=== PATIENT | female | born 1945 ===

== ENCOUNTER 2016-12-21 16:12 | Inpatient (IN) | payer MEDICARE, MEDICAID ==
--- NOTE | 2016-12-21 16:38 | ED PDOC ---
HPI: Abdomen Time Seen by Provider: 12/21/16 16:27 Chief Complaint (Nursing): Abdominal Pain Chief Complaint (Provider): Abdominal pain, no bowel movements for 2 days History Per: Patient History/Exam Limitations: no limitations Onset/Duration Of Symptoms: Days (2) Outside of [place] travel?: No Current Symptoms Are (Timing): Still Present Severity: Moderate Location Of Pain/Discomfort: Diffuse Associated Symptoms: Urinary Symptoms. denies: Nausea, Vomiting, Chest Pain Additional History Per: Patient Additional Complaint(s): The pt is a 71yo female with PMHx of Asthma, DMII, dementia, HTN, COPD, is brought to the ED by EMS for evaluation of abdominal pain due to lack of bowel movements for the past two days. Pt reports she visited her doctor and was advised to drink water to help with her urinary symptoms but pt reports no relief. She denies nausea, vomiting, headache and chest pain. Additionally, pt reports pain in her left hip - states she fell but is unsure if pain is caused by the fall. No urination for 2 days. Of note, pt was recently admitted to [facility] for PNA, UTI, dysuria hesitancy and her urine culture indicated the presence of Klebsiella penumoniae. Pt was discharged with Rx Cippro. Of note, pt is currently on a fentanyl patch. Abnormal Vaginal Bleeding: No Past Medical History Vital Signs: Last Vital Signs Temp 98.4 F 12/21/16 16:20 Pulse 82 12/21/16 16:20 Resp 20 12/21/16 16:20 BP 121/50 L 12/21/16 16:20 Pulse Ox 100 12/21/16 17:23 - Medical History PMH: Anxiety, Arthritis, Asthma, Back Problems, Bronchitis, COPD, Dementia ( Self reports forgetfulness), Depression, Diabetes, Emphysema, HTN, Hypercholesterolemia Denies: Alzheimer's Disease, Atrial Fibrillation, Bipolar Disorder, Cardia Arrhythmia, CHF, Crohn's Disease, HIV, Hyperthyroidism, Hypothyroidism, Migraine , Mitral Valve Prolapse, Multiple Sclerosis, Parkinson's Disease, Peripheral Edema, Pneumonia, Pulmonary Embolism, Chronic Kidney Disease, Seizures, Sleep Apnea, TIA - Surgical History Surgical History: Appendectomy, Cholecystectomy Denies: Pacemaker - Family History Family History: States: Unknown Family Hx - Immunization History Hx Tetanus Toxoid Vaccination: No Hx Influenza Vaccination: Yes Hx Pneumococcal Vaccination: No - Home Medications Home Medications: Ambulatory Orders Medication Instructions Recorded Furosemide 40 mg PO DAILY 02/03/14 Ipratropium/Albuterol Sulfate 3 ml IH Q4 02/03/14 [Duoneb 0.5 mg-3 mg/3 ml Soln] Simvastatin 20 mg PO HS 02/03/14 Xanax 0.5 mg PO TID 02/21/14 Plavix 75 mg PO DAILY 06/05/14 oxyCODONE 30 mg PO Q6H PRN 06/05/14 Theophylline 200 mg PO BID 07/24/15 Insulin Detemir [Levemir] 35 unit SC HS #0 unit 07/30/15 Montelukast [Singulair] 10 mg PO HS #0 tab 07/30/15 fentaNYL 50 mcg/hr [Duragesic 1 patch TD Q72H #0 patch 12/27/15 Patch 50 mcg/hr] Budesonide/Formoterol Fumarate 1 aer IH BID 12/11/16 [Symbicort] Famotidine [Pepcid] 20 mg PO BID 12/11/16 Gabapentin 300 mg PO TID 12/11/16 Insulin Aspart, Recombinant 14 unit SC AC 12/11/16 [Novolog] Linagliptin [Tradjenta] 5 mg PO DAILY 12/11/16 PARoxetine [Paxil CR] 12.5 mg PO DAILY 12/11/16 Tiotropium [place] [Spiriva] 18 mcg IH DAILY 12/11/16 Valsartan/Hydrochlorothiazide 1 tab PO DAILY 12/11/16 [Valsartan and Hydrochlorothiazide 12.5 mg-80 ] - Allergies Allergies/Adverse Reactions: Allergies Allergy/AdvReac Type Severity Reaction Status Date / Time FISH Allergy ITCHING Verified 12/21/16 17:32 iodine Allergy ITCHING Verified 12/21/16 17:32 Review of Systems ROS Statement: Except As Marked, All Systems Reviewed And Found Negative Constitutional: Negative for: Fever Cardiovascular: Negative for: Chest Pain Gastrointestinal: Positive for: Abdominal Pain, Other (no bowel movement for 2 days). Negative for: Nausea, Vomiting Neurological: Negative for: Headache Physical Exam - Reviewed Nursing Documentation Reviewed: Yes Vital Signs Reviewed: Yes - Physical Exam Appears: Positive for: Well, Non-toxic, Uncomfortable Head Exam: Positive for: ATRAUMATIC Skin: Positive for: Normal Color Eye Exam: Positive for: Normal appearance ENT: Positive for: Normal ENT Inspection Neck: Positive for: Normal, Supple Cardiovascular/Chest: Positive for: Regular Rate, Rhythm Respiratory: Positive for: Normal Breath Sounds. Negative for: Respiratory Distress Gastrointestinal/Abdominal: Positive for: Soft, Tenderness (diffuse abdominal tenderness, left hip tenderness), Distended (mild) Back: Positive for: Normal Inspection. Negative for: L CVA Tenderness, R CVA Tenderness Extremity: Positive for: Tenderness (L hip), Other (3/5 motor strength to b/l lower extremities). Negative for: Pedal Edema, Deformity, Swelling Neurologic/Psych: Positive for: Alert, rater associate II-XII (intact). Negative for: Motor /Sensory Deficits - Laboratory Results Result Diagrams: 12/21/16 17:10 12/21/16 17:10 - ECG O2 Sat by Pulse Oximetry: 100 Pulse Ox Interpretation: Normal - Progress ED Course And Treament: 1905: Labs significantly abnormal and could be poor sample as pt. is a hard stick. Will repeat. Dr. Beck to fu on labs, imaging. Medical Decision Making Medical Decision Making: Time: 1635 Impression: 71yo female with urinary and fecal retention for 2 days Plan: -- CMP -- Lipase -- CT AP -- OIV FLuids -- XR Left Hip -- XR Left Femur -- Urinalysis -- Blood culture -- Urine culture --Reassess Scribe Attestation: Documented by Suzette Mills acting as a scribe for Brendon Sepulveda MD Provider Scribe Attestation: All medical record entries made by the Scribe were at my direction and personally dictated by me. I have reviewed the chart and agree that the record accurately reflects my personal performance of the history, physical exam, medical decision making, and the department course for this patient. I have also personally directed, reviewed, and agree with the discharge instructions and disposition. Disposition - Clinical Impression Clinical Impression: Abdominal pain - Patient ED Disposition Is Patient to be Admitted: Transfer of Care - Disposition Disposition: Transfer of Care Disposition Time: 19:08 Condition: STABLE Patient Signed Over To: Kaleb Beck
[2016-12-21] MEDS ORDERED: Sodium Chloride 0.9% 500 ML IV STA (16:39)
[2016-12-21] MEDS ORDERED: Iohexol 240 (50 ml) PO ONE (16:42)
[2016-12-21 17:24] LABS: BASO % 0.3 % (0.0-2.0); EOS # 0.3 K/uL (0.0-0.7); EOS % 1.8 % (0.0-4.0); HEMATOCRIT 38.9 % (34.0-47.0); LYMPH # 2.4 K/uL (1.0-4.3); LYMPH % 14.2 % (20.0-40.0); MEAN CELL VOLUME 92.7 fl (81.0-99.0); MEAN CORPUSCULAR HEMOGLOBIN 29.1 pg (27.0-31.0); MEAN CORPUSCULAR HGB CONC 31.4 g/dL (33.0-37.0); MONO % 11.9 % (0.0-10.0); NEUT # 12.1 K/uL (1.8-7.0); NEUT % 71.8 % (50.0-75.0); NRBC % 0.1 % (0.0-0.0); RED CELL DISTRIBUTION WIDTH 12.8 % (11.5-14.5); WHITE BLOOD COUNT 16.9 K/uL (4.8-10.8)
[2016-12-21 17:30] LABS: ALB/GLOB RATIO 1.1 (1.0-2.1); BILIRUBIN,TOTAL 1.1 mg/dl (0.2-1.3); CALCIUM 8.6 mg/dL (8.4-10.2); POTASSIUM 5.8 MMOL/L (3.6-5.0); TOTAL PROTEIN 7.3 G/DL (6.3-8.2)
[2016-12-21 17:40] LABS: RBC URINE 2 /hpf (0-3); URINE BACTERIA RARE (<OCC); URINE BILIRUBIN NEGATIVE (NEGATIVE); URINE BLOOD NEGATIVE (NEGATIVE); URINE COLOR AMBER (YELLOW); URINE GLUCOSE (UA) NEG (Normal); URINE KETONE NEGATIVE (NEGATIVE); URINE LEUKOCYTE ESTERASE NEG Leu/uL (Negative); URINE PROTEIN 30 mg/dL (NEGATIVE); URINE UROBILINOGEN 0.2-1.0 mg/dL (0.2-1.0); WBC URINE 5 /hpf (0-5)
--- NOTE | 2016-12-21 19:15 | ED PDOC ---
- Laboratory Results Result Diagrams: 12/22/16 05:00 12/22/16 04:20 - ECG O2 Sat by Pulse Oximetry: 100 - Critical Care Total Time (In Min): 30 Medical Decision Making Medical Decision Making: Receiving Sign Out: Pt signed over to my by Dr. Sepulveda pending repeat labs, imaging and admission. 2230: CT A/P impression: 1. Diverticulosis without CT evidence of diverticulitis. 2. Mild gastric wall thickening vs underdistention. Clinical correlation is needed. 3. Apparent prominence of common bile duct. Suggest ultrasound. 4. Incidental/non-acute findings are described above. 2314: Informed patient and family and reviewed previous charts. Patient has hx of COPD, HTN, diabetes, obesity and here with abdominal pain noted to be in acute renal failure. BUN and creatinine 102/8.7 compared to on 12/16/2016 it was 22/0.5 and this is acute change. Armas in place and needs renal workup. Neymar Khan requests Dr. Moss be aware. Dr. Jones is covering for Dr. Moss and will see patient in AM (spoke to her) No further recommendations at this time. Patient admitted to the ICU under Neymar Khan. vRad readings: 2325: XR left hip impression: 1. No fracture. 2. If hip pain persists, consider MRI to exclude occult fracture/internal derangement. 3. Incidental/non-acute findings are described above. XR left femur impression: 1. No fracture. 2. Incidental/non-acute findings are described above. CXR impression: 1. Mild cardiomegaly. 2. Questionable pulmonary nodule. Suggest CT followup. 3. Incidental/non-acute findings are described above. DX acute renal failure Scribe Attestation: Documented by Suzette Mills acting as a scribe for Kaleb Beck MD. Provider Attestation: All medical record entries made by the Scribe were at my direction and personally dictated by me. I have reviewed the chart and agree that the record accurately reflects my personal performance of the history, physical exam, medical decision making, and the department course for this patient. I have also personally directed, reviewed, and agree with the discharge instructions and disposition. Disposition - Clinical Impression Clinical Impression: Acute renal failure - POA Present On Arrival: None - Disposition Disposition: Admitted as In-Patient Disposition Time: :00 Condition: STABLE Progress Note - Review of Symptoms Events since last encounter: 2229 CT AP IMPRESSION: 1. Diverticulosis without CT evidence of diverticulitis. 2. Mild gastric wall thickening vs underdistention. Clinical correlation is needed. 3. Apparent prominence of common bile duct. Suggest ultrasound. 4. Incidental/non-acute findings are described above.
[2016-12-21 19:20] LABS: BASO # 0.1 K/uL (0.0-0.2); BASO % 0.6 % (0.0-2.0); EOS # 0.3 K/uL (0.0-0.7); EOS % 1.6 % (0.0-4.0); HEMATOCRIT 35.9 % (34.0-47.0); LYMPH # 2.1 K/uL (1.0-4.3); LYMPH % 12.5 % (20.0-40.0); MEAN CELL VOLUME 91.9 fl (81.0-99.0); MEAN CORPUSCULAR HEMOGLOBIN 29.4 pg (27.0-31.0); MEAN PLATELET VOLUME 8.1 fl (7.2-11.7); MONO # 1.9 K/uL (0.0-0.8); MONO % 11.2 % (0.0-10.0); NEUT # 12.5 K/uL (1.8-7.0); NEUT % 74.1 % (50.0-75.0); RED CELL DISTRIBUTION WIDTH 12.7 % (11.5-14.5); WHITE BLOOD COUNT 16.9 K/uL (4.8-10.8)
[2016-12-21] MEDS ORDERED: Iohexol 240 (50 ml) ONE (19:20)
[2016-12-21 19:31] LABS: ALB/GLOB RATIO 1.1 (1.0-2.1); BILIRUBIN,TOTAL 0.9 mg/dl (0.2-1.3); CALCIUM 8.5 mg/dL (8.4-10.2); POTASSIUM 5.1 MMOL/L (3.6-5.0); TOTAL PROTEIN 6.7 G/DL (6.3-8.2)
[2016-12-21 19:57] LABS: PARTIAL THROMBOPLASTIN TIME 28.8 SECONDS (23.3-32.5)
--- NOTE | 2016-12-21 22:30 | CT ---
EXAM: CT Abdomen and Pelvis With Intravenous Contrast CLINICAL HISTORY: 71 years old, female; Pain; Abdominal pain; Generalized TECHNIQUE: Axial computed tomography images of the abdomen and pelvis with intravenous contrast. This CT exam was performed using one or more of the following dose reduction techniques: automated exposure control, adjustment of the mA and/or kV according to patient size, and/or use of iterative reconstruction technique. Coronal and sagittal reformatted images were created and reviewed. CONTRAST: 0 mL of ORAL OMNI administered intravenously. COMPARISON: No relevant prior studies available. FINDINGS: Limitations: Lack of intravenous contrast. Lower thorax: Mild peripheral atelectasis/scarring. RIGHT lower lobe calcified granuloma. ABDOMEN: Liver: Fatty infiltration. Small hepatic calcification. Gallbladder and bile ducts: Gallbladder not visualized. Apparent prominence of common bile duct. Pancreas: No ductal dilation. No mass. Spleen: No splenomegaly. Adrenals: No mass. Kidneys and ureters: Mild stranding about kidneys, nonspecific. No renal calculi. Small RIGHT renal angiomyolipoma. No hydronephrosis. Stomach and bowel: Scattered diverticula within colon. No associated inflammatory stranding. Mild mural thickening versus underdistention of gastric antrum. No obstruction. Appendix: No findings to suggest acute appendicitis. PELVIS: Bladder: Collapsed bladder with Armas catheter. Reproductive: Hysterectomy. ABDOMEN and PELVIS: Intraperitoneal space: No significant fluid collection. No free air. Bones/joints: Postsurgical changes of lumbar spine. No acute fracture. Soft tissues: Unremarkable. Vasculature: Mild atherosclerotic disease. No abdominal aortic aneurysm. Lymph nodes: No pathologically enlarged lymph nodes. IMPRESSION: 1. Diverticulosis without CT evidence of diverticulitis. 2. Mild gastric wall thickening vs underdistention. Clinical correlation is needed. 3. Apparent prominence of common bile duct. Suggest ultrasound. 4. Incidental/non-acute findings are described above.
--- NOTE | 2016-12-21 23:26 | RAD ---
EXAM: XR Left Femur, 2 Views CLINICAL HISTORY: 71 years old, female; Pain; Thigh; Left TECHNIQUE: Frontal and lateral views of the left femur. COMPARISON: No relevant prior studies available. FINDINGS: Bones/joints: No acute fracture. Degenerative changes of knee joint. No dislocation. Soft tissues: Unremarkable. IMPRESSION: 1. No fracture. 2. Incidental/non-acute findings are described above.
--- NOTE | 2016-12-21 23:26 | RAD ---
EXAM: XR Left Hip With Pelvis When Performed, 2 or 3 Views CLINICAL HISTORY: 71 years old, female; Pain; Hip pain; Left hip TECHNIQUE: Two or three views of the left hip, with pelvis when performed. COMPARISON: No relevant prior studies available. FINDINGS: Limitations: Suboptimal evaluation of femoral neck due to external rotation of hip. Bones/joints: No acute fracture. No dislocation. Postsurgical changes of lumbar spine. Soft tissues: Unremarkable. IMPRESSION: 1. No fracture. 2. If hip pain persists, consider MRI to exclude occult fracture/internal derangement. 3. Incidental/non-acute findings are described above.
--- NOTE | 2016-12-21 23:30 | RAD ---
EXAM: XR Chest, 1 View CLINICAL HISTORY: 71 years old, female; Pain; Other: Abd pain; Additional info: Eval abd pain TECHNIQUE: Frontal view of the chest. COMPARISON: CR - ABDOMEN SERIES WITH PA CHEST 04/12/2008 5:26:39 PM FINDINGS: Limitations: Radiographic technique - mild. Lungs: Mild underinflation. No consolidation. Possible LEFT basilar calcified granuloma. Questionable subcentimeter peripheral LEFT upper lobe nodule versus confluence. Pleural space: No definite pleural effusion. No pneumothorax. Heart: Apparent mild cardiomegaly. Mediastinum: Unremarkable. Bones/joints: Postsurgical changes of cervical spine. No acute fracture. Tubes, lines and devices: Central venous catheter with tip projected over SVC. IMPRESSION: 1. Mild cardiomegaly. 2. Questionable pulmonary nodule. Suggest CT followup. 3. Incidental/non-acute findings are described above.
[2016-12-21] MEDS ORDERED: Sodium Chloride 0.9% 1,000 ML IV STA (23:37)
--- NOTE | 2016-12-21 23:53 | CP.PCM.CON ---
History of Present Illness - History of Present Illness History of Present Illness: Attending: Luca Hurst MD Reason for Consult: Critical care management Chief Complaint: Back pain/ Abdominal pain/ No urination HPI: The hx is obtained from the patient and the Medical records. She is a 71 years old female with hx of Asthma, COPD with Emphysema, DM II, Chronic back pain and CYNDI who was admitted at the [facility] on 12/11/16 diagnosis of klebsiella pneumoniae UTI and discharged on the 12/16/16 with Ciprofloxacin. She now comes with 2 days of Abdominal and back pain of poor description associated with Constipation, no urination. Of note she suffers with urinary incontinence. No fever, dysuria, nausea ,vomits, Chest pain. She does refer pain at the left hip after fall. PMH: Anxiety, Depression; Arthritis; Asthma, COPD with Emphysema; Chronic Back Pain; Dementia (Self reports forgetfulness), DM II; HTN; HLD; CYNDI; TIA; GERD; incontinence using diapers PSH: appendectomy; Cholecystectomy; Back surgery; Surgery to both eyes SH: Former smoker 2PPD x30 years Quit 5 years ago; No ETOH: No illegal drug use ; Live with daughter; walks with walker FH: Mother, father and brother cancers Allergies: Iodine, Fish Review of Systems - Review of Systems Systems not reviewed;Unavailable: Dementia Review of Systems: Review of systems is limited because of her dementia. - Constitutional Constitutional: absent: Headache - EENT Eyes: Requires Corrective Lenses Ears: absent: Ear Discharge, Ear Pain Nose/Mouth/Throat: absent: Epistaxis, Nasal Congestion, Nasal Discharge - Cardiovascular Cardiovascular: absent: Chest Pain, Edema - Respiratory Respiratory: absent: Cough, Wheezing, Stridor - Gastrointestinal Gastrointestinal: Abdominal Pain. absent: Diarrhea, Nausea, Vomiting - Genitourinary Genitourinary: Urinary Incontinence, Freq UTI Additional comments: Urinary retention - Musculoskeletal Musculoskeletal: Back Pain - Integumentary Integumentary: absent: Pruritus, Rash, Skin Ulcer, Sores - Neurological Neurological: absent: Confusion, Focal Weakness, Headaches - Psychiatric Psychiatric: Anxiety, Depression - Endocrine Endocrine: absent: Palpitations - Hematologic/Lymphatic Hematologic: absent: Easy Bleeding Past Patient History - Infectious Disease Hx of Infectious Diseases: None - Tetanus Immunizations Tetanus Immunization: Unknown - Past Medical History & Family History Past Medical History?: Yes - Past Social History Smoking Status: Former Smoker Chewing Tobacco Use: No Cigar Use: No Alcohol: None Drugs: Denies Home Situation {Lives}: With Family - CARDIAC Hx Atrial Fibrillation: No Hx Cardia Arrhythmia: No Hx Congestive Heart Failure: No Hx Hypercholesterolemia: Yes Hx Hypertension: Yes Hx Mitral Valve Prolapse: No Hx Pacemaker: No Hx Peripheral Edema: No - PULMONARY Hx Asthma: Yes Hx Bronchitis: Yes Hx Chronic Obstructive Pulmonary Disease (COPD): Yes Hx Emphysema: Yes Hx Pneumonia: No Hx Pulmonary Embolism: No Hx Sleep Apnea: No - NEUROLOGICAL Hx Alzheimer's Disease: No Hx Dementia: Yes (Self reports forgetfulness) Hx Migraine: No Hx Multiple Sclerosis: No Hx Parkinson's Disease: No Hx Seizures: No Hx Transient Ischemic Attacks (TIA): No - HEENT Hx HEENT Problems: No Hx Blind: No Hx Cataracts: Yes (Had surgery both eyes) Hx Deafness: No Hx Glaucoma: No Hx Macular Degeneration: No - RENAL Hx Chronic Kidney Disease: No - ENDOCRINE/METABOLIC Hx Hyperthyroidism: No Hx Hypothyroidism: No - HEMATOLOGICAL/ONCOLOGICAL Hx Blood Disorders: No Hx Human Immunodeficiency Virus (HIV): No - INTEGUMENTARY Hx Dermatological Problems: No - MUSCULOSKELETAL/RHEUMATOLOGICAL Hx Arthritis: Yes - GASTROINTESTINAL Hx Crohn's Disease: No - GENITOURINARY/GYNECOLOGICAL Hx Genitourinary Disorders: No Hx Bladder Cancer: No Hx Bladder Stone: No Hx Cervical Cancer: No Hx Incontinence: Yes (uses diapers at home for incontinence at times) Hx Ovarian Cancer: No Hx Uterine Cancer: No - PSYCHIATRIC Hx Anxiety: Yes Hx Bipolar Disorder: No Hx Depression: Yes - SURGICAL HISTORY Hx Appendectomy: Yes Hx Cholecystectomy: Yes Other/Comment: Back surgery - ANESTHESIA Hx Anesthesia: Yes Hx Anesthesia Reactions: No Hx Malignant Hyperthermia: No Meds Allergies/Adverse Reactions: Allergies Allergy/AdvReac Type Severity Reaction Status Date / Time FISH Allergy ITCHING Verified 12/21/16 17:32 iodine Allergy ITCHING Verified 12/21/16 17:32 - Medications Medications: Current Medications Albuterol/Ipratropium (Duoneb 3 Mg/0.5 Mg (3 Ml) Ud) 3 ml IH Q4 [facility] Famotidine (Pepcid) 20 mg PO BID [facility] Fentanyl (Duragesic) 1 patch TD Q72H [facility] PRN Reason: Protocol Gabapentin (Neurontin) 300 mg PO TID [facility] Home Med (Budesonide/Formoterol Fumarate [Symbicort 160-4.5 Mcg Inhaler]) 1 aer IH BID [facility] (Insulin Aspart, Recombinant [Novolog]) 14 unit SC AC [facility] (Insulin Detemir [Levemir]) 35 unit SC HS [facility] (Linagliptin [Tradjenta]) 5 mg PO DAILY [facility] (Paroxetine [Paxil Cr]) 12.5 mg PO DAILY [facility] (Plavix) 75 mg PO DAILY [facility] (Simvastatin [Simvastatin]) 20 mg PO HS [facility] (Theophylline) 200 mg PO BID [facility] (Tiotropium [place] [Spiriva]) 18 mcg IH DAILY [facility] (Xanax) 0.5 mg PO TID [facility] Sodium Chloride (Sodium Chloride 0.9%) 1,000 mls @ 150 mls/hr IV .Q6H40M STA Stop: 12/22/16 06:16 Montelukast Sodium (Singulair) 10 mg PO HS [facility] Physical Exam - Constitutional Appears: No Acute Distress - Head Exam Head Exam: ATRAUMATIC, NORMAL INSPECTION, NORMOCEPHALIC - Eye Exam Eye Exam: EOMI, Normal appearance Pupil Exam: NORMAL ACCOMODATION, PERRL - ENT Exam ENT Exam: Mucous Membranes Dry, Normal External Ear Exam, Normal Oropharynx - Neck Exam Neck exam: Positive for: Full Rom, Normal Inspection. Negative for: Lymphadenopathy, Tenderness - Respiratory Exam Respiratory Exam: Clear to Auscultation Bilateral. absent: Rales, Rhonchi, Wheezes Additional comments: Right upper chest wall Portacath in place, accessed in ED. - Cardiovascular Exam Cardiovascular Exam: REGULAR RHYTHM, RRR, +S1, +S2. absent: Gallop - GI/Abdominal Exam GI & Abdominal Exam: absent: Mass, Organomegaly Additional comments: Obese, Soft, nontender, +ve bowel sounds. - Rectal Exam Rectal Exam: Deferred - Extremities Exam Extremities exam: Positive for: full ROM, normal inspection - Back Exam Back exam: NORMAL INSPECTION. absent: CVA tenderness (L), CVA tenderness (R) - Neurological Exam Neurological exam: Alert, CN II-XII Intact, Oriented x3, Reflexes Normal - Psychiatric Exam Psychiatric exam: Normal Affect, Normal Mood - Skin Skin Exam: Dry, Intact, Normal Color, Warm Results - Vital Signs Recent Vital Signs: Last Vital Signs Temp 98.2 F 12/21/16 23:20 Pulse 113 H 12/21/16 23:25 Resp 16 12/21/16 23:25 BP 108/49 L 12/21/16 23:25 Pulse Ox 100 12/21/16 23:41 - Labs Result Diagrams: 12/21/16 19:10 12/21/16 19:10 Labs: Laboratory Results - last 24 hr 12/21/16 12/21/16 12/21/16 17:10 17:30 19:10 WBC 16.9 H 16.9 H RBC 4.20 3.91 Hgb 12.2 11.5 L Hct 38.9 35.9 MCV 92.7 91.9 MCH 29.1 29.4 MCHC 31.4 L 32.0 L RDW 12.8 12.7 Plt Count 290 303 MPV 8.0 8.1 Neut % (Auto) 71.8 74.1 Lymph % (Auto) 14.2 L 12.5 L [place] % (Auto) 11.9 H 11.2 H Eos % (Auto) 1.8 1.6 Baso % (Auto) 0.3 0.6 Neut # 12.1 H 12.5 H Lymph # 2.4 2.1 [place] # 2.0 H 1.9 H Eos # 0.3 0.3 Baso # 0.0 0.1 PT 10.5 INR 1.01 APTT 28.8 Sodium 127 L 125 L Potassium 5.8 H 5.1 H Chloride 78 L 79 L Carbon Dioxide 27 28 Anion Gap 28 H 23 H BUN 106 H* 102 H* Creatinine 8.4 H* 8.7 H* Est GFR ( Amer) 6 5 Est GFR (Non-Af Amer) 5 4 Random Glucose 80 99 Calcium 8.6 8.5 Total Bilirubin 1.1 0.9 AST 31 33 ALT 36 37 Alkaline Phosphatase 103 103 Total Protein 7.3 6.7 Albumin 3.7 3.4 L Globulin 3.6 3.2 Albumin/Globulin Ratio 1.1 1.1 Lipase 63 Urine Color [place] Urine Clarity Cloudy Urine pH 5.0 Ur Specific [place] 1.013 Urine Protein 30 Urine Glucose (UA) Neg Urine Ketones Negative Urine Blood Negative Urine Nitrate Negative Urine Bilirubin Negative Urine Urobilinogen 0.2-1.0 Ur Leukocyte Esterase Neg Urine RBC (Auto) 2 Urine Microscopic WBC 5 Ur Squamous Epith Cells 1 Urine Bacteria Rare Hyaline Casts 6-10 H - EKG Data EKG comments: NSR at 76/min - Imaging and Cardiology CT scan - abdomen Status: Report reviewed by me Additional comment: CT A/P impression: 1. Diverticulosis without CT evidence of diverticulitis. 2. Mild gastric wall thickening vs underdistention. Clinical correlation is needed. 3. Apparent prominence of common bile duct. Suggest ultrasound. Chest x-ray Status: Report reviewed by me Additional comment: Mild Cardiomegaly Questionable pulmonary Nodule. Left Hip& Pelvis X Ray Status: Report reviewed by me Additional comment: No Fracture Left Femur Status: Report reviewed by me Additional comment: No fracture Assessment & Plan - Assessment and Plan (Free Text) Assessment: #. Acute Renal failure #. Acute urinary Retention #. Chronic Back pain #. Hyponatremia #. Leukocytosis #. Hyperkalemia #. DM II #. COPD with Emphysema #. CYNDI #. Depression and Anxiety disorder # Dementia Plan: 71 years old female with hx of Asthma, COPD with Emphysema, DM II, Chronic back pain and CYNDI who was admitted at the [facility] on 12/11/16 diagnosis of klebsiella pneumoniae UTI and discharged on the 12/16/16 with Ciprofloxacin. Comes with 2 days of Abdominal and back pain of poor description associated with Constipation, anuria. She does refer pain at the left hip after fall. #. Acute Renal failure Probably renal and Pre renal secondary to Cipro and poor fluid intake, And patient on Lasix. There was no use of X Ray dyes at the most recent admission - Admit to ICU - Consult Dr Moss Nephrology -beck catheter inserted in ED - I&O continuously - 500mls NS given at ED followed by 150mls/hr - Blood pressure fell to SBP 60mmHG. 2L of NS ordered and with Patient in [place] SBP increased to 88mmhg. The Levophed ordered was placed on hold #. Chronic Back pain - Continue Fentanyl patch #. Traumatic left hip pain - Pain management - and when appropriate Physical Therapy #. Hyponatremia Probably from drinking of hypotonic fluids - continue Normal Saline - Follow electrolytes #. Leukocytosis reactive - follow Blood and urine culture - follow WBC #. Hyperkalemia caused by the renal failure - Follow Renal labs #. DM II - HbA1c 7.6 on 12/11/16 - Diabetic diet - Accucheck with regular insulin sciding scale - Januvia/Levemir #. Asthma/COPD with Emphysema - Singulair/Advair/ Theophyllin/ Duoneb/ #. CYNDI - Will need CPAP for Sleep #. Depression and Anxiety disorder - Paroxetine #. DVT Prophylaxis with Heparin /SCD #.Code Status : Full - Date & Time Date: 12/21/16 Time: 23:53
[2016-12-22 01:58] VITALS: BMI 49.4
[2016-12-22] MEDS ORDERED: Sodium Chloride 0.9% 1,000 ML IV SCH ×2 (02:00→03:00)
[2016-12-22 05:55] LABS: BASO # 0.1 K/uL (0.0-0.2); BASO % 0.6 % (0.0-2.0); EOS # 0.3 K/uL (0.0-0.7); EOS % 2.2 % (0.0-4.0); HEMATOCRIT 31.5 % (34.0-47.0); LYMPH # 1.8 K/uL (1.0-4.3); MEAN CELL VOLUME 92.5 fl (81.0-99.0); MEAN CORPUSCULAR HEMOGLOBIN 28.9 pg (27.0-31.0); MEAN CORPUSCULAR HGB CONC 31.2 g/dL (33.0-37.0); MEAN PLATELET VOLUME 8.1 fl (7.2-11.7); MONO # 1.6 K/uL (0.0-0.8); MONO % 12.6 % (0.0-10.0); NEUT # 8.6 K/uL (1.8-7.0); NEUT % 69.6 % (50.0-75.0); RED CELL DISTRIBUTION WIDTH 12.3 % (11.5-14.5); WHITE BLOOD COUNT 12.3 K/uL (4.8-10.8)
[2016-12-22 06:09] LABS: BILIRUBIN,TOTAL 1.1 mg/dl (0.2-1.3); CALCIUM 6.8 mg/dL (8.4-10.2); TOTAL PROTEIN 5.4 G/DL (6.3-8.2)
[2016-12-22] MEDS: Insulin Lispro (humaLOG) 100 Units/ml Inj SC SCH ×3 (06:32→18:18)
--- NOTE | 2016-12-22 07:19 | CP.PCM.HP ---
History of Present Illness - History of Present Illness History of Present Illness: pt admitted for icu for arf and copd exacerbation. pt was placed on levophed overnight for hypotension at present is w/o distress. c/o chronic back pain. pt has been using ibuprofen tid for pain. pt is curtis cruz. seen at bedside w icu attending. last bw from 11/18/16 bun-8 cr 0.5 pt has extensive med hx. no pain/distress except chronic pain at this time. no f/c, nv//d.mild cough. imaing reviewed. Present on Admission - Present on Admission Any Indicators Present on Admission: Yes History of Uncontrolled Diabetes: Yes Review of Systems - Respiratory Respiratory: As Per HPI, Cough, Chest Congestion Past Patient History - Infectious Disease Hx of Infectious Diseases: None - Tetanus Immunizations Tetanus Immunization: Unknown - Past Medical History & Family History Past Medical History?: Yes - Past Social History Smoking Status: Former Smoker Chewing Tobacco Use: No Cigar Use: No Alcohol: None Drugs: Denies Home Situation {Lives}: With Family - CARDIAC Hx Atrial Fibrillation: No Hx Cardia Arrhythmia: No Hx Congestive Heart Failure: No Hx Hypercholesterolemia: Yes Hx Hypertension: Yes Hx Mitral Valve Prolapse: No Hx Pacemaker: No Hx Peripheral Edema: No - PULMONARY Hx Asthma: Yes Hx Bronchitis: Yes Hx Chronic Obstructive Pulmonary Disease (COPD): Yes Hx Emphysema: Yes Hx Pneumonia: No Hx Pulmonary Embolism: No Hx Sleep Apnea: No - NEUROLOGICAL Hx Alzheimer's Disease: No Hx Dementia: Yes (Self reports forgetfulness) Hx Migraine: No Hx Multiple Sclerosis: No Hx Parkinson's Disease: No Hx Seizures: No Hx Transient Ischemic Attacks (TIA): No - HEENT Hx HEENT Problems: No Hx Blind: No Hx Cataracts: Yes (Had surgery both eyes) Hx Deafness: No Hx Glaucoma: No Hx Macular Degeneration: No - RENAL Hx Chronic Kidney Disease: No - ENDOCRINE/METABOLIC Hx Hyperthyroidism: No Hx Hypothyroidism: No - HEMATOLOGICAL/ONCOLOGICAL Hx Blood Disorders: No Hx Human Immunodeficiency Virus (HIV): No - INTEGUMENTARY Hx Dermatological Problems: No - MUSCULOSKELETAL/RHEUMATOLOGICAL Hx Arthritis: Yes - GASTROINTESTINAL Hx Crohn's Disease: No - GENITOURINARY/GYNECOLOGICAL Hx Genitourinary Disorders: No Hx Bladder Cancer: No Hx Bladder Stone: No Hx Cervical Cancer: No Hx Incontinence: Yes (uses diapers at home for incontinence at times) Hx Ovarian Cancer: No Hx Uterine Cancer: No - PSYCHIATRIC Hx Anxiety: Yes Hx Bipolar Disorder: No Hx Depression: Yes - SURGICAL HISTORY Hx Appendectomy: Yes Hx Cholecystectomy: Yes Other/Comment: Back surgery - ANESTHESIA Hx Anesthesia: Yes Hx Anesthesia Reactions: No Hx Malignant Hyperthermia: No Meds Allergies/Adverse Reactions: Allergies Allergy/AdvReac Type Severity Reaction Status Date / Time FISH Allergy ITCHING Verified 12/21/16 17:32 iodine Allergy ITCHING Verified 12/21/16 17:32 Physical Exam - Constitutional Appears: Well, Non-toxic, No Acute Distress - Head Exam Head Exam: ATRAUMATIC, NORMAL INSPECTION, NORMOCEPHALIC - Eye Exam Eye Exam: EOMI, Normal appearance, PERRL Pupil Exam: NORMAL ACCOMODATION, PERRL - ENT Exam ENT Exam: Mucous Membranes Moist, Normal Exam - Neck Exam Neck exam: Positive for: Normal Inspection - Respiratory Exam Respiratory Exam: Wheezes, NORMAL BREATHING PATTERN - Cardiovascular Exam Cardiovascular Exam: REGULAR RHYTHM, RRR, +S1, +S2 - GI/Abdominal Exam GI & Abdominal Exam: Normal Bowel Sounds, Soft. absent: Tenderness - Extremities Exam Extremities exam: Positive for: full ROM, normal capillary refill, normal inspection, pedal pulses present - Back Exam Back exam: NORMAL INSPECTION - Neurological Exam Neurological exam: Alert, CN II-XII Intact, Normal Gait, Oriented x3, Reflexes Normal - Psychiatric Exam Psychiatric exam: Normal Affect, Normal Mood - Skin Skin Exam: Dry, Intact, Normal Color, Warm Results - Vital Signs Recent Vital Signs: Last Vital Signs Temp 98 F 12/22/16 00:55 Pulse 80 12/22/16 06:00 Resp 18 12/22/16 06:00 BP 88/40 L 12/22/16 06:00 Pulse Ox 100 12/22/16 06:21 - Labs Result Diagrams: 12/22/16 05:00 12/22/16 04:20 Labs: Laboratory Results - last 24 hr 12/22/16 12/22/16 12/22/16 04:20 05:00 06:28 WBC 12.3 H RBC 3.41 L Hgb 9.8 L Hct 31.5 L MCV 92.5 MCH 28.9 MCHC 31.2 L RDW 12.3 Plt Count 261 MPV 8.1 Neut % (Auto) 69.6 Lymph % (Auto) 15.0 L [place] % (Auto) 12.6 H Eos % (Auto) 2.2 Baso % (Auto) 0.6 Neut # 8.6 H Lymph # 1.8 [place] # 1.6 H Eos # 0.3 Baso # 0.1 Sodium 127 L Potassium 5.0 Chloride 85 L Carbon Dioxide 25 Anion Gap 22 H BUN 98 H Creatinine 8.0 H* Est GFR ( Amer) 6 Est GFR (Non-Af Amer) 5 POC Glucose (mg/dL) 120 H Random Glucose 106 H Calcium 6.8 L Total Bilirubin 1.1 AST 100 H D ALT 70 H D Alkaline Phosphatase 243 H D Total Protein 5.4 L Albumin 2.6 L D Globulin 2.7 Albumin/Globulin Ratio 1.0 Assessment & Plan (1) Acute renal failure Assessment and Plan: icu care, neprho ivf ?? need for emergent dialysis unkn etiology Status: Acute (2) CHF (congestive heart failure) Assessment and Plan: cont meds, cardio Status: Acute (3) COPD (chronic obstructive pulmonary disease) Assessment and Plan: duonebs o2 prn Status: Acute (4) Chronic back pain Assessment and Plan: fetanyl Status: Acute (5) Diabetes 1.5, managed as type 1 Assessment and Plan: riss, home meds icu care Status: Chronic (6) DVT prophylaxis Assessment and Plan: scd and ae hose lovenox Status: Acute Decision To Admit - Pt Status Changed To: Hospital Disposition Of: Inpatient - Admit Certification Admit to Inpatient:: After my assessment, the patient will require hospitalization for at least two midnights. This is because of the severity of symptoms shown, intensity of services needed, and/or the medical risk in this patient being treated as an outpatient. - . Bed Request Type: Intensive Care Admitting Physician: Luca Hurst
[2016-12-22] MEDS ORDERED: INSULIN ASPART SC SCH (07:30)
[2016-12-22] MEDS ORDERED: [UNRECOGNIZED DRUG - OTHER] SC SCH (07:30)
[2016-12-22] MEDS: Albuterol-Ipratrop 3 mg / 0.5 (3 ml) UD IH SCH ×4 (07:36→20:54)
--- NOTE | 2016-12-22 07:37 | CARD ---
APPROVED REPORT EKG Measurement Heart [id number] <Conclusion> Normal sinus rhythm Normal ECG
[2016-12-22 08:05] LABS: ABG ALLEN TEST YES; ARTERIAL BLOOD GAS HCO3 22.2 mmol/L (21-28); ARTERIAL BLOOD GAS PH 7.29 (7.35-7.45); ARTERIAL BLOOD GAS PO2 74 mm/Hg (80-100)
[2016-12-22] MEDS ORDERED: Theophylline 200mg ER 24 hrs Cap PO SCH (09:00)
[2016-12-22] MEDS ORDERED: PLAVIX 75 MG PO SCH (09:00)
[2016-12-22] MEDS ORDERED: THEOPHYLLINE 200 MG PO SCH (09:00)
[2016-12-22] MEDS ORDERED: Patient's Own Med (Budesonide/Formoterol Fumarate [Symbicort 160-4.5 Mcg Inhaler] 1 AER) IH SCH (09:00)
[2016-12-22] MEDS ORDERED: Patient's Own Med (Linagliptin [Tradjenta] 5 MG) PO SCH (09:00)
[2016-12-22] MEDS ORDERED: TIOTROPIUM BROMIDE 18 MCG IH SCH (09:00)
[2016-12-22] MEDS ORDERED: XANAX 0.5 MG PO SCH (09:00)
[2016-12-22] MEDS ORDERED: PAROXETINE 12.5 MG PO SCH (09:00)
[2016-12-22] MEDS: Fluticasone-Salmeterol 250-50mcg Diskus IH SCH ×2 (09:11→20:21)
[2016-12-22] MEDS ORDERED: Lidocaine 1% Inj (20ml) ONE (09:38)
--- NOTE | 2016-12-22 10:02 | CP.PCM.CON ---
History of Present Illness - History of Present Illness History of Present Illness: This patient who is 71 years old I was called to see her for abnormal kidney function was rising BUN/creatinine. Serum creatinine about 8.0 and BU and above 100. This patient who was in [facility] about few days ago she was treated for what appeared to be urine infection and perhaps pyelonephritis and serum creatinine at that time was 0.5 Patient was treated with appeared to be with Cipro antibiotics and that what she was stake in since she left the hospital as well as patient has been taken what appeared to be a lot of Motrin. And the record indicated that the patient blood pressure always in the low normal in the range of systolic 100 of less most of the time. Patient complaining of nausea and not feeling good with no good appetite but no significant vomiting. PMH: hyperlipidemia, asthma, obstructive sleep apnea, bronchitis, COPD, falls, DMII, chronic back pain, depression and dementia PSH: Back surgery Family Hx: denies MIs in family, CA in mother, father and brother Social Hx: 2ppd x 30 years - quit 5 years ago. denies EtOH use. denies drug use. Review of Systems - Constitutional Constitutional: As Per HPI, Malaise, Sleep Apnea, Weight Gain, Weakness - EENT Eyes: As Per HPI Nose/Mouth/Throat: As Per HPI - Cardiovascular Cardiovascular: Dyspnea on Exertion, Leg Edema. absent: Chest Pain - Respiratory Respiratory: Dyspnea - Gastrointestinal Gastrointestinal: Abdominal Pain, Belching, Nausea. absent: Melena, Vomiting - Genitourinary Genitourinary: As Per HPI, Nocturia - Musculoskeletal Musculoskeletal: Muscle Weakness - Neurological Neurological: As Per HPI - Psychiatric Psychiatric: As Per HPI Past Patient History - Infectious Disease Hx of Infectious Diseases: None - Tetanus Immunizations Tetanus Immunization: Unknown - Past Medical History & Family History Past Medical History?: Yes - Past Social History Smoking Status: Former Smoker Chewing Tobacco Use: No Cigar Use: No Alcohol: None Drugs: Denies Home Situation {Lives}: With Family - CARDIAC Hx Atrial Fibrillation: No Hx Cardia Arrhythmia: No Hx Congestive Heart Failure: No Hx Hypercholesterolemia: Yes Hx Hypertension: Yes Hx Mitral Valve Prolapse: No Hx Pacemaker: No Hx Peripheral Edema: No - PULMONARY Hx Asthma: Yes Hx Bronchitis: Yes Hx Chronic Obstructive Pulmonary Disease (COPD): Yes Hx Emphysema: Yes Hx Pneumonia: No Hx Pulmonary Embolism: No Hx Sleep Apnea: No - NEUROLOGICAL Hx Alzheimer's Disease: No Hx Dementia: Yes (Self reports forgetfulness) Hx Migraine: No Hx Multiple Sclerosis: No Hx Parkinson's Disease: No Hx Seizures: No Hx Transient Ischemic Attacks (TIA): No - HEENT Hx HEENT Problems: No Hx Blind: No Hx Cataracts: Yes (Had surgery both eyes) Hx Deafness: No Hx Glaucoma: No Hx Macular Degeneration: No - RENAL Hx Chronic Kidney Disease: No - ENDOCRINE/METABOLIC Hx Hyperthyroidism: No Hx Hypothyroidism: No - HEMATOLOGICAL/ONCOLOGICAL Hx Blood Disorders: No Hx Human Immunodeficiency Virus (HIV): No - INTEGUMENTARY Hx Dermatological Problems: No - MUSCULOSKELETAL/RHEUMATOLOGICAL Hx Arthritis: Yes - GASTROINTESTINAL Hx Crohn's Disease: No - GENITOURINARY/GYNECOLOGICAL Hx Genitourinary Disorders: No Hx Bladder Cancer: No Hx Bladder Stone: No Hx Cervical Cancer: No Hx Incontinence: Yes (uses diapers at home for incontinence at times) Hx Ovarian Cancer: No Hx Uterine Cancer: No - PSYCHIATRIC Hx Anxiety: Yes Hx Bipolar Disorder: No Hx Depression: Yes - SURGICAL HISTORY Hx Appendectomy: Yes Hx Cholecystectomy: Yes Other/Comment: Back surgery - ANESTHESIA Hx Anesthesia: Yes Hx Anesthesia Reactions: No Hx Malignant Hyperthermia: No Meds Allergies/Adverse Reactions: Allergies Allergy/AdvReac Type Severity Reaction Status Date / Time FISH Allergy ITCHING Verified 12/21/16 17:32 iodine Allergy ITCHING Verified 12/21/16 17:32 - Medications Medications: Current Medications Albuterol/Ipratropium (Duoneb 3 Mg/0.5 Mg (3 Ml) Ud) 3 ml IH Q4 [facility] Last Admin: 12/22/16 07:36 Dose: 3 ml Alprazolam (Xanax) 0.5 mg PO TID PRN PRN Reason: Anxiety Atorvastatin Calcium (Lipitor) 10 mg PO HS [facility] Clopidogrel Bisulfate (Plavix) 75 mg PO DAILY [facility] Last Admin: 12/22/16 09:13 Dose: 75 mg Famotidine (Pepcid) 20 mg PO BID [facility] Last Admin: 12/22/16 09:13 Dose: 20 mg Fentanyl (Duragesic) 1 patch TD Q72H [facility] PRN Reason: Protocol Last Admin: 12/22/16 02:58 Dose: 1 patch Gabapentin (Neurontin) 300 mg PO TID [facility] Heparin Sodium (Porcine) (Heparin) 5,000 units SC Q8 [facility] PRN Reason: Protocol Last Admin: 12/22/16 09:12 Dose: Not Given Home Med (Paroxetine [Paxil Cr]) 12.5 mg PO DAILY [facility] Sodium Chloride (Sodium Chloride 0.9%) 1,000 mls @ 1,000 mls/hr IV .Q1H [facility] Stop: 12/23/16 02:01 Last Admin: 12/22/16 01:54 Dose: 1,000 mls/hr Norepinephrine Bitartrate 4 mg (/ Dextrose) 254 mls @ 38.1 mls/hr IV .Q6H40M [facility]; 10 MCG/MIN PRN Reason: Protocol Last Admin: 12/22/16 06:13 Dose: 38.1 mls/hr Sodium Chloride (Sodium Chloride 0.9%) 1,000 mls @ 1,000 mls/hr IV .Q1H [facility] Stop: 12/23/16 03:01 Last Admin: 12/22/16 02:56 Dose: 1,000 mls/hr Insulin Detemir (Levemir) 35 units SC HS [facility] Insulin Human Lispro (Humalog) 14 units SC AC [facility] Last Admin: 12/22/16 06:32 Dose: Not Given Montelukast Sodium (Singulair) 10 mg PO HS [facility] Fluticasone/Salmeterol (Advair Diskus 250/50) 1 puff IH Q12 [facility] Last Admin: 12/22/16 09:11 Dose: 1 puff Sitagliptin Phosphate (Januvia) 25 mg PO DAILY [facility] Last Admin: 12/22/16 09:12 Dose: 25 mg Theophylline (Stephen-24) 200 mg PO BID [facility] Tiotropium [place] (Spiriva) 18 mcg INH DAILY [facility] Physical Exam - Constitutional Appears: No Acute Distress - ENT Exam ENT Exam: Mucous Membranes Moist - Respiratory Exam Respiratory Exam: Rhonchi. absent: Chest Wall Tenderness - Cardiovascular Exam Cardiovascular Exam: REGULAR RHYTHM. absent: Rubs - GI/Abdominal Exam GI & Abdominal Exam: Firm, Normal Bowel Sounds, Soft Additional comments: Extremely OBese - Extremities Exam Extremities exam: Negative for: calf tenderness - Back Exam Back exam: absent: CVA tenderness (L), CVA tenderness (R) - Neurological Exam Neurological exam: Abnormal Gait Results - Vital Signs Recent Vital Signs: Last Vital Signs Temp 99.2 F 12/22/16 07:59 Pulse 79 12/22/16 07:59 Resp 17 12/22/16 07:59 BP 109/57 L 12/22/16 07:59 Pulse Ox 90 L 12/22/16 07:59 - Labs Result Diagrams: 12/22/16 05:00 12/22/16 04:20 Labs: Laboratory Results - last 24 hr 12/22/16 12/22/16 12/22/16 04:20 05:00 06:28 WBC 12.3 H RBC 3.41 L Hgb 9.8 L Hct 31.5 L MCV 92.5 MCH 28.9 MCHC 31.2 L RDW 12.3 Plt Count 261 MPV 8.1 Neut % (Auto) 69.6 Lymph % (Auto) 15.0 L [place] % (Auto) 12.6 H Eos % (Auto) 2.2 Baso % (Auto) 0.6 Neut # 8.6 H Lymph # 1.8 [place] # 1.6 H Eos # 0.3 Baso # 0.1 pCO2 pO2 HCO3 ABG pH ABG Total CO2 ABG O2 Saturation ABG Base Excess Lester Test ABG Potassium A-a O2 Difference Glucose Lactate FiO2 Sodium 127 L Potassium 5.0 Chloride 85 L Carbon Dioxide 25 Anion Gap 22 H BUN 98 H Creatinine 8.0 H* Est GFR ( Amer) 6 Est GFR (Non-Af Amer) 5 POC Glucose (mg/dL) 120 H Random Glucose 106 H Calcium 6.8 L Total Bilirubin 1.1 AST 100 H D ALT 70 H D Alkaline Phosphatase 243 H D Total Protein 5.4 L Albumin 2.6 L D Globulin 2.7 Albumin/Globulin Ratio 1.0 Arterial Blood Potassium 12/22/16 08:02 WBC RBC Hgb Hct MCV MCH MCHC RDW Plt Count MPV Neut % (Auto) Lymph % (Auto) [place] % (Auto) Eos % (Auto) Baso % (Auto) Neut # Lymph # [place] # Eos # Baso # pCO2 49 H pO2 74 L HCO3 22.2 ABG pH 7.29 L ABG Total CO2 25.1 ABG O2 Saturation 96.3 ABG Base Excess -3.4 L Lester Test Yes ABG Potassium 4.3 A-a O2 Difference 64.0 Glucose 116 H Lactate 0.5 L FiO2 28.0 Sodium 127.0 L Potassium Chloride 92.0 L Carbon Dioxide Anion Gap BUN Creatinine Est GFR ( Amer) Est GFR (Non-Af Amer) POC Glucose (mg/dL) Random Glucose Calcium Total Bilirubin AST ALT Alkaline Phosphatase Total Protein Albumin Globulin Albumin/Globulin Ratio Arterial Blood Potassium 4.3 Assessment & Plan - Assessment and Plan (Free Text) Assessment: Patient appears to have acute renal failure I cannot rule out acute interstitial nephritis patient has been taken antibiotics also she has been taking ibuprofen. Serum creatinine was 0.5 a few days ago when she was in [facility]. Patient also uremic nauseous and patient need hemodialysis as soon as possible. Discussed with the mortgage advisor and the dialysis catheter to be inserted arrangement has been done and to give acute dialysis perhaps today and tomorrow and to give albumin on dialysis. Urine for eosinophils order stat
--- NOTE | 2016-12-22 12:26 | CP.CCUPN ---
CCU Subjective - Physician Review Events Since Last Encounter (Free Text): 12/22/16 12:14 patient feels ok except for chronic back pain, which is currently mild. CCU Objective - Vital Signs / Intake & Output Vital Signs (Last 4 hours): Vital Signs Pulse Resp BP Pulse Ox 12/22/16 10:00 85 15 103/83 91 L Intake and Output (Last 8hrs): Intake & Output 12/21/16 12/22/16 12/22/16 22:59 06:59 14:59 Intake Total 2450 Output Total 575 325 Balance 1875 -325 Weight 263 lb Intake: IV 2450 Output: Urine 575 325 Urethral (Beck) 575 325 - Physical Exam Back: Positive for: Other (back pain) - Medications Active Medications: Active Medications Generic Name Dose Route Start Last Admin Trade Name Freq PRN Reason Stop Dose Admin Albuterol/Ipratropium 3 ml 12/22/16 01:00 12/22/16 07:36 Duoneb 3 Mg/0.5 Mg (3 Ml) Ud IH 3 ml Q4 TAYLOR Administration Alprazolam 0.5 mg 12/22/16 00:00 Xanax PO TID PRN Anxiety Atorvastatin Calcium 10 mg 12/22/16 22:00 Lipitor PO HS TAYLOR Clopidogrel Bisulfate 75 mg 12/22/16 09:00 12/22/16 09:13 Plavix PO 75 mg DAILY T[facility]OR Administration Famotidine 20 mg 12/22/16 09:00 12/22/16 09:13 Pepcid PO 20 mg BID TAYLOR Administration Fentanyl 1 patch 12/22/16 01:30 12/22/16 02:58 Duragesic TD 1 patch Q72H [facility]OR Administration Protocol Gabapentin 300 mg 12/22/16 09:00 Neurontin PO TID TAYLOR Heparin Sodium (Porcine) 5,000 units 12/22/16 01:00 12/22/16 09:12 Heparin SC Not Given Q8 T[facility]OR Protocol Home Med 12.5 mg 12/22/16 09:00 Paroxetine [Paxil Cr] PO DAILY TAYLOR Sodium Chloride 1,000 mls @ 1,000 mls/hr 12/22/16 02:00 12/22/16 01:54 Sodium Chloride 0.9% IV 12/23/16 02:01 1,000 mls/hr .Q1H TAYLOR Administration Norepinephrine Bitartrate 4 mg 254 mls @ 38.1 mls/hr 12/22/16 02:45 12/22/16 06 :13 / Dextrose IV 38.1 mls/hr .Q6H40M TAYLOR Administration Protocol 10 MCG/MIN Sodium Chloride 1,000 mls @ 1,000 mls/hr 12/22/16 03:00 12/22/16 02:56 Sodium Chloride 0.9% IV 12/23/16 03:01 1,000 mls/hr .Q1H T[facility]OR Administration Insulin Detemir 35 units 12/22/16 22:00 Levemir SC HS TAYLOR Insulin Human Lispro 14 units 12/22/16 07:30 12/22/16 06:32 Humalog SC Not Given AC TAYLOR Montelukast Sodium 10 mg 12/22/16 22:00 Singulair PO HS TAYLOR Fluticasone/Salmeterol 1 puff 12/22/16 09:00 12/22/16 09:11 Advair Diskus 250/50 IH 1 puff Q12 [facility]OR Administration Sitagliptin Phosphate 25 mg 12/22/16 09:00 12/22/16 09:12 Januvia PO 25 mg DAILY T[facility]OR Administration Theophylline 200 mg 12/22/16 09:00 Stephen-24 PO BID TAYLOR Tiotropium [place] 18 mcg 12/22/16 09:00 Spiriva INH DAILY TAYLOR - Patient Studies Lab Studies: Lab Studies 12/22/16 12/22/16 12/22/16 Range/Units 11:38 09:55 08:02 WBC (4.8-10.8) K/uL RBC (3.80-5.20) Mil/uL Hgb (12.0-16.0) g/dL Hct (34.0-47.0) % MCV (81.0-99.0) fl MCH (27.0-31.0) pg MCHC (33.0-37.0) g/dL RDW (11.5-14.5) % Plt Count (130-400) K/uL MPV (7.2-11.7) fl Neut % (Auto) (50.0-75.0) % Lymph % (Auto) (20.0-40.0) % [place] % (Auto) (0.0-10.0) % Eos % (Auto) (0.0-4.0) % Baso % (Auto) (0.0-2.0) % Neut # (1.8-7.0) K/uL Lymph # (1.0-4.3) K/uL [place] # (0.0-0.8) K/uL Eos # (0.0-0.7) K/uL Baso # (0.0-0.2) K/uL pCO2 49 H (35-45) mm/Hg pO2 74 L (80-100) mm/Hg HCO3 22.2 (21-28) mmol/L ABG pH 7.29 L (7.35-7.45) ABG Total CO2 25.1 (22-28) mmol/L ABG O2 Saturation 96.3 (95-98) % ABG Base Excess -3.4 L (-2.0-3.0) mmol/L Lester Test Yes ABG Potassium 4.3 (3.6-5.2) mmol/L A-a O2 Difference 64.0 mm/Hg Sodium 127.0 L (132-148) mmol/L Chloride 92.0 L (98-107) mmol/L Glucose 116 H (65-105) mg/dL Lactate 0.5 L (0.7-2.1) mmol/L FiO2 28.0 % Potassium (3.6-5.0) MMOL/L Carbon Dioxide (22-30) mmol/L Anion Gap (10-20) BUN (7-17) mg/dl Creatinine (0.7-1.2) mg/dL Est GFR ( Amer) Est GFR (Non-Af Amer) POC Glucose (mg/dL) 162 H (65-110) mg/dL Random Glucose (65-105) mg/dL Calcium (8.4-10.2) mg/dL Phosphorus 9.2 H (2.5-4.5) mg/dl Total Bilirubin (0.2-1.3) mg/dl AST (14-36) U/L ALT (9-52) U/L Alkaline Phosphatase (38-126) U/L Total Protein (6.3-8.2) G/DL Albumin (3.5-5.0) g/dL Globulin (2.2-3.9) gm/dL Albumin/Globulin Ratio (1.0-2.1) Arterial Blood Potassium 4.3 (3.6-5.2) mmol/L 12/22/16 12/22/16 12/22/16 Range/Units 06:28 05:00 04:20 WBC 12.3 H (4.8-10.8) K/uL RBC 3.41 L (3.80-5.20) Mil/uL Hgb 9.8 L (12.0-16.0) g/dL Hct 31.5 L (34.0-47.0) % MCV 92.5 (81.0-99.0) fl MCH 28.9 (27.0-31.0) pg MCHC 31.2 L (33.0-37.0) g/dL RDW 12.3 (11.5-14.5) % Plt Count 261 (130-400) K/uL MPV 8.1 (7.2-11.7) fl Neut % (Auto) 69.6 (50.0-75.0) % Lymph % (Auto) 15.0 L (20.0-40.0) % [place] % (Auto) 12.6 H (0.0-10.0) % Eos % (Auto) 2.2 (0.0-4.0) % Baso % (Auto) 0.6 (0.0-2.0) % Neut # 8.6 H (1.8-7.0) K/uL Lymph # 1.8 (1.0-4.3) K/uL [place] # 1.6 H (0.0-0.8) K/uL Eos # 0.3 (0.0-0.7) K/uL Baso # 0.1 (0.0-0.2) K/uL pCO2 (35-45) mm/Hg pO2 (80-100) mm/Hg HCO3 (21-28) mmol/L ABG pH (7.35-7.45) ABG Total CO2 (22-28) mmol/L ABG O2 Saturation (95-98) % ABG Base Excess (-2.0-3.0) mmol/L Lester Test ABG Potassium (3.6-5.2) mmol/L A-a O2 Difference mm/Hg Sodium 127 L (132-148) mmol/L Chloride 85 L (98-107) mmol/L Glucose (65-105) mg/dL Lactate (0.7-2.1) mmol/L FiO2 % Potassium 5.0 (3.6-5.0) MMOL/L Carbon Dioxide 25 (22-30) mmol/L Anion Gap 22 H (10-20) BUN 98 H (7-17) mg/dl Creatinine 8.0 H* (0.7-1.2) mg/dL Est GFR ( Amer) 6 Est GFR (Non-Af Amer) 5 POC Glucose (mg/dL) 120 H (65-110) mg/dL Random Glucose 106 H (65-105) mg/dL Calcium 6.8 L (8.4-10.2) mg/dL Phosphorus (2.5-4.5) mg/dl Total Bilirubin 1.1 (0.2-1.3) mg/dl AST 100 H D (14-36) U/L ALT 70 H D (9-52) U/L Alkaline Phosphatase 243 H D (38-126) U/L Total Protein 5.4 L (6.3-8.2) G/DL Albumin 2.6 L D (3.5-5.0) g/dL Globulin 2.7 (2.2-3.9) gm/dL Albumin/Globulin Ratio 1.0 (1.0-2.1) Arterial Blood Potassium (3.6-5.2) mmol/L Laboratory Results - last 24 hr 12/22/16 12/22/16 12/22/16 04:20 05:00 06:28 WBC 12.3 H RBC 3.41 L Hgb 9.8 L Hct 31.5 L MCV 92.5 MCH 28.9 MCHC 31.2 L RDW 12.3 Plt Count 261 MPV 8.1 Neut % (Auto) 69.6 Lymph % (Auto) 15.0 L [place] % (Auto) 12.6 H Eos % (Auto) 2.2 Baso % (Auto) 0.6 Neut # 8.6 H Lymph # 1.8 [place] # 1.6 H Eos # 0.3 Baso # 0.1 pCO2 pO2 HCO3 ABG pH ABG Total CO2 ABG O2 Saturation ABG Base Excess Lester Test ABG Potassium A-a O2 Difference Glucose Lactate FiO2 Sodium 127 L Potassium 5.0 Chloride 85 L Carbon Dioxide 25 Anion Gap 22 H BUN 98 H Creatinine 8.0 H* Est GFR ( Amer) 6 Est GFR (Non-Af Amer) 5 POC Glucose (mg/dL) 120 H Random Glucose 106 H Calcium 6.8 L Phosphorus Total Bilirubin 1.1 AST 100 H D ALT 70 H D Alkaline Phosphatase 243 H D Total Protein 5.4 L Albumin 2.6 L D Globulin 2.7 Albumin/Globulin Ratio 1.0 Arterial Blood Potassium 12/22/16 12/22/16 12/22/16 08:02 09:55 11:38 WBC RBC Hgb Hct MCV MCH MCHC RDW Plt Count MPV Neut % (Auto) Lymph % (Auto) [place] % (Auto) Eos % (Auto) Baso % (Auto) Neut # Lymph # [place] # Eos # Baso # pCO2 49 H pO2 74 L HCO3 22.2 ABG pH 7.29 L ABG Total CO2 25.1 ABG O2 Saturation 96.3 ABG Base Excess -3.4 L Lester Test Yes ABG Potassium 4.3 A-a O2 Difference 64.0 Glucose 116 H Lactate 0.5 L FiO2 28.0 Sodium 127.0 L Potassium Chloride 92.0 L Carbon Dioxide Anion Gap BUN Creatinine Est GFR ( Amer) Est GFR (Non-Af Amer) POC Glucose (mg/dL) 162 H Random Glucose Calcium Phosphorus 9.2 H Total Bilirubin AST ALT Alkaline Phosphatase Total Protein Albumin Globulin Albumin/Globulin Ratio Arterial Blood Potassium 4.3 Fingerstick Blood Sugar Results: 162 Review of Systems - Review of Systems All systems: reviewed and no additional remarkable complaints except - Musculoskeletal Musculoskeletal: Back Pain Critical Care Progress Note - Nutrition Nutrition: Nutrition Category Date Time Status Heart Healthy Diet [DIET] Diets 12/22/16 Breakfast Active Assessment/Plan (1) Acute renal failure Assessment and plan: 71-year-old female with history of asthma, COPD on home oxygen, diabetes mellitus type 2, chronic back pain, obstructive sleep apnea, anxiety, depression , appendectomy, cholecystectomy, TIA, dyslipidemia, hypertension. Patient has been taking ibuprofen 3 times a day for unknown amount of time, presents with acute renal failure. Neuro: Alert and oriented to person and place. Pulm: breathing spontaneously on 2L NC. CV: hypotensive on Levophed. Uncertain as to whether this is septic shock or cardiogenic shock or shock from another etiology. Obtaining transthoracic echo. Hem: Anemia of critical illness, will monitor. If any further drop we'll consider the patient is bleeding internally. Renal: Acute renal failure, with hyperuricemia and highly elevated creatinine. Discussed with nephrology, will initiate dialysis. Endo: DM type II, short acting insulin sliding scale for coverage GI: Nothing by mouth ID: Leukocytosis on admission already down trended without administration of antibiotics. No elevation in lactate, no fever, clean urine analysis, clear chest x-ray, no current source of suspected infection. DVT proph - heparin subcutaneous GI proph - not currently indicated beck for strict I/O's during acute illness Code status - full code Right IJ double-lumen Heydi (12/22/2016) Crtical Care Time spent 60 minutes Multi-disciplinary rounds were performed with house staff, nursing, speech therapy, respiratory therapy, pharmacy and nutrition with integrated input from the primary team/attending and other consulting services. The documented time is cumulative and includes review of patient data/exams/labs/chart review and examination of the patient on rounds and throughout the day; time is exclusive of any procedures or teaching time. Current Visit: Yes Status: Acute
--- NOTE | 2016-12-22 12:28 | RAD ---
HISTORY: dialysis catheter placement COMPARISON: Chest x-ray performed 12/21/16, lung bases CT abdomen and pelvis performed 12/21/16 TECHNIQUE: Chest, one view. FINDINGS: Left-sided central venous extends expected location of the SVC. Right-sided central venous catheter extending towards the axilla, likely residing within the right axillary vein. The should be withdrawn and repositioned. LUNGS: Mild bibasilar atelectasis. Please note that chest x-ray has limited sensitivity for the detection of pulmonary masses. PLEURA: No significant pleural effusion identified. No definite pneumothorax . CARDIOVASCULAR: Cardiomegaly. Atherosclerotic calcifications of the aorta. OSSEOUS STRUCTURES: Partially imaged cervical fusion hardware. Degenerative changes of the spine and shoulders. VISUALIZED UPPER ABDOMEN: Unremarkable. OTHER FINDINGS: None. IMPRESSION: Mild bibasilar atelectasis. Cardiomegaly. Left-sided central venous catheter extends expected location of the SVC. Right-sided central venous catheter extending towards the axilla, likely residing within the right axillary vein. The should be withdrawn and repositioned. Findings discussed with the patient's RN Aleksandra on 12/22/16 at 12:24 p.m..
--- NOTE | 2016-12-22 13:21 | PCM.PROC ---
Procedures Attestation:: I certify that I have explained the specified Operation(s) or Procedure(s), risks, benefits and reasonable alternatives to the Patient and/or other person responsible. The opportunity was given to ask questions and all questions answered - Central Line Placement Right Internal Jugular Hemodialysis Access Aseptic technique was employed throughout the procedure: Hand Hygiene done prior to procedure, Full sterile barriers (mask, hair cover, sterile gown, sterile gloves), Full body sterile drape, Chloraprep Antiseptic: 30 second prep for IJ or SC sites CVP Time Out Performed: Yes Pt. Placed on Pulse Ox Monitor: Yes Central Line Prep: Chlorhexidine-Alcohol Combination Local Anesthesia Used: Lidocaine 1% Amount of Anesthesia Used (mls): 10 Ultrasound Used for Placement: Yes Central Line Lumen Inserted: double Central Line Length: 20 cm Post Procedure: Sutured in Place, Good Blood Return, All Ports Aspirated, Flushed, Capped, Sterile Dressing Applied Secured by: Suture Post procedure dressing: Clear vapor permeable, Chlorhexidine disc (Biopatch) Post Procedure X-Ray: Yes Patient Tolerated Procedure: Well Immediate Complications: Catheter Malposition Additional Comments: If dialysis is not performable through catheter, will have to adjust. Patient is an extremely difficult stick, with limited access points secondary to morbid obesity preventing femoral insertion and permacath placement from the left side.
[2016-12-22 17:56] LABS: BASO % 0.3 % (0.0-2.0); EOS # 0.1 K/uL (0.0-0.7); EOS % 0.6 % (0.0-4.0); HEMATOCRIT 34.9 % (34.0-47.0); LYMPH # 0.9 K/uL (1.0-4.3); LYMPH % 7.1 % (20.0-40.0); MEAN CORPUSCULAR HEMOGLOBIN 29.5 pg (27.0-31.0); MEAN CORPUSCULAR HGB CONC 32.5 g/dL (33.0-37.0); MEAN PLATELET VOLUME 7.8 fl (7.2-11.7); MONO # 1.7 K/uL (0.0-0.8); MONO % 13.5 % (0.0-10.0); NEUT # 9.7 K/uL (1.8-7.0); NEUT % 78.5 % (50.0-75.0); NRBC % 0.1 % (0.0-0.0); PLATELET COUNT 331 K/uL (130-400); RED CELL DISTRIBUTION WIDTH 12.5 % (11.5-14.5); WHITE BLOOD COUNT 12.4 K/uL (4.8-10.8)
[2016-12-22 18:10] LABS: BILIRUBIN,TOTAL 1.2 mg/dl (0.2-1.3); MAGNESIUM 2.1 MG/DL (1.6-2.3); PHOSPHOROUS 8.1 mg/dl (2.5-4.5); POTASSIUM 5.9 MMOL/L (3.6-5.0); TOTAL PROTEIN 6.4 G/DL (6.3-8.2)
[2016-12-22] MEDS: Theophylline 200mg ER 24 hrs Cap PO SCH (18:22)
[2016-12-22] MEDS: Tiotropium 18 mcg Cap For Inhalation INH SCH (18:22)
[2016-12-22] MEDS ORDERED: Calcium Chloride 1000 mg/10 ml Syringe IV ONE (18:39)
[2016-12-22] MEDS ORDERED: Dextrose 50% SYRINGE Inj (50 ml) IVP ONE (18:42)
[2016-12-22] MEDS ORDERED: Calcium Gluconate 4.6 MEQ in Sodium Chloride 0.9% 100 ML IV ONE (19:00)
[2016-12-22] MEDS: Sod Polystyrene Sulf 15 gm/60 ml Oral Susp PO SCH ×2 (20:11→22:11)
[2016-12-22 21:18] LABS: NEUTROPHIL 81 % (42-75); TOTAL CELLS COUNTED 100
[2016-12-22] MEDS ORDERED: Patient's Own Med (Simvastatin [Simvastatin] 20 MG) PO SCH (22:00)
[2016-12-22] MEDS ORDERED: INSULIN DETEMIR 35 UNIT SC SCH (22:00)
[2016-12-22] MEDS: Insulin Detemir 100 Units/ml Inj SC SCH (22:12)
[2016-12-23] MEDS: Albuterol-Ipratrop 3 mg / 0.5 (3 ml) UD IH SCH ×7 (00:05→21:00)
[2016-12-23 00:37] LABS: CALCIUM 7.3 mg/dL (8.4-10.2); POTASSIUM 4.6 MMOL/L (3.6-5.0)
[2016-12-23] MEDS: Sod Polystyrene Sulf 15 gm/60 ml Oral Susp PO SCH (03:11)
--- NOTE | 2016-12-23 07:39 | CP.PCM.PN ---
Subjective - Date & Time of Evaluation Date of Evaluation: 12/23/16 Time of Evaluation: 07:38 - Subjective Subjective: pt in bed w/o complaints. bp maintained on levophed, pt started on zosyn yesterday. unable to obtain dialysis access. no f/c, n/v/d. bw noted. bun/cr trending down. lft trending up. pt is a/o x4. no distress family at bedside. up dated on all. Objective - Vital Signs/Intake and Output Vital Signs (last 24 hours): Temp Pulse Resp BP Pulse Ox 99.5 F 77 22 114/53 L 96 12/23/16 00:00 12/23/16 03:00 12/23/16 03:00 12/23/16 03:00 12/23/16 03:00 Intake and Output: 12/23/16 12/23/16 06:59 18:59 Intake Total 2150 Output Total 3550 Balance -1400 - Medications Medications: Current Medications Albuterol/Ipratropium (Duoneb 3 Mg/0.5 Mg (3 Ml) Ud) 3 ml IH Q4 [facility] Last Admin: 12/23/16 07:36 Dose: 3 ml Alprazolam (Xanax) 0.5 mg PO TID PRN PRN Reason: Anxiety Atorvastatin Calcium (Lipitor) 10 mg PO HS [facility] Last Admin: 12/22/16 22:14 Dose: 10 mg Clopidogrel Bisulfate (Plavix) 75 mg PO DAILY [facility] Last Admin: 12/22/16 09:13 Dose: 75 mg Famotidine (Pepcid) 20 mg PO BID [facility] Last Admin: 12/22/16 18:20 Dose: 20 mg Fentanyl (Duragesic) 1 patch TD Q72H [facility] PRN Reason: Protocol Last Admin: 12/22/16 02:58 Dose: 1 patch Gabapentin (Neurontin) 300 mg PO TID [facility] Heparin Sodium (Porcine) (Heparin) 5,000 units SC Q8 [facility] PRN Reason: Protocol Last Admin: 12/23/16 00:22 Dose: 5,000 units Home Med (Paroxetine [Paxil Cr]) 12.5 mg PO DAILY [facility] Piperacillin Sod/Tazobactam (Sod 2.25 gm/ Sodium Chloride) 100 mls @ 100 mls/ hr IVPB Q8 [facility] Last Admin: 12/23/16 00:16 Dose: 100 mls/hr Insulin Detemir (Levemir) 35 units SC HS [facility] Last Admin: 12/22/16 22:12 Dose: 35 unit Insulin Human Lispro (Humalog) 14 units SC AC [facility] Last Admin: 12/22/16 18:18 Dose: 14 units Insulin Human Regular (Humulin R) 10 units IV ONCE ONE Stop: 12/23/16 18:41 Montelukast Sodium (Singulair) 10 mg PO HS [facility] Last Admin: 12/22/16 22:14 Dose: 10 mg Fluticasone/Salmeterol (Advair Diskus 250/50) 1 puff IH Q12 [facility] Last Admin: 12/22/16 20:21 Dose: 1 puff Sitagliptin Phosphate (Januvia) 25 mg PO DAILY [facility] Last Admin: 12/22/16 09:12 Dose: 25 mg Theophylline (Stephen-24) 200 mg PO DAILY [facility] Last Admin: 12/22/16 18:22 Dose: 200 mg Tiotropium [place] (Spiriva) 18 mcg INH DAILY [facility] Last Admin: 12/22/16 18:22 Dose: 18 mcg - Labs Labs: 12/22/16 17:45 12/22/16 17:45 PT 10.5 SECONDS (9.6-11.2) 12/21/16 19:10 INR 1.01 (0.92-1.08) 12/21/16 19:10 APTT 28.8 SECONDS (23.3-32.5) 12/21/16 19:10 - Constitutional Appears: Well, Non-toxic, No Acute Distress - Head Exam Head Exam: ATRAUMATIC, NORMAL INSPECTION, NORMOCEPHALIC - Eye Exam Eye Exam: EOMI, Normal appearance, PERRL Pupil Exam: NORMAL ACCOMODATION, PERRL - ENT Exam ENT Exam: Mucous Membranes Moist, Normal Exam - Neck Exam Neck Exam: Full ROM, Normal Inspection. absent: Lymphadenopathy - Respiratory Exam Respiratory Exam: Clear to Ausculation Bilateral, NORMAL BREATHING PATTERN - Cardiovascular Exam Cardiovascular Exam: REGULAR RHYTHM, RRR, +S1, +S2. absent: Murmur - GI/Abdominal Exam GI & Abdominal Exam: Soft, Normal Bowel Sounds. absent: Tenderness - Exam Exam: NORMAL INSPECTION - Extremities Exam Extremities Exam: Full ROM, Normal Capillary Refill, Normal Inspection. absent : Joint Swelling, Pedal Edema - Back Exam Back Exam: NORMAL INSPECTION - Neurological Exam Neurological Exam: Alert, Awake, CN II-XII Intact, Normal Gait, Oriented x3 - Psychiatric Exam Psychiatric exam: Normal Affect, Normal Mood - Skin Skin Exam: Dry, Intact, Normal Color, Warm Assessment and Plan (1) CHF (congestive heart failure) Status: Acute (2) Chronic back pain Status: Acute (3) COPD (chronic obstructive pulmonary disease) Status: Acute (4) Diabetes 1.5, managed as type 1 Status: Chronic (5) Acute renal failure Status: Acute (6) DVT prophylaxis Status: Acute - Assessment and Plan (Free Text) Assessment: (1) Acute renal failure Assessment and Plan: icu care, neprho ivf unable to obtain access yesterrday bun/cr trending down, diuresed yesterday unkn etiology Status: Acute (2) CHF (congestive heart failure) Assessment and Plan: cont meds, cardio echo Status: Acute (3) COPD (chronic obstructive pulmonary disease) Assessment and Plan: duonebs o2 prn Status: Acute (4) Chronic back pain Assessment and Plan: fetanyl Status: Acute (5) Diabetes 1.5, managed as type 1 Assessment and Plan: riss, home meds icu care Status: Chronic (6) DVT prophylaxis Assessment and Plan: scd and ae [facility] for procedures Status: Acute
--- NOTE | 2016-12-23 08:01 | RAD ---
HISTORY: dialysis catheter insertion COMPARISON: Comparison is made to 12/22/2016. FINDINGS: LUNGS: No significant interval change in the lungs since the previous exam. PLEURA: No significant pleural effusion identified, no pneumothorax apparent. CARDIOVASCULAR: Normal. OSSEOUS STRUCTURES: No significant abnormalities. VISUALIZED UPPER ABDOMEN: Normal. OTHER FINDINGS: Left-sided Port-A-Cath is seen in place. Right-sided central line with the catheter seen extending and overlying the right axilla. Correlate clinically for malposition of the right central line. IMPRESSION: No significant interval change since the previous exam. Support devices as described above. Correlate clinically for possible malposition of the right central line.
--- NOTE | 2016-12-23 08:16 | CARD ---
APPROVED REPORT EXAM: Two-dimensional and M-mode echocardiogram with Doppler and color Doppler. Other Information Quality : GoodRhythm : NSR Technically limited study due to body habitus. INDICATION Congestive Heart Failure 2D DIMENSIONS IVSd1.18 (0.7-1.1cm)LVDd4.86 (3.9-5.9cm) LVOT Diameter2.14 (1.8-2.4cm)PWd1.10 (0.7-1.1cm) IVSs1.49 (0.8-1.2cm)LVDs3.07 (2.5-4.0cm) FS (%) 36.8 %PWs1.23 (0.8-1.2cm) M-Mode DIMENSIONS Left Atrium (MM)4.38 (2.5-4.0cm)IVSd1.19 (0.7-1.1cm) Aortic Root3.44 (2.2-3.7cm)LVDd5.81 (4.0-5.6cm) Aortic Cusp Exc.2.09 (1.5-2.0cm)PWd1.22 (0.7-1.1cm) IVSs1.94 cmFS (%) 59 % LVDs2.41 (2.0-3.8cm)PWs1.78 cm Mitral Valve MV E Venvbqdz21.4cm/sMV DECEL [id number] A Qfcqloyx69.2cm/s MV OLF55ubP/A ratio1.0MVA (PHT)2.95cm2 TDI E/Lateral E'0.0E/Medial E'0.0 Pulmonary Valve PV Peak Pbfafswm945.6cm/s Tricuspid Valve TR Peak Lamuyphw762gq/sRAP [id number] Peak Gr.37mmHg [id number] LEFT VENTRICLE The left ventricle is normal size. There is borderline concentric left ventricular hypertrophy. Left ventricle systolic function is normal. The Ejection Fraction is >70%. There is normal LV segmental wall motion. Transmitral Doppler flow pattern is Grade I-abnormal relaxation pattern. RIGHT VENTRICLE The right ventricle is normal size. There is normal right ventricular wall thickness. The right ventricular systolic function is normal. ATRIA The left atrium is mildly dilated. The right atrium size is normal. AORTIC VALVE The aortic valve is normal in structure and function. No aortic regurgitation is present. There is no aortic valvular stenosis. MITRAL VALVE The mitral valve is normal in structure and function. There is no evidence of mitral valve prolapse. There is no mitral valve stenosis. There is no mitral valve regurgitation noted. TRICUSPID VALVE The tricuspid valve is normal in structure. There is mild tricuspid regurgitation. Right ventricular systolic pressure is estimated at 46 mmHg. There is moderate pulmonary hypertension. PULMONIC VALVE The pulmonic valve is not well visualized. There is no pulmonic valvular regurgitation. GREAT VESSELS The aortic root is normal in size. Due to poor image quality, the IVC could not be assessed. PERICARDIAL EFFUSION The pericardium appears normal. <Conclusion> Very poor imges and limited study due to COPD and body habitus. The left ventricle is normal size. There is borderline concentric left ventricular hypertrophy. There is normal LV segmental wall motion. Left ventricle systolic function is normal. The Ejection Fraction is >70%. Transmitral Doppler flow pattern is Grade I-abnormal relaxation pattern. There is mild tricuspid regurgitation. There is moderate pulmonary hypertension.
--- NOTE | 2016-12-23 08:17 | CP.PCM.CON ---
History of Present Illness - History of Present Illness History of Present Illness: I was asked to see patient by Dr Hurst and Neymar Khan APN. Pateint has a history of HTN previous UTI presents with dyspnea and volume overload. She was found to be in acute renal failure. She had dyspnea at home , and is now admitted to ICU. Review of Systems - Constitutional Constitutional: absent: As Per HPI, Anorexia, Chills, Daytime Sleepiness, Excessive Sweating, Fatigue, Fever, Frequent Falls, Headache, Increased Appetite , Lethargy, Malaise, Night Sweats, Snoring, Sleep Apnea, Weight Gain, Weight Loss, Weakness, Other - EENT Eyes: absent: As Per HPI, Blind Spots, Blurred Vision, Change in Vision, Decreased Night Vision, Diplopia, Discharge, Dry Eye, Exophthalmos, Floaters, Irritation, Itchy Eyes, Loss of Peripheral Vision, Pain, Photophobia, Requires Corrective Lenses, Sees Flashes, Spots in Vision, Tunnel Vision, Other Visual Disturbances, Loss of Vision, Other Ears: absent: As Per HPI, Decreased Hearing, Ear Discharge, Ear Pain, Tinnitus, Abnormal Hearing, Disequilibrium, Dizziness, Other Nose/Mouth/Throat: absent: As Per HPI, Epistaxis, Nasal Congestion, Nasal Discharge, Nasal Obstruction, Nasal Trauma, Nose Pain, Post Nasal Drip, Sinus Pain, Sinus Pressure, Bleeding Gums, Change in Voice, Dental Pain, Dry Mouth, Dysphagia, Halitosis, Hoarsness, Lip Swelling, Mouth Lesions, Mouth Pain, Odynophagia, Sore Throat, Throat Swelling, Tongue Swelling, Facial Pain, Neck Pain, Neck Mass, Other - Breasts Breasts: absent: As Per HPI, Change in Shape, Mass, Pain, Nipple Discharge, Nipple Inversion, Skin Changes, Swelling, Other - Cardiovascular Cardiovascular: Dyspnea - Respiratory Respiratory: absent: As Per HPI, Cough, Dyspnea, Hemoptysis, Dyspnea on Exertion , Wheezing, Snoring, Stridor, Pain on Inspiration, Chest Congestion, Excessive Mucous Production, Change in Mucous Color, Pain with Coughing, Other - Gastrointestinal Gastrointestinal: absent: As Per HPI, Abdominal Pain, Belching, Bloating, Change in Bowel Habits, Change in Stool Character, Coffee Ground Emesis, Constipation, Cramping, Diarrhea, Dyspepsia, Dysphagia, Early Satiety, Excessive Flatus, Fecal Incontinence, Heartburn, Hematemesis, Hematochezia, Loose Stools, Melena, Nausea, Odynophagia, Temesmus, Vomiting, Other - Musculoskeletal Musculoskeletal: absent: As Per HPI, Abnormal Gait, Arthralgias, Atrophy, Back Pain, Deformity, Joint Swelling, Limited Range of Motion, Loss of Height, Muscle Cramps, Muscle Weakness, Myalgias, Neck Pain, Numbness, Radiating Pain into Limb, Stiffness, Tingling, Other - Integumentary Integumentary: absent: As Per HPI, Acne, Alopecia, Bleeding Lesions, Change in Hair, Change in Nails, Change in Pigmentation, Changing Lesions, Dry Skin, Erythema, Furuncle, Hirsutism, Lesions, New Lesions, Non-Healing Lesions, Photosensitivity, Pruritus, Rash, Skin Pain, Skin Ulcer, Sores, Striae, Swelling , Unusual Bruising, Wounds, Jaundice, Other - Neurological Neurological: absent: As Per HPI, Abnormal Gait, Abnormal Hearing, Abnormal Movements, Abnormal Speech, Behavioral Changes, Burning Sensations, Confusion, Convulsions, Disequilibrium, Dizziness, Numbness, Focal Weakness, Frequent Falls , Headaches, Lack of Coordination, Loss of Vision, Memory Loss, Paresthesias, Radicular Pain, Restless Legs, Sensory Deficit, Syncope, Tingling, Tremor, Vertigo, Weakness, Other Visual Disturbances, Other - Psychiatric Psychiatric: absent: As Per HPI, Abnormal Sleep Pattern, Anhedonia, Anxiety, Auditory Hallucinations, Behavioral Changes, Change in Appetite, Change in Libido, Confusion, Depression, Difficulty Concentrating, Hallucinations, Homicidal Ideation, Hopelessness, Irritability, Memory Loss, Mood Swings, Panic Attacks, Paranoia, Suicidal Ideation, Visual Hallucinations, Tactile Hallucinations, Other - Endocrine Endocrine: absent: As Per HPI, Change in Body Appearance, Change in Libido, Cold Intolorance, Deepening of Voice, Excessive Sweating, Fatigue, Flushing, Heat Intolorance, Increase in Ring/Shoe/Hat Size, Palpitations, Polydipsia, Polyphagia, Polyuria, Other - Hematologic/Lymphatic Hematologic: absent: As Per HPI, Easy Bleeding, Easy Bruising, Lymphadenopathy, Other Past Patient History - Infectious Disease Hx of Infectious Diseases: None - Tetanus Immunizations Tetanus Immunization: Unknown - Past Medical History & Family History Past Medical History?: Yes - Past Social History Smoking Status: Former Smoker Chewing Tobacco Use: No Cigar Use: No Alcohol: None Drugs: Denies Home Situation {Lives}: With Family - CARDIAC Hx Atrial Fibrillation: No Hx Cardia Arrhythmia: No Hx Congestive Heart Failure: No Hx Hypercholesterolemia: Yes Hx Hypertension: Yes Hx Mitral Valve Prolapse: No Hx Pacemaker: No Hx Peripheral Edema: No - PULMONARY Hx Asthma: Yes Hx Bronchitis: Yes Hx Chronic Obstructive Pulmonary Disease (COPD): Yes Hx Emphysema: Yes Hx Pneumonia: No Hx Pulmonary Embolism: No Hx Sleep Apnea: No - NEUROLOGICAL Hx Alzheimer's Disease: No Hx Dementia: Yes (Self reports forgetfulness) Hx Migraine: No Hx Multiple Sclerosis: No Hx Parkinson's Disease: No Hx Seizures: No Hx Transient Ischemic Attacks (TIA): No - HEENT Hx HEENT Problems: No Hx Blind: No Hx Cataracts: Yes (Had surgery both eyes) Hx Deafness: No Hx Glaucoma: No Hx Macular Degeneration: No - RENAL Hx Chronic Kidney Disease: No - ENDOCRINE/METABOLIC Hx Hyperthyroidism: No Hx Hypothyroidism: No - HEMATOLOGICAL/ONCOLOGICAL Hx Blood Disorders: No Hx Human Immunodeficiency Virus (HIV): No - INTEGUMENTARY Hx Dermatological Problems: No - MUSCULOSKELETAL/RHEUMATOLOGICAL Hx Arthritis: Yes - GASTROINTESTINAL Hx Crohn's Disease: No - GENITOURINARY/GYNECOLOGICAL Hx Genitourinary Disorders: No Hx Bladder Cancer: No Hx Bladder Stone: No Hx Cervical Cancer: No Hx Incontinence: Yes (uses diapers at home for incontinence at times) Hx Ovarian Cancer: No Hx Uterine Cancer: No - PSYCHIATRIC Hx Anxiety: Yes Hx Bipolar Disorder: No Hx Depression: Yes - SURGICAL HISTORY Hx Appendectomy: Yes Hx Cholecystectomy: Yes Other/Comment: Back surgery - ANESTHESIA Hx Anesthesia: Yes Hx Anesthesia Reactions: No Hx Malignant Hyperthermia: No Meds Allergies/Adverse Reactions: Allergies Allergy/AdvReac Type Severity Reaction Status Date / Time FISH Allergy ITCHING Verified 12/21/16 17:32 iodine Allergy ITCHING Verified 12/21/16 17:32 - Medications Medications: Current Medications Albuterol/Ipratropium (Duoneb 3 Mg/0.5 Mg (3 Ml) Ud) 3 ml IH Q4 [facility] Last Admin: 12/23/16 07:36 Dose: 3 ml Alprazolam (Xanax) 0.5 mg PO TID PRN PRN Reason: Anxiety Atorvastatin Calcium (Lipitor) 10 mg PO HS [facility] Last Admin: 12/22/16 22:14 Dose: 10 mg Clopidogrel Bisulfate (Plavix) 75 mg PO DAILY [facility] Last Admin: 12/22/16 09:13 Dose: 75 mg Famotidine (Pepcid) 20 mg PO BID [facility] Last Admin: 12/22/16 18:20 Dose: 20 mg Fentanyl (Duragesic) 1 patch TD Q72H [facility] PRN Reason: Protocol Last Admin: 12/22/16 02:58 Dose: 1 patch Gabapentin (Neurontin) 300 mg PO TID [facility] Heparin Sodium (Porcine) (Heparin) 5,000 units SC Q8 [facility] PRN Reason: Protocol Last Admin: 12/23/16 00:22 Dose: 5,000 units Home Med (Paroxetine [Paxil Cr]) 12.5 mg PO DAILY [facility] Piperacillin Sod/Tazobactam (Sod 2.25 gm/ Sodium Chloride) 100 mls @ 100 mls/ hr IVPB Q8 [facility] Last Admin: 12/23/16 00:16 Dose: 100 mls/hr Norepinephrine Bitartrate 4 mg (/ Dextrose) 254 mls @ 47.62 mls/hr IV .[id number] [facility]; 12.5 MCG/MIN PRN Reason: Protocol Insulin Detemir (Levemir) 35 units SC [facility] Last Admin: 12/22/16 22:12 Dose: 35 unit Insulin Human Lispro (Humalog) 14 units SC AC [facility] Last Admin: 12/22/16 18:18 Dose: 14 units Insulin Human Regular (Humulin R) 10 units IV ONCE ONE Stop: 12/23/16 18:41 Montelukast Sodium (Singulair) 10 mg PO HS [facility] Last Admin: 12/22/16 22:14 Dose: 10 mg Fluticasone/Salmeterol (Advair Diskus 250/50) 1 puff IH Q12 [facility] Last Admin: 12/22/16 20:21 Dose: 1 puff Sitagliptin Phosphate (Januvia) 25 mg PO DAILY [facility] Last Admin: 12/22/16 09:12 Dose: 25 mg Theophylline (Stephen-24) 200 mg PO DAILY [facility] Last Admin: 12/22/16 18:22 Dose: 200 mg Tiotropium Choudrant (Spiriva) 18 mcg INH DAILY [facility] Last Admin: 12/22/16 18:22 Dose: 18 mcg Physical Exam - Constitutional Appears: Non-toxic - Head Exam Head Exam: NORMAL INSPECTION - Eye Exam Eye Exam: Normal appearance - ENT Exam ENT Exam: Mucous Membranes Moist - Neck Exam Neck exam: Positive for: Full Rom - Respiratory Exam Respiratory Exam: Decreased Breath Sounds - Cardiovascular Exam Cardiovascular Exam: REGULAR RHYTHM - GI/Abdominal Exam GI & Abdominal Exam: Normal Bowel Sounds - Rectal Exam Rectal Exam: Deferred - Extremities Exam Extremities exam: Positive for: pedal edema - Back Exam Back exam: NORMAL INSPECTION - Neurological Exam Neurological exam: Alert - Psychiatric Exam Psychiatric exam: Normal Affect - Skin Skin Exam: Normal Color Results - Vital Signs Recent Vital Signs: Last Vital Signs Temp 98.6 F 12/23/16 08:00 Pulse 90 12/23/16 08:00 Resp 23 12/23/16 08:00 BP 112/47 L 12/23/16 08:00 Pulse Ox 93 L 12/23/16 08:00 - Labs Result Diagrams: 12/22/16 17:45 12/22/16 17:45 Labs: Laboratory Results - last 24 hr 12/22/16 12/22/16 12/22/16 00:19 09:55 11:38 WBC RBC Hgb Hct MCV MCH MCHC RDW Plt Count MPV Neut % (Auto) Lymph % (Auto) [place] % (Auto) Eos % (Auto) Baso % (Auto) Neut # Lymph # [place] # Eos # Baso # Neutrophils % (Manual) Lymphocytes % (Manual) Monocytes % (Manual) Platelet Estimate Sodium 131 L Potassium 4.6 Chloride 89 L Carbon Dioxide 27 Anion Gap 20 BUN 81 H Creatinine 6.7 H Est GFR ( Amer) 7 Est GFR (Non-Af Amer) 6 POC Glucose (mg/dL) 162 H Random Glucose 299 H Calcium 7.3 L Phosphorus 9.2 H Magnesium Total Bilirubin AST ALT Alkaline Phosphatase Total Protein Albumin Globulin Albumin/Globulin Ratio Urine Eosinophils 12/22/16 12/22/16 12/22/16 15:12 17:37 17:45 WBC 12.4 H RBC 3.83 Hgb 11.3 L Hct 34.9 MCV 91.0 MCH 29.5 MCHC 32.5 L RDW 12.5 Plt Count 331 MPV 7.8 Neut % (Auto) 78.5 H Lymph % (Auto) 7.1 L [place] % (Auto) 13.5 H Eos % (Auto) 0.6 Baso % (Auto) 0.3 Neut # 9.7 H Lymph # 0.9 L [place] # 1.7 H Eos # 0.1 Baso # 0.0 Neutrophils % (Manual) 81 H Lymphocytes % (Manual) 9 L Monocytes % (Manual) 10 Platelet Estimate Normal Sodium Potassium Chloride Carbon Dioxide Anion Gap BUN Creatinine Est GFR ( Amer) Est GFR (Non-Af Amer) POC Glucose (mg/dL) 259 H Random Glucose Calcium Phosphorus Magnesium Total Bilirubin AST ALT Alkaline Phosphatase Total Protein Albumin Globulin Albumin/Globulin Ratio Urine Eosinophils Negative 12/22/16 12/22/16 17:45 21:38 WBC RBC Hgb Hct MCV MCH MCHC RDW Plt Count MPV Neut % (Auto) Lymph % (Auto) [place] % (Auto) Eos % (Auto) Baso % (Auto) Neut # Lymph # [place] # Eos # Baso # Neutrophils % (Manual) Lymphocytes % (Manual) Monocytes % (Manual) Platelet Estimate Sodium 127 L Potassium 5.9 H Chloride 86 L Carbon Dioxide 23 Anion Gap 24 H BUN 89 H Creatinine 7.3 H Est GFR ( Amer) 7 Est GFR (Non-Af Amer) 5 POC Glucose (mg/dL) 282 H Random Glucose 285 H Calcium 7.0 L Phosphorus 8.1 H Magnesium 2.1 Total Bilirubin 1.2 AST 101 H ALT 81 H Alkaline Phosphatase 278 H Total Protein 6.4 Albumin 3.2 L D Globulin 3.2 Albumin/Globulin Ratio 1.0 Urine Eosinophils - EKG Data EKG Interpreted by: Myself Assessment & Plan (1) Acute renal failure Assessment and Plan: for dialysis Status: Acute (2) Acute and chronic respiratory failure Assessment and Plan: will assess if component of heart failrue or diastolic dysfunction. check echocardiogram Status: Acute (3) CHF (congestive heart failure) Assessment and Plan: echocardiogram Status: Acute (4) Diabetes mellitus Assessment and Plan: risk factor for CAD Status: Acute - Date & Time Date: 12/22/16 Time: 18:30
[2016-12-23 09:14] LABS: BASO # 0.1 K/uL (0.0-0.2); BASO % 0.6 % (0.0-2.0); EOS # 0.1 K/uL (0.0-0.7); EOS % 0.6 % (0.0-4.0); LYMPH # 0.8 K/uL (1.0-4.3); LYMPH % 8.3 % (20.0-40.0); MEAN CELL VOLUME 91.2 fl (81.0-99.0); MEAN CORPUSCULAR HEMOGLOBIN 29.9 pg (27.0-31.0); MEAN CORPUSCULAR HGB CONC 32.7 g/dL (33.0-37.0); MEAN PLATELET VOLUME 7.7 fl (7.2-11.7); MONO # 1.7 K/uL (0.0-0.8); MONO % 17.6 % (0.0-10.0); NEUT # 7.2 K/uL (1.8-7.0); NEUT % 72.9 % (50.0-75.0); RED CELL DISTRIBUTION WIDTH 12.5 % (11.5-14.5); WHITE BLOOD COUNT 9.9 K/uL (4.8-10.8)
[2016-12-23 09:19] LABS: BILIRUBIN,TOTAL 1.1 mg/dl (0.2-1.3); CALCIUM 7.2 mg/dL (8.4-10.2); POTASSIUM 3.8 MMOL/L (3.6-5.0); TOTAL PROTEIN 6.2 G/DL (6.3-8.2)
[2016-12-23] MEDS: Fluticasone-Salmeterol 250-50mcg Diskus IH SCH ×2 (09:30→21:57)
[2016-12-23] MEDS: Insulin Lispro (humaLOG) 100 Units/ml Inj SC SCH ×6 (09:31→21:59)
[2016-12-23] MEDS: Theophylline 200mg ER 24 hrs Cap PO SCH (09:34)
[2016-12-23] MEDS: Tiotropium 18 mcg Cap For Inhalation INH SCH (09:34)
--- NOTE | 2016-12-23 10:23 | CP.CCUPN ---
CCU Subjective - Physician Review Events Since Last Encounter (Free Text): 12/23/16 10:21 PAtient is feeling better today, no complaints. CCU Objective - Vital Signs / Intake & Output Vital Signs (Last 4 hours): Vital Signs Temp Pulse Resp BP Pulse Ox 12/23/16 08:00 98.6 F 90 23 112/47 L 93 L Intake and Output (Last 8hrs): Intake & Output 12/22/16 12/23/16 12/23/16 22:59 06:59 14:59 Intake Total 3516 1150 9 Output Total 3625 1850 Balance -109 -700 9 Intake: IV 2400 850 9 Intake, Piggyback 716 300 Oral 400 Output: Urine 3625 1850 Urethral (Beck) 3625 1850 Other: # Bowel Movements 0 - Physical Exam Head: Positive for: Atraumatic, Normocephalic Pupils: Positive for: PERRL Extroacular Muscles: Positive for: EOMI Conjunctiva: Positive for: Normal Mouth: Positive for: Moist Mucous Membranes Respiratory/Chest: Positive for: Clear to Auscultation, Decreased Breath Sounds (at bases) Cardiovascular: Positive for: Regular Rate and Rhythm Abdomen: Positive for: Normal Bowel Sounds. Negative for: Tenderness, Distention Back: Positive for: Other (back pain) Neurological: Positive for: GCS=15, CN II-XII Intact, Speech Normal Psychiatric: Positive for: Alert Other physical findings (Free Text): oriented x 2 - Medications Active Medications: Active Medications Generic Name Dose Route Start Last Admin Trade Name Freq PRN Reason Stop Dose Admin Albuterol/Ipratropium 3 ml 12/22/16 01:00 12/23/16 07:36 Duoneb 3 Mg/0.5 Mg (3 Ml) Ud IH 3 ml Q4 TAYLOR Administration Alprazolam 0.5 mg 12/22/16 00:00 Xanax PO TID PRN Anxiety Atorvastatin Calcium 10 mg 12/22/16 22:00 12/22/16 22:14 Lipitor PO 10 mg HS TAYLOR Administration Clopidogrel Bisulfate 75 mg 12/22/16 09:00 12/23/16 09:33 Plavix PO 75 mg DAILY TAYLOR Administration Famotidine 20 mg 12/22/16 09:00 12/23/16 09:33 Pepcid PO 20 mg BID TAYLOR Administration Fentanyl 1 patch 12/22/16 01:30 12/22/16 02:58 Duragesic TD 1 patch Q72H TAYLOR Administration Protocol Gabapentin 300 mg 12/22/16 09:00 Neurontin PO TID TAYLOR Heparin Sodium (Porcine) 5,000 units 12/22/16 01:00 12/23/16 09:30 Heparin SC 5,000 units Q8 TAYLOR Administration Protocol Home Med 12.5 mg 12/22/16 09:00 Paroxetine [Paxil Cr] PO DAILY [facility] Piperacillin Sod/Tazobactam 100 mls @ 100 mls/hr 12/22/16 17:45 12/23/16 09: 35 Sod 2.25 gm/ Sodium Chloride IVPB 100 mls/hr Q8 TAYLOR Administration Norepinephrine Bitartrate 4 mg 254 mls @ 47.62 mls/hr 12/23/16 08:15 10:18 / Dextrose IV 7.5 mcg/min .Q5H21M TAYLOR 28.57 mls/hr Protocol Titration 12.5 MCG/MIN Insulin Detemir 35 units 12/22/16 22:00 12/22/16 22:12 Levemir SC 35 unit HS TAYLOR Administration Insulin Human Lispro 14 units 12/22/16 07:30 12/23/16 09:31 Humalog SC 14 units AC TAYLOR Administration Insulin Human Lispro 0 units 12/23/16 10:00 Humalog SC Q6H [facility] Protocol Insulin Human Regular 10 units 12/23/16 18:40 Humulin R IV 12/23/16 18:41 ONCE ONE Montelukast Sodium 10 mg 12/22/16 22:00 12/22/16 22:14 Singulair PO 10 mg HS TAYLOR Administration Fluticasone/Salmeterol 1 puff 12/22/16 09:00 12/23/16 09:30 Advair Diskus 250/50 IH 1 puff Q12 TAYLOR Administration Sitagliptin Phosphate 25 mg 12/22/16 09:00 12/23/16 09:32 Januvia PO 25 mg DAILY TAYLOR Administration Theophylline 200 mg 12/22/16 09:00 12/23/16 09:34 Stephen-24 PO 200 mg DAILY TAYLOR Administration Tiotropium [place] 18 mcg 12/22/16 09:00 12/23/16 09:34 Spiriva INH 18 mcg DAILY TAYLOR Administration - Patient Studies Lab Studies: Lab Studies 12/23/16 12/23/16 12/22/16 Range/Units 09:05 09:05 21:38 WBC 9.9 (4.8-10.8) K/uL RBC 3.83 (3.80-5.20) Mil/uL Hgb 11.5 L (12.0-16.0) g/dL Hct 35.0 (34.0-47.0) % MCV 91.2 (81.0-99.0) fl MCH 29.9 (27.0-31.0) pg MCHC 32.7 L (33.0-37.0) g/dL RDW 12.5 (11.5-14.5) % Plt Count 301 (130-400) K/uL MPV 7.7 (7.2-11.7) fl Neut % (Auto) 72.9 (50.0-75.0) % Lymph % (Auto) 8.3 L (20.0-40.0) % [place] % (Auto) 17.6 H (0.0-10.0) % Eos % (Auto) 0.6 (0.0-4.0) % Baso % (Auto) 0.6 (0.0-2.0) % Neut # 7.2 H (1.8-7.0) K/uL Lymph # 0.8 L (1.0-4.3) K/uL [place] # 1.7 H (0.0-0.8) K/uL Eos # 0.1 (0.0-0.7) K/uL Baso # 0.1 (0.0-0.2) K/uL Neutrophils % (Manual) (42-75) % Lymphocytes % (Manual) (20-50) % Monocytes % (Manual) (0-10) % Platelet Estimate (NORMAL) Sodium 137 (132-148) mmol/l Potassium 3.8 (3.6-5.0) MMOL/L Chloride 93 L (98-107) mmol/L Carbon Dioxide 27 (22-30) mmol/L Anion Gap 21 H (10-20) BUN 73 H (7-17) mg/dl Creatinine 5.6 H (0.7-1.2) mg/dL Est GFR ( Amer) 9 Est GFR (Non-Af Amer) 7 POC Glucose (mg/dL) 282 H (65-110) mg/dL Random Glucose 344 H (65-105) mg/dL Calcium 7.2 L (8.4-10.2) mg/dL Phosphorus (2.5-4.5) mg/dl Magnesium (1.6-2.3) MG/DL Total Bilirubin 1.1 (0.2-1.3) mg/dl AST 51 H D (14-36) U/L ALT 61 H D (9-52) U/L Alkaline Phosphatase 241 H (38-126) U/L Total Protein 6.2 L (6.3-8.2) G/DL Albumin 3.0 L (3.5-5.0) g/dL Globulin 3.1 (2.2-3.9) gm/dL Albumin/Globulin Ratio 1.0 (1.0-2.1) Urine Eosinophils (NEGATIVE) 12/22/16 12/22/16 12/22/16 Range/Units 17:45 17:45 17:37 WBC 12.4 H (4.8-10.8) K/uL RBC 3.83 (3.80-5.20) Mil/uL Hgb 11.3 L (12.0-16.0) g/dL Hct 34.9 (34.0-47.0) % MCV 91.0 (81.0-99.0) fl MCH 29.5 (27.0-31.0) pg MCHC 32.5 L (33.0-37.0) g/dL RDW 12.5 (11.5-14.5) % Plt Count 331 (130-400) K/uL MPV 7.8 (7.2-11.7) fl Neut % (Auto) 78.5 H (50.0-75.0) % Lymph % (Auto) 7.1 L (20.0-40.0) % [place] % (Auto) 13.5 H (0.0-10.0) % Eos % (Auto) 0.6 (0.0-4.0) % Baso % (Auto) 0.3 (0.0-2.0) % Neut # 9.7 H (1.8-7.0) K/uL Lymph # 0.9 L (1.0-4.3) K/uL [place] # 1.7 H (0.0-0.8) K/uL Eos # 0.1 (0.0-0.7) K/uL Baso # 0.0 (0.0-0.2) K/uL Neutrophils % (Manual) 81 H (42-75) % Lymphocytes % (Manual) 9 L (20-50) % Monocytes % (Manual) 10 (0-10) % Platelet Estimate Normal (NORMAL) Sodium 127 L (132-148) mmol/l Potassium 5.9 H (3.6-5.0) MMOL/L Chloride 86 L (98-107) mmol/L Carbon Dioxide 23 (22-30) mmol/L Anion Gap 24 H (10-20) BUN 89 H (7-17) mg/dl Creatinine 7.3 H (0.7-1.2) mg/dL Est GFR ( Amer) 7 Est GFR (Non-Af Amer) 5 POC Glucose (mg/dL) 259 H (65-110) mg/dL Random Glucose 285 H (65-105) mg/dL Calcium 7.0 L (8.4-10.2) mg/dL Phosphorus 8.1 H (2.5-4.5) mg/dl Magnesium 2.1 (1.6-2.3) MG/DL Total Bilirubin 1.2 (0.2-1.3) mg/dl AST 101 H (14-36) U/L ALT 81 H (9-52) U/L Alkaline Phosphatase 278 H (38-126) U/L Total Protein 6.4 (6.3-8.2) G/DL Albumin 3.2 L D (3.5-5.0) g/dL Globulin 3.2 (2.2-3.9) gm/dL Albumin/Globulin Ratio 1.0 (1.0-2.1) Urine Eosinophils (NEGATIVE) 12/22/16 12/22/16 12/22/16 Range/Units 15:12 11:38 09:55 WBC (4.8-10.8) K/uL RBC (3.80-5.20) Mil/uL Hgb (12.0-16.0) g/dL Hct (34.0-47.0) % MCV (81.0-99.0) fl MCH (27.0-31.0) pg MCHC (33.0-37.0) g/dL RDW (11.5-14.5) % Plt Count (130-400) K/uL MPV (7.2-11.7) fl Neut % (Auto) (50.0-75.0) % Lymph % (Auto) (20.0-40.0) % [place] % (Auto) (0.0-10.0) % Eos % (Auto) (0.0-4.0) % Baso % (Auto) (0.0-2.0) % Neut # (1.8-7.0) K/uL Lymph # (1.0-4.3) K/uL [place] # (0.0-0.8) K/uL Eos # (0.0-0.7) K/uL Baso # (0.0-0.2) K/uL Neutrophils % (Manual) (42-75) % Lymphocytes % (Manual) (20-50) % Monocytes % (Manual) (0-10) % Platelet Estimate (NORMAL) Sodium (132-148) mmol/l Potassium (3.6-5.0) MMOL/L Chloride (98-107) mmol/L Carbon Dioxide (22-30) mmol/L Anion Gap (10-20) BUN (7-17) mg/dl Creatinine (0.7-1.2) mg/dL Est GFR ( Amer) Est GFR (Non-Af Amer) POC Glucose (mg/dL) 162 H (65-110) mg/dL Random Glucose (65-105) mg/dL Calcium (8.4-10.2) mg/dL Phosphorus 9.2 H (2.5-4.5) mg/dl Magnesium (1.6-2.3) MG/DL Total Bilirubin (0.2-1.3) mg/dl AST (14-36) U/L ALT (9-52) U/L Alkaline Phosphatase (38-126) U/L Total Protein (6.3-8.2) G/DL Albumin (3.5-5.0) g/dL Globulin (2.2-3.9) gm/dL Albumin/Globulin Ratio (1.0-2.1) Urine Eosinophils Negative (NEGATIVE) 12/22/16 Range/Units 00:19 WBC (4.8-10.8) K/uL RBC (3.80-5.20) Mil/uL Hgb (12.0-16.0) g/dL Hct (34.0-47.0) % MCV (81.0-99.0) fl MCH (27.0-31.0) pg MCHC (33.0-37.0) g/dL RDW (11.5-14.5) % Plt Count (130-400) K/uL MPV (7.2-11.7) fl Neut % (Auto) (50.0-75.0) % Lymph % (Auto) (20.0-40.0) % [place] % (Auto) (0.0-10.0) % Eos % (Auto) (0.0-4.0) % Baso % (Auto) (0.0-2.0) % Neut # (1.8-7.0) K/uL Lymph # (1.0-4.3) K/uL [place] # (0.0-0.8) K/uL Eos # (0.0-0.7) K/uL Baso # (0.0-0.2) K/uL Neutrophils % (Manual) (42-75) % Lymphocytes % (Manual) (20-50) % Monocytes % (Manual) (0-10) % Platelet Estimate (NORMAL) Sodium 131 L (132-148) mmol/l Potassium 4.6 (3.6-5.0) MMOL/L Chloride 89 L (98-107) mmol/L Carbon Dioxide 27 (22-30) mmol/L Anion Gap 20 (10-20) BUN 81 H (7-17) mg/dl Creatinine 6.7 H (0.7-1.2) mg/dL Est GFR ( Amer) 7 Est GFR (Non-Af Amer) 6 POC Glucose (mg/dL) (65-110) mg/dL Random Glucose 299 H (65-105) mg/dL Calcium 7.3 L (8.4-10.2) mg/dL Phosphorus (2.5-4.5) mg/dl Magnesium (1.6-2.3) MG/DL Total Bilirubin (0.2-1.3) mg/dl AST (14-36) U/L ALT (9-52) U/L Alkaline Phosphatase (38-126) U/L Total Protein (6.3-8.2) G/DL Albumin (3.5-5.0) g/dL Globulin (2.2-3.9) gm/dL Albumin/Globulin Ratio (1.0-2.1) Urine Eosinophils (NEGATIVE) Laboratory Results - last 24 hr 12/22/16 12/22/16 12/22/16 00:19 09:55 11:38 WBC RBC Hgb Hct MCV MCH MCHC RDW Plt Count MPV Neut % (Auto) Lymph % (Auto) [place] % (Auto) Eos % (Auto) Baso % (Auto) Neut # Lymph # [place] # Eos # Baso # Neutrophils % (Manual) Lymphocytes % (Manual) Monocytes % (Manual) Platelet Estimate Sodium 131 L Potassium 4.6 Chloride 89 L Carbon Dioxide 27 Anion Gap 20 BUN 81 H Creatinine 6.7 H Est GFR ( Amer) 7 Est GFR (Non-Af Amer) 6 POC Glucose (mg/dL) 162 H Random Glucose 299 H Calcium 7.3 L Phosphorus 9.2 H Magnesium Total Bilirubin AST ALT Alkaline Phosphatase Total Protein Albumin Globulin Albumin/Globulin Ratio Urine Eosinophils 12/22/16 12/22/16 12/22/16 15:12 17:37 17:45 WBC 12.4 H RBC 3.83 Hgb 11.3 L Hct 34.9 MCV 91.0 MCH 29.5 MCHC 32.5 L RDW 12.5 Plt Count 331 MPV 7.8 Neut % (Auto) 78.5 H Lymph % (Auto) 7.1 L [place] % (Auto) 13.5 H Eos % (Auto) 0.6 Baso % (Auto) 0.3 Neut # 9.7 H Lymph # 0.9 L [place] # 1.7 H Eos # 0.1 Baso # 0.0 Neutrophils % (Manual) 81 H Lymphocytes % (Manual) 9 L Monocytes % (Manual) 10 Platelet Estimate Normal Sodium Potassium Chloride Carbon Dioxide Anion Gap BUN Creatinine Est GFR ( Amer) Est GFR (Non-Af Amer) POC Glucose (mg/dL) 259 H Random Glucose Calcium Phosphorus Magnesium Total Bilirubin AST ALT Alkaline Phosphatase Total Protein Albumin Globulin Albumin/Globulin Ratio Urine Eosinophils Negative 0412/22/16 12/23/16 17:45 21:38 09:05 WBC 9.9 RBC 3.83 Hgb 11.5 L Hct 35.0 MCV 91.2 MCH 29.9 MCHC 32.7 L RDW 12.5 Plt Count 301 MPV 7.7 Neut % (Auto) 72.9 Lymph % (Auto) 8.3 L [place] % (Auto) 17.6 H Eos % (Auto) 0.6 Baso % (Auto) 0.6 Neut # 7.2 H Lymph # 0.8 L [place] # 1.7 H Eos # 0.1 Baso # 0.1 Neutrophils % (Manual) Lymphocytes % (Manual) Monocytes % (Manual) Platelet Estimate Sodium 127 L Potassium 5.9 H Chloride 86 L Carbon Dioxide 23 Anion Gap 24 H BUN 89 H Creatinine 7.3 H Est GFR ( Amer) 7 Est GFR (Non-Af Amer) 5 POC Glucose (mg/dL) 282 H Random Glucose 285 H Calcium 7.0 L Phosphorus 8.1 H Magnesium 2.1 Total Bilirubin 1.2 AST 101 H ALT 81 H Alkaline Phosphatase 278 H Total Protein 6.4 Albumin 3.2 L D Globulin 3.2 Albumin/Globulin Ratio 1.0 Urine Eosinophils 12/23/16 09:05 WBC RBC Hgb Hct MCV MCH MCHC RDW Plt Count MPV Neut % (Auto) Lymph % (Auto) [place] % (Auto) Eos % (Auto) Baso % (Auto) Neut # Lymph # [place] # Eos # Baso # Neutrophils % (Manual) Lymphocytes % (Manual) Monocytes % (Manual) Platelet Estimate Sodium 137 Potassium 3.8 Chloride 93 L Carbon Dioxide 27 Anion Gap 21 H BUN 73 H Creatinine 5.6 H Est GFR ( Amer) 9 Est GFR (Non-Af Amer) 7 POC Glucose (mg/dL) Random Glucose 344 H Calcium 7.2 L Phosphorus Magnesium Total Bilirubin 1.1 AST 51 H D ALT 61 H D Alkaline Phosphatase 241 H Total Protein 6.2 L Albumin 3.0 L Globulin 3.1 Albumin/Globulin Ratio 1.0 Urine Eosinophils Fingerstick Blood Sugar Results: 344 Review of Systems - Review of Systems All systems: reviewed and no additional remarkable complaints except - Musculoskeletal Musculoskeletal: Back Pain Critical Care Progress Note - Ventilator Checklist Head of Bed 30 Degrees: Yes PUD Prophalyxis: Yes DVT Prophylaxis: Yes - Nutrition Nutrition: Nutrition Category Date Time Status Heart Healthy Diet [DIET] Diets 12/22/16 Breakfast Active Assessment/Plan (1) Acute renal failure Assessment and plan: 71-year-old female with history of asthma, COPD on home oxygen, diabetes mellitus type 2, chronic back pain, obstructive sleep apnea, anxiety, depression , appendectomy, cholecystectomy, TIA, dyslipidemia, hypertension. Patient has been taking ibuprofen 3 times a day for unknown amount of time, presents with acute renal failure. Neuro: Alert and oriented to person and place. Pulm: breathing spontaneously on 2L NC. COPD, continue oxygen, will start Spiriva. Should consider pulmonary consult for terminal operator treatment. CV: hypotensive on Levophed, titrating off. Septic shock. Echo (12/22/16) EF 70%, Grade 1 diastolic dysfunction, mild TR, moderate pulm HTN. Hem: leucocytosis, downtrending. Renal: Acute renal failure, now improving. BUN/Cr downtrending and patient making urine. Hyperkalemia resolved after Kayexalate/Calcium Gluconate/Insulin/ D50. Patient did not receive dialysis secondary to problem with Shiley catheter flow, but patient did not need dialysis after 24 hours of aggressive fluid hydration and medication treatment of hyperkalemia. Decrease NS@100. Endo: DM type II, short acting insulin sliding scale for coverage, lispro qac and lantus qhs. GI: heart healthy diet. Shock liver transaminitis improving. ID: Leukocytosis and fever yesterday evening and overnight. Still no confirmed source of sepsis, but most likely septic shock. Started patient empirically on Zosyn, with clinical improvement. Will continue 5-7 day course. DVT proph - heparin subcutaneous GI proph - not currently indicated, Pepcid for GERD beck for strict I/O's during acute illness Code status - full code left sided portacath Crtical Care Time spent 60 minutes Multi-disciplinary rounds were performed with house staff, nursing, speech therapy, respiratory therapy, pharmacy and nutrition with integrated input from the primary team/attending and other consulting services. The documented time is cumulative and includes review of patient data/exams/labs/chart review and examination of the patient on rounds and throughout the day; time is exclusive of any procedures or teaching time. Current Visit: Yes Status: Acute
--- NOTE | 2016-12-23 11:00 | CP.PCM.PN ---
Subjective - Date & Time of Evaluation Date of Evaluation: 12/23/16 Time of Evaluation: 10:57 - Subjective Subjective: Patient awake in bed she is feeling much better Urine output increasing over 1800 mL was totally balance -700 mL last 24 hours Serum creatinine came down to 5.6 with the urine down to 73 with normal potassium Serum sodium corrected the latest 137 Physical examination Consciousness not in acute distress feels good Chest clear Heart no rubs Abdomen soft Extremity no edema Lab data as noted above Impression and plan Acute renal failure from multiple purpose perhaps the infection and the use of antibiotics and nonsteroidal anti-inflammatory drug Patient appeared to be recovering and improving from acute renal failure perhaps she may be going into nonoliguric phase of ATN No more dialysis needed Continue to monitor electrolyte and intake and output Objective - Vital Signs/Intake and Output Vital Signs (last 24 hours): Temp Pulse Resp BP Pulse Ox 98.6 F 88 35 H 112/57 L 95 12/23/16 08:00 12/23/16 10:00 12/23/16 10:00 12/23/16 10:00 12/23/16 10:00 Intake and Output: 12/23/16 12/23/16 06:59 18:59 Intake Total 2150 9 Output Total 3550 Balance -1400 9 - Medications Medications: Current Medications Albuterol/Ipratropium (Duoneb 3 Mg/0.5 Mg (3 Ml) Ud) 3 ml IH Q4 [facility] Last Admin: 12/23/16 07:36 Dose: 3 ml Alprazolam (Xanax) 0.5 mg PO TID PRN PRN Reason: Anxiety Atorvastatin Calcium (Lipitor) 10 mg PO HS [facility] Last Admin: 12/22/16 22:14 Dose: 10 mg Clopidogrel Bisulfate (Plavix) 75 mg PO DAILY [facility] Last Admin: 12/23/16 09:33 Dose: 75 mg Famotidine (Pepcid) 20 mg PO BID [facility] Last Admin: 12/23/16 09:33 Dose: 20 mg Fentanyl (Duragesic) 1 patch TD Q72H [facility] PRN Reason: Protocol Last Admin: 12/22/16 02:58 Dose: 1 patch Gabapentin (Neurontin) 300 mg PO TID [facility] Heparin Sodium (Porcine) (Heparin) 5,000 units SC Q8 [facility] PRN Reason: Protocol Last Admin: 12/23/16 09:30 Dose: 5,000 units Home Med (Paroxetine [Paxil Cr]) 12.5 mg PO DAILY [facility] Piperacillin Sod/Tazobactam (Sod 2.25 gm/ Sodium Chloride) 100 mls @ 100 mls/ hr IVPB Q8 [facility] Last Admin: 12/23/16 09:35 Dose: 100 mls/hr Norepinephrine Bitartrate 4 mg (/ Dextrose) 254 mls @ 47.62 mls/hr IV .Q5H21M TAYLRO; 12.5 MCG/MIN PRN Reason: Protocol Last Titration: 12/23/16 10:18 Dose: 7.5 mcg/min, 28.57 mls/hr Sodium Chloride (Sodium Chloride 0.9%) 1,000 mls @ 100 mls/hr IV .Q10H [facility] Stop: 12/24/16 10:25 Insulin Detemir (Levemir) 35 units SC HS [facility] Last Admin: 12/22/16 22:12 Dose: 35 unit Insulin Human Lispro (Humalog) 14 units SC AC [facility] Last Admin: 12/23/16 09:31 Dose: 14 units Insulin Human Lispro (Humalog) 0 units SC Q6H TAYLOR PRN Reason: Protocol Insulin Human Regular (Humulin R) 10 units IV ONCE ONE Stop: 12/23/16 18:41 Montelukast Sodium (Singulair) 10 mg PO [facility] Last Admin: 12/22/16 22:14 Dose: 10 mg Fluticasone/Salmeterol (Advair Diskus 250/50) 1 puff IH Q12 [facility] Last Admin: 12/23/16 09:30 Dose: 1 puff Sitagliptin Phosphate (Januvia) 25 mg PO DAILY [facility] Last Admin: 12/23/16 09:32 Dose: 25 mg Theophylline (Stephen-24) 200 mg PO DAILY [facility] Last Admin: 12/23/16 09:34 Dose: 200 mg Tiotropium [place] (Spiriva) 18 mcg INH DAILY [facility] Last Admin: 12/23/16 09:34 Dose: 18 mcg - Labs Labs: 12/23/16 09:05 12/23/16 09:05 PT 10.5 SECONDS (9.6-11.2) 12/21/16 19:10 INR 1.01 (0.92-1.08) 12/21/16 19:10 APTT 28.8 SECONDS (23.3-32.5) 12/21/16 19:10 - Constitutional Appears: No Acute Distress - ENT Exam ENT Exam: Mucous Membranes Moist - Respiratory Exam Respiratory Exam: NORMAL BREATHING PATTERN. absent: Chest Wall Tenderness - Extremities Exam Extremities Exam: absent: Calf Tenderness - Back Exam Back Exam: absent: CVA tenderness (L), CVA tenderness (R) - Neurological Exam Neurological Exam: Alert
[2016-12-23] MEDS: Sodium Chloride 0.9% 1,000 ML IV SCH ×2 (11:18→22:26)
--- NOTE | 2016-12-23 11:43 | US ---
PROCEDURE: Ultrasound of the Kidneys HISTORY: ARF COMPARISON: CT abdomen and pelvis without IV contrast performed 12/21/16 TECHNIQUE: Sonogram of the kidneys. FINDINGS: Extremely limited study due to habitus. RIGHT KIDNEY: Measures: 13.7 x 6.3 x 5.9 cm. No obstructing calculus or hydronephrosis identified. LEFT KIDNEY: Measures: 13.6 x 6.8 x 6.8 cm. No obstructing calculus or hydronephrosis identified. OTHER FINDINGS: None. IMPRESSION: Markedly limited study as above.
--- NOTE | 2016-12-23 16:06 | RAD ---
HISTORY: assess for fluid overload COMPARISON: Chest x-ray performed 12/22/16 TECHNIQUE: Chest, one view. FINDINGS: Examination limited by habitus. Interval removal of right-sided central venous catheter previously seen extending towards the right axilla. Left-sided MediPort terminates in expected location of the SVC. LUNGS: Mild pulmonary venous congestion. Central vascular prominence. Small left pleural effusion and or atelectasis or infiltrate. No definite pneumothorax. Please note that chest x-ray has limited sensitivity for the detection of pulmonary masses. CARDIOVASCULAR: Cardiomegaly. Atherosclerotic calcifications. OSSEOUS STRUCTURES: Degenerative changes. VISUALIZED UPPER ABDOMEN: Unremarkable. OTHER FINDINGS: None. IMPRESSION: Support lines and tubes as above. Mild pulmonary venous congestion. Central vascular congestion. Probable small left pleural effusion and or atelectasis/ infiltrate.
[2016-12-23] MEDS ORDERED: Insulin Regular 100 units/ml IV ONE (18:40)
[2016-12-23] MEDS: Insulin Detemir 100 Units/ml Inj SC SCH (21:59)
[2016-12-24 05:13] LABS: HEMATOCRIT 33.5 % (34.0-47.0); MEAN CELL VOLUME 91.5 fl (81.0-99.0); MEAN CORPUSCULAR HEMOGLOBIN 29.3 pg (27.0-31.0); RED CELL DISTRIBUTION WIDTH 12.5 % (11.5-14.5); WHITE BLOOD COUNT 9.9 K/uL (4.8-10.8)
[2016-12-24] MEDS: Albuterol-Ipratrop 3 mg / 0.5 (3 ml) UD IH SCH ×10 (05:21→23:54)
[2016-12-24 05:34] LABS: ALB/GLOB RATIO 0.9 (1.0-2.1); BILIRUBIN,TOTAL 0.6 mg/dl (0.2-1.3)
--- NOTE | 2016-12-24 07:13 | CP.PCM.PN ---
Subjective - Date & Time of Evaluation Date of Evaluation: 12/24/16 Time of Evaluation: 07:13 - Subjective Subjective: doing well, bun/cr trending down. no copmalints. no f/c, n/v/d more alert. bw nad imagin gnoted. still on levophed Objective - Vital Signs/Intake and Output Vital Signs (last 24 hours): Temp Pulse Resp BP Pulse Ox 99.7 F H 97 H 18 110/46 L 97 12/24/16 04:00 12/24/16 06:00 12/24/16 06:00 12/24/16 06:00 12/24/16 06:00 Intake and Output: 12/24/16 12/24/16 06:59 18:59 Intake Total 2426 Output Total 3070 Balance -644 - Medications Medications: Current Medications Albuterol/Ipratropium (Duoneb 3 Mg/0.5 Mg (3 Ml) Ud) 3 ml IH Q4 [facility] Last Admin: 12/24/16 05:21 Dose: 3 ml Alprazolam (Xanax) 0.5 mg PO TID PRN PRN Reason: Anxiety Atorvastatin Calcium (Lipitor) 10 mg PO HS [facility] Last Admin: 12/23/16 21:57 Dose: 10 mg Clopidogrel Bisulfate (Plavix) 75 mg PO DAILY [facility] Last Admin: 12/23/16 09:33 Dose: 75 mg Famotidine (Pepcid) 20 mg PO BID [facility] Last Admin: 12/23/16 16:52 Dose: 20 mg Fentanyl (Duragesic) 1 patch TD Q72H [facility] PRN Reason: Protocol Last Admin: 12/22/16 02:58 Dose: 1 patch Gabapentin (Neurontin) 300 mg PO TID [facility] Heparin Sodium (Porcine) (Heparin) 5,000 units SC Q8 [facility] PRN Reason: Protocol Last Admin: 12/24/16 00:08 Dose: 5,000 units Home Med (Paroxetine [Paxil Cr]) 12.5 mg PO DAILY [facility] Piperacillin Sod/Tazobactam (Sod 2.25 gm/ Sodium Chloride) 100 mls @ 100 mls/ hr IVPB Q8 [facility] Last Admin: 12/24/16 00:13 Dose: 100 mls/hr Norepinephrine Bitartrate 4 mg (/ Dextrose) 254 mls @ 47.62 mls/hr IV .Q5H21M [facility]; 12.5 MCG/MIN PRN Reason: Protocol Last Admin: 12/24/16 00:12 Dose: 5 mcg/min, 19.05 mls/hr Sodium Chloride (Sodium Chloride 0.9%) 1,000 mls @ 100 mls/hr IV .Q10H [facility] Stop: 12/24/16 10:25 Last Admin: 12/23/16 22:26 Dose: 100 mls/hr Potassium Chloride (Potassium Chloride 10 Meq/100 Ml) 100 mls @ 100 mls/hr IVPB Q1 [facility] Stop: 12/24/16 10:59 Insulin Detemir (Levemir) 35 units SC HS [facility] Last Admin: 12/23/16 21:59 Dose: 35 unit Insulin Human Lispro (Humalog) 14 units SC AC [facility] Last Admin: 12/23/16 16:56 Dose: 14 units Insulin Human Lispro (Humalog) 0 units SC Q6H [facility] PRN Reason: Protocol Last Admin: 12/23/16 21:59 Dose: Not Given Montelukast Sodium (Singulair) 10 mg PO HS [facility] Last Admin: 12/23/16 21:57 Dose: 10 mg Fluticasone/Salmeterol (Advair Diskus 250/50) 1 puff IH Q12 [facility] Last Admin: 12/23/16 21:57 Dose: 1 puff Sitagliptin Phosphate (Januvia) 25 mg PO DAILY [facility] Last Admin: 12/23/16 09:32 Dose: 25 mg Theophylline (Stephen-24) 200 mg PO DAILY [facility] Last Admin: 12/23/16 09:34 Dose: 200 mg Tiotropium [place] (Spiriva) 18 mcg INH DAILY [facility] Last Admin: 12/23/16 09:34 Dose: 18 mcg - Labs Labs: 12/24/16 04:56 12/24/16 04:56 PT 10.5 SECONDS (9.6-11.2) 12/21/16 19:10 INR 1.01 (0.92-1.08) 12/21/16 19:10 APTT 28.8 SECONDS (23.3-32.5) 12/21/16 19:10 - Constitutional Appears: Well, Non-toxic, No Acute Distress - Head Exam Head Exam: ATRAUMATIC, NORMAL INSPECTION, NORMOCEPHALIC - Eye Exam Eye Exam: EOMI, Normal appearance, PERRL Pupil Exam: NORMAL ACCOMODATION, PERRL - ENT Exam ENT Exam: Mucous Membranes Moist, Normal Exam - Neck Exam Neck Exam: Full ROM, Normal Inspection. absent: Lymphadenopathy - Respiratory Exam Respiratory Exam: Clear to Ausculation Bilateral, NORMAL BREATHING PATTERN - Cardiovascular Exam Cardiovascular Exam: REGULAR RHYTHM, RRR, +S1, +S2. absent: Murmur - GI/Abdominal Exam GI & Abdominal Exam: Soft, Normal Bowel Sounds. absent: Tenderness - Extremities Exam Extremities Exam: Full ROM, Normal Capillary Refill, Normal Inspection. absent : Joint Swelling, Pedal Edema - Back Exam Back Exam: NORMAL INSPECTION - Neurological Exam Neurological Exam: Alert, Awake, CN II-XII Intact, Normal Gait, Oriented x3 - Psychiatric Exam Psychiatric exam: Normal Affect, Normal Mood - Skin Skin Exam: Dry, Intact, Normal Color, Warm Assessment and Plan (1) CHF (congestive heart failure) Status: Acute (2) Chronic back pain Status: Acute (3) COPD (chronic obstructive pulmonary disease) Status: Acute (4) Diabetes 1.5, managed as type 1 Status: Chronic (5) Acute renal failure Status: Acute (6) DVT prophylaxis Status: Acute - Assessment and Plan (Free Text) Assessment: (1) Acute renal failure Assessment and Plan: icu care, neprho ivf unable to obtain access yesterrday bun/cr trending down, diuresed yesterday likely r/t sepsis/hypoperfusion Status: Acute (2) CHF (congestive heart failure)-acute on chronic, systeolic Assessment and Plan: cont meds, cardio echo Status: Acute (3) COPD (chronic obstructive pulmonary disease) Assessment and Plan: duonebs o2 prn Status: Acute (4) Chronic back pain Assessment and Plan: fetanyl Status: Acute (5) Diabetes 1.5, managed as type 1 Assessment and Plan: riss, home meds icu care Status: Chronic (6) DVT prophylaxis Assessment and Plan: scd and ae hose heparin Status: Acute
[2016-12-24] MEDS: Fluticasone-Salmeterol 250-50mcg Diskus IH SCH ×2 (08:40→21:08)
[2016-12-24] MEDS: Insulin Lispro (humaLOG) 100 Units/ml Inj SC SCH ×6 (08:41→22:36)
[2016-12-24] MEDS: Potassium CL 10mEq/100ml 100 ML IVPB SCH ×4 (08:43→13:05)
[2016-12-24] MEDS: Tiotropium 18 mcg Cap For Inhalation INH SCH (08:44)
[2016-12-24] MEDS: Theophylline 200mg ER 24 hrs Cap PO SCH (08:44)
[2016-12-24] MEDS ORDERED: Sodium Chloride 0.9% 500 ML IV SCH (10:00)
--- NOTE | 2016-12-24 10:14 | CP.CCUPN ---
<Jerome Mcfadden - Last Filed: 12/24/16 10:32> CCU Subjective - Physician Review Subjective (Free Text): 12/24/16 10:12 Pt. seen at bedside during morning rounds with Dr. Acosta resting comfortably comfortably in NAD. No acute events overnight. Pt. with no complaints at this time. CCU Objective - Vital Signs / Intake & Output Vital Signs (Last 4 hours): Vital Signs Temp Pulse Resp BP Pulse Ox 12/24/16 10:00 86 18 96/42 L 95 12/24/16 09:00 82 17 99/45 L 97 12/24/16 08:00 79 21 97/43 L 97 12/24/16 07:00 99 F 79 18 104/45 L 96 Intake and Output (Last 8hrs): Intake & Output 12/23/16 12/24/16 12/24/16 22:59 06:59 14:59 Intake Total 3846 950 860 Output Total 2920 1450 Balance 926 -500 860 Intake: IV 3070 830 Intake, Piggyback 136 120 500 Oral 640 360 Output: Urine 2920 1050 Urethral (Armas) 2920 1050 Stool 400 Other: # Bowel Movements 0 - Physical Exam Head: Positive for: Atraumatic, Normocephalic Mouth: Positive for: Moist Mucous Membranes Respiratory/Chest: Positive for: Clear to Auscultation. Negative for: Respiratory Distress, Accessory Muscle Use Cardiovascular: Positive for: Regular Rate and Rhythm. Negative for: Murmurs Abdomen: Negative for: Distention Lower Extremity: Positive for: Normal Inspection (+postive trace edema), Other ( pedal pulses +2 bilaterlly) - Medications Active Medications: Active Medications Generic Name Dose Route Start Last Admin Trade Name Freq PRN Reason Stop Dose Admin Albuterol/Ipratropium 3 ml 12/22/16 01:00 12/24/16 05:21 Duoneb 3 Mg/0.5 Mg (3 Ml) Ud IH 3 ml Q4 [facility] Administration Alprazolam 0.5 mg 12/22/16 00:00 Xanax PO TID PRN Anxiety Atorvastatin Calcium 10 mg 12/22/16 22:00 12/23/16 21:57 Lipitor PO 10 mg HS [facility] Administration Clopidogrel Bisulfate 75 mg 12/22/16 09:00 12/24/16 08:43 Plavix PO 75 mg DAILY [facility] Administration Famotidine 20 mg 12/22/16 09:00 12/24/16 08:42 Pepcid PO 20 mg BID [facility] Administration Fentanyl 1 patch 12/22/16 01:30 12/22/16 02:58 Duragesic TD 1 patch Q72H [facility] Administration Protocol Gabapentin 300 mg 12/22/16 09:00 Neurontin PO TID [facility] Heparin Sodium (Porcine) 5,000 units 12/22/16 01:00 12/24/16 08:41 Heparin SC 5,000 units Q8 [facility] Administration Protocol Home Med 12.5 mg 12/22/16 09:00 Paroxetine [Paxil Cr] PO DAILY [facility] Piperacillin Sod/Tazobactam 100 mls @ 100 mls/hr 12/22/16 17:45 12/24/16 08: 44 Sod 2.25 gm/ Sodium Chloride IVPB 100 mls/hr Q8 [facility] Administration Norepinephrine Bitartrate 4 mg 254 mls @ 47.62 mls/hr 12/23/16 08:15 00:12 / Dextrose IV 5 mcg/min .Q5H21M [facility] 19.05 mls/hr Protocol Administration 12.5 MCG/MIN Sodium Chloride 1,000 mls @ 100 mls/hr 12/23/16 10:30 12/23/16 22:26 Sodium Chloride 0.9% IV 12/24/16 10:25 100 mls/hr .Q10H [facility] Administration Potassium Chloride 100 mls @ 100 mls/hr 12/24/16 07:00 12/24/16 10:04 Potassium Chloride 10 Meq/100 Ml IVPB 12/24/16 10:59 100 mls/hr Q1 [facility] Administration Sodium Chloride 500 mls @ 999 mls/hr 12/24/16 10:00 Sodium Chloride 0.9% IV 12/25/16 09:58 .Q31M [facility] Insulin Detemir 35 units 12/22/16 22:00 12/23/16 21:59 Levemir SC 35 unit HS [facility] Administration Insulin Human Lispro 14 units 12/22/16 07:30 12/24/16 08:41 Humalog SC 14 units AC [facility] Administration Insulin Human Lispro 0 units 12/23/16 10:00 12/23/16 21:59 Humalog SC Not Given Q6H [facility] Protocol Montelukast Sodium 10 mg 12/22/16 22:00 12/23/16 21:57 Singulair PO 10 mg HS [facility] Administration Fluticasone/Salmeterol 1 puff 12/22/16 09:00 12/24/16 08:40 Advair Diskus 250/50 IH 1 puff Q12 [facility] Administration Sitagliptin Phosphate 25 mg 12/22/16 09:00 12/24/16 08:42 Januvia PO 25 mg DAILY [facility] Administration Theophylline 200 mg 12/22/16 09:00 12/24/16 08:44 Stephen-24 PO 200 mg DAILY [facility] Administration - Patient Studies Lab Studies: Microbiology Studies 12/22/16 08:39 MRSA Culture (Admit) - Final Naris MRSA NOT DETECTED 12/22/16 16:00 Blood Culture - Preliminary Blood-Thru Central Line NO GROWTH AFTER 24 HOURS Lab Studies 12/24/16 12/24/16 12/24/16 Range/Units 06:21 04:56 04:56 WBC 9.9 (4.8-10.8) K/uL RBC 3.67 L (3.80-5.20) Mil/uL Hgb 10.7 L (12.0-16.0) g/dL Hct 33.5 L (34.0-47.0) % MCV 91.5 (81.0-99.0) fl MCH 29.3 (27.0-31.0) pg MCHC 32.0 L (33.0-37.0) g/dL RDW 12.5 (11.5-14.5) % Plt Count 288 (130-400) K/uL Sodium 140 (132-148) mmol/l Potassium 3.0 L (3.6-5.0) MMOL/L Chloride 95 L (98-107) mmol/L Carbon Dioxide 31 H (22-30) mmol/L Anion Gap 17 (10-20) BUN 55 H (7-17) mg/dl Creatinine 3.8 H (0.7-1.2) mg/dL Est GFR ( Amer) 14 Est GFR (Non-Af Amer) 12 POC Glucose (mg/dL) 188 H (65-110) mg/dL Random Glucose 193 H (65-105) mg/dL Calcium 7.0 L (8.4-10.2) mg/dL Total Bilirubin 0.6 (0.2-1.3) mg/dl AST 29 (14-36) U/L ALT 47 (9-52) U/L Alkaline Phosphatase 182 H D (38-126) U/L Total Protein 6.0 L (6.3-8.2) G/DL Albumin 2.9 L (3.5-5.0) g/dL Globulin 3.1 (2.2-3.9) gm/dL Albumin/Globulin Ratio 0.9 L (1.0-2.1) Procalcitonin (0.19-0.49) NG/ML 12/23/16 12/23/16 12/23/16 Range/Units 21:43 16:42 10:41 WBC (4.8-10.8) K/uL RBC (3.80-5.20) Mil/uL Hgb (12.0-16.0) g/dL Hct (34.0-47.0) % MCV (81.0-99.0) fl MCH (27.0-31.0) pg MCHC (33.0-37.0) g/dL RDW (11.5-14.5) % Plt Count (130-400) K/uL Sodium (132-148) mmol/l Potassium (3.6-5.0) MMOL/L Chloride (98-107) mmol/L Carbon Dioxide (22-30) mmol/L Anion Gap (10-20) BUN (7-17) mg/dl Creatinine (0.7-1.2) mg/dL Est GFR ( Amer) Est GFR (Non-Af Amer) POC Glucose (mg/dL) 246 H 348 H 322 H (65-110) mg/dL Random Glucose (65-105) mg/dL Calcium (8.4-10.2) mg/dL Total Bilirubin (0.2-1.3) mg/dl AST (14-36) U/L ALT (9-52) U/L Alkaline Phosphatase (38-126) U/L Total Protein (6.3-8.2) G/DL Albumin (3.5-5.0) g/dL Globulin (2.2-3.9) gm/dL Albumin/Globulin Ratio (1.0-2.1) Procalcitonin (0.19-0.49) NG/ML 12/22/16 Range/Units 17:45 WBC (4.8-10.8) K/uL RBC (3.80-5.20) Mil/uL Hgb (12.0-16.0) g/dL Hct (34.0-47.0) % MCV (81.0-99.0) fl MCH (27.0-31.0) pg MCHC (33.0-37.0) g/dL RDW (11.5-14.5) % Plt Count (130-400) K/uL Sodium (132-148) mmol/l Potassium (3.6-5.0) MMOL/L Chloride (98-107) mmol/L Carbon Dioxide (22-30) mmol/L Anion Gap (10-20) BUN (7-17) mg/dl Creatinine (0.7-1.2) mg/dL Est GFR ( Amer) Est GFR (Non-Af Amer) POC Glucose (mg/dL) (65-110) mg/dL Random Glucose (65-105) mg/dL Calcium (8.4-10.2) mg/dL Total Bilirubin (0.2-1.3) mg/dl AST (14-36) U/L ALT (9-52) U/L Alkaline Phosphatase (38-126) U/L Total Protein (6.3-8.2) G/DL Albumin (3.5-5.0) g/dL Globulin (2.2-3.9) gm/dL Albumin/Globulin Ratio (1.0-2.1) Procalcitonin 0.53 H (0.19-0.49) NG/ML Laboratory Results - last 24 hr 12/22/16 12/23/16 12/23/16 17:45 10:41 16:42 WBC RBC Hgb Hct MCV MCH MCHC RDW Plt Count Sodium Potassium Chloride Carbon Dioxide Anion Gap BUN Creatinine Est GFR ( Amer) Est GFR (Non-Af Amer) POC Glucose (mg/dL) 322 H 348 H Random Glucose Calcium Total Bilirubin AST ALT Alkaline Phosphatase Total Protein Albumin Globulin Albumin/Globulin Ratio Procalcitonin 0.53 H 12/23/16 12/24/16 12/24/16 21:43 04:56 04:56 WBC 9.9 RBC 3.67 L Hgb 10.7 L Hct 33.5 L MCV 91.5 MCH 29.3 MCHC 32.0 L RDW 12.5 Plt Count 288 Sodium 140 Potassium 3.0 L Chloride 95 L Carbon Dioxide 31 H Anion Gap 17 BUN 55 H Creatinine 3.8 H Est GFR ( Amer) 14 Est GFR (Non-Af Amer) 12 POC Glucose (mg/dL) 246 H Random Glucose 193 H Calcium 7.0 L Total Bilirubin 0.6 AST 29 ALT 47 Alkaline Phosphatase 182 H D Total Protein 6.0 L Albumin 2.9 L Globulin 3.1 Albumin/Globulin Ratio 0.9 L Procalcitonin 12/24/16 06:21 WBC RBC Hgb Hct MCV MCH MCHC RDW Plt Count Sodium Potassium Chloride Carbon Dioxide Anion Gap BUN Creatinine Est GFR ( Amer) Est GFR (Non-Af Amer) POC Glucose (mg/dL) 188 H Random Glucose Calcium Total Bilirubin AST ALT Alkaline Phosphatase Total Protein Albumin Globulin Albumin/Globulin Ratio Procalcitonin Fingerstick Blood Sugar Results: 188 Review of Systems - Review of Systems Review of Systems: See HPI Critical Care Progress Note - Nutrition Nutrition: Nutrition Category Date Time Status Heart Healthy Diet [DIET] Diets 12/22/16 Breakfast Active Assessment/Plan - Assessment and Plan (Free Text) Assessment: 71 y.o. female with PMHx HTN, Type II DM, COPD admitted for acute renal failure. Acute renal failure/Acute kidney injury -Improving BUN/CR 55/3.8 today -Total output today 3570 Total Input 1600 -Kidney function improving, patient may be dehydrating -Will fluid challenge and monitor blood pressure Hypotension- Currently on Levophed 12.5mcg -Will titrate down after fluid bolus with 500cc NS -Echocardiogram- LVEF 70% -Lasix if signs of pulmonary edema Hyperkalemia- Improving 3.0 today -IVPB KCL -Repeat bmp SIRS Criteria- WBC-16.9 T-100.9 -UCx negative -BCx pending -Continue Zosyn 2.25grams Q8 Transamanitis- Resolved -Repeat LFT's Leucocytosis/Sepsis- Resolved -Repeat CBC COPD -Duonebs q4 [facility] -Advair Q12 [facility] -Theophylline 200mg po daily Type II DM -Levemir 34units qhs -Lispro 10units AC -Januvia 25mg po daily DVT prophylaxis -Heparin 5000units sc Q8 GI prophylaxis -Pepcid 20mg po BID Armas -Monitor Ins and Outs Diet -Heart healthy <Horacio Acosta - Last Filed: 12/24/16 23:23> CCU Subjective - Physician Review Subjective (Free Text): Attestation: Patient seen and examined at the bedside with Resident Dr. Sandy Mcfadden; and I agree with his outline of plans and management documented below as discussed on AM rounds reflecting my review of all applicable clinical data, and participation in the care of the patient throughout the day in ICU; today, December 24, 2016.
[2016-12-24] MEDS ORDERED: Potassium Chloride 20 mEq/15 ml LIQ UD PO ONE (11:35)
--- NOTE | 2016-12-24 11:39 | CP.PCM.PN ---
Subjective - Date & Time of Evaluation Date of Evaluation: 12/24/16 Time of Evaluation: 11:37 - Subjective Subjective: Patient awake and consciousness in bed The daughter at the bedside discussed with the family Patient eating well she feels much better note shortness of breath no difficulty breathing Objective - Vital Signs/Intake and Output Vital Signs (last 24 hours): Temp Pulse Resp BP Pulse Ox 99 F 83 15 103/46 L 97 12/24/16 07:00 12/24/16 11:00 12/24/16 11:00 12/24/16 11:00 12/24/16 11:00 Intake and Output: 12/24/16 12/24/16 06:59 18:59 Intake Total 2426 1860 Output Total 3070 Balance -644 1860 - Medications Medications: Current Medications Albuterol/Ipratropium (Duoneb 3 Mg/0.5 Mg (3 Ml) Ud) 3 ml IH Q4 [facility] Last Admin: 12/24/16 11:14 Dose: 3 ml Alprazolam (Xanax) 0.5 mg PO TID PRN PRN Reason: Anxiety Atorvastatin Calcium (Lipitor) 10 mg PO HS [facility] Last Admin: 12/23/16 21:57 Dose: 10 mg Clopidogrel Bisulfate (Plavix) 75 mg PO DAILY [facility] Last Admin: 12/24/16 08:43 Dose: 75 mg Famotidine (Pepcid) 20 mg PO BID [facility] Last Admin: 12/24/16 08:42 Dose: 20 mg Fentanyl (Duragesic) 1 patch TD Q72H [facility] PRN Reason: Protocol Last Admin: 12/22/16 02:58 Dose: 1 patch Gabapentin (Neurontin) 300 mg PO TID [facility] Heparin Sodium (Porcine) (Heparin) 5,000 units SC Q8 [facility] PRN Reason: Protocol Last Admin: 12/24/16 08:41 Dose: 5,000 units Home Med (Paroxetine [Paxil Cr]) 12.5 mg PO DAILY [facility] Piperacillin Sod/Tazobactam (Sod 2.25 gm/ Sodium Chloride) 100 mls @ 100 mls/ hr IVPB Q8 [facility] Last Admin: 12/24/16 08:44 Dose: 100 mls/hr Norepinephrine Bitartrate 4 mg (/ Dextrose) 254 mls @ 47.62 mls/hr IV .Q5H21M [facility]; 12.5 MCG/MIN PRN Reason: Protocol Last Admin: 12/24/16 00:12 Dose: 5 mcg/min, 19.05 mls/hr Sodium Chloride (Sodium Chloride 0.9%) 500 mls @ 999 mls/hr IV .Q31M [facility] Stop: 12/25/16 09:58 Insulin Detemir (Levemir) 35 units SC HS [facility] Last Admin: 12/23/16 21:59 Dose: 35 unit Insulin Human Lispro (Humalog) 14 units SC AC [facility] Last Admin: 12/24/16 08:41 Dose: 14 units Insulin Human Lispro (Humalog) 0 units SC Q6H [facility] PRN Reason: Protocol Last Admin: 12/23/16 21:59 Dose: Not Given Montelukast Sodium (Singulair) 10 mg PO HS [facility] Last Admin: 12/23/16 21:57 Dose: 10 mg Potassium Chloride (Potassium Chloride Oral Soln) 40 meq PO ONCE ONE Stop: 12/24/16 11:36 Fluticasone/Salmeterol (Advair Diskus 250/50) 1 puff IH Q12 [facility] Last Admin: 12/24/16 08:40 Dose: 1 puff Sitagliptin Phosphate (Januvia) 25 mg PO DAILY [facility] Last Admin: 12/24/16 08:42 Dose: 25 mg Theophylline (Stephen-24) 200 mg PO DAILY [facility] Last Admin: 12/24/16 08:44 Dose: 200 mg - Labs Labs: 12/24/16 04:56 12/24/16 04:56 PT 10.5 SECONDS (9.6-11.2) 12/21/16 19:10 INR 1.01 (0.92-1.08) 12/21/16 19:10 APTT 28.8 SECONDS (23.3-32.5) 12/21/16 19:10 - Constitutional Appears: No Acute Distress - ENT Exam ENT Exam: Mucous Membranes Moist - Respiratory Exam Respiratory Exam: absent: Chest Wall Tenderness - Cardiovascular Exam Cardiovascular Exam: REGULAR RHYTHM. absent: Rubs - GI/Abdominal Exam GI & Abdominal Exam: Normal Bowel Sounds - Extremities Exam Extremities Exam: absent: Calf Tenderness - Back Exam Back Exam: absent: CVA tenderness (L), CVA tenderness (R) - Neurological Exam Neurological Exam: Alert Assessment and Plan (1) Acute renal failure Assessment & Plan: Serum creatinine coming down. Serum potassium noted to be low 3.0 she was given stat potassium chloride 40 mEq monitor serum potassium level Acute renal failure improving day after day Intake and output noted I had a long discussion with the daughter regarding using nonsteroidal anti- inflammatory drugs not to be used anytime soon patient has been taken a lot of that at home before she came White count came down to normal Continue monitoring Status: Acute
--- NOTE | 2016-12-24 15:20 | PQF GENQUE ---
Isabel Khan CHEMICAL RESEARCH ENGINEER, Please specify the type of heart failure in your progress notes: Combined systolic and diastolic Diastolic Systolic Other (please specify) OR Unable to determine OR Unknown Cardiology consult: diagnoses include: 2) Acute and chronic respiratory failure Assessment and Plan: will assess if component of heart failure or diastolic dysfunction. check echocardiogram Status: Acute (3) CHF (congestive heart failure) Assessment and Plan: echocardiogram Status: Acute 12/24 CHEMICAL RESEARCH ENGINEER progress note: diagnose include:CHF (congestive heart failure) Assessment and Plan: cont meds, cardio echo Status: Acute 12/23: Echo: <Conclusion> Very poor images and limited study due to COPD and body habitus. The left ventricle is normal size. There is borderline concentric left ventricular hypertrophy. There is normal LV segmental wall motion. Left ventricle systolic function is normal. The Ejection Fraction is >70%. Transmitral Doppler flow pattern is Grade I-abnormal relaxation pattern. There is mild tricuspid regurgitation. There is moderate pulmonary hypertension. This form is a permanent part of the medical record Clarification of your documentation is requested to better reflect the severity of illness and intensity of treatment of your patient. Indicators present [] Specify: [] [] Specify: [] [] Specify: [] [] Specify: [] Location in the medical record that reflects the above clinical findings: [] Treatment Provided: [] PHYSICIAN'S RESPONSE Based on your medical judgment of the clinical indicators outlined above please clarify the following: [] Practitioner response acute on chronic systolic [] If unable to determine, please check the box, sign and date. Present On Admission (POA) Indicator: [] Present at the time of admission [] Not present at the time of admission [] Clinically Undetermined In responding to this query, please exercise your independent professional judgment. The fact that a question is asked does not imply that any particular answer is desired or expected. Thank you for your clarification on this documentation. If you have any questions please call. * Thank you, Sruthi Marte RN BSN ext. #[phone] MTDD
[2016-12-24] MEDS: Sodium Chloride 0.9% 1,000 ML IV SCH (16:27)
[2016-12-24] MEDS ORDERED: Sodium Chloride 0.9% 500 ML IV ONE (18:09)
[2016-12-24] MEDS: Insulin Detemir 100 Units/ml Inj SC SCH (21:06)
[2016-12-25] MEDS: Insulin Lispro (humaLOG) 100 Units/ml Inj SC SCH ×7 (04:30→22:00)
[2016-12-25] MEDS: Albuterol-Ipratrop 3 mg / 0.5 (3 ml) UD IH SCH ×7 (05:32→23:47)
--- NOTE | 2016-12-25 06:51 | CP.PCM.PN ---
Subjective - Date & Time of Evaluation Date of Evaluation: 12/25/16 Time of Evaluation: 06:50 - Subjective Subjective: pt comfortable in bed. no comlaints. on levophed. nsr on monitor. bun/cr trendingdown. bw pending for this am. no f/c, n/v/d more alert Objective - Vital Signs/Intake and Output Vital Signs (last 24 hours): Temp Pulse Resp BP Pulse Ox 98.7 F 82 21 104/48 L 96 12/25/16 04:00 12/25/16 06:00 12/25/16 06:00 12/25/16 06:00 12/25/16 06:00 Intake and Output: 12/24/16 12/25/16 18:59 06:59 Intake Total 4676 1480 Output Total 1525 2250 Balance 3151 -770 - Medications Medications: Current Medications Albuterol/Ipratropium (Duoneb 3 Mg/0.5 Mg (3 Ml) Ud) 3 ml IH Q4 [facility] Last Admin: 12/25/16 05:33 Dose: Not Given Atorvastatin Calcium (Lipitor) 10 mg PO HS [facility] Last Admin: 12/24/16 21:08 Dose: 10 mg Clopidogrel Bisulfate (Plavix) 75 mg PO DAILY [facility] Last Admin: 12/24/16 08:43 Dose: 75 mg Famotidine (Pepcid) 20 mg PO BID [facility] Last Admin: 12/24/16 16:22 Dose: 20 mg Fentanyl (Duragesic) 1 patch TD Q72H [facility] PRN Reason: Protocol Last Admin: 12/22/16 02:58 Dose: 1 patch Gabapentin (Neurontin) 300 mg PO TID [facility] Heparin Sodium (Porcine) (Heparin) 5,000 units SC Q8 [facility] PRN Reason: Protocol Last Admin: 12/25/16 00:43 Dose: 5,000 units Home Med (Paroxetine [Paxil Cr]) 12.5 mg PO DAILY [facility] Piperacillin Sod/Tazobactam (Sod 2.25 gm/ Sodium Chloride) 100 mls @ 100 mls/ hr IVPB Q8 [facility] Last Admin: 12/25/16 00:42 Dose: 100 mls/hr Sodium Chloride (Sodium Chloride 0.9%) 500 mls @ 999 mls/hr IV .Q31M [facility] Stop: 12/25/16 09:58 Last Admin: 12/24/16 10:00 Dose: 999 mls/hr Sodium Chloride (Sodium Chloride 0.9%) 1,000 mls @ 100 mls/hr IV .Q10H [facility] Stop: 12/25/16 18:09 Insulin Detemir (Levemir) 35 units SC HS [facility] Last Admin: 12/24/16 21:06 Dose: 35 unit Insulin Human Lispro (Humalog) 14 units SC AC [facility] Last Admin: 12/24/16 16:22 Dose: 14 units Insulin Human Lispro (Humalog) 0 units SC Q6H [facility] PRN Reason: Protocol Last Admin: 12/24/16 22:36 Dose: Not Given Montelukast Sodium (Singulair) 10 mg PO [facility] Last Admin: 12/24/16 21:08 Dose: 10 mg Fluticasone/Salmeterol (Advair Diskus 250/50) 1 puff IH Q12 [facility] Last Admin: 12/24/16 21:08 Dose: 1 puff Sitagliptin Phosphate (Januvia) 25 mg PO DAILY [facility] Last Admin: 12/24/16 08:42 Dose: 25 mg Theophylline (Stephen-24) 200 mg PO DAILY [facility] Last Admin: 12/24/16 08:44 Dose: 200 mg - Labs Labs: 12/24/16 04:56 12/24/16 04:56 PT 10.5 SECONDS (9.6-11.2) 12/21/16 19:10 INR 1.01 (0.92-1.08) 12/21/16 19:10 APTT 28.8 SECONDS (23.3-32.5) 12/21/16 19:10 - Constitutional Appears: Well, Non-toxic, No Acute Distress - Head Exam Head Exam: ATRAUMATIC, NORMAL INSPECTION, NORMOCEPHALIC - Eye Exam Eye Exam: EOMI, Normal appearance, PERRL Pupil Exam: NORMAL ACCOMODATION, PERRL - ENT Exam ENT Exam: Mucous Membranes Moist, Normal Exam - Neck Exam Neck Exam: Full ROM, Normal Inspection. absent: Lymphadenopathy - Respiratory Exam Respiratory Exam: Clear to Ausculation Bilateral, NORMAL BREATHING PATTERN - Cardiovascular Exam Cardiovascular Exam: REGULAR RHYTHM, RRR, +S1, +S2. absent: Murmur - GI/Abdominal Exam GI & Abdominal Exam: Soft, Normal Bowel Sounds. absent: Tenderness - Extremities Exam Extremities Exam: Full ROM, Normal Capillary Refill, Normal Inspection. absent : Joint Swelling, Pedal Edema - Back Exam Back Exam: NORMAL INSPECTION - Neurological Exam Neurological Exam: Alert, Awake, CN II-XII Intact, Normal Gait, Oriented x3 - Psychiatric Exam Psychiatric exam: Normal Affect, Normal Mood - Skin Skin Exam: Dry, Intact, Normal Color, Warm Assessment and Plan (1) CHF (congestive heart failure) Status: Acute (2) Chronic back pain Status: Acute (3) COPD (chronic obstructive pulmonary disease) Status: Acute (4) Diabetes 1.5, managed as type 1 Status: Chronic (5) Acute renal failure Status: Acute (6) DVT prophylaxis Status: Acute - Assessment and Plan (Free Text) Assessment: (1) Acute renal failure Assessment and Plan: icu care, neprho ivf bun/cr dcont to trend down. no dialysis indicated at this time likely r/t sepsis/hypoperfusion Status: Acute (2) CHF (congestive heart failure)-acute on chronic, systolic Assessment and Plan: cont meds, cardio echo Status: Acute (3) COPD (chronic obstructive pulmonary disease) Assessment and Plan: duonebs o2 prn Status: Acute (4) Chronic back pain Assessment and Plan: fetanyl Status: Acute (5) Diabetes 1.5, managed as type 1 Assessment and Plan: riss, home meds fsbg Status: Chronic (6) DVT prophylaxis Assessment and Plan: scd and ae hose heparin Status: Acute
[2016-12-25 08:40] LABS: ALB/GLOB RATIO 0.9 (1.0-2.1); BILIRUBIN,TOTAL 0.5 mg/dl (0.2-1.3); POTASSIUM 3.4 MMOL/L (3.6-5.0); TOTAL PROTEIN 5.8 G/DL (6.3-8.2)
[2016-12-25] MEDS ORDERED: Potassium Chloride 20 mEq ER Tab PO ONE (10:00)
--- NOTE | 2016-12-25 10:08 | CP.CCUPN ---
CCU Subjective - Physician Review Subjective (Free Text): 12/24/16 10:12 Pt. seen at bedside this morning for evaluation of acute renal failure. Pt. sleeping in NAD. Pt. opens eyes spontaneously to verbal prompt. Pt. with no complaints at this time. On ROS pt. denies any limb swelling, shortness of breath, chest pain, palpitations, lightheadedness, dizziness, flank pain, dysuria, fever, chills, nausea, or vomiting. 12/25/16 10:11 CCU Objective - Vital Signs / Intake & Output Vital Signs (Last 4 hours): Vital Signs Temp Pulse Resp BP Pulse Ox 12/25/16 08:00 98.4 F 82 21 106/48 L 96 Intake and Output (Last 8hrs): Intake & Output 12/24/16 12/25/16 12/25/16 22:59 06:59 14:59 Intake Total 1114 1020 Output Total 250 2000 Balance 864 -980 Intake: IV 754 800 Intake, Piggyback 100 100 Oral 260 120 Output: Urine 250 2000 Urethral (Armas) 250 2000 - Physical Exam Head: Positive for: Atraumatic, Normocephalic Extroacular Muscles: Positive for: EOMI Conjunctiva: Positive for: Normal. Negative for: Icteric Mouth: Positive for: Moist Mucous Membranes Respiratory/Chest: Negative for: Respiratory Distress, Accessory Muscle Use Cardiovascular: Positive for: Regular Rate and Rhythm, Peripheal Pulses Present Lower Extremity: Positive for: Normal Inspection (+postive trace edema), Other ( pedal pulses +2 bilaterlly) Psychiatric: Positive for: Alert, Normal Affect - Medications Active Medications: Active Medications Generic Name Dose Route Start Last Admin Trade Name Freq PRN Reason Stop Dose Admin Albuterol/Ipratropium 3 ml 12/22/16 01:00 12/25/16 08:02 Duoneb 3 Mg/0.5 Mg (3 Ml) Ud IH 3 ml Q4 [facility] Administration Atorvastatin Calcium 10 mg 12/22/16 22:00 12/24/16 21:08 Lipitor PO 10 mg HS [facility] Administration Clopidogrel Bisulfate 75 mg 12/22/16 09:00 12/24/16 08:43 Plavix PO 75 mg DAILY [facility] Administration Famotidine 20 mg 12/22/16 09:00 12/24/16 16:22 Pepcid PO 20 mg BID [facility] Administration Fentanyl 1 patch 12/22/16 01:30 12/22/16 02:58 Duragesic TD 1 patch Q72H [facility] Administration Protocol Gabapentin 300 mg 12/22/16 09:00 Neurontin PO TID [facility] Heparin Sodium (Porcine) 5,000 units 12/22/16 01:00 12/25/16 00:43 Heparin SC 5,000 units Q8 [facility] Administration Protocol Home Med 12.5 mg 12/22/16 09:00 Paroxetine [Paxil Cr] PO DAILY [facility] Piperacillin Sod/Tazobactam 100 mls @ 100 mls/hr 12/22/16 17:45 12/25/16 00: 42 Sod 2.25 gm/ Sodium Chloride IVPB 100 mls/hr Q8 [facility] Administration Sodium Chloride 1,000 mls @ 100 mls/hr 12/24/16 18:15 Sodium Chloride 0.9% IV 12/25/16 18:09 .Q10H [facility] Insulin Detemir 35 units 12/22/16 22:00 12/24/16 21:06 Levemir SC 35 unit HS [facility] Administration Insulin Human Lispro 14 units 12/22/16 07:30 12/24/16 16:22 Humalog SC 14 units AC [facility] Administration Insulin Human Lispro 0 units 12/23/16 10:00 12/24/16 22:36 Humalog SC Not Given Q6H [facility] Protocol Montelukast Sodium 10 mg 12/22/16 22:00 12/24/16 21:08 Singulair PO 10 mg HS [facility] Administration Potassium Chloride 20 meq 12/25/16 10:00 Klor-Con 10 PO 12/25/16 10:01 ONCE ONE Fluticasone/Salmeterol 1 puff 12/22/16 09:00 12/24/16 21:08 Advair Diskus 250/50 IH 1 puff Q12 [facility] Administration Sitagliptin Phosphate 25 mg 12/22/16 09:00 12/24/16 08:42 Januvia PO 25 mg DAILY [facility] Administration Theophylline 200 mg 12/22/16 09:00 12/24/16 08:44 Stephen-24 PO 200 mg DAILY [facility] Administration - Patient Studies Lab Studies: Microbiology Studies 12/22/16 16:00 Blood Culture - Preliminary Blood-Thru Central Line NO GROWTH AFTER 48 HOURS 12/22/16 08:39 MRSA Culture (Admit) - Final Naris MRSA NOT DETECTED Lab Studies 12/25/16 12/25/16 12/24/16 Range/Units 08:00 05:36 21:59 Sodium 141 (132-148) mmol/l Potassium 3.4 L (3.6-5.0) MMOL/L Chloride 99 (98-107) mmol/L Carbon Dioxide 31 H (22-30) mmol/L Anion Gap 14 (10-20) BUN 33 H (7-17) mg/dl Creatinine 2.7 H (0.7-1.2) mg/dL Est GFR ( Amer) 21 Est GFR (Non-Af Amer) 17 POC Glucose (mg/dL) 87 126 H (65-110) mg/dL Random Glucose 102 (65-105) mg/dL Calcium 7.0 L (8.4-10.2) mg/dL Total Bilirubin 0.5 (0.2-1.3) mg/dl AST 22 (14-36) U/L ALT 38 (9-52) U/L Alkaline Phosphatase 142 H D (38-126) U/L Total Protein 5.8 L (6.3-8.2) G/DL Albumin 2.8 L (3.5-5.0) g/dL Globulin 3.0 (2.2-3.9) gm/dL Albumin/Globulin Ratio 0.9 L (1.0-2.1) 12/24/16 12/24/16 Range/Units 16:12 11:04 Sodium (132-148) mmol/l Potassium (3.6-5.0) MMOL/L Chloride (98-107) mmol/L Carbon Dioxide (22-30) mmol/L Anion Gap (10-20) BUN (7-17) mg/dl Creatinine (0.7-1.2) mg/dL Est GFR ( Amer) Est GFR (Non-Af Amer) POC Glucose (mg/dL) 205 H 272 H (65-110) mg/dL Random Glucose (65-105) mg/dL Calcium (8.4-10.2) mg/dL Total Bilirubin (0.2-1.3) mg/dl AST (14-36) U/L ALT (9-52) U/L Alkaline Phosphatase (38-126) U/L Total Protein (6.3-8.2) G/DL Albumin (3.5-5.0) g/dL Globulin (2.2-3.9) gm/dL Albumin/Globulin Ratio (1.0-2.1) Laboratory Results - last 24 hr 12/24/16 12/24/16 12/24/16 11:04 16:12 21:59 Sodium Potassium Chloride Carbon Dioxide Anion Gap BUN Creatinine Est GFR ( Amer) Est GFR (Non-Af Amer) POC Glucose (mg/dL) 272 H 205 H 126 H Random Glucose Calcium Total Bilirubin AST ALT Alkaline Phosphatase Total Protein Albumin Globulin Albumin/Globulin Ratio 12/25/16 12/25/16 05:36 08:00 Sodium 141 Potassium 3.4 L Chloride 99 Carbon Dioxide 31 H Anion Gap 14 BUN 33 H Creatinine 2.7 H Est GFR ( Amer) 21 Est GFR (Non-Af Amer) 17 POC Glucose (mg/dL) 87 Random Glucose 102 Calcium 7.0 L Total Bilirubin 0.5 AST 22 ALT 38 Alkaline Phosphatase 142 H D Total Protein 5.8 L Albumin 2.8 L Globulin 3.0 Albumin/Globulin Ratio 0.9 L Fingerstick Blood Sugar Results: 87 Review of Systems - Review of Systems Review of Systems: See HPI Critical Care Progress Note - Nutrition Nutrition: Nutrition Category Date Time Status Renal Diet [DIET] Diets 12/24/16 Breakfast Active Assessment/Plan - Assessment and Plan (Free Text) Assessment: 71 y.o. female with PMHx HTN, Type II DM, COPD admitted for acute renal failure. Acute renal failure/Acute kidney injury -Improving BUN/CR 33/2.7 today -Total input today 6156 Total output 3775 -Kidney function improving- GFR increased to 17 today from 12 Hypotension- Improving Levophed discontinued BP Systolic in the 100-110 BP Diastolic 45-55 MAP above 60 to maintain tissue perfusion pressure -Continue Normal Saline @ 100cc/hr -Echocardiogram- LVEF 70% -Lasix if signs of pulmonary edema Hyperkalemia- Improving 3.4 today -20meq KCL PO today -Repeat BMP, Mag, Phos SIRS Criteria- WBC-16.9 T-100.9 -UCx negative -BCx pending- Negative to date -Continue Zosyn 2.25grams Q8 Transamanitis- Improving -Repeat LFT's Leucocytosis/Sepsis- Resolved -Repeat CBC if fever develops COPD -Duonebs q4 [facility] -Advair Q12 [facility] -Theophylline 200mg po daily Type II DM -Levemir 34units qhs -Lispro 10units AC -Januvia 25mg po daily DVT prophylaxis -Heparin 5000units sc Q8 GI prophylaxis -Pepcid 20mg po BID [facility]as -Monitor Ins and Outs Diet -Heart healthy
[2016-12-25] MEDS: Fluticasone-Salmeterol 250-50mcg Diskus IH SCH ×2 (10:19→21:27)
[2016-12-25] MEDS: Theophylline 200mg ER 24 hrs Cap PO SCH (10:30)
--- NOTE | 2016-12-25 11:02 | CP.PCM.PN ---
Subjective - Date & Time of Evaluation Date of Evaluation: 12/25/16 Time of Evaluation: 10:30 - Subjective Subjective: Alert. No acute distress Objective - Vital Signs/Intake and Output Vital Signs (last 24 hours): Temp Pulse Resp BP Pulse Ox 98.4 F 82 21 106/48 L 96 12/25/16 08:00 12/25/16 08:00 12/25/16 08:00 12/25/16 08:00 12/25/16 08:00 Intake and Output: 12/25/16 12/25/16 06:59 18:59 Intake Total 1480 Output Total 2250 Balance -770 - Medications Medications: Current Medications Albuterol/Ipratropium (Duoneb 3 Mg/0.5 Mg (3 Ml) Ud) 3 ml IH Q4 [facility] Last Admin: 12/25/16 08:02 Dose: 3 ml Atorvastatin Calcium (Lipitor) 10 mg PO HS [facility] Last Admin: 12/24/16 21:08 Dose: 10 mg Clopidogrel Bisulfate (Plavix) 75 mg PO DAILY [facility] Last Admin: 12/25/16 10:18 Dose: 75 mg Famotidine (Pepcid) 20 mg PO BID [facility] Last Admin: 12/25/16 10:19 Dose: 20 mg Fentanyl (Duragesic) 1 patch TD Q72H [facility] PRN Reason: Protocol Last Admin: 12/22/16 02:58 Dose: 1 patch Gabapentin (Neurontin) 300 mg PO TID [facility] Heparin Sodium (Porcine) (Heparin) 5,000 units SC Q8 [facility] PRN Reason: Protocol Last Admin: 12/25/16 10:17 Dose: 5,000 units Home Med (Paroxetine [Paxil Cr]) 12.5 mg PO DAILY [facility] Piperacillin Sod/Tazobactam (Sod 2.25 gm/ Sodium Chloride) 100 mls @ 100 mls/ hr IVPB Q8 [facility] Last Admin: 12/25/16 00:42 Dose: 100 mls/hr Sodium Chloride (Sodium Chloride 0.9%) 1,000 mls @ 100 mls/hr IV .Q10H [facility] Stop: 12/25/16 18:09 Insulin Detemir (Levemir) 35 units SC HS [facility] Last Admin: 12/24/16 21:06 Dose: 35 unit Insulin Human Lispro (Humalog) 14 units SC AC [facility] Last Admin: 12/25/16 07:30 Dose: Not Given Insulin Human Lispro (Humalog) 0 units SC Q6H [facility] PRN Reason: Protocol Last Admin: 12/25/16 10:26 Dose: Not Given Montelukast Sodium (Singulair) 10 mg PO HS [facility] Last Admin: 12/24/16 21:08 Dose: 10 mg Fluticasone/Salmeterol (Advair Diskus 250/50) 1 puff IH Q12 [facility] Last Admin: 12/25/16 10:19 Dose: 1 puff Sitagliptin Phosphate (Januvia) 25 mg PO DAILY [facility] Last Admin: 12/25/16 10:20 Dose: 25 mg Theophylline (Stephen-24) 200 mg PO DAILY [facility] Last Admin: 12/25/16 10:30 Dose: 200 mg - Labs Labs: 12/24/16 04:56 12/25/16 08:00 PT 10.5 SECONDS (9.6-11.2) 12/21/16 19:10 INR 1.01 (0.92-1.08) 12/21/16 19:10 APTT 28.8 SECONDS (23.3-32.5) 12/21/16 19:10 - Respiratory Exam Additional comments: Lungs clear - Cardiovascular Exam Cardiovascular Exam: REGULAR RHYTHM - Extremities Exam Additional comments: No edema Assessment and Plan - Assessment and Plan (Free Text) Assessment: DELIA. renal function continues to improve Hypotension blood pressures are stable Hypokalemis K+ still low.Supplemented COPG DM Plan: Continue to monitor renal function Monitor K+
[2016-12-25] MEDS ORDERED: Docusate-Senna 50 mg-8.6 mg Tab PO ONE (12:27)
[2016-12-25] MEDS: Sodium Chloride 0.9% 1,000 ML IV SCH (15:37)
[2016-12-25] MEDS: Insulin Detemir 100 Units/ml Inj SC SCH (21:27)
[2016-12-26] MEDS: Sodium Chloride 0.9% 1,000 ML IV SCH (01:22)
[2016-12-26] MEDS: Albuterol-Ipratrop 3 mg / 0.5 (3 ml) UD IH SCH ×4 (03:52→23:51)
[2016-12-26] MEDS: Insulin Lispro (humaLOG) 100 Units/ml Inj SC SCH ×8 (04:00→22:00)
[2016-12-26 05:26] LABS: HEMATOCRIT 30.9 % (34.0-47.0); MEAN CELL VOLUME 92.5 fl (81.0-99.0); MEAN CORPUSCULAR HEMOGLOBIN 29.3 pg (27.0-31.0); MEAN CORPUSCULAR HGB CONC 31.7 g/dL (33.0-37.0); RED CELL DISTRIBUTION WIDTH 12.9 % (11.5-14.5); WHITE BLOOD COUNT 7.7 K/uL (4.8-10.8)
[2016-12-26 05:46] LABS: ALB/GLOB RATIO 0.9 (1.0-2.1); BILIRUBIN,TOTAL 0.5 mg/dl (0.2-1.3); CALCIUM 7.4 mg/dL (8.4-10.2); MAGNESIUM 1.3 MG/DL (1.6-2.3); PHOSPHOROUS 3.3 mg/dl (2.5-4.5); TOTAL PROTEIN 5.8 G/DL (6.3-8.2)
--- NOTE | 2016-12-26 07:47 | CP.PCM.PN ---
Subjective - Date & Time of Evaluation Date of Evaluation: 12/26/16 Time of Evaluation: 07:47 - Subjective Subjective: pt doing well, evaluated in icu bed. no f/c, n/v/d. nkot hungry this am, glucose prior to oj at 0630 was 66. pt has been off pressors x 2 days ( disregard notationssstating pt was on levophed in yesterdays note) no other complaints offered. for downgrade to m/s later today Objective - Vital Signs/Intake and Output Vital Signs (last 24 hours): Temp Pulse Resp BP Pulse Ox 98.6 F 75 19 148/99 H 95 12/26/16 04:00 12/26/16 06:00 12/26/16 06:00 12/26/16 06:00 12/26/16 06:00 Intake and Output: 12/26/16 12/26/16 06:59 18:59 Intake Total 2320 Output Total 1200 Balance 1120 - Medications Medications: Current Medications Albuterol/Ipratropium (Duoneb 3 Mg/0.5 Mg (3 Ml) Ud) 3 ml IH RQ4 [facility] Last Admin: 12/26/16 03:52 Dose: Not Given Atorvastatin Calcium (Lipitor) 10 mg PO HS [facility] Last Admin: 12/25/16 21:28 Dose: 10 mg Clopidogrel Bisulfate (Plavix) 75 mg PO DAILY [facility] Last Admin: 12/25/16 10:18 Dose: 75 mg Famotidine (Pepcid) 20 mg PO BID [facility] Last Admin: 12/25/16 16:44 Dose: 20 mg Fentanyl (Duragesic) 1 patch TD Q72H [facility] PRN Reason: Protocol Last Admin: 12/22/16 02:58 Dose: 1 patch Gabapentin (Neurontin) 300 mg PO TID [facility] Heparin Sodium (Porcine) (Heparin) 5,000 units SC Q8 [facility] PRN Reason: Protocol Last Admin: 12/26/16 01:27 Dose: 5,000 units Hydrocortisone (Cortizone 2.5% Cream) 1 applic TOP BID [facility] Last Admin: 12/25/16 16:30 Dose: 1 applic Piperacillin Sod/Tazobactam (Sod 2.25 gm/ Sodium Chloride) 100 mls @ 100 mls/ hr IVPB Q8 [facility] Last Admin: 12/26/16 01:11 Dose: 100 mls/hr Insulin Detemir (Levemir) 35 units SC HS [facility] Last Admin: 12/25/16 21:27 Dose: 35 unit Insulin Human Lispro (Humalog) 14 units SC AC [facility] Last Admin: 12/25/16 16:42 Dose: 14 units Insulin Human Lispro (Humalog) 0 units SC Q6H [facility] PRN Reason: Protocol Last Admin: 12/26/16 04:00 Dose: Not Given Lorazepam (Ativan) 0.5 mg PO TID PRN PRN Reason: Agitation Montelukast Sodium (Singulair) 10 mg PO HS [facility] Last Admin: 12/25/16 21:28 Dose: 10 mg Nystatin (Mycostatin Cream) 1 applic TOP TID [facility] Last Admin: 12/25/16 16:44 Dose: 1 applic Fluticasone/Salmeterol (Advair Diskus 250/50) 1 puff IH Q12 [facility] Last Admin: 12/25/16 21:27 Dose: 1 puff Sitagliptin Phosphate (Januvia) 25 mg PO DAILY [facility] Last Admin: 12/25/16 10:20 Dose: 25 mg Theophylline (Stephen-24) 200 mg PO DAILY [facility] Last Admin: 12/25/16 10:30 Dose: 200 mg - Labs Labs: 12/26/16 04:15 12/26/16 04:15 PT 10.5 SECONDS (9.6-11.2) 12/21/16 19:10 INR 1.01 (0.92-1.08) 12/21/16 19:10 APTT 28.8 SECONDS (23.3-32.5) 12/21/16 19:10 - Constitutional Appears: Well, Non-toxic, No Acute Distress - Head Exam Head Exam: ATRAUMATIC, NORMAL INSPECTION, NORMOCEPHALIC - Eye Exam Eye Exam: EOMI, Normal appearance, PERRL Pupil Exam: NORMAL ACCOMODATION, PERRL - ENT Exam ENT Exam: Mucous Membranes Moist, Normal Exam - Neck Exam Neck Exam: Full ROM, Normal Inspection. absent: Lymphadenopathy - Respiratory Exam Respiratory Exam: Clear to Ausculation Bilateral, NORMAL BREATHING PATTERN - Cardiovascular Exam Cardiovascular Exam: REGULAR RHYTHM, RRR, +S1, +S2. absent: Murmur - GI/Abdominal Exam GI & Abdominal Exam: Soft, Normal Bowel Sounds. absent: Tenderness - Extremities Exam Extremities Exam: Full ROM, Normal Capillary Refill, Normal Inspection. absent : Joint Swelling, Pedal Edema - Back Exam Back Exam: NORMAL INSPECTION - Neurological Exam Neurological Exam: Alert, Awake, CN II-XII Intact, Normal Gait, Oriented x3 - Psychiatric Exam Psychiatric exam: Normal Affect, Normal Mood - Skin Skin Exam: Dry, Intact, Normal Color, Warm Assessment and Plan (1) CHF (congestive heart failure) Assessment & Plan: cont home meds, echo reviewed cardio Status: Acute (2) Chronic back pain Assessment & Plan: fetanyl Status: Acute (3) COPD (chronic obstructive pulmonary disease) Assessment & Plan: conth ome meds, nebs pulm sport bed Status: Acute (4) Diabetes 1.5, managed as type 1 Assessment & Plan: riss, home meds fsbg hypoglycmeia monitoring Status: Chronic (5) Acute renal failure Assessment & Plan: likely due to dehydration from nonseptic shock ivf off pressors since thu Status: Acute (6) DVT prophylaxis Assessment & Plan: scd and ae hoseheparin Status: Acute
[2016-12-26] MEDS: Potassium CL 10 MEQ/50 ML 50 ML IVPB SCH ×2 (08:59→10:15)
[2016-12-26] MEDS: Fluticasone-Salmeterol 250-50mcg Diskus IH SCH ×2 (09:00→21:30)
[2016-12-26] MEDS: Theophylline 200mg ER 24 hrs Cap PO SCH (09:02)
[2016-12-26] MEDS ORDERED: Potassium Chloride 20 mEq ER Tab PO ONE (14:42)
--- NOTE | 2016-12-26 14:47 | CP.PCM.PN ---
Subjective - Date & Time of Evaluation Date of Evaluation: 12/26/16 Time of Evaluation: 14:45 - Subjective Subjective: Patient is alert she feels much better appetite is good Vital sign noted to be okay Physical examination Conscious Chest clear Heart no rubs Abdomen soft Extremity no edema Impression and plan Recovering from acute renal failure. Serum creatinine BUN continued to improve. Potassium continue to be low give stat dose 40 mEq right now And continue monitoring potassium level please repeat tomorrow morning and give more supplement if necessary Objective - Vital Signs/Intake and Output Vital Signs (last 24 hours): Temp Pulse Resp BP Pulse Ox 98.3 F 74 15 127/62 99 12/26/16 12:00 12/26/16 12:00 12/26/16 12:00 12/26/16 12:00 12/26/16 12:00 Intake and Output: 12/26/16 12/26/16 06:59 18:59 Intake Total 2320 880 Output Total 1200 900 Balance 1120 -20 - Medications Medications: Current Medications Albuterol/Ipratropium (Duoneb 3 Mg/0.5 Mg (3 Ml) Ud) 3 ml IH RQ4 [facility] Last Admin: 12/26/16 12:05 Dose: 3 ml Atorvastatin Calcium (Lipitor) 10 mg PO HS [facility] Last Admin: 12/25/16 21:28 Dose: 10 mg Clopidogrel Bisulfate (Plavix) 75 mg PO DAILY [facility] Last Admin: 12/26/16 09:01 Dose: 75 mg Famotidine (Pepcid) 20 mg PO BID [facility] Last Admin: 12/26/16 09:01 Dose: 20 mg Fentanyl (Duragesic) 1 patch TD Q72H [facility] PRN Reason: Protocol Last Admin: 12/22/16 02:58 Dose: 1 patch Gabapentin (Neurontin) 300 mg PO TID [facility] Heparin Sodium (Porcine) (Heparin) 5,000 units SC Q8 [facility] PRN Reason: Protocol Last Admin: 12/26/16 09:00 Dose: 5,000 units Hydrocortisone (Cortizone 2.5% Cream) 1 applic TOP BID [facility] Last Admin: 12/26/16 09:00 Dose: 1 applic Piperacillin Sod/Tazobactam (Sod 2.25 gm/ Sodium Chloride) 100 mls @ 100 mls/ hr IVPB Q8 [facility] Last Admin: 12/26/16 11:00 Dose: 100 mls/hr Insulin Detemir (Levemir) 35 units SC HS [facility] Last Admin: 12/25/16 21:27 Dose: 35 unit Insulin Human Lispro (Humalog) 14 units SC AC [facility] Last Admin: 12/26/16 11:00 Dose: Not Given Insulin Human Lispro (Humalog) 0 units SC Q6H [facility] PRN Reason: Protocol Last Admin: 12/26/16 11:00 Dose: Not Given Lorazepam (Ativan) 0.5 mg PO TID PRN PRN Reason: Agitation Montelukast Sodium (Singulair) 10 mg PO HS [facility] Last Admin: 12/25/16 21:28 Dose: 10 mg Nystatin (Mycostatin Cream) 1 applic TOP TID [facility] Last Admin: 12/26/16 13:02 Dose: 1 applic Potassium Chloride (Klor-Con 10) 40 meq PO ONCE ONE Stop: 12/26/16 14:43 Fluticasone/Salmeterol (Advair Diskus 250/50) 1 puff IH Q12 [facility] Last Admin: 12/26/16 09:00 Dose: 1 puff Sitagliptin Phosphate (Januvia) 25 mg PO DAILY [facility] Last Admin: 12/26/16 09:01 Dose: 25 mg Theophylline (Stephen-24) 200 mg PO DAILY [facility] Last Admin: 12/26/16 09:02 Dose: 200 mg - Labs Labs: 12/26/16 04:15 12/26/16 04:15 PT 10.5 SECONDS (9.6-11.2) 12/21/16 19:10 INR 1.01 (0.92-1.08) 12/21/16 19:10 APTT 28.8 SECONDS (23.3-32.5) 12/21/16 19:10 Assessment and Plan (1) Acute renal failure Status: Acute
[2016-12-26] MEDS: Insulin Detemir 100 Units/ml Inj SC SCH (22:00)
[2016-12-27] MEDS: Insulin Lispro (humaLOG) 100 Units/ml Inj SC SCH ×7 (04:30→22:13)
[2016-12-27] MEDS: Albuterol-Ipratrop 3 mg / 0.5 (3 ml) UD IH SCH ×5 (05:03→19:25)
--- NOTE | 2016-12-27 07:05 | CP.PCM.PN ---
Subjective - Date & Time of Evaluation Date of Evaluation: 12/27/16 Time of Evaluation: 07:05 - Subjective Subjective: no complaints/distress. no f/c, n/v/d. pt asking to go home. bw noted pt vs noted. Objective - Vital Signs/Intake and Output Vital Signs (last 24 hours): Temp Pulse Resp BP Pulse Ox 98 F 74 19 136/62 99 12/26/16 20:46 12/26/16 20:46 12/26/16 20:46 12/26/16 20:46 12/26/16 20:46 - Medications Medications: Current Medications Albuterol/Ipratropium (Duoneb 3 Mg/0.5 Mg (3 Ml) Ud) 3 ml IH RQ4 [facility] Last Admin: 12/27/16 05:03 Dose: Not Given Atorvastatin Calcium (Lipitor) 10 mg PO HS [facility] Last Admin: 12/26/16 23:05 Dose: Not Given Clopidogrel Bisulfate (Plavix) 75 mg PO DAILY [facility] Last Admin: 12/26/16 09:01 Dose: 75 mg Famotidine (Pepcid) 20 mg PO BID [facility] Last Admin: 12/26/16 17:19 Dose: 20 mg Fentanyl (Duragesic) 1 patch TD Q72H [facility] PRN Reason: Protocol Last Admin: 12/22/16 02:58 Dose: 1 patch Fentanyl (Duragesic) 1 patch TD Q3D [facility] PRN Reason: Protocol Last Admin: 12/26/16 17:41 Dose: 1 patch Gabapentin (Neurontin) 300 mg PO TID [facility] Heparin Sodium (Porcine) (Heparin) 5,000 units SC Q8 [facility] PRN Reason: Protocol Last Admin: 12/27/16 00:59 Dose: 5,000 units Hydrocortisone (Cortizone 2.5% Cream) 1 applic TOP BID [facility] Last Admin: 12/26/16 17:16 Dose: 1 applic Piperacillin Sod/Tazobactam (Sod 2.25 gm/ Sodium Chloride) 100 mls @ 100 mls/ hr IVPB Q8 [facility] Last Admin: 12/27/16 00:57 Dose: 100 mls/hr Insulin Detemir (Levemir) 35 units SC HS [facility] Last Admin: 12/26/16 22:00 Dose: Not Given Insulin Human Lispro (Humalog) 14 units SC AC [facility] Last Admin: 12/26/16 19:29 Dose: Not Given Insulin Human Lispro (Humalog) 0 units SC Q6H [facility] PRN Reason: Protocol Last Admin: 12/27/16 04:30 Dose: Not Given Lorazepam (Ativan) 0.5 mg PO TID PRN PRN Reason: Agitation Montelukast Sodium (Singulair) 10 mg PO HS [facility] Last Admin: 12/26/16 23:04 Dose: Not Given Nystatin (Mycostatin Cream) 1 applic TOP TID [facility] Last Admin: 12/26/16 17:19 Dose: 1 applic Ondansetron HCl (Zofran Inj) 4 mg IVP Q8 [facility]N PRN Reason: Nausea/Vomiting Last Admin: 12/27/16 06:11 Dose: 4 mg Fluticasone/Salmeterol (Advair Diskus 250/50) 1 puff IH Q12 [facility] Last Admin: 12/26/16 21:30 Dose: 1 puff Sitagliptin Phosphate (Januvia) 25 mg PO DAILY [facility] Last Admin: 12/26/16 09:01 Dose: 25 mg Theophylline (Stephen-24) 200 mg PO DAILY [facility] Last Admin: 12/26/16 09:02 Dose: 200 mg Vitamin B Complex/Vit C/Folic Acid (Nephro-Brayan) 1 tab PO DAILY [facility] - Labs Labs: 12/26/16 04:15 12/26/16 04:15 PT 10.5 SECONDS (9.6-11.2) 12/21/16 19:10 INR 1.01 (0.92-1.08) 12/21/16 19:10 APTT 28.8 SECONDS (23.3-32.5) 12/21/16 19:10 - Constitutional Appears: Well, Non-toxic, No Acute Distress - Head Exam Head Exam: ATRAUMATIC, NORMAL INSPECTION, NORMOCEPHALIC - Eye Exam Eye Exam: EOMI, Normal appearance, PERRL Pupil Exam: NORMAL ACCOMODATION, PERRL - ENT Exam ENT Exam: Mucous Membranes Moist, Normal Exam - Neck Exam Neck Exam: Full ROM, Normal Inspection. absent: Lymphadenopathy - Respiratory Exam Respiratory Exam: Clear to Ausculation Bilateral, NORMAL BREATHING PATTERN - Cardiovascular Exam Cardiovascular Exam: REGULAR RHYTHM, RRR, +S1, +S2. absent: Murmur - GI/Abdominal Exam GI & Abdominal Exam: Soft, Normal Bowel Sounds. absent: Tenderness - Extremities Exam Extremities Exam: Full ROM, Normal Capillary Refill, Normal Inspection. absent : Joint Swelling, Pedal Edema - Back Exam Back Exam: NORMAL INSPECTION - Neurological Exam Neurological Exam: Alert, Awake, CN II-XII Intact, Normal Gait, Oriented x3 - Psychiatric Exam Psychiatric exam: Normal Affect, Normal Mood - Skin Skin Exam: Dry, Intact, Normal Color, Warm Assessment and Plan (1) CHF (congestive heart failure) Status: Acute (2) Chronic back pain Status: Acute (3) COPD (chronic obstructive pulmonary disease) Status: Acute (4) Diabetes 1.5, managed as type 1 Status: Chronic (5) Acute renal failure Status: Acute (6) DVT prophylaxis Status: Acute - Assessment and Plan (Free Text) Assessment: (1) CHF (congestive heart failure) Assessment & Plan: cont home meds, echo reviewed cardio Status: Acute (2) Chronic back pain Assessment & Plan: fetanyl Status: Acute (3) COPD (chronic obstructive pulmonary disease) Assessment & Plan: conth ome meds, nebs pulm sport bed Status: Acute (4) Diabetes 1.5, managed as type 1 Assessment & Plan: riss, home meds fsbg hypoglycmeia monitoring Status: Chronic (5) Acute renal failure Assessment & Plan: likely due to dehydration from nonseptic shock ivf off pressors since thu doing well, bun/cr trending down Status: Acute (6) DVT prophylaxis Assessment & Plan: scd and ae hoseheparin Status: Acute will have pt/pot eval prior to dc. chronic conditions controlled.
[2016-12-27 07:49] LABS: BASO % 0.5 % (0.0-2.0); EOS # 0.3 K/uL (0.0-0.7); EOS % 4.5 % (0.0-4.0); HEMATOCRIT 31.1 % (34.0-47.0); LYMPH # 0.9 K/uL (1.0-4.3); LYMPH % 14.9 % (20.0-40.0); MEAN CELL VOLUME 92.3 fl (81.0-99.0); MEAN CORPUSCULAR HEMOGLOBIN 30.1 pg (27.0-31.0); MEAN CORPUSCULAR HGB CONC 32.7 g/dL (33.0-37.0); MEAN PLATELET VOLUME 7.4 fl (7.2-11.7); MONO # 0.4 K/uL (0.0-0.8); MONO % 6.6 % (0.0-10.0); NEUT # 4.7 K/uL (1.8-7.0); NEUT % 73.5 % (50.0-75.0); NRBC % 0.1 % (0.0-0.0); RED CELL DISTRIBUTION WIDTH 12.6 % (11.5-14.5); WHITE BLOOD COUNT 6.3 K/uL (4.8-10.8)
[2016-12-27 07:56] VITALS: RESP 20
[2016-12-27] MEDS: Fluticasone-Salmeterol 250-50mcg Diskus IH SCH ×2 (08:29→20:23)
[2016-12-27] MEDS: Theophylline 200mg ER 24 hrs Cap PO SCH (08:33)
[2016-12-27] MEDS: Multivitamin Vitamin B Complex (Nephro-Vite) Tab PO SCH (08:33)
[2016-12-27 08:39] LABS: ALB/GLOB RATIO 0.9 (1.0-2.1); BILIRUBIN,TOTAL 0.6 mg/dl (0.2-1.3); CALCIUM 7.5 mg/dL (8.4-10.2); POTASSIUM 3.6 MMOL/L (3.6-5.0); TOTAL PROTEIN 6.1 G/DL (6.3-8.2)
[2016-12-27] MEDS: Promethazine DM 6.25 mg-15 mg/5 ml Syrup PO PRN (20:21)
[2016-12-27] MEDS: Insulin Detemir 100 Units/ml Inj SC SCH (22:13)
[2016-12-28] MEDS: Albuterol-Ipratrop 3 mg / 0.5 (3 ml) UD IH SCH ×5 (00:44→15:44)
[2016-12-28] MEDS: Promethazine DM 6.25 mg-15 mg/5 ml Syrup PO PRN ×2 (02:45→09:21)
[2016-12-28] MEDS: Insulin Lispro (humaLOG) 100 Units/ml Inj SC SCH ×7 (05:00→16:31)
[2016-12-28 08:00] VITALS: BP 165/79; PULSE 72; TEMP 98.1; O2SAT 95
[2016-12-28 08:24] LABS: BASO % 0.5 % (0.0-2.0); EOS # 0.3 K/uL (0.0-0.7); EOS % 3.7 % (0.0-4.0); HEMATOCRIT 31.7 % (34.0-47.0); LYMPH # 1.1 K/uL (1.0-4.3); LYMPH % 15.7 % (20.0-40.0); MEAN CELL VOLUME 92.3 fl (81.0-99.0); MEAN CORPUSCULAR HEMOGLOBIN 29.9 pg (27.0-31.0); MEAN CORPUSCULAR HGB CONC 32.3 g/dL (33.0-37.0); MEAN PLATELET VOLUME 7.6 fl (7.2-11.7); MONO # 0.4 K/uL (0.0-0.8); MONO % 6.4 % (0.0-10.0); NEUT % 73.7 % (50.0-75.0); RED CELL DISTRIBUTION WIDTH 12.8 % (11.5-14.5); WHITE BLOOD COUNT 6.8 K/uL (4.8-10.8)
[2016-12-28 08:34] LABS: ALB/GLOB RATIO 0.9 (1.0-2.1); BILIRUBIN,TOTAL 0.4 mg/dl (0.2-1.3); CALCIUM 8.1 mg/dL (8.4-10.2); POTASSIUM 3.4 MMOL/L (3.6-5.0); TOTAL PROTEIN 6.5 G/DL (6.3-8.2)
[2016-12-28] MEDS: Fluticasone-Salmeterol 250-50mcg Diskus IH SCH (09:18)
--- NOTE | 2016-12-28 09:18 | CP.PCM.PN ---
Subjective - Date & Time of Evaluation Date of Evaluation: 12/28/16 Time of Evaluation: 09:18 - Subjective Subjective: pt in no pain/distress. no f/c, n/v/d bun/cr almost back at normal. pt requesting to be dc home today. Objective - Vital Signs/Intake and Output Vital Signs (last 24 hours): Temp Pulse Resp BP Pulse Ox 98.1 F 72 20 165/79 H 95 12/28/16 07:59 12/28/16 07:59 12/28/16 07:59 12/28/16 07:59 12/28/16 07:59 - Medications Medications: Current Medications Albuterol/Ipratropium (Duoneb 3 Mg/0.5 Mg (3 Ml) Ud) 3 ml IH RQ4 [facility] Last Admin: 12/28/16 08:15 Dose: 3 ml Alprazolam (Xanax) 0.5 mg PO TID [facility] Last Admin: 12/27/16 17:06 Dose: 0.5 mg Atorvastatin Calcium (Lipitor) 10 mg PO HS [facility] Last Admin: 12/27/16 21:28 Dose: 10 mg Clopidogrel Bisulfate (Plavix) 75 mg PO DAILY [facility] Last Admin: 12/27/16 08:33 Dose: 75 mg Famotidine (Pepcid) 20 mg PO BID [facility] Last Admin: 12/27/16 16:52 Dose: 20 mg Fentanyl (Duragesic) 1 patch TD Q72H [facility] PRN Reason: Protocol Last Admin: 12/28/16 01:39 Dose: 1 patch Fentanyl (Duragesic) 1 patch TD Q3D [facility] PRN Reason: Protocol Last Admin: 12/26/16 17:41 Dose: 1 patch Gabapentin (Neurontin) 300 mg PO TID [facility] Heparin Sodium (Porcine) (Heparin) 5,000 units SC Q8 [facility] PRN Reason: Protocol Last Admin: 12/28/16 01:41 Dose: 5,000 units Hydrocortisone (Cortizone 2.5% Cream) 1 applic TOP BID [facility] Last Admin: 12/27/16 16:51 Dose: 1 applic Insulin Detemir (Levemir) 35 units SC HS [facility] Last Admin: 12/27/16 22:13 Dose: Not Given Insulin Human Lispro (Humalog) 14 units SC AC [facility] Last Admin: 12/27/16 16:28 Dose: Not Given Insulin Human Lispro (Humalog) 0 units SC Q6H [facility] PRN Reason: Protocol Last Admin: 12/28/16 05:00 Dose: Not Given Montelukast Sodium (Singulair) 10 mg PO HS [facility] Last Admin: 12/27/16 21:28 Dose: 10 mg Nystatin (Mycostatin Cream) 1 applic TOP TID [facility] Last Admin: 12/27/16 16:51 Dose: 1 applic Ondansetron HCl (Zofran Inj) 4 mg IVP Q8 [facility] PRN Reason: Nausea/Vomiting Last Admin: 12/27/16 22:15 Dose: 4 mg Promethazine HCl/Dextromethorphan (Phenergan Dm Syrup) 5 ml PO Q6 PRN PRN Reason: Cough Last Admin: 12/28/16 02:45 Dose: 5 ml Fluticasone/Salmeterol (Advair Diskus 250/50) 1 puff IH Q12 [facility] Last Admin: 12/27/16 20:23 Dose: 1 puff Sitagliptin Phosphate (Januvia) 25 mg PO DAILY [facility] Last Admin: 12/27/16 08:32 Dose: 25 mg Theophylline (Stephen-24) 200 mg PO DAILY [facility] Last Admin: 12/27/16 08:33 Dose: 200 mg Vitamin B Complex/Vit C/Folic Acid (Nephro-Brayan) 1 tab PO DAILY [facility] Last Admin: 12/27/16 08:33 Dose: 1 tab - Labs Labs: 12/28/16 06:30 12/28/16 06:00 PT 10.5 SECONDS (9.6-11.2) 12/21/16 19:10 INR 1.01 (0.92-1.08) 12/21/16 19:10 APTT 28.8 SECONDS (23.3-32.5) 12/21/16 19:10 - Constitutional Appears: Well, Non-toxic, No Acute Distress - Head Exam Head Exam: ATRAUMATIC, NORMAL INSPECTION, NORMOCEPHALIC - Eye Exam Eye Exam: EOMI, Normal appearance, PERRL Pupil Exam: NORMAL ACCOMODATION, PERRL - ENT Exam ENT Exam: Mucous Membranes Moist, Normal Exam - Neck Exam Neck Exam: Full ROM, Normal Inspection. absent: Lymphadenopathy - Respiratory Exam Respiratory Exam: Clear to Ausculation Bilateral, NORMAL BREATHING PATTERN - Cardiovascular Exam Cardiovascular Exam: REGULAR RHYTHM, RRR, +S1, +S2. absent: Murmur - GI/Abdominal Exam GI & Abdominal Exam: Soft, Normal Bowel Sounds. absent: Tenderness - Extremities Exam Extremities Exam: Full ROM, Normal Capillary Refill, Normal Inspection. absent : Joint Swelling, Pedal Edema - Back Exam Back Exam: NORMAL INSPECTION - Neurological Exam Neurological Exam: Alert, Awake, CN II-XII Intact, Normal Gait, Oriented x3 - Psychiatric Exam Psychiatric exam: Normal Affect, Normal Mood - Skin Skin Exam: Dry, Intact, Normal Color, Warm Assessment and Plan (1) CHF (congestive heart failure) Status: Acute (2) Chronic back pain Status: Acute (3) COPD (chronic obstructive pulmonary disease) Status: Acute (4) Diabetes 1.5, managed as type 1 Status: Chronic (5) Acute renal failure Status: Acute (6) DVT prophylaxis Status: Acute - Assessment and Plan (Free Text) Assessment: (1) CHF (congestive heart failure) Assessment & Plan: cont home meds, echo reviewed cardio Status: Acute (2) Chronic back pain Assessment & Plan: fetanyl Status: Acute (3) COPD (chronic obstructive pulmonary disease) Assessment & Plan: conth ome meds, nebs pulm sport bed Status: Acute (4) Diabetes 1.5, managed as type 1 Assessment & Plan: riss, home meds fsbg hypoglycmeia monitoring Status: Chronic (5) Acute renal failure Assessment & Plan: likely due to dehydration from nonseptic shock ivf off pressors since thu afternoon doing well, bun/cr trending down Status: Acute (6) DVT prophylaxis Assessment & Plan: scd and ae hoseheparin Status: Acute will have pt/pot eval prior to dc. chronic conditions controlled. pt wishes to be dc today, ambualtes w/ walker at home.
[2016-12-28] MEDS: Multivitamin Vitamin B Complex (Nephro-Vite) Tab PO SCH (09:20)
[2016-12-28] MEDS: Theophylline 200mg ER 24 hrs Cap PO SCH (09:21)
[2016-12-28] MEDS ORDERED: Potassium Chloride 10 mEq ER Tab PO ONE (14:08)
--- NOTE | 2016-12-29 13:00 | PQF SEPSIS ---
Dr. Khan sepsis, septic shock and nonseptic shock is documented in medical record. After study, did patient have a confirmed diagnosis of sepsis? If so was patient diagnosed and treated for septic shock? This form is a permanent part of the medical record Clarification of your documentation is requested to better reflect the severity of illness and intensity of treatment of your patient. Indicators present [x] Temp < 96.8 or > 100.4 [x] WBC count > 12,000/mm3 or <000/mm3 or 10% immature neutrophils [x] Heart Rate > 90 [] Respiratory Rate > 20 [x] Fever or hypothermia [] Chills [] Positive blood cultures [x] Hypotension [] Metabolic acidosis (Elevated lactate level, anion gap or reduced blood pH) [] Acute confusion /Altered Mental Status [x] Shock [] Other: [] Location in the medical record that reflects the above clinical findings: [] Treatment Provided: [] PHYSICIAN'S RESPONSE Based on your medical judgment of the clinical indicators outlined above, are you treating this patient for a known or suspected: [x] Sepsis / Septicemia Please specify organism if known [] [] SIRS (Systemic Inflammatory Response Syndrome) [] Severe Sepsis (Sepsis with Associated Organ Dysfunction) [] Fever of Unknown Origin [] Other, please indicate: [] [] If Unable to Determine, please check the box, sign and date. Present On Admission (POA) Indicator: [] Present at the time of admission [] Not present at the time of admission [] Clinically Undetermined In responding to this query, please exercise your independent professional judgment. The fact that a question is asked does not imply that any particular answer is desired or expected. Thank you for your clarification on this documentation. If you have any questions please call:[ ] * Thank you, [ ]Latha Hebert student teacher NATE
== END 2016-12-28 17:15 | disposition home or self-care (01) | DRG 871 ==
LOC: H.ER 16:12 → H.ERHOLD 23:34 → H.ICU/CCU 12-22 00:34 → H.MEDSURG1 12-26 14:11
PROVIDERS: ADMIT Family Medicine; ATTEND Family Medicine
PROC: 05HM33Z Insertion of Infusion Device into Right Internal Jugular Vein, Percutaneous Approach (ICD-10-PCS; principal; 2016-12-22)
PROC: 5A1D00Z (ICD-10-PCS; 2016-12-22)
DX: A41.9 Sepsis, unspecified organism (principal); J96.20 Acute and chronic respiratory failure, unspecified whether with hypoxia or hypercapnia; R57.9 Shock, unspecified; N17.9 Acute kidney failure, unspecified; I50.23 Acute on chronic systolic (congestive) heart failure; D64.9 Anemia, unspecified; E10.9 Type 1 diabetes mellitus without complications; J44.1 Chronic obstructive pulmonary disease with (acute) exacerbation; E87.1 Hypo-osmolality and hyponatremia; Z68.42 Body mass index [BMI] 45.0-49.9, adult; F03.90 Unspecified dementia, unspecified severity, without behavioral disturbance, psychotic disturbance, mood disturbance, and anxiety; E78.00 Pure hypercholesterolemia, unspecified; E87.5 Hyperkalemia; I11.0 Hypertensive heart disease with heart failure; E78.5 Hyperlipidemia, unspecified; F32.9 Major depressive disorder, single episode, unspecified; F41.9 Anxiety disorder, unspecified; G47.33 Obstructive sleep apnea (adult) (pediatric); G89.29 Other chronic pain; K21.9 Gastro-esophageal reflux disease without esophagitis; Z86.73 Personal history of transient ischemic attack (TIA), and cerebral infarction without residual deficits; Z99.81 Dependence on supplemental oxygen; E66.9 Obesity, unspecified; E86.0 Dehydration; J45.909 Unspecified asthma, uncomplicated; Z91.041 Radiographic dye allergy status; Z91.013 Allergy to seafood

== ENCOUNTER 2017-04-19 20:48 | Inpatient (IN) | payer MEDICARE, MEDICAID ==
[2017-04-19 20:53] VITALS: BMI 46.8
[2017-04-19] MEDS ORDERED: Albuterol-Ipratrop 3 mg / 0.5 (3 ml) UD INH STA ×3 (20:54→20:58)
[2017-04-19] MEDS ORDERED: Magnesium Sulfate 2 gm/50 ml 2 GM/50 ML BAG IV STA (20:54)
--- NOTE | 2017-04-19 21:15 | ED PDOC ---
HPI: SOB/CHF/COPD Time Seen by Provider: 04/19/17 20:52 Chief Complaint (Nursing): Shortness Of Breath Chief Complaint (Provider): Shortness of breath History Per: Patient History/Exam Limitations: no limitations Onset/Duration Of Symptoms: Days (3x days) Current Symptoms Are (Timing): Still Present Quality: Tightness (chest tightness) Current Respiratory Medications: See Home Med List, Other (rescue inhaler (no relief)) Severity: Moderate Associated Symptoms: Productive Cough (white phlegm) Additional Complaint(s): 71 year old female with a pertinent medical history of asthma, COPD, diabetes, hypertension, and dyslipidemia is brought into the ED by [place] paramedics with complaints of shortness of breath, accompanied by a productive cough and wheezing that started 3x days ago. Paramedics initiated treatment with duonebs and CPAP in the field. Patient reports using rescue inhaler with little to no relief, and reports having chest tightness consistent with previous episodes of COPD exacerbation. She also reports having a progressively worsening cough productive of whitish phlegm. She denies having hemoptysis, vomiting, fevers, diarrhea. PMD: Jw García MD Past Medical History Reviewed: Historical Data, Nursing Documentation, Vital Signs Vital Signs: Last Vital Signs Temp 98.4 F 04/20/17 05:00 Pulse 91 H 04/20/17 05:30 Resp 18 04/20/17 05:00 BP 120/78 04/20/17 05:00 Pulse Ox 99 04/20/17 05:00 - Medical History PMH: Anxiety, Arthritis, Asthma, Back Problems, Bronchitis, COPD, Dementia ( Self reports forgetfulness), Depression, Diabetes, Emphysema, HTN, Hypercholesterolemia Denies: Alzheimer's Disease, Atrial Fibrillation, Bipolar Disorder, Cardia Arrhythmia, CHF, Crohn's Disease, HIV, Hyperthyroidism, Hypothyroidism, Migraine , Mitral Valve Prolapse, Multiple Sclerosis, Parkinson's Disease, Peripheral Edema, Pneumonia, Pulmonary Embolism, Chronic Kidney Disease, Seizures, Sleep Apnea, TIA - Surgical History Surgical History: Appendectomy, Cholecystectomy Denies: Pacemaker Other surgeries: lifeport in left chest - Family History Family History: States: Unknown Family Hx - Social History Current smoker - smoking cessation education provided: No Alcohol: None Drugs: Denies - Immunization History Hx Tetanus Toxoid Vaccination: No Hx Influenza Vaccination: Yes Hx Pneumococcal Vaccination: No - Home Medications Home Medications: Ambulatory Orders Medication Instructions Recorded Furosemide 40 mg PO DAILY 02/03/14 Ipratropium/Albuterol Sulfate 3 ml IH Q4 02/03/14 [Duoneb 0.5 mg-3 mg/3 ml Soln] Simvastatin 20 mg PO HS 02/03/14 Xanax 0.5 mg PO TID 02/21/14 Plavix 75 mg PO DAILY 06/05/14 oxyCODONE 30 mg PO Q6H PRN 06/05/14 Theophylline 200 mg PO BID 07/24/15 Insulin Detemir [Levemir] 35 unit SC HS #0 unit 07/30/15 Montelukast [Singulair] 10 mg PO HS #0 tab 07/30/15 fentaNYL 50 mcg/hr [Duragesic 1 patch TD Q72H #0 patch 12/27/15 Patch 50 mcg/hr] Famotidine [Pepcid] 20 mg PO BID 12/11/16 Gabapentin 300 mg PO TID 12/11/16 Insulin Aspart, Recombinant 14 unit SC AC 12/11/16 [Novolog] Linagliptin [Tradjenta] 5 mg PO DAILY 12/11/[address] [place] [Spiriva] 18 mcg IH DAILY 12/11/16 Valsartan/Hydrochlorothiazide 1 tab PO DAILY 12/11/16 [Valsartan-Hctz 80-12.5 mg Tab] Meclizine [Meclizine*] 25 mg PO TID 04/20/17 Ondansetron [Zofran Tab] 4 mg PO Q8 04/20/17 - Allergies Allergies/Adverse Reactions: Allergies Allergy/AdvReac Type Severity Reaction Status Date / Time FISH Allergy ITCHING Verified 12/21/16 17:32 iodine Allergy ITCHING Verified 12/21/16 17:32 Review of Systems ROS Statement: Except As Marked, All Systems Reviewed And Found Negative Constitutional: Negative for: Fever ENT: Positive for: Nose Congestion Cardiovascular: Positive for: Chest Pain (chest tightness) Respiratory: Positive for: Cough (productive of whitish phlegm), Shortness of Breath, Wheezing. Negative for: Hemoptysis Gastrointestinal: Negative for: Nausea, Vomiting, Abdominal Pain, Diarrhea Physical Exam - Reviewed Nursing Documentation Reviewed: Yes Vital Signs Reviewed: Yes - Physical Exam Appears: Positive for: Well, Non-toxic, In Acute Distress (mild respiratory distress) Head Exam: Positive for: ATRAUMATIC, NORMOCEPHALIC Skin: Positive for: Normal Color (patient is morbidly obese), Warm, Dry Eye Exam: Positive for: Normal appearance Cardiovascular/Chest: Positive for: Regular Rate, Rhythm Respiratory: Positive for: Decreased Breath Sounds (decrease in air entry), Rhonchi, Wheezing (bilateral expiratory diffuse wheeze), Respiratory Distress ( mild) Extremity: Positive for: Normal ROM. Negative for: Tenderness, Swelling Neurologic/Psych: Positive for: Alert, Oriented (3x) - Laboratory Results Result Diagrams: 04/19/17 22:47 04/19/17 22:47 - ECG O2 Sat by Pulse Oximetry: 100 (RA) Pulse Ox Interpretation: Normal - Critical Care Total Time (In Min): 30 Nebulizer Treatments/Peak Flow - Duonebs Number of Bronchodilator Doses given?: 3 - Pre/Post Peak Flow Pre Treatment Peak Flow: 3 Post treatment Peak Flow: 3 - Steroid Treatment Steroid: IV - Clinical Response Clinical Response: Improved Medical Decision Making Medical Decision Makin:52 Initial impression: 71 year old female in respiratory distress, with an upper respiratory infection and COPD exacerbation. Initial plan: * EKG * b-type natriuretic peptide * CMP * lactic acid, plasma * troponin I * udip * CBC * pt/ptt * XRay chest portable * duoneb 3ml INHx3 * magnesium si;fate 2gm in 40 mL water * solumedrol 125mg IVP * blood culture * continue BIPAP * peak flow pre post treatment 3x times * influenza AB * urinalysis * reevaluation 22:12 Pt's labs reviewed, show no clinically significant abnormalities. Chest X-ray shows no acute disease. Pt shows mild to moderate improvement of symptoms. Pt has been admitted for further treatment for COPD exacerbation. Case discussed with Dr. Crabtree, hospitalist covering medical service environmental protection geologist. Disposition Time: 22:12 Condition: Fair Scribe Attestation: Documented by Ernestine Sanders, acting as a scribe for Byron Fountain MD. Provider Scribe Attestation: All medical record entries made by the Scribe were at my direction and personally dictated by me. I have reviewed the chart and agree that the record accurately reflects my personal performance of the history, physical exam, medical decision making, and the department course for this patient. I have also personally directed, reviewed, and agree with the discharge instructions and disposition. Scribe Attestation: Documented by Peggy Dior, acting as a scribe for Byron Fountain MD. Provider Scribe Attestation: All medical record entries made by the Scribe were at my direction and personally dictated by me. I have reviewed the chart and agree that the record accurately reflects my personal performance of the history, physical exam, medical decision making, and the department course for this patient. I have also personally directed, reviewed, and agree with the discharge instructions and disposition. Disposition - Clinical Impression Clinical Impression: COPD (chronic obstructive pulmonary disease), Respiratory distress - Patient ED Disposition Is Patient to be Admitted: Yes Discussed With : Nilesh Crabtree Doctor Will See Patient In The: Hospital - Disposition Disposition Time: 22:12 Condition: FAIR - Pt Status Changed To: Hospital Disposition Of: Inpatient - Admit Certification Admit to Inpatient:: After my assessment, the patient will require hospitalization for at least two midnights. This is because of the severity of symptoms shown, intensity of services needed, and/or the medical risk in this patient being treated as an outpatient.
[2017-04-19] MEDS ORDERED: Albuterol-Ipratrop 3 mg / 0.5 (3 ml) UD ONE ×2 (21:47→23:00)
[2017-04-19] MEDS ORDERED: Magnesium Sulfate 2 gm/50 ml 2 GM/50 ML BAG ONE (21:48)
[2017-04-19 22:55] LABS: BASO # 0.1 K/uL (0.0-0.2); BASO % 0.7 % (0.0-2.0); EOS # 0.2 K/uL (0.0-0.7); EOS % 2.1 % (0.0-4.0); HEMATOCRIT 39.9 % (34.0-47.0); LYMPH # 1.3 K/uL (1.0-4.3); LYMPH % 12.8 % (20.0-40.0); MEAN CELL VOLUME 92.6 fl (81.0-99.0); MEAN CORPUSCULAR HEMOGLOBIN 29.9 pg (27.0-31.0); MEAN CORPUSCULAR HGB CONC 32.3 g/dL (33.0-37.0); MEAN PLATELET VOLUME 7.9 fl (7.2-11.7); MONO # 0.8 K/uL (0.0-0.8); MONO % 7.9 % (0.0-10.0); NEUT # 7.7 K/uL (1.8-7.0); NEUT % 76.5 % (50.0-75.0); NRBC % 0.1 % (0.0-0.0); RED CELL DISTRIBUTION WIDTH 11.7 % (11.5-14.5); WHITE BLOOD COUNT 10.1 K/uL (4.8-10.8)
[2017-04-19 23:06] LABS: ALB/GLOB RATIO 1.2 (1.0-2.1); ALKALINE PHOSPHATASE 119 U/L (38-126); ALT/SGPT 41 U/L (9-52); AST/SGOT 29 U/L (14-36); BILIRUBIN,TOTAL 0.4 mg/dl (0.2-1.3); BLOOD UREA NITROGEN 10 mg/dl (7-17); CALCIUM 9.7 mg/dL (8.4-10.2); CARBON DIOXIDE 37 mmol/L (22-30); CHLORIDE 95 mmol/L (98-107); GFR AFRICAN-AMERICAN > 60; GLUCOSE,RANDOM 176 mg/dL (65-105); POTASSIUM 4.5 MMOL/L (3.6-5.0); SODIUM 139 mmol/l (132-148); TOTAL PROTEIN 7.6 G/DL (6.3-8.2)
--- NOTE | 2017-04-19 23:18 | CP.PCM.HP ---
History of Present Illness - History of Present Illness History of Present Illness: CC: SOB, cough History largely from daughter as patient on BiPAP and cannot give much info. HPI: This is a 71 y/o female with Asthma/COPD, DM2, HTN, HLD among other conditions who comes in with 2-3 days of worsening SOB and cough productive of yellow sputum. Patient may have also had fever, but unmeasured. No CP. No palpitations. Patient does complain of her chronic back/neck pain which is worse after having run out of her medications recently. Daughter notes that one of her kids was sick with respiratory infection prior to patient becoming sick. ROS: cannot obtain 2/2 patient being on bipap MHx: Anxiety, Depression, Arthritis, COPD, DM II, HTN, HLD, CYNDI, TIA, GERD, incontinence, ?dementia SHx: appendectomy, cholecystectomy, back surgery, b/l eye surgery Allergies: Fish, iodinated dye Medications: as per med rec Family Hx: Mother, father and brother cancers Social Hx: Lives with family, history of extensive smoking in past, currently not; no EtOH Surrogate Decision Maker: robert varela on chart Present on Admission - Present on Admission Any Indicators Present on Admission: No Past Patient History - Infectious Disease Hx of Infectious Diseases: None - Tetanus Immunizations Tetanus Immunization: Unknown - Past Medical History & Family History Past Medical History?: Yes - Past Social History Alcohol: None Drugs: Denies - CARDIAC Hx Atrial Fibrillation: No Hx Cardia Arrhythmia: No Hx Congestive Heart Failure: No Hx Hypercholesterolemia: Yes Hx Hypertension: Yes Hx Mitral Valve Prolapse: No Hx Pacemaker: No Hx Peripheral Edema: No - PULMONARY Hx Asthma: Yes Hx Bronchitis: Yes Hx Chronic Obstructive Pulmonary Disease (COPD): Yes Hx Emphysema: Yes Hx Pneumonia: No Hx Pulmonary Embolism: No Hx Sleep Apnea: No - NEUROLOGICAL Hx Alzheimer's Disease: No Hx Dementia: Yes (Self reports forgetfulness) Hx Migraine: No Hx Multiple Sclerosis: No Hx Parkinson's Disease: No Hx Seizures: No Hx Transient Ischemic Attacks (TIA): No - HEENT Hx HEENT Problems: No Hx Blind: No Hx Cataracts: Yes (Had surgery both eyes) Hx Deafness: No Hx Glaucoma: No Hx Macular Degeneration: No - RENAL Hx Chronic Kidney Disease: No - ENDOCRINE/METABOLIC Hx Hyperthyroidism: No Hx Hypothyroidism: No - HEMATOLOGICAL/ONCOLOGICAL Hx Human Immunodeficiency Virus (HIV): No - INTEGUMENTARY Hx Dermatological Problems: No - MUSCULOSKELETAL/RHEUMATOLOGICAL Hx Arthritis: Yes - GASTROINTESTINAL Hx Crohn's Disease: No - GENITOURINARY/GYNECOLOGICAL Hx Genitourinary Disorders: No Hx Bladder Cancer: No Hx Bladder Stone: No Hx Cervical Cancer: No Hx Incontinence: Yes (uses diapers at home for incontinence at times) Hx Ovarian Cancer: No Hx Uterine Cancer: No - PSYCHIATRIC Hx Anxiety: Yes Hx Bipolar Disorder: No Hx Depression: Yes - SURGICAL HISTORY Hx Appendectomy: Yes Hx Cholecystectomy: Yes - ANESTHESIA Hx Anesthesia: Yes Hx Anesthesia Reactions: No Hx Malignant Hyperthermia: No Meds Allergies/Adverse Reactions: Allergies Allergy/AdvReac Type Severity Reaction Status Date / Time FISH Allergy ITCHING Verified 12/21/16 17:32 iodine Allergy ITCHING Verified 12/21/16 17:32 Physical Exam - Constitutional Appears: No Acute Distress - Head Exam Head Exam: ATRAUMATIC, NORMOCEPHALIC - Eye Exam Eye Exam: EOMI, PERRL - ENT Exam ENT Exam: Mucous Membranes Moist - Neck Exam Neck exam: Positive for: Full Rom - Respiratory Exam Respiratory Exam: Rhonchi, Wheezes - Cardiovascular Exam Cardiovascular Exam: REGULAR RHYTHM, +S1, +S2 - GI/Abdominal Exam GI & Abdominal Exam: Normal Bowel Sounds, Soft - Extremities Exam Extremities exam: Positive for: full ROM, normal inspection - Neurological Exam Neurological exam: Alert, CN II-XII Intact, Oriented x3 - Psychiatric Exam Psychiatric exam: Normal Affect, Normal Mood - Skin Skin Exam: Dry, Warm Results - Vital Signs Recent Vital Signs: Last Vital Signs Temp 98.5 F 04/19/17 21:08 Pulse 112 H 04/19/17 21:08 Resp 24 04/19/17 21:08 BP 148/57 L 04/19/17 21:08 Pulse Ox 100 04/19/17 21:37 - Labs Result Diagrams: 04/19/17 22:47 04/19/17 22:47 Labs: Laboratory Results - last 24 hr 04/19/17 04/19/17 04/19/17 22:47 22:47 22:47 WBC 10.1 RBC 4.31 Hgb 12.9 D Hct 39.9 MCV 92.6 MCH 29.9 MCHC 32.3 L RDW 11.7 Plt Count 241 MPV 7.9 Neut % (Auto) 76.5 H Lymph % (Auto) 12.8 L [place] % (Auto) 7.9 Eos % (Auto) 2.1 Baso % (Auto) 0.7 Neut # 7.7 H Lymph # 1.3 [place] # 0.8 Eos # 0.2 Baso # 0.1 Sodium 139 Potassium 4.5 Chloride 95 L Carbon Dioxide 37 H Anion Gap 12 BUN 10 Creatinine 0.5 L Est GFR ( Amer) > 60 Est GFR (Non-Af Amer) > 60 Random Glucose 176 H Lactic Acid 1.3 Calcium 9.7 Total Bilirubin 0.4 AST 29 ALT 41 Alkaline Phosphatase 119 Total Protein 7.6 Albumin 4.2 Globulin 3.4 Albumin/Globulin Ratio 1.2 - Imaging and Cardiology Chest x-ray Status: Image reviewed by me (possible opacity R) Assessment & Plan (1) COPD (chronic obstructive pulmonary disease) Assessment and Plan: 71 y/o female with multiple medical conditions coming in with hypoxic respiratory failure in the setting of COPD. 1) COPD exac/respiratory failure, hypoxic -Cont bipap -Cont duonebs -2 more doses of solumedrol IV ordered, re-eval and switch to PO as appropriate after -Ceftriaxone/Azithro IV given sputum, possible fever, and ?infiltrate 2) CHF -- stable, continue home lasix dose 3) HTN -- stable, continue home medications 4) Chronic back pain -- resume home fentanyl patch and oxycodone 5) DVT PPx -- SQ Lovenox Status: Acute (2) CHF (congestive heart failure) Status: Acute (3) Chronic back pain Status: Acute (4) Diabetes mellitus Status: Acute (5) HTN (hypertension) Status: Acute (6) Hypercholesterolemia Status: Acute (7) DVT prophylaxis Status: Acute
[2017-04-19] MEDS ORDERED: Albuterol-Ipratrop 3 mg / 0.5 (3 ml) UD INH PRN (23:20)
[2017-04-19] MEDS ORDERED: Azithromycin 500 MG in Sodium Chloride 0.9% 250 ML IVPB SCH (23:30)
[2017-04-20] MEDS ORDERED: OXYCODONE 30 MG PO PRN (00:11)
[2017-04-20 00:54] LABS: RBC URINE 3 /hpf (0-3); URINE BACTERIA OCC (<OCC); URINE BILIRUBIN NEGATIVE (NEGATIVE); URINE BLOOD NEGATIVE (NEGATIVE); URINE COLOR YELLOW (YELLOW); URINE GLUCOSE (UA) NEG (Normal); URINE KETONE NEGATIVE (NEGATIVE); URINE LEUKOCYTE ESTERASE SMALL Leu/uL (Negative); URINE PROTEIN NEGATIVE (NEGATIVE); URINE UROBILINOGEN 0.2-1.0 mg/dL (0.2-1.0); WBC URINE 27 /hpf (0-5)
[2017-04-20] MEDS: methylPREDNISolone 60 MG in Sodium Chloride 0.9% 50 ML IV SCH ×3 (02:07→20:29)
[2017-04-20] MEDS: Azithromycin 500 MG in Sodium Chloride 0.9% 250 ML IVPB SCH (04:08)
[2017-04-20] MEDS: Insulin Lispro (humaLOG) 100 Units/ml Inj SC SCH ×6 (06:54→21:27)
[2017-04-20 07:04] LABS: HEMATOCRIT 38.2 % (34.0-47.0); MEAN CELL VOLUME 93.7 fl (81.0-99.0); MEAN CORPUSCULAR HEMOGLOBIN 29.5 pg (27.0-31.0); MEAN CORPUSCULAR HGB CONC 31.5 g/dL (33.0-37.0); WHITE BLOOD COUNT 8.2 K/uL (4.8-10.8)
[2017-04-20 07:19] LABS: BLOOD UREA NITROGEN 15 mg/dl (7-17); CALCIUM 9.2 mg/dL (8.4-10.2); CARBON DIOXIDE 33 mmol/L (22-30); CHLORIDE 95 mmol/L (98-107); GFR AFRICAN-AMERICAN > 60; GLUCOSE,RANDOM 319 mg/dL (65-105); SODIUM 137 mmol/l (132-148)
[2017-04-20 07:20] LABS: POTASSIUM 5.8 MMOL/L (3.6-5.0)
[2017-04-20] MEDS: Albuterol-Ipratrop 3 mg / 0.5 (3 ml) UD INH SCH ×3 (07:47→15:37)
[2017-04-20] MEDS: Enoxaparin 40 mg Syringe SC SCH (08:48)
[2017-04-20] MEDS ORDERED: PLAVIX 75 MG PO SCH (09:00)
[2017-04-20] MEDS ORDERED: Patient's Own Med (Budesonide/Formoterol Fumarate [Symbicort 160-4.5 Mcg Inhaler] 1 AER) IH SCH (09:00)
[2017-04-20] MEDS ORDERED: Patient's Own Med (Valsartan/Hydrochlorothiazide [Valsartan-Hctz 80-12.5 Mg Tab] 1 TAB) PO SCH (09:00)
[2017-04-20] MEDS ORDERED: Fluticasone-Salmeterol 250-50mcg Diskus IH SCH (09:00)
[2017-04-20] MEDS: oxyCODONE 10 mg Immediate Release Tab PO PRN (09:04)
--- NOTE | 2017-04-20 09:07 | RAD ---
HISTORY: chest pain COMPARISON: Portable chest 12/23/2016 FINDINGS: LUNGS: No active pulmonary disease. PLEURA: No significant pleural effusion identified, no pneumothorax apparent. CARDIOVASCULAR: Cardiac silhouette appears stable. No pulmonary vascular derangement identified. Left central venous line unchanged in position. OSSEOUS STRUCTURES: Multilevel thoracic spondylosis again evident with incidental cervical spinal fusion hardware again noted. VISUALIZED UPPER ABDOMEN: Normal. OTHER FINDINGS: None. IMPRESSION: No interval acute cardiopulmonary disease with clearing of pulmonary venous congestion and limited left basilar opacity.
--- NOTE | 2017-04-20 11:02 | CP.PCM.PN ---
Subjective - Date & Time of Evaluation Date of Evaluation: 04/20/17 Time of Evaluation: 10:30 - Subjective Subjective: Patient seen and examined bedside. Still with SOB , coughing spells, greenish sputum production ,chest congestion , prolonged expiratory phase, and accessory muscle use . tolerating BIPAP Afebrile Objective - Vital Signs/Intake and Output Vital Signs (last 24 hours): Temp Pulse Resp BP Pulse Ox 98 F 89 18 124/68 98 04/20/17 09:00 04/20/17 09:00 04/20/17 09:00 04/20/17 09:00 04/20/17 09:00 Intake and Output: 04/20/17 04/20/17 06:59 18:59 Intake Total 150 Balance 150 - Medications Medications: Current Medications Albuterol/Ipratropium (Duoneb 3 Mg/0.5 Mg (3 Ml) Ud) 3 ml INH RQ6 PRN PRN Reason: Shortness of Breath Albuterol/Ipratropium (Duoneb 3 Mg/0.5 Mg (3 Ml) Ud) 3 ml INH RQID [facility] Last Admin: 04/20/17 07:47 Dose: 3 ml Atorvastatin Calcium (Lipitor) 10 mg PO HS [facility] Clopidogrel Bisulfate (Plavix) 75 mg PO DAILY [facility] Last Admin: 04/20/17 08:48 Dose: 75 mg Enoxaparin Sodium (Lovenox) 40 mg SC DAILY [facility] PRN Reason: Protocol Last Admin: 04/20/17 08:48 Dose: 40 mg Famotidine (Pepcid) 20 mg PO BID [facility] Last Admin: 04/20/17 08:49 Dose: 20 mg Fentanyl (Duragesic) 1 patch TD Q72H [facility] PRN Reason: Protocol Last Admin: 04/20/17 02:06 Dose: 1 patch Furosemide (Lasix) 40 mg PO DAILY [facility] Last Admin: 04/20/17 08:48 Dose: 40 mg Home Med (Paroxetine [Paxil Cr]) 12.5 mg PO DAILY [facility] Hydrochlorothiazide (Microzide) 12.5 mg PO DAILY [facility] Last Admin: 04/20/17 08:49 Dose: 12.5 mg Ceftriaxone Sodium 1 gm/ (Sodium Chloride) 100 mls @ 100 mls/hr IVPB DAILY@ 0000 [facility] Last Admin: 04/20/17 02:57 Dose: 100 mls/hr Azithromycin 500 mg/ Sodium (Chloride) 250 mls @ 250 mls/hr IVPB DAILY@0100 [facility] Last Admin: 04/20/17 04:08 Dose: 250 mls/hr Insulin Detemir (Levemir) 35 units SC HS [facility] Insulin Human Lispro (Humalog) 0 units SC ACHS [facility] PRN Reason: Protocol Last Admin: 04/20/17 06:54 Dose: 6 u Oxycodone HCl (Oxycodone Immediate Release Tab) 30 mg PO Q6H PRN PRN Reason: Pain, severe (8-10) Last Admin: 04/20/17 09:04 Dose: 30 mg Fluticasone/Salmeterol (Advair Diskus 250/50) 1 puff IH Q12 [facility] Last Admin: 04/20/17 08:47 Dose: 1 puff Valsartan (Diovan) 80 mg PO DAILY [facility] Last Admin: 04/20/17 08:48 Dose: 80 mg - Labs Labs: 04/20/17 05:55 04/20/17 05:55 - Constitutional Appears: Chronically Ill, Other (respiratory distress, obese ) - Head Exam Head Exam: ATRAUMATIC, NORMAL INSPECTION, NORMOCEPHALIC - Eye Exam Eye Exam: EOMI, Normal appearance, PERRL - ENT Exam ENT Exam: Mucous Membranes Moist, Normal Exam - Neck Exam Neck Exam: Full ROM, Normal Inspection - Respiratory Exam Respiratory Exam: Accessory Muscle Use, Prolonged Expiratory Phase, Rhonchi ( diffuse ), Wheezes (diffuse wheezing ), Respiratory Distress - Cardiovascular Exam Cardiovascular Exam: Tachycardia, RRR. absent: JVD - GI/Abdominal Exam GI & Abdominal Exam: Soft, Normal Bowel Sounds. absent: Distended, Guarding, Rebound - Rectal Exam Rectal Exam: Deferred - Extremities Exam Extremities Exam: Normal Capillary Refill, Normal Inspection. absent: Calf Tenderness, Pedal Edema - Back Exam Back Exam: NORMAL INSPECTION - Neurological Exam Neurological Exam: Alert, Awake, CN II-XII Intact, Oriented x3 - Psychiatric Exam Psychiatric exam: Normal Affect - Skin Skin Exam: Dry, Warm Assessment and Plan - Assessment and Plan (Free Text) Assessment: 71 y/o female with Asthma/COPD, DM2, HTN, HLD came in with 2-3 days of worsening SOB and cough productive of yellow sputum. Patient may have also had fever, but unmeasured. No CP. No palpitations. Patient does complain of her chronic back/neck pain which is worse after having run out of her medications recently. Daughter notes that one of her kids was sick with respiratory infection prior to patient becoming sick. Patient was found to be in respiratory distress in ER with hypoxemia 1. COPD exac/respiratory failure with hypoxemia Cont bipap, duonebs Solumedrol 60 mg IV q8, Duonebs CXR showed no infiltrtae Follow up sputum cxContinue rocephin and Zithromax IV pulmonary consult with CT chest w/o contrast to rule out infiltrate ABG in AM 2. CHF probably diastolic dysfunction stable, continue home lasix dose 3. HTN stable, continue home medications 4. Chronic back pain resume home fentanyl patch and oxycodone 5. Diabetes mellitus chronic , uncontrolled Accuchecks, insulin coverage resume home meds f/u Hgb A1c 6. Hypercholesterolemia on statin 7. Suspected UTI UA cloudy with LE + , nitrate + and bacteria continue Rocephin follow up urine cx 8. Hyperkalemia IVF, insulin repeat BMP in AM 9.DVT prophylaxis lovenox
[2017-04-20] MEDS: Sodium Chloride 0.9% 1,000 ML IV SCH ×2 (12:11→21:18)
--- NOTE | 2017-04-20 12:58 | CARD ---
APPROVED REPORT EKG Measurement Heart [id number] <Conclusion> Sinus tachycardia Otherwise normal ECG
[2017-04-20] MEDS: Albuterol-Ipratrop 3 mg / 0.5 (3 ml) UD IH SCH ×3 (13:31→23:50)
[2017-04-20] MEDS: THEOPHYLLINE 400 MG T24(UNIPHYL) PO SCH (16:59)
[2017-04-20] MEDS ORDERED: Sodium Chloride 3% for Inhalation 4 ML VIAL.NEB IH PRN (19:05)
[2017-04-20] MEDS: Insulin Detemir 100 Units/ml Inj SC SCH (21:22)
[2017-04-20] MEDS ORDERED: INSULIN DETEMIR 35 UNIT SC SCH (22:00)
[2017-04-20] MEDS ORDERED: Patient's Own Med (Simvastatin [Simvastatin] 20 MG) PO SCH (22:00)
[2017-04-21] MEDS: Azithromycin 500 MG in Sodium Chloride 0.9% 250 ML IVPB SCH (01:06)
[2017-04-21] MEDS: methylPREDNISolone 60 MG in Sodium Chloride 0.9% 50 ML IV SCH ×4 (03:11→21:16)
[2017-04-21] MEDS: Albuterol-Ipratrop 3 mg / 0.5 (3 ml) UD IH SCH ×5 (05:00→19:23)
[2017-04-21 05:06] LABS: ABG ALLEN TEST YES; ABG MECHANICAL RATE 14; ARTERIAL BLOOD GAS MODE BiPAP; ARTERIAL BLOOD GAS O2 CAPACITY 15.8 mL/dL (16-24); ARTERIAL BLOOD GAS O2 CONTENT 15.7 ML/dL (15-23); ARTERIAL BLOOD GAS PH 7.38 (7.35-7.45); ARTERIAL BLOOD GAS PO2 162 mm/Hg (80-100); ARTERIAL BLOOD HGB O2 SAT 96.7 % (95.0-98.0); CARBOXYHEMOGLOBIN 1.1 % (0.5-1.5); HHB 0.6 % (0.0-5.0); METHEMOGLOBIN 1.6 % (0.0-3.0)
[2017-04-21] MEDS: oxyCODONE 10 mg Immediate Release Tab PO PRN ×2 (06:18→12:33)
[2017-04-21 06:29] LABS: HEMATOCRIT 34.5 % (34.0-47.0); MEAN CELL VOLUME 93.1 fl (81.0-99.0); MEAN CORPUSCULAR HEMOGLOBIN 29.5 pg (27.0-31.0); MEAN CORPUSCULAR HGB CONC 31.7 g/dL (33.0-37.0); RED CELL DISTRIBUTION WIDTH 11.9 % (11.5-14.5); WHITE BLOOD COUNT 7.3 K/uL (4.8-10.8)
[2017-04-21 06:46] LABS: BLOOD UREA NITROGEN 21 mg/dl (7-17); CALCIUM 8.6 mg/dL (8.4-10.2); CARBON DIOXIDE 35 mmol/L (22-30); CHLORIDE 91 mmol/L (98-107); GFR AFRICAN-AMERICAN > 60; GLUCOSE,RANDOM 383 mg/dL (65-105); SODIUM 135 mmol/l (132-148)
[2017-04-21] MEDS: Insulin Lispro (humaLOG) 100 Units/ml Inj SC SCH ×7 (06:48→21:17)
[2017-04-21] MEDS: Enoxaparin 40 mg Syringe SC SCH (09:05)
[2017-04-21] MEDS: THEOPHYLLINE 400 MG T24(UNIPHYL) PO SCH (09:06)
[2017-04-21] MEDS: Sodium Chloride 0.9% 1,000 ML IV SCH (09:11)
[2017-04-21] MEDS: Promethazine DM 12.5 mg-30 mg/10 ml Syrup PO PRN ×2 (09:28→20:09)
--- NOTE | 2017-04-21 10:27 | CT ---
PROCEDURE: CT Chest without contrast HISTORY: respiratory failure with hypoxemia COMPARISON: None. TECHNIQUE: Contiguous axial images were obtained through the chest without intravenous contrast enhancement. Sagittal and coronal reconstructions were performed. Radiation dose (DLP): 669.66 mGy-cm. This CT exam was performed using one or more of the following dose reduction techniques: Automated exposure control, adjustment of the mA and/or kV according to patient size, and/or use of iterative reconstruction technique. FINDINGS: LUNGS: Evaluation limited due to respiratory motion artifact. Subsegmental atelectasis dependent left lower lobe and in posterior segment right upper lobe. . No acute infiltrate. No pulmonary mass identified. MEDIASTINUM: Unremarkable thoracic aorta. No aneurysm. Normal sized heart. Coronary arterial calcification. Main pulmonary artery unremarkable. No vascular congestion. No lymphadenopathy. Left subclavian central venous infusion port terminating in the superior vena cava. PLEURA: No pleural fluid. No pneumothorax. BONES: No fracture. No destructive lesion. UPPER ABDOMEN: Fatty infiltration of the liver. OTHER FINDINGS: None. IMPRESSION: No pulmonary infiltrate. Minimal subsegmental atelectasis as noted. Evaluation of the pulmonary parenchyma somewhat limited due to respiratory motion artifact. Fatty infiltration of the liver. Left subclavian central venous infusion port noted.
--- NOTE | 2017-04-21 14:30 | CP.PCM.PN ---
Subjective - Date & Time of Evaluation Date of Evaluation: 04/21/17 Time of Evaluation: 09:00 - Subjective Subjective: Patient seen and examined bedside. Still with significant SOB , coughing spells , greenish sputum production ,chest congestion , prolonged expiratory phase, and accessory muscle use . Afebrile Objective - Vital Signs/Intake and Output Vital Signs (last 24 hours): Temp Pulse Resp BP Pulse Ox 97.8 F 94 H 18 102/54 L 98 04/21/17 13:00 04/21/17 13:00 04/21/17 13:00 04/21/17 13:00 04/21/17 13:00 Intake and Output: 04/21/17 04/21/17 06:59 18:59 Intake Total 200 Balance 200 - Medications Medications: Current Medications Acetylcysteine (Acetylcysteine 20%) 2 ml INH RBID [facility] Albuterol/Ipratropium (Duoneb 3 Mg/0.5 Mg (3 Ml) Ud) 3 ml INH RQ6 PRN PRN Reason: Shortness of Breath Albuterol/Ipratropium (Duoneb 3 Mg/0.5 Mg (3 Ml) Ud) 3 ml IH RQ4 [facility] Last Admin: 04/21/17 11:11 Dose: 3 ml Alprazolam (Xanax) 0.5 mg PO TID [facility] Last Admin: 04/21/17 12:34 Dose: 0.5 mg Atorvastatin Calcium (Lipitor) 10 mg PO HS [facility] Last Admin: 04/20/17 21:17 Dose: 10 mg Clopidogrel Bisulfate (Plavix) 75 mg PO DAILY [facility] Last Admin: 04/21/17 09:06 Dose: 75 mg Enoxaparin Sodium (Lovenox) 40 mg SC DAILY [facility] PRN Reason: Protocol Last Admin: 04/21/17 09:05 Dose: 40 mg Famotidine (Pepcid) 20 mg PO BID [facility] Last Admin: 04/21/17 09:06 Dose: 20 mg Fentanyl (Duragesic) 1 patch TD Q72H [facility] PRN Reason: Protocol Last Admin: 04/20/17 02:06 Dose: 1 patch Furosemide (Lasix) 40 mg PO DAILY [facility] Last Admin: 04/21/17 09:06 Dose: 40 mg Gabapentin (Neurontin) 300 mg PO TID [facility] Last Admin: 04/21/17 12:25 Dose: 300 mg Hydrochlorothiazide (Microzide) 12.5 mg PO DAILY [facility] Last Admin: 04/21/17 09:05 Dose: 12.5 mg Ceftriaxone Sodium 1 gm/ (Sodium Chloride) 100 mls @ 100 mls/hr IVPB DAILY@ 0000 [facility] Last Admin: 04/21/17 00:03 Dose: 100 mls/hr Azithromycin 500 mg/ Sodium (Chloride) 250 mls @ 250 mls/hr IVPB DAILY@0100 [facility] Last Admin: 04/21/17 01:06 Dose: 250 mls/hr Methylprednisolone 60 mg/ (Sodium Chloride) 50 mls @ 100 mls/hr IV Q8@0400,1200 ,2200 [facility] Last Admin: 04/21/17 12:34 Dose: 100 mls/hr Insulin Detemir (Levemir) 35 units SC [facility] Last Admin: 04/20/17 21:22 Dose: 35 units Insulin Human Lispro (Humalog) 0 units SC ACHS [facility] PRN Reason: Protocol Last Admin: 04/21/17 12:26 Dose: 8 u Insulin Human Lispro (Humalog) 14 units SC AC [facility] Last Admin: 04/21/17 12:26 Dose: 14 unit Meclizine HCl (Antivert) 25 mg PO TID [facility] Last Admin: 04/21/17 12:24 Dose: 25 mg Montelukast Sodium (Singulair) 10 mg PO [facility] Last Admin: 04/20/17 21:17 Dose: 10 mg Ondansetron HCl (Zofran Tab) 4 mg PO Q8 [facility] Last Admin: 04/21/17 09:05 Dose: 4 mg Oxycodone HCl (Oxycodone Immediate Release Tab) 30 mg PO Q6H PRN PRN Reason: Pain, severe (8-10) Last Admin: 04/21/17 12:33 Dose: 30 mg Paroxetine HCl (Paxil) 20 mg PO DAILY [facility] Last Admin: 04/21/17 09:06 Dose: 20 mg Promethazine HCl/Dextromethorphan (Phenergan Dm Syrup) 10 ml PO Q6 PRN PRN Reason: Cough Last Admin: 04/21/17 09:28 Dose: 10 ml Fluticasone/Salmeterol (Advair Diskus 250/50) 1 puff IH Q12 [facility] Last Admin: 04/20/17 08:47 Dose: 1 puff Theophylline (Uniphyl) 400 mg PO DAILY [facility] Last Admin: 04/21/17 09:06 Dose: 400 mg Valsartan (Diovan) 80 mg PO DAILY [facility] Last Admin: 04/21/17 09:05 Dose: 80 mg - Labs Labs: 04/21/17 05:05 04/21/17 05:05 - Constitutional Appears: In Acute Distress (respiratory distress), Chronically Ill - Head Exam Head Exam: ATRAUMATIC, NORMAL INSPECTION, NORMOCEPHALIC - Eye Exam Eye Exam: EOMI, Normal appearance, PERRL Pupil Exam: NORMAL ACCOMODATION - ENT Exam ENT Exam: Mucous Membranes Moist, Normal Exam - Neck Exam Neck Exam: Normal Inspection - Respiratory Exam Respiratory Exam: Accessory Muscle Use, Prolonged Expiratory Phase, Rhonchi ( diffuse bilateral), Wheezes (diffuse bilateral ), Respiratory Distress - Cardiovascular Exam Cardiovascular Exam: REGULAR RHYTHM, RRR, +S1, +S2. absent: JVD - GI/Abdominal Exam GI & Abdominal Exam: Soft, Normal Bowel Sounds. absent: Distended, Guarding, Tenderness, Rebound - Rectal Exam Rectal Exam: Deferred - Extremities Exam Extremities Exam: Full ROM, Normal Capillary Refill, Normal Inspection. absent : Calf Tenderness, Pedal Edema - Back Exam Back Exam: NORMAL INSPECTION - Neurological Exam Neurological Exam: Alert, Awake, CN II-XII Intact, Oriented x3 - Psychiatric Exam Psychiatric exam: Normal Affect - Skin Skin Exam: Dry, Intact, Normal Color, Warm Assessment and Plan - Assessment and Plan (Free Text) Assessment: 71 y/o female with Asthma/COPD, DM2, HTN, HLD came in with 2-3 days of worsening SOB and cough productive of yellow sputum. Patient may have also had fever, but unmeasured. No CP. No palpitations. Patient does complain of her chronic back/neck pain which is worse after having run out of her medications recently. Daughter notes that one of her kids was sick with respiratory infection prior to patient becoming sick. Patient was found to be in respiratory distress in ER with hypoxemia 1. COPD exac/respiratory failure with hypoxemia still with significant dyspnea , chest congestion Continue Solumedrol 60 mg IV q8, Duonebs Started acertylcysteine and promethazine CXR showed no infiltrate Ct chest showed no infiltrate Follow up sputum cx .Continue rocephin and Zithromax IV pulmonary consult with appreciated 2. CHF probably diastolic dysfunction stable, continue home lasix dose 3. HTN stable, continue home medications 4. Chronic back pain resume home fentanyl patch and oxycodone 5. Diabetes mellitus chronic , uncontrolled Accuchecks, insulin coverage Hgb A1c 7.3 continue levemir and Humalog 6. Hypercholesterolemia on statin 7. Suspected UTI UA cloudy with LE + , nitrate + and bacteria continue Rocephin follow up urine cx 8. Hyperkalemia-resolved IVF, insulin repeat BMP in AM 9.DVT prophylaxis lovenox
--- NOTE | 2017-04-21 17:22 | CON ---
DATE: HISTORY OF PRESENT ILLNESS: Ms. Poon is a 71-year-old female, who was referred for pulmonary evaluation by Dr. Alexander. She was admitted with acute exacerbation of chronic obstructive pulmonary disease. She continues to complain of cough with shortness of breath and exercise intolerance. For the past several days prior to presentation symptoms worsened and she sought help in the hospital. She has yellowish sputum. No fever or chills, but chest tightness. PAST MEDICAL HISTORY: Remarkable for COPD, diabetes mellitus, hypertension, and hyperlipidemia. FAMILY HISTORY: Noncontributory. SOCIAL HISTORY: Socially, she quit smoking several years ago. Denies alcohol or drug use and presently lives with family. PHYSICAL EXAMINATION: GENERAL: This patient is obese. She is alert, oriented, appears to be in moderate distress with cough, shortness of breath and exercise intolerance and seems to bring up yellow mucus. VITAL SIGNS: Blood pressure 129/64 with a pulse of 85, respiratory rate 18 per minute, she is afebrile, O2 sat 97% on nasal cannula oxygen. SKIN: Shows fair turgor. HEENT: Pupils are equal and reactive to light and accommodation. JVP flat. Mouth shows fair hygiene with mucous engorgement of pharynx. LUNGS: Poor aeration bilaterally with audible rales and wheezing. HEART: S1 and S2. ABDOMEN: Soft and nontender. No organomegaly. EXTREMITIES: Shows no edema or cyanosis. CENTRAL NERVOUS SYSTEM: Grossly intact. LABORATORY DATA: Remarkable for ABG that shows a pH of 7.38, pCO2 of 66, pO2 of 162, bicarbonate 34, this is on 50% FiO2. WBC 7.3, hemoglobin 10.9, and platelet count of 258,000. Sodium 135, potassium 5.0, BUN 21, and creatinine of 0.6, serum glucose 349. Chest x-ray shows no acute cardiopulmonary pathology. CAT scan of the chest done . EKG is remarkable for sinus tachycardia, otherwise, unremarkable. IMPRESSION: Acute exacerbation of chronic obstructive pulmonary disease, probably secondary to upper respiratory tract infection and mucus plugging of airways, history of hypertension, history of diabetes mellitus, history of hyperlipidemia and obesity. PLAN: Continue therapy as ordered with aerosolize bronchodilators, IV steroids, IV antibiotics, oxygen. We will add Mucomyst to help expectorant specimen. Montes cultures already sent. We will continue to follow with you. Hopefully, symptom should improve with therapy. Orlando Patino MD
[2017-04-21] MEDS: Acetylcysteine 20% Inhal Soln (4ml) INH SCH (19:23)
[2017-04-21] MEDS: Insulin Detemir 100 Units/ml Inj SC SCH (21:21)
[2017-04-22] MEDS: Albuterol-Ipratrop 3 mg / 0.5 (3 ml) UD IH SCH ×7 (00:05→23:34)
[2017-04-22] MEDS: Azithromycin 500 MG in Sodium Chloride 0.9% 250 ML IVPB SCH (01:00)
[2017-04-22] MEDS: Promethazine DM 12.5 mg-30 mg/10 ml Syrup PO PRN ×2 (03:32→12:32)
[2017-04-22] MEDS: methylPREDNISolone 60 MG in Sodium Chloride 0.9% 50 ML IV SCH ×3 (03:32→21:14)
[2017-04-22] MEDS: Insulin Lispro (humaLOG) 100 Units/ml Inj SC SCH ×7 (06:39→21:26)
[2017-04-22 06:41] LABS: BLOOD UREA NITROGEN 21 mg/dl (7-17); CARBON DIOXIDE 35 mmol/L (22-30); CHLORIDE 90 mmol/L (98-107); GFR AFRICAN-AMERICAN > 60; GLUCOSE,RANDOM 343 mg/dL (65-105); POTASSIUM 4.4 MMOL/L (3.6-5.0); SODIUM 135 mmol/l (132-148)
--- NOTE | 2017-04-22 07:37 | PQF GENQUE ---
This form is a permanent part of the medical record 04/22/17 Dr. Alexander, Would you please clarify if there is an associated diagnosis or not to go along with the elevated BMI. If yes please document the BMI as well. Documentation in the H&P of a history of Asthma/COPD . EMR has the patient listed as 5' tall, weighing 240 pounds with a BMI of 46.9. Clarification of your documentation is requested to better reflect the severity of illness and intensity of treatment of your patient. Indicators present [] Specify: [] [] Specify: [] [] Specify: [] [] Specify: [] Location in the medical record that reflects the above clinical findings: [] Treatment Provided: [] PHYSICIAN'S RESPONSE Based on your medical judgment of the clinical indicators outlined above please clarify the following: [] Practitioner response [] If unable to determine, please check the box, sign and date. Present On Admission (POA) Indicator: [] Present at the time of admission [] Not present at the time of admission [] Clinically Undetermined In responding to this query, please exercise your independent professional judgment. The fact that a question is asked does not imply that any particular answer is desired or expected. Thank you for your clarification on this documentation. If you have any questions please call:ext [phone] * Thank you, Sabrina Campos RN [facility]
--- NOTE | 2017-04-22 07:49 | PQF GENQUE ---
This form is a permanent part of the medical record 04/22/17 Dr. Alexander, Admitted with COPD exacerbation and Respiratory Failure with Hypoxia. Treated with Bipap, Nebs, Solumedrol and IVAB. Please specify acuity of respiratory failure. Clarification of your documentation is requested to better reflect the severity of illness and intensity of treatment of your patient. Indicators present [] Specify: [] [] Specify: [] [] Specify: [] [] Specify: [] Location in the medical record that reflects the above clinical findings: [] Treatment Provided: [] PHYSICIAN'S RESPONSE Please specify acuity of respiratory failure [] Acute [] Chronic [] Acute on chronic [] Other (please specify) [] Clinically unable to determine [] Unknown Based on your medical judgment of the clinical indicators outlined above please clarify the following: [] Practitioner response [] If unable to determine, please check the box, sign and date. Present On Admission (POA) Indicator: [] Present at the time of admission [] Not present at the time of admission [] Clinically Undetermined In responding to this query, please exercise your independent professional judgment. The fact that a question is asked does not imply that any particular answer is desired or expected. Thank you for your clarification on this documentation. If you have any questions please call:[phone] * Thank you, Sabrina Campos RN CDMP MTDD
[2017-04-22] MEDS: Acetylcysteine 20% Inhal Soln (4ml) INH SCH ×2 (07:50→19:29)
--- NOTE | 2017-04-22 08:20 | CP.PCM.PN ---
Subjective - Date & Time of Evaluation Date of Evaluation: 04/27/17 Time of Evaluation: 08:00 - Subjective Subjective: Patient seen and examined bedside. Still with dyspnea , coughing spells, and greenish sputum production. with audible wheezing , accessory muscle use and diffuse wheezing with rhonchi in physical exam Afebrile Objective - Vital Signs/Intake and Output Vital Signs (last 24 hours): Temp Pulse Resp BP Pulse Ox 98 F 81 18 136/73 98 04/22/17 08:05 04/22/17 08:05 04/22/17 08:05 04/22/17 08:05 04/22/17 08:05 - Medications Medications: Current Medications Acetylcysteine (Acetylcysteine 20%) 2 ml INH RBID [facility] Last Admin: 04/22/17 07:50 Dose: 2 ml Albuterol/Ipratropium (Duoneb 3 Mg/0.5 Mg (3 Ml) Ud) 3 ml INH RQ6 PRN PRN Reason: Shortness of Breath Albuterol/Ipratropium (Duoneb 3 Mg/0.5 Mg (3 Ml) Ud) 3 ml IH RQ4 [facility] Last Admin: 04/22/17 07:50 Dose: 3 ml Alprazolam (Xanax) 0.5 mg PO TID [facility] Last Admin: 04/21/17 16:50 Dose: 0.5 mg Atorvastatin Calcium (Lipitor) 10 mg PO HS [facility] Last Admin: 04/21/17 21:16 Dose: 10 mg Clopidogrel Bisulfate (Plavix) 75 mg PO DAILY [facility] Last Admin: 04/21/17 09:06 Dose: 75 mg Enoxaparin Sodium (Lovenox) 40 mg SC DAILY [facility] PRN Reason: Protocol Last Admin: 04/21/17 09:05 Dose: 40 mg Famotidine (Pepcid) 20 mg PO BID [facility] Last Admin: 04/21/17 16:46 Dose: 20 mg Fentanyl (Duragesic) 1 patch TD Q72H [facility] PRN Reason: Protocol Last Admin: 04/20/17 02:06 Dose: 1 patch Furosemide (Lasix) 40 mg PO DAILY [facility] Last Admin: 04/21/17 09:06 Dose: 40 mg Gabapentin (Neurontin) 300 mg PO TID [facility] Last Admin: 04/21/17 16:46 Dose: 300 mg Hydrochlorothiazide (Microzide) 12.5 mg PO DAILY [facility] Last Admin: 04/21/17 09:05 Dose: 12.5 mg Ceftriaxone Sodium 1 gm/ (Sodium Chloride) 100 mls @ 100 mls/hr IVPB DAILY@ 0000 [facility] Last Admin: 04/21/17 23:47 Dose: 100 mls/hr Azithromycin 500 mg/ Sodium (Chloride) 250 mls @ 250 mls/hr IVPB DAILY@0100 [facility] Last Admin: 04/22/17 01:00 Dose: 250 mls/hr Methylprednisolone 60 mg/ (Sodium Chloride) 50 mls @ 100 mls/hr IV Q8@0400,1200 ,2200 [facility] Last Admin: 04/22/17 03:32 Dose: 100 mls/hr Insulin Detemir (Levemir) 35 units SC [facility] Last Admin: 04/21/17 21:21 Dose: 35 units Insulin Human Lispro (Humalog) 0 units SC ACHS [facility] PRN Reason: Protocol Last Admin: 04/22/17 06:39 Dose: 8 u Insulin Human Lispro (Humalog) 14 units SC AC [facility] Last Admin: 04/21/17 16:46 Dose: 14 unit Meclizine HCl (Antivert) 25 mg PO TID [facility] Last Admin: 04/21/17 16:46 Dose: 25 mg Montelukast Sodium (Singulair) 10 mg PO [facility] Last Admin: 04/21/17 21:16 Dose: 10 mg Ondansetron HCl (Zofran Tab) 4 mg PO Q8 [facility] Last Admin: 04/22/17 01:00 Dose: 4 mg Oxycodone HCl (Oxycodone Immediate Release Tab) 30 mg PO Q6H PRN PRN Reason: Pain, severe (8-10) Last Admin: 04/21/17 12:33 Dose: 30 mg Paroxetine HCl (Paxil) 20 mg PO DAILY [facility] Last Admin: 04/21/17 09:06 Dose: 20 mg Promethazine HCl/Dextromethorphan (Phenergan Dm Syrup) 10 ml PO Q6 PRN PRN Reason: Cough Last Admin: 04/22/17 03:32 Dose: 10 ml Fluticasone/Salmeterol (Advair Diskus 250/50) 1 puff IH Q12 [facility] Last Admin: 04/20/17 08:47 Dose: 1 puff Theophylline (Uniphyl) 400 mg PO DAILY [facility] Last Admin: 04/21/17 09:06 Dose: 400 mg Valsartan (Diovan) 80 mg PO DAILY [facility] Last Admin: 04/21/17 09:05 Dose: 80 mg - Labs Labs: 04/22/17 05:15 - Constitutional Appears: In Acute Distress (with respiratory distress), Chronically Ill, Other ( obese) - Head Exam Head Exam: ATRAUMATIC, NORMAL INSPECTION, NORMOCEPHALIC - Eye Exam Eye Exam: EOMI, PERRL Pupil Exam: NORMAL ACCOMODATION - ENT Exam ENT Exam: Mucous Membranes Moist, Normal Exam - Neck Exam Neck Exam: Normal Inspection - Respiratory Exam Respiratory Exam: Accessory Muscle Use, Prolonged Expiratory Phase, Rhonchi ( diffuse bilaterally ), Wheezes (diffuse bilaterally ) - Cardiovascular Exam Cardiovascular Exam: REGULAR RHYTHM, RRR, +S1, +S2. absent: JVD - GI/Abdominal Exam GI & Abdominal Exam: Soft, Normal Bowel Sounds. absent: Distended, Guarding, Tenderness, Rebound - Rectal Exam Rectal Exam: Deferred - Extremities Exam Extremities Exam: Full ROM, Normal Capillary Refill, Normal Inspection. absent : Calf Tenderness, Pedal Edema, Tenderness - Back Exam Back Exam: NORMAL INSPECTION - Neurological Exam Neurological Exam: Alert, Awake, CN II-XII Intact, Oriented x3 - Psychiatric Exam Psychiatric exam: Normal Affect - Skin Skin Exam: Dry, Intact, Normal Color, Warm Assessment and Plan - Assessment and Plan (Free Text) Assessment: 71 y/o female with Asthma/COPD, DM2, HTN, HLD came in with 2-3 days of worsening SOB and cough productive of yellow sputum. Patient may have also had fever, but unmeasured. No CP. No palpitations. Patient does complain of her chronic back/neck pain which is worse after having run out of her medications recently. Daughter notes that one of her kids was sick with respiratory infection prior to patient becoming sick. Patient was found to be in respiratory distress in ER with hypoxemia 1. COPD exac/acute respiratory failure with hypoxemia still with significant dyspnea , chest congestion , coughing spells and greenish sputum production Continue Solumedrol 60 mg IV q8, Duonebs on acertylcysteine and promethazine CXR showed no infiltrate Ct chest showed no infiltrate Follow up sputum cx Continue rocephin and Zithromax IV pulmonary consult with appreciated 2. CHF probably diastolic dysfunction stable, continue home lasix dose 3. HTN stable, continue home medications 4. Chronic back pain resumed home fentanyl patch and oxycodone 5. Diabetes mellitus chronic , uncontrolled Accuchecks, insulin coverage Hgb A1c 7.3 continue levemir and Humalog 6. Hypercholesterolemia on statin 7. Suspected UTI UA cloudy with LE + , nitrate + and bacteria continue Rocephin follow up urine cx 8. Hyperkalemia-resolved IVF, insulin monitor BMP 9.DVT prophylaxis lovenox 10. Morbid obesity with BMI 46.9
[2017-04-22] MEDS: Enoxaparin 40 mg Syringe SC SCH (08:27)
[2017-04-22] MEDS: THEOPHYLLINE 400 MG T24(UNIPHYL) PO SCH (08:29)
[2017-04-22 09:51] LABS: HEMATOCRIT 35.1 % (34.0-47.0); MEAN CELL VOLUME 91.5 fl (81.0-99.0); MEAN CORPUSCULAR HEMOGLOBIN 29.4 pg (27.0-31.0); MEAN CORPUSCULAR HGB CONC 32.1 g/dL (33.0-37.0); RED CELL DISTRIBUTION WIDTH 12.2 % (11.5-14.5); WHITE BLOOD COUNT 8.2 K/uL (4.8-10.8)
--- NOTE | 2017-04-22 10:20 | CP.PCM.PN ---
Subjective - Date & Time of Evaluation Date of Evaluation: 04/22/17 Time of Evaluation: 10:20 - Subjective Subjective: STILL COUGHING AND DYSPNEIC Objective - Vital Signs/Intake and Output Vital Signs (last 24 hours): Temp Pulse Resp BP Pulse Ox 98 F 81 18 136/73 98 04/22/17 08:05 04/22/17 08:05 04/22/17 08:05 04/22/17 08:27 04/22/17 08:05 - Medications Medications: Current Medications Acetylcysteine (Acetylcysteine 20%) 2 ml INH RBID [facility] Last Admin: 04/22/17 07:50 Dose: 2 ml Albuterol/Ipratropium (Duoneb 3 Mg/0.5 Mg (3 Ml) Ud) 3 ml INH RQ6 PRN PRN Reason: Shortness of Breath Albuterol/Ipratropium (Duoneb 3 Mg/0.5 Mg (3 Ml) Ud) 3 ml IH RQ4 [facility] Last Admin: 04/22/17 07:50 Dose: 3 ml Alprazolam (Xanax) 0.5 mg PO TID [facility] Last Admin: 04/22/17 08:23 Dose: 0.5 mg Atorvastatin Calcium (Lipitor) 10 mg PO HS [facility] Last Admin: 04/21/17 21:16 Dose: 10 mg Clopidogrel Bisulfate (Plavix) 75 mg PO DAILY [facility] Last Admin: 04/22/17 08:29 Dose: 75 mg Enoxaparin Sodium (Lovenox) 40 mg SC DAILY [facility] PRN Reason: Protocol Last Admin: 04/22/17 08:27 Dose: 40 mg Famotidine (Pepcid) 20 mg PO BID [facility] Last Admin: 04/22/17 08:29 Dose: 20 mg Fentanyl (Duragesic) 1 patch TD Q72H [facility] PRN Reason: Protocol Last Admin: 04/20/17 02:06 Dose: 1 patch Furosemide (Lasix) 40 mg PO DAILY [facility] Last Admin: 04/22/17 08:27 Dose: 40 mg Gabapentin (Neurontin) 300 mg PO TID [facility] Last Admin: 04/22/17 08:28 Dose: 300 mg Hydrochlorothiazide (Microzide) 12.5 mg PO DAILY [facility] Last Admin: 04/22/17 08:28 Dose: 12.5 mg Ceftriaxone Sodium 1 gm/ (Sodium Chloride) 100 mls @ 100 mls/hr IVPB DAILY@ 0000 [facility] Last Admin: 04/21/17 23:47 Dose: 100 mls/hr Azithromycin 500 mg/ Sodium (Chloride) 250 mls @ 250 mls/hr IVPB DAILY@0100 [facility] Last Admin: 04/22/17 01:00 Dose: 250 mls/hr Methylprednisolone 60 mg/ (Sodium Chloride) 50 mls @ 100 mls/hr IV Q8@0400,1200 ,2200 [facility] Last Admin: 04/22/17 03:32 Dose: 100 mls/hr Insulin Detemir (Levemir) 35 units SC HS [facility] Last Admin: 04/21/17 21:21 Dose: 35 units Insulin Human Lispro (Humalog) 0 units SC ACHS [facility] PRN Reason: Protocol Last Admin: 04/22/17 06:39 Dose: 8 u Insulin Human Lispro (Humalog) 14 units SC AC [facility] Last Admin: 04/22/17 08:26 Dose: 14 unit Meclizine HCl (Antivert) 25 mg PO TID [facility] Last Admin: 04/22/17 08:24 Dose: 25 mg Montelukast Sodium (Singulair) 10 mg PO [facility] Last Admin: 04/21/17 21:16 Dose: 10 mg Ondansetron HCl (Zofran Tab) 4 mg PO Q8 [facility] Last Admin: 04/22/17 08:29 Dose: 4 mg Oxycodone HCl (Oxycodone Immediate Release Tab) 30 mg PO Q6H PRN PRN Reason: Pain, severe (8-10) Last Admin: 04/21/17 12:33 Dose: 30 mg Paroxetine HCl (Paxil) 20 mg PO DAILY [facility] Last Admin: 04/22/17 08:28 Dose: 20 mg Promethazine HCl/Dextromethorphan (Phenergan Dm Syrup) 10 ml PO Q6 PRN PRN Reason: Cough Last Admin: 04/22/17 03:32 Dose: 10 ml Fluticasone/Salmeterol (Advair Diskus 250/50) 1 puff IH Q12 [facility] Last Admin: 04/20/17 08:47 Dose: 1 puff Theophylline (Uniphyl) 400 mg PO DAILY [facility] Last Admin: 04/22/17 08:29 Dose: 400 mg Valsartan (Diovan) 80 mg PO DAILY [facility] Last Admin: 04/22/17 08:25 Dose: 80 mg - Labs Labs: 04/22/17 09:25 04/22/17 05:15 - Constitutional Appears: Chronically Ill - Head Exam Head Exam: ATRAUMATIC, NORMAL INSPECTION, NORMOCEPHALIC - Eye Exam Eye Exam: EOMI, Normal appearance, PERRL Pupil Exam: NORMAL ACCOMODATION, PERRL - ENT Exam ENT Exam: Mucous Membranes Moist, Normal Exam - Neck Exam Neck Exam: Full ROM, Normal Inspection. absent: Lymphadenopathy - Respiratory Exam Respiratory Exam: Decreased Breath Sounds, Rales, NORMAL BREATHING PATTERN - Cardiovascular Exam Cardiovascular Exam: REGULAR RHYTHM, +S1, +S2. absent: Murmur - GI/Abdominal Exam GI & Abdominal Exam: Soft, Normal Bowel Sounds. absent: Tenderness - Rectal Exam Rectal Exam: NORMAL INSPECTION - Extremities Exam Extremities Exam: Full ROM, Normal Capillary Refill, Normal Inspection. absent : Joint Swelling, Pedal Edema - Back Exam Back Exam: NORMAL INSPECTION - Neurological Exam Neurological Exam: Alert, Awake, CN II-XII Intact, Normal Gait, Oriented x3 - Psychiatric Exam Psychiatric exam: Normal Affect, Normal Mood - Skin Skin Exam: Dry, Intact, Normal Color, Warm Assessment and Plan - Assessment and Plan (Free Text) Assessment: COPD EXAC MUCUS PLUGGING OF AIRWAYS Plan: CONTINUE SAME RX
[2017-04-22] MEDS: oxyCODONE 10 mg Immediate Release Tab PO PRN (12:31)
[2017-04-22] MEDS: Insulin Detemir 100 Units/ml Inj SC SCH (21:25)
[2017-04-23] MEDS: Azithromycin 500 MG in Sodium Chloride 0.9% 250 ML IVPB SCH (01:01)
[2017-04-23] MEDS: methylPREDNISolone 60 MG in Sodium Chloride 0.9% 50 ML IV SCH ×3 (03:58→22:28)
[2017-04-23] MEDS: Albuterol-Ipratrop 3 mg / 0.5 (3 ml) UD IH SCH ×6 (05:01→23:05)
[2017-04-23 05:55] LABS: HEMATOCRIT 36.4 % (34.0-47.0); MEAN CORPUSCULAR HEMOGLOBIN 29.6 pg (27.0-31.0); MEAN CORPUSCULAR HGB CONC 32.1 g/dL (33.0-37.0); RED CELL DISTRIBUTION WIDTH 11.7 % (11.5-14.5); WHITE BLOOD COUNT 7.7 K/uL (4.8-10.8)
[2017-04-23 06:04] LABS: BLOOD UREA NITROGEN 21 mg/dl (7-17); CALCIUM 9.2 mg/dL (8.4-10.2); CARBON DIOXIDE 38 mmol/L (22-30); CHLORIDE 87 mmol/L (98-107); GFR AFRICAN-AMERICAN > 60; GLUCOSE,RANDOM 319 mg/dL (65-105); POTASSIUM 4.7 MMOL/L (3.6-5.0); SODIUM 135 mmol/l (132-148)
[2017-04-23] MEDS: Insulin Lispro (humaLOG) 100 Units/ml Inj SC SCH ×7 (06:49→21:55)
--- NOTE | 2017-04-23 07:25 | CP.PCM.PN ---
Subjective - Date & Time of Evaluation Date of Evaluation: 04/23/17 Time of Evaluation: 07:24 - Subjective Subjective: pt seen examined bedside continues to cough +very tight, wheezes, rhonchi Discussed with Pulmonology, will need JAVED/TCU 99% on 2L NC HD stable NAD Objective - Vital Signs/Intake and Output Vital Signs (last 24 hours): Temp Pulse Resp BP Pulse Ox 97.3 F L 78 18 142/66 99 04/23/17 00:34 04/23/17 04:02 04/23/17 00:34 04/23/17 00:34 04/23/17 00:34 Vitals stable and reviewed GEN: WDWN, alert, cooperative HEENT: NCAT, PERRL, EOMI Neck: supple, no lymphadenopathy CARDIO: +S1S2, RRR, NO M/R/G LUNG: poor air movement, wheezes and rhonchi ABD: soft, NT, ND, no masses, no HSM EXT: no edema, pedal pulses Neuro: AAOx3, Strength equal, bilateral UE/LE Psych: normal mood, normal affect Intake and Output: 04/23/17 04/23/17 06:59 18:59 Intake Total 50 Balance 50 - Medications Medications: Current Medications Acetylcysteine (Acetylcysteine 20%) 2 ml INH RBID [facility] Last Admin: 04/22/17 19:29 Dose: 2 ml Albuterol/Ipratropium (Duoneb 3 Mg/0.5 Mg (3 Ml) Ud) 3 ml INH RQ6 PRN PRN Reason: Shortness of Breath Albuterol/Ipratropium (Duoneb 3 Mg/0.5 Mg (3 Ml) Ud) 3 ml IH RQ4 [facility] Last Admin: 04/23/17 05:01 Dose: 3 ml Alprazolam (Xanax) 0.5 mg PO TID [facility] Last Admin: 04/22/17 16:56 Dose: 0.5 mg Atorvastatin Calcium (Lipitor) 10 mg PO HS [facility] Last Admin: 04/22/17 21:14 Dose: 10 mg Clopidogrel Bisulfate (Plavix) 75 mg PO DAILY [facility] Last Admin: 04/22/17 08:29 Dose: 75 mg Enoxaparin Sodium (Lovenox) 40 mg SC DAILY [facility] PRN Reason: Protocol Last Admin: 04/22/17 08:27 Dose: 40 mg Famotidine (Pepcid) 20 mg PO BID [facility] Last Admin: 04/22/17 16:59 Dose: 20 mg Fentanyl (Duragesic) 1 patch TD Q72H [facility] PRN Reason: Protocol Last Admin: 04/23/17 02:06 Dose: 1 patch Furosemide (Lasix) 40 mg PO DAILY [facility] Last Admin: 04/22/17 08:27 Dose: 40 mg Gabapentin (Neurontin) 300 mg PO TID [facility] Last Admin: 04/22/17 16:59 Dose: 300 mg Hydrochlorothiazide (Microzide) 12.5 mg PO DAILY [facility] Last Admin: 04/22/17 08:28 Dose: 12.5 mg Ceftriaxone Sodium 1 gm/ (Sodium Chloride) 100 mls @ 100 mls/hr IVPB DAILY@ 0000 [facility] Last Admin: 04/23/17 00:00 Dose: 100 mls/hr Azithromycin 500 mg/ Sodium (Chloride) 250 mls @ 250 mls/hr IVPB DAILY@0100 [facility] Last Admin: 04/23/17 01:01 Dose: 250 mls/hr Methylprednisolone 60 mg/ (Sodium Chloride) 50 mls @ 100 mls/hr IV Q8@0400,1200 ,2200 [facility] Last Admin: 04/23/17 03:58 Dose: 100 mls/hr Insulin Detemir (Levemir) 35 units SC [facility] Last Admin: 04/22/17 21:25 Dose: 35 units Insulin Human Lispro (Humalog) 0 units SC ACHS [facility] PRN Reason: Protocol Last Admin: 04/23/17 06:49 Dose: 4 units Insulin Human Lispro (Humalog) 14 units SC AC [facility] Last Admin: 04/22/17 16:57 Dose: 14 unit Meclizine HCl (Antivert) 25 mg PO TID [facility] Last Admin: 04/22/17 16:58 Dose: 25 mg Montelukast Sodium (Singulair) 10 mg PO [facility] Last Admin: 04/22/17 21:14 Dose: 10 mg Ondansetron HCl (Zofran Tab) 4 mg PO Q8 [facility] Last Admin: 04/23/17 01:03 Dose: Not Given Oxycodone HCl (Oxycodone Immediate Release Tab) 30 mg PO Q6H PRN PRN Reason: Pain, severe (8-10) Last Admin: 04/22/17 12:31 Dose: 30 mg Paroxetine HCl (Paxil) 20 mg PO DAILY [facility] Last Admin: 04/22/17 08:28 Dose: 20 mg Promethazine HCl/Dextromethorphan (Phenergan Dm Syrup) 10 ml PO Q6 PRN PRN Reason: Cough Last Admin: 04/22/17 12:32 Dose: 10 ml Fluticasone/Salmeterol (Advair Diskus 250/50) 1 puff IH Q12 [facility] Last Admin: 04/20/17 08:47 Dose: 1 puff Theophylline (Uniphyl) 400 mg PO DAILY [facility] Last Admin: 04/22/17 08:29 Dose: 400 mg Valsartan (Diovan) 80 mg PO DAILY [facility] Last Admin: 04/22/17 08:25 Dose: 80 mg - Labs Labs: 04/23/17 04:30 04/23/17 04:30 Assessment and Plan - Assessment and Plan (Free Text) Plan: 71 y/o female with Asthma/COPD, DM2, HTN, HLD came in with 2-3 days of worsening SOB and cough productive of yellow sputum. Patient may have also had fever, but unmeasured. No CP. No palpitations. Patient does complain of her chronic back/neck pain which is worse after having run out of her medications recently. Daughter notes that one of her kids was sick with respiratory infection prior to patient becoming sick. Patient was found to be in respiratory distress in ER with hypoxemia 1. COPD exac/acute respiratory failure with hypoxemia still with significant dyspnea , chest congestion , coughing spells and greenish sputum production Continue Solumedrol 60 mg IV q8, Duonebs on acertylcysteine and promethazine CXR showed no infiltrate Ct chest showed no infiltrate Follow up sputum cx Continue rocephin and Zithromax IV pulmonary consult with appreciated - discussed, will need JAVED/TCU for further care, likely tomorrow 2. CHF probably diastolic dysfunction stable, continue home lasix dose 3. HTN stable, continue home medications 4. Chronic back pain resumed home fentanyl patch and oxycodone 5. Diabetes mellitus chronic , uncontrolled Accuchecks, insulin coverage Hgb A1c 7.3 continue levemir and Humalog 6. Hypercholesterolemia on statin 7. Suspected UTI UA cloudy with LE + , nitrate + and bacteria continue Rocephin follow up urine cx 8. Hyperkalemia-resolved IVF, insulin monitor BMP 9.DVT prophylaxis lovenox 10. Morbid obesity with BMI 46.9
[2017-04-23] MEDS: Acetylcysteine 20% Inhal Soln (4ml) INH SCH ×2 (08:21→19:21)
--- NOTE | 2017-04-23 08:36 | CP.PCM.PN ---
Subjective - Date & Time of Evaluation Date of Evaluation: 04/23/17 Time of Evaluation: 08:37 - Subjective Subjective: STILL COUGHING NO CHEST PAINS/MILD SOB AT REST AUDIBLE WHEEZING AND RALES Objective - Vital Signs/Intake and Output Vital Signs (last 24 hours): Temp Pulse Resp BP Pulse Ox 98.3 F 79 20 145/71 96 04/23/17 08:22 04/23/17 08:22 04/23/17 08:22 04/23/17 08:22 04/23/17 08:22 Intake and Output: 04/23/17 04/23/17 06:59 18:59 Intake Total 50 Balance 50 - Medications Medications: Current Medications Acetylcysteine (Acetylcysteine 20%) 2 ml INH RBID [facility] Last Admin: 04/23/17 08:21 Dose: 2 ml Albuterol/Ipratropium (Duoneb 3 Mg/0.5 Mg (3 Ml) Ud) 3 ml INH RQ6 PRN PRN Reason: Shortness of Breath Albuterol/Ipratropium (Duoneb 3 Mg/0.5 Mg (3 Ml) Ud) 3 ml IH RQ4 [facility] Last Admin: 04/23/17 08:21 Dose: 3 ml Alprazolam (Xanax) 0.5 mg PO TID [facility] Last Admin: 04/22/17 16:56 Dose: 0.5 mg Atorvastatin Calcium (Lipitor) 10 mg PO HS [facility] Last Admin: 04/22/17 21:14 Dose: 10 mg Clopidogrel Bisulfate (Plavix) 75 mg PO DAILY [facility] Last Admin: 04/22/17 08:29 Dose: 75 mg Enoxaparin Sodium (Lovenox) 40 mg SC DAILY [facility] PRN Reason: Protocol Last Admin: 04/22/17 08:27 Dose: 40 mg Famotidine (Pepcid) 20 mg PO BID [facility] Last Admin: 04/22/17 16:59 Dose: 20 mg Fentanyl (Duragesic) 1 patch TD Q72H [facility] PRN Reason: Protocol Last Admin: 04/23/17 02:06 Dose: 1 patch Furosemide (Lasix) 40 mg PO DAILY [facility] Last Admin: 04/22/17 08:27 Dose: 40 mg Gabapentin (Neurontin) 300 mg PO TID [facility] Last Admin: 04/22/17 16:59 Dose: 300 mg Hydrochlorothiazide (Microzide) 12.5 mg PO DAILY [facility] Last Admin: 04/22/17 08:28 Dose: 12.5 mg Ceftriaxone Sodium 1 gm/ (Sodium Chloride) 100 mls @ 100 mls/hr IVPB DAILY@ 0000 [facility] Last Admin: 04/23/17 00:00 Dose: 100 mls/hr Azithromycin 500 mg/ Sodium (Chloride) 250 mls @ 250 mls/hr IVPB DAILY@0100 [facility] Last Admin: 04/23/17 01:01 Dose: 250 mls/hr Methylprednisolone 60 mg/ (Sodium Chloride) 50 mls @ 100 mls/hr IV Q8@0400,1200 ,2200 [facility] Last Admin: 04/23/17 03:58 Dose: 100 mls/hr Insulin Detemir (Levemir) 35 units SC [facility] Last Admin: 04/22/17 21:25 Dose: 35 units Insulin Human Lispro (Humalog) 0 units SC ACHS [facility] PRN Reason: Protocol Last Admin: 04/23/17 06:49 Dose: 4 units Insulin Human Lispro (Humalog) 14 units SC AC [facility] Last Admin: 04/22/17 16:57 Dose: 14 unit Meclizine HCl (Antivert) 25 mg PO TID [facility] Last Admin: 04/22/17 16:58 Dose: 25 mg Montelukast Sodium (Singulair) 10 mg PO [facility] Last Admin: 04/22/17 21:14 Dose: 10 mg Ondansetron HCl (Zofran Tab) 4 mg PO Q8 [facility] Last Admin: 04/23/17 01:03 Dose: Not Given Oxycodone HCl (Oxycodone Immediate Release Tab) 30 mg PO Q6H PRN PRN Reason: Pain, severe (8-10) Last Admin: 04/22/17 12:31 Dose: 30 mg Paroxetine HCl (Paxil) 20 mg PO DAILY [facility] Last Admin: 04/22/17 08:28 Dose: 20 mg Promethazine HCl/Dextromethorphan (Phenergan Dm Syrup) 10 ml PO Q6 PRN PRN Reason: Cough Last Admin: 04/22/17 12:32 Dose: 10 ml Fluticasone/Salmeterol (Advair Diskus 250/50) 1 puff IH Q12 [facility] Last Admin: 04/20/17 08:47 Dose: 1 puff Theophylline (Uniphyl) 400 mg PO DAILY [facility] Last Admin: 04/22/17 08:29 Dose: 400 mg Valsartan (Diovan) 80 mg PO DAILY [facility] Last Admin: 04/22/17 08:25 Dose: 80 mg - Labs Labs: 04/23/17 04:30 04/23/17 04:30 - Constitutional Appears: Chronically Ill - Head Exam Head Exam: ATRAUMATIC, NORMAL INSPECTION, NORMOCEPHALIC - Eye Exam Eye Exam: EOMI, Normal appearance, PERRL Pupil Exam: NORMAL ACCOMODATION, PERRL - ENT Exam ENT Exam: Mucous Membranes Moist, Normal Exam - Neck Exam Neck Exam: Full ROM, Normal Inspection. absent: Lymphadenopathy - Respiratory Exam Respiratory Exam: Decreased Breath Sounds, Prolonged Expiratory Phase, Rales, Wheezes - Cardiovascular Exam Cardiovascular Exam: REGULAR RHYTHM, +S1, +S2. absent: Murmur - GI/Abdominal Exam GI & Abdominal Exam: Soft, Normal Bowel Sounds. absent: Tenderness - Rectal Exam Rectal Exam: NORMAL INSPECTION - Extremities Exam Extremities Exam: Full ROM, Normal Capillary Refill, Normal Inspection. absent : Joint Swelling, Pedal Edema - Back Exam Back Exam: NORMAL INSPECTION - Neurological Exam Neurological Exam: Alert, Awake, CN II-XII Intact, Normal Gait, Oriented x3 - Psychiatric Exam Psychiatric exam: Normal Affect, Normal Mood - Skin Skin Exam: Dry, Intact, Normal Color, Warm Assessment and Plan - Assessment and Plan (Free Text) Assessment: COPD EXAC URI MUCUS PLUGGING OF AIRWAYS Plan: CONTINUE CURRENT RX CPT
[2017-04-23] MEDS: THEOPHYLLINE 400 MG T24(UNIPHYL) PO SCH (09:14)
[2017-04-23] MEDS: Enoxaparin 40 mg Syringe SC SCH (09:14)
[2017-04-23] MEDS: Promethazine DM 12.5 mg-30 mg/10 ml Syrup PO PRN ×2 (09:16→22:25)
[2017-04-23] MEDS: Insulin Detemir 100 Units/ml Inj SC SCH (21:53)
[2017-04-24] MEDS: Azithromycin 500 MG in Sodium Chloride 0.9% 250 ML IVPB SCH (01:00)
[2017-04-24] MEDS: Albuterol-Ipratrop 3 mg / 0.5 (3 ml) UD IH SCH ×4 (04:25→15:26)
[2017-04-24] MEDS: methylPREDNISolone 60 MG in Sodium Chloride 0.9% 50 ML IV SCH ×2 (04:33→12:06)
--- NOTE | 2017-04-24 07:31 | CP.PCM.PN ---
Subjective - Date & Time of Evaluation Date of Evaluation: 04/24/17 Time of Evaluation: 07:30 - Subjective Subjective: no distress/compliants. no f/c, n/v/d. still w/ audible wheezing, no dyspnea. pt wsa for tcu/aure but refused yesterday. was asked to assume care from hospitalist team after daughter stated that pt was a rmg pt Objective - Vital Signs/Intake and Output Vital Signs (last 24 hours): Temp Pulse Resp BP Pulse Ox 98.6 F 106 H 19 127/64 95 04/23/17 23:59 04/23/17 23:59 04/23/17 23:59 04/23/17 23:59 04/23/17 23:59 - Medications Medications: Current Medications Acetylcysteine (Acetylcysteine 20%) 2 ml INH RBID [facility] Last Admin: 04/23/17 19:21 Dose: 2 ml Albuterol/Ipratropium (Duoneb 3 Mg/0.5 Mg (3 Ml) Ud) 3 ml INH RQ6 PRN PRN Reason: Shortness of Breath Albuterol/Ipratropium (Duoneb 3 Mg/0.5 Mg (3 Ml) Ud) 3 ml IH RQ4 [facility] Last Admin: 04/24/17 04:25 Dose: 3 ml Alprazolam (Xanax) 0.5 mg PO TID [facility] Last Admin: 04/23/17 17:23 Dose: 0.5 mg Atorvastatin Calcium (Lipitor) 10 mg PO HS [facility] Last Admin: 04/23/17 21:53 Dose: 10 mg Clopidogrel Bisulfate (Plavix) 75 mg PO DAILY [facility] Last Admin: 04/23/17 09:15 Dose: 75 mg Enoxaparin Sodium (Lovenox) 40 mg SC DAILY [facility] PRN Reason: Protocol Last Admin: 04/23/17 09:14 Dose: 40 mg Famotidine (Pepcid) 20 mg PO BID [facility] Last Admin: 04/23/17 17:19 Dose: 20 mg Fentanyl (Duragesic) 1 patch TD Q72H [facility] PRN Reason: Protocol Last Admin: 04/23/17 02:06 Dose: 1 patch Furosemide (Lasix) 40 mg PO DAILY [facility] Last Admin: 04/23/17 09:16 Dose: 40 mg Gabapentin (Neurontin) 300 mg PO TID [facility] Last Admin: 04/23/17 17:18 Dose: 300 mg Hydrochlorothiazide (Microzide) 12.5 mg PO DAILY [facility] Last Admin: 04/23/17 09:15 Dose: 12.5 mg Ceftriaxone Sodium 1 gm/ (Sodium Chloride) 100 mls @ 100 mls/hr IVPB DAILY@ 0000 [facility] Last Admin: 04/23/17 23:14 Dose: 100 mls/hr Azithromycin 500 mg/ Sodium (Chloride) 250 mls @ 250 mls/hr IVPB DAILY@0100 [facility] Last Admin: 04/23/17 01:01 Dose: 250 mls/hr Methylprednisolone 60 mg/ (Sodium Chloride) 50 mls @ 100 mls/hr IV Q8@0400,1200 ,2200 [facility] Last Admin: 04/24/17 04:33 Dose: 100 mls/hr Insulin Detemir (Levemir) 35 units SC [facility] Last Admin: 04/23/17 21:53 Dose: 35 units Insulin Human Lispro (Humalog) [facility] Reason: Protocol Last Admin: 04/23/17 21:55 Dose: 2 units Insulin Human Lispro (Humalog) 14 units SC AC [facility] Last Admin: 04/23/17 17:17 Dose: 14 unit Meclizine HCl (Antivert) 25 mg PO TID [facility] Last Admin: 04/23/17 17:16 Dose: 25 mg Montelukast Sodium (Singulair) 10 mg PO [facility] Last Admin: 04/23/17 21:54 Dose: 10 mg Ondansetron HCl (Zofran Tab) 4 mg PO Q8 [facility] Last Admin: 04/23/17 17:19 Dose: 4 mg Oxycodone HCl (Oxycodone Immediate Release Tab) 30 mg PO Q6H PRN PRN Reason: Pain, severe (8-10) Last Admin: 04/22/17 12:31 Dose: 30 mg Paroxetine HCl (Paxil) 20 mg PO DAILY [facility] Last Admin: 04/23/17 09:16 Dose: 20 mg Promethazine HCl/Dextromethorphan (Phenergan Dm Syrup) 10 ml PO Q6 PRN PRN Reason: Cough Last Admin: 04/23/17 22:25 Dose: 10 ml Fluticasone/Salmeterol (Advair Diskus 250/50) 1 puff IH Q12 [facility] Last Admin: 04/20/17 08:47 Dose: 1 puff Theophylline (Uniphyl) 400 mg PO DAILY [facility] Last Admin: 04/23/17 09:14 Dose: 400 mg Valsartan (Diovan) 80 mg PO DAILY [facility] Last Admin: 04/23/17 09:15 Dose: 80 mg - Labs Labs: 04/23/17 04:30 04/23/17 04:30 - Constitutional Appears: Well, Non-toxic, No Acute Distress - Head Exam Head Exam: ATRAUMATIC, NORMAL INSPECTION, NORMOCEPHALIC - Eye Exam Eye Exam: EOMI, Normal appearance, PERRL Pupil Exam: NORMAL ACCOMODATION, PERRL - ENT Exam ENT Exam: Mucous Membranes Moist, Normal Exam - Neck Exam Neck Exam: Full ROM, Normal Inspection. absent: Lymphadenopathy - Respiratory Exam Respiratory Exam: Wheezes, NORMAL BREATHING PATTERN - Cardiovascular Exam Cardiovascular Exam: REGULAR RHYTHM, RRR, +S1, +S2. absent: Murmur - GI/Abdominal Exam GI & Abdominal Exam: Soft, Normal Bowel Sounds. absent: Tenderness - Extremities Exam Extremities Exam: Full ROM, Normal Capillary Refill, Normal Inspection. absent : Joint Swelling, Pedal Edema - Back Exam Back Exam: NORMAL INSPECTION - Neurological Exam Neurological Exam: Alert, Awake, CN II-XII Intact, Normal Gait, Oriented x3 - Psychiatric Exam Psychiatric exam: Normal Affect, Normal Mood - Skin Skin Exam: Dry, Intact, Normal Color, Warm Assessment and Plan (1) COPD (chronic obstructive pulmonary disease) Assessment & Plan: pulm cont all meds-rocephin, zithromax, duoneb, mucomyst ?? tcu/aure Status: Acute (2) DVT prophylaxis Assessment & Plan: scd and ae hose lovenox Status: Acute (3) Diabetes mellitus Assessment & Plan: riss,fsbg, home meds levemir Status: Acute - Assessment and Plan (Free Text) Assessment: chornic pain-duragesic
[2017-04-24] MEDS: Acetylcysteine 20% Inhal Soln (4ml) INH SCH (07:42)
[2017-04-24] MEDS: Enoxaparin 40 mg Syringe SC SCH (08:39)
[2017-04-24] MEDS: THEOPHYLLINE 400 MG T24(UNIPHYL) PO SCH (08:41)
[2017-04-24] MEDS: Insulin Lispro (humaLOG) 100 Units/ml Inj SC SCH ×4 (08:44→11:30)
[2017-04-24 09:40] VITALS: BP 153/75; PULSE 90; RESP 20; TEMP 98.1; O2SAT 94
--- NOTE | 2017-04-25 20:59 | CON ---
DATE: 04/24/2017 HISTORY OF PRESENT ILLNESS: Ms. Poon is a 71-year-old female who is well known to me from the medical floor. She was referred for pulmonary evaluation by Neymar Khan. She was admitted with acute exacerbation of chronic obstructive pulmonary disease and continue to have shortness of breath, exercise intolerance, cough and mucus plugging of the airways. PAST MEDICAL HISTORY: She has past medical history of chronic obstructive pulmonary disease, diabetes mellitus, hypertension and hyperlipidemia. FAMILY HISTORY: Noncontributory. SOCIAL HISTORY: She quit smoking years ago. Does not drink alcohol, does not use drugs and lives at home with family. REVIEW OF SYSTEMS: Remarkable for current shortness of breath and exercise intolerance. PHYSICAL EXAMINATION: GENERAL: The patient is awake, alert, and oriented. Appears to be moderate distress because of shortness of breath. VITAL SIGNS: Blood pressure 152/72, pulse of 95, respiratory rate 20-22 per minute. She is afebrile. O2 sat 96% on nasal cannula oxygen. SKIN: Shows fair turgor. HEENT: Pupils are equal and reactive to light and accommodation. JVP flat. LUNGS: Show poor aeration bilaterally with audible rales and wheezing. HEART: S1 and S2. BREASTS: Normal. ABDOMEN: Soft, nontender, no organomegaly. EXTREMITIES: Show no edema or cyanosis. CENTRAL NERVOUS SYSTEM: Grossly intact. LABORATORY DATA: Pending. IMPRESSION: Acute exacerbation of chronic obstructive pulmonary disease with mucus plugging of airways and upper respiratory tract infection, history of diabetes mellitus, history of hypertension. PLAN: Continue bronchodilator therapy. Continue oxygen. Also continue Mucomyst to help expectorate the specimen. Oxygen already given. We will continue to follow with you. Further therapy will depend on findings. Orlando Patino MD
--- NOTE | 2017-04-27 10:07 | CP.PCM.DIS ---
Provider - Provider Date of Admission: 04/21/17 14:27 Attending physician: Luca Hurst MD Time Spent in preparation of Discharge (in minutes): 15 Diagnosis - Discharge Diagnosis (1) COPD (chronic obstructive pulmonary disease) Status: Acute (2) DVT prophylaxis Status: Acute (3) Diabetes mellitus Status: Acute Hospital Course - Lab Results Lab Results: Most Recent Lab Values WBC 7.7 K/uL (4.8-10.8) 04/23/17 04:30 RBC 3.96 Mil/uL (3.80-5.20) 04/23/17 04:30 Hgb 11.7 g/dL (12.0-16.0) L 04/23/17 04:30 Hct 36.4 % (34.0-47.0) 04/23/17 04:30 MCV 92.0 fl (81.0-99.0) 04/23/17 04:30 MCH 29.6 pg (27.0-31.0) 04/23/17 04:30 MCHC 32.1 g/dL (33.0-37.0) L 04/23/17 04:30 RDW 11.7 % (11.5-14.5) 04/23/17 04:30 Plt Count 293 K/uL (130-400) 04/23/17 04:30 MPV 7.9 fl (7.2-11.7) 04/19/17 22:47 Neut % (Auto) 76.5 % (50.0-75.0) H 04/19/17 22:47 Lymph % (Auto) 12.8 % (20.0-40.0) L 04/19/17 22:47 [place] % (Auto) 7.9 % (0.0-10.0) 04/19/17 22:47 Eos % (Auto) 2.1 % (0.0-4.0) 04/19/17 22:47 Baso % (Auto) 0.7 % (0.0-2.0) 04/19/17 22:47 Neut # 7.7 K/uL (1.8-7.0) H 04/19/17 22:47 Lymph # 1.3 K/uL (1.0-4.3) 04/19/17 22:47 [place] # 0.8 K/uL (0.0-0.8) 04/19/17 22:47 Eos # 0.2 K/uL (0.0-0.7) 04/19/17 22:47 Baso # 0.1 K/uL (0.0-0.2) 04/19/17 22:47 pCO2 66 mm/Hg (35-45) H 04/21/17 05:03 pO2 162 mm/Hg (80-100) H 04/21/17 05:03 HCO3 34.0 mmol/L (21-28) H 04/21/17 05:03 ABG pH 7.38 (7.35-7.45) 04/21/17 05:03 ABG Total CO2 41.0 mmol/L (22-28) H 04/21/17 05:03 ABG O2 Saturation 99.4 % (95-98) H 04/21/17 05:03 ABG O2 Content 15.7 ML/dL (15-23) 04/21/17 05:03 ABG Base Excess 11.6 mmol/L (-2.0-3.0) H 04/21/17 05:03 ABG Hemoglobin 11.3 g/dL (11.7-17.4) L 04/21/17 05:03 ABG Carboxyhemoglobin 1.1 % (0.5-1.5) 04/21/17 05:03 POC ABG HHb (Measured) 0.6 % (0.0-5.0) 04/21/17 05:03 ABG Methemoglobin 1.6 % (0.0-3.0) 04/21/17 05:03 ABG O2 Capacity 15.8 mL/dL (16-24) L 04/21/17 05:03 [place] Test Yes 04/21/17 05:03 A-a O2 Difference 112.0 mm/Hg 04/21/17 05:03 Hgb O2 Saturation 96.7 % (95.0-98.0) 04/21/17 05:03 Vent Mode Bipap 04/21/17 05:03 Mechanical Rate 14 04/21/17 05:03 FiO2 50.0 % 04/21/17 05:03 Inspiratory BiPAP 12 04/21/17 05:03 Expiratory BiPAP 6 04/21/17 05:03 Sodium 135 mmol/l (132-148) 04/23/17 04:30 Potassium 4.7 MMOL/L (3.6-5.0) 04/23/17 04:30 Chloride 87 mmol/L (98-107) L 04/23/17 04:30 Carbon Dioxide 38 mmol/L (22-30) H 04/23/17 04:30 Anion Gap 15 (10-20) 04/23/17 04:30 BUN 21 mg/dl (7-17) H 04/23/17 04:30 Creatinine 0.6 mg/dL (0.7-1.2) L 04/23/17 04:30 Est GFR ( Amer) > 60 04/23/17 04:30 Est GFR (Non-Af Amer) > 60 04/23/17 04:30 POC Glucose (mg/dL) 300 mg/dL (65-110) H 04/24/17 11:39 Random Glucose 319 mg/dL (65-105) H 04/23/17 04:30 Hemoglobin A1c 7.3 % (4.2-6.5) H 04/20/17 19:50 Lactic Acid 1.3 MMOL/L (0.7-2.1) 04/19/17 22:47 Calcium 9.2 mg/dL (8.4-10.2) 04/23/17 04:30 Total Bilirubin 0.4 mg/dl (0.2-1.3) 04/19/17 22:47 AST 29 U/L (14-36) 04/19/17 22:47 ALT 41 U/L (9-52) 04/19/17 22:47 Alkaline Phosphatase 119 U/L (38-126) 04/19/17 22:47 Troponin I < 0.0120 ng/mL (0.00-0.120) 04/19/17 22:47 NT-Pro-B Natriuret Pep 78.8 pg/ml (0-900) 04/19/17 22:47 Total Protein 7.6 G/DL (6.3-8.2) 04/19/17 22:47 Albumin 4.2 g/dL (3.5-5.0) 04/19/17 22:47 Globulin 3.4 gm/dL (2.2-3.9) 04/19/17 22:47 Albumin/Globulin Ratio 1.2 (1.0-2.1) 04/19/17 22:47 Urine Color Yellow (YELLOW) 04/19/17 00:00 Urine Clarity Slighty-cloudy (Clear) 04/19/17 00:00 Urine pH 6.0 (5.0-8.0) 04/19/17 00:00 Ur Specific [place] 1.017 (1.003-1.030) 04/19/17 00:00 Urine Protein Negative mg/dL (NEGATIVE) 04/19/17 00:00 Urine Glucose (UA) Neg mg/dL (Normal) 04/19/17 00:00 Urine Ketones Negative mg/dL (NEGATIVE) 04/19/17 00:00 Urine Blood Negative (NEGATIVE) 04/19/17 00:00 Urine Nitrate Positive (NEGATIVE) H 04/19/17 00:00 Urine Bilirubin Negative (NEGATIVE) 04/19/17 00:00 Urine Urobilinogen 0.2-1.0 mg/dL (0.2-1.0) 04/19/17 00:00 Ur Leukocyte Esterase Small Mani/uL (Negative) 04/19/17 00:00 Urine RBC (Auto) 3 /hpf (0-3) 04/19/17 00:00 Urine Microscopic WBC 27 /hpf (0-5) H 04/19/17 00:00 Ur Squamous Epith Cells < 1 /hpf (0-5) 04/19/17 00:00 Urine Bacteria Occ (<OCC) H 04/19/17 00:00 Influenza Typ A,B (EIA) Negative for flu a/b (NEGATIVE) 04/19/17 23:02 Discharge Exam - Head Exam Head Exam: ATRAUMATIC, NORMAL INSPECTION, NORMOCEPHALIC Discharge Plan - Follow Up Plan Condition: FAIR Disposition: TRANSF TO SNF Additional Instructions: final dx copd exacerbation dc to cu, meds per medrec, rted prn
== END 2017-04-24 16:23 | DRG 189 ==
LOC: H.ER 20:48 → H.ERHOLD 22:12 → H.TEL 04-20 01:45 → OBSVTOIN 04-21 14:27 → INTOOBSV 04-21 14:27 → H.MEDSURG1 04-22 16:11
PROVIDERS: ADMIT Family Medicine; ATTEND Family Medicine
PROC: 5A09557 Assistance with Respiratory Ventilation, Greater than 96 Consecutive Hours, Continuous Positive Airway Pressure (ICD-10-PCS; principal; 2017-04-21)
DX: J96.01 Acute respiratory failure with hypoxia (principal); I11.0 Hypertensive heart disease with heart failure; I50.32 Chronic diastolic (congestive) heart failure; F03.90 Unspecified dementia, unspecified severity, without behavioral disturbance, psychotic disturbance, mood disturbance, and anxiety; T17.990A Other foreign object in respiratory tract, part unspecified in causing asphyxiation, initial encounter; J44.1 Chronic obstructive pulmonary disease with (acute) exacerbation; Z68.42 Body mass index [BMI] 45.0-49.9, adult; N39.0 Urinary tract infection, site not specified; E11.65 Type 2 diabetes mellitus with hyperglycemia; E87.5 Hyperkalemia; E78.00 Pure hypercholesterolemia, unspecified; E78.5 Hyperlipidemia, unspecified; G89.29 Other chronic pain; J45.909 Unspecified asthma, uncomplicated; Z91.041 Radiographic dye allergy status; Z91.013 Allergy to seafood; F41.9 Anxiety disorder, unspecified; F32.9 Major depressive disorder, single episode, unspecified; E66.01 Morbid (severe) obesity due to excess calories; X58.XXXA Exposure to other specified factors, initial encounter; J06.9 Acute upper respiratory infection, unspecified

== ENCOUNTER 2017-04-24 16:19 | Inpatient (IN) | payer OTHER, MEDICAID ==
[2017-04-24] MEDS: Insulin Lispro (humaLOG) 100 Units/ml Inj SC SCH ×2 (18:10→21:35)
[2017-04-24] MEDS ORDERED: Albuterol-Ipratrop 3 mg / 0.5 (3 ml) UD INH PRN (18:22)
[2017-04-24] MEDS ORDERED: OXYCODONE 30 MG PO PRN (18:29)
[2017-04-24] MEDS ORDERED: oxyCODONE 10 mg Immediate Release Tab PO PRN ×2 (19:24→19:30)
[2017-04-24] MEDS: Albuterol-Ipratrop 3 mg / 0.5 (3 ml) UD IH SCH ×2 (19:44→23:40)
[2017-04-24] MEDS: Acetylcysteine 20% Inhal Soln (4ml) INH SCH (19:44)
[2017-04-24] MEDS: Insulin Detemir 100 Units/ml Inj SC SCH (21:27)
[2017-04-24] MEDS: methylPREDNISolone 60 MG in Sodium Chloride 0.9% 50 ML IVPB SCH (22:00)
[2017-04-24] MEDS ORDERED: INSULIN DETEMIR 35 UNIT SC SCH (22:00)
[2017-04-25] MEDS: methylPREDNISolone 60 MG in Sodium Chloride 0.9% 50 ML IVPB SCH ×3 (00:58→17:26)
[2017-04-25] MEDS: Albuterol-Ipratrop 3 mg / 0.5 (3 ml) UD IH SCH ×6 (04:41→23:17)
[2017-04-25] MEDS: Insulin Lispro (humaLOG) 100 Units/ml Inj SC SCH ×7 (06:56→21:07)
[2017-04-25] MEDS: Acetylcysteine 20% Inhal Soln (4ml) INH SCH ×2 (07:10→19:29)
[2017-04-25] MEDS ORDERED: PLAVIX 75 MG PO SCH (09:00)
[2017-04-25] MEDS ORDERED: XANAX 0.5 MG PO SCH (09:00)
[2017-04-25] MEDS: Enoxaparin 40 mg Syringe SC SCH (09:05)
[2017-04-25] MEDS: THEOPHYLLINE 400 MG T24(UNIPHYL) PO SCH (09:08)
[2017-04-25] MEDS: Promethazine DM 12.5 mg-30 mg/10 ml Syrup PO PRN ×2 (09:31→20:56)
--- NOTE | 2017-04-25 14:49 | CP.PCM.HP ---
History of Present Illness - History of Present Illness History of Present Illness: pt admitted to tcu for cont o2 qnd care of copd exacerbation still w/ dyspnea on exertion and wheezing. nof /c, n/v/d. no pain at present. no distress. Present on Admission - Present on Admission Any Indicators Present on Admission: No Review of Systems - Respiratory Respiratory: As Per HPI, Cough, Dyspnea on Exertion, Wheezing, Chest Congestion Past Patient History - Infectious Disease Hx of Infectious Diseases: None - Tetanus Immunizations Tetanus Immunization: Unknown - Past Medical History & Family History Past Medical History?: Yes - Past Social History Smoking Status: Former Smoker - CARDIAC Hx Atrial Fibrillation: No Hx Cardia Arrhythmia: No Hx Congestive Heart Failure: No Hx Hypercholesterolemia: Yes Hx Hypertension: Yes Hx Mitral Valve Prolapse: No Hx Pacemaker: No Hx Peripheral Edema: No - PULMONARY Hx Asthma: Yes Hx Bronchitis: Yes Hx Chronic Obstructive Pulmonary Disease (COPD): Yes Hx Emphysema: Yes Hx Pneumonia: No Hx Pulmonary Embolism: No Hx Sleep Apnea: No - NEUROLOGICAL Hx Alzheimer's Disease: No Hx Dementia: Yes (Self reports forgetfulness) Hx Migraine: No Hx Multiple Sclerosis: No Hx Parkinson's Disease: No Hx Seizures: No Hx Transient Ischemic Attacks (TIA): No - HEENT Hx Cataracts: Yes (Had surgery both eyes) - RENAL Hx Chronic Kidney Disease: No - ENDOCRINE/METABOLIC Hx Hyperthyroidism: No Hx Hypothyroidism: No - HEMATOLOGICAL/ONCOLOGICAL Hx Blood Disorders: No Hx Human Immunodeficiency Virus (HIV): No - INTEGUMENTARY Hx Dermatological Problems: No - MUSCULOSKELETAL/RHEUMATOLOGICAL Hx Arthritis: Yes Hx Osteoarthritis: Yes - GASTROINTESTINAL Hx Crohn's Disease: No Hx Gastroesophageal Reflux: Yes - GENITOURINARY/GYNECOLOGICAL Hx Incontinence: Yes (uses diapers at home for incontinence at times) - PSYCHIATRIC Hx Anxiety: Yes Hx Bipolar Disorder: No Hx Depression: Yes - SURGICAL HISTORY Hx Appendectomy: Yes Hx Cholecystectomy: Yes - ANESTHESIA Hx Anesthesia: Yes Hx Anesthesia Reactions: No Hx Malignant Hyperthermia: No Meds Allergies/Adverse Reactions: Allergies Allergy/AdvReac Type Severity Reaction Status Date / Time FISH Allergy ITCHING Verified 04/24/17 16:25 iodine Allergy ITCHING Verified 04/24/17 16:25 Physical Exam - Constitutional Appears: Well, Non-toxic, No Acute Distress - Head Exam Head Exam: ATRAUMATIC, NORMAL INSPECTION, NORMOCEPHALIC - Eye Exam Eye Exam: EOMI, Normal appearance, PERRL Pupil Exam: NORMAL ACCOMODATION, PERRL - ENT Exam ENT Exam: Mucous Membranes Moist, Normal Exam - Neck Exam Neck exam: Positive for: Normal Inspection - Respiratory Exam Respiratory Exam: Prolonged Expiratory Phase, Wheezes, NORMAL BREATHING PATTERN - Cardiovascular Exam Cardiovascular Exam: REGULAR RHYTHM, RRR, +S1, +S2 - GI/Abdominal Exam GI & Abdominal Exam: Normal Bowel Sounds, Soft. absent: Tenderness - Extremities Exam Extremities exam: Positive for: full ROM, normal capillary refill, normal inspection, pedal pulses present - Back Exam Back exam: NORMAL INSPECTION - Neurological Exam Neurological exam: Alert, CN II-XII Intact, Normal Gait, Oriented x3, Reflexes Normal - Psychiatric Exam Psychiatric exam: Normal Affect, Normal Mood - Skin Skin Exam: Dry, Intact, Normal Color, Warm Results - Vital Signs Recent Vital Signs: Last Vital Signs Temp 97.9 F 04/25/17 09:15 Pulse 95 H 04/25/17 09:15 Resp 20 04/25/17 09:15 BP 152/72 H 04/25/17 09:15 Pulse Ox 96 04/25/17 09:15 - Labs Labs: Laboratory Results - last 24 hr 04/24/17 04/24/17 04/25/17 18:02 20:08 05:55 POC Glucose (mg/dL) 356 H 389 H 253 H 04/25/17 11:08 POC Glucose (mg/dL) 256 H Assessment & Plan (1) COPD (chronic obstructive pulmonary disease) Assessment and Plan: cont theophylline, duonebs, mucomyst cont anbx pulm o2 to keep spo2 above 84% Status: Acute (2) Chronic back pain Assessment and Plan: duragesic Status: Acute (3) DVT prophylaxis Assessment and Plan: scd and aehose lovenox Status: Acute (4) Diabetes mellitus Assessment and Plan: fsbg, home meds, riss Status: Acute Decision To Admit - Pt Status Changed To: Hospital Disposition Of: Inpatient - Admit Certification Admit to Inpatient:: After my assessment, the patient will require hospitalization for at least two midnights. This is because of the severity of symptoms shown, intensity of services needed, and/or the medical risk in this patient being treated as an outpatient. - . Bed Request Type: Transitional Care Unit Admitting Physician: Luca Hurst
[2017-04-25] MEDS: Insulin Detemir 100 Units/ml Inj SC SCH (21:05)
[2017-04-26] MEDS: methylPREDNISolone 60 MG in Sodium Chloride 0.9% 50 ML IVPB SCH ×2 (00:08→09:46)
[2017-04-26] MEDS: Albuterol-Ipratrop 3 mg / 0.5 (3 ml) UD IH SCH ×4 (05:18→19:12)
[2017-04-26] MEDS: Insulin Lispro (humaLOG) 100 Units/ml Inj SC SCH ×7 (06:57→22:20)
[2017-04-26] MEDS: Acetylcysteine 20% Inhal Soln (4ml) INH SCH ×2 (07:45→19:13)
[2017-04-26] MEDS: Enoxaparin 40 mg Syringe SC SCH (09:43)
[2017-04-26] MEDS: Promethazine DM 12.5 mg-30 mg/10 ml Syrup PO PRN ×2 (09:45→17:04)
[2017-04-26] MEDS: THEOPHYLLINE 400 MG T24(UNIPHYL) PO SCH (09:45)
--- NOTE | 2017-04-26 11:19 | CP.PCM.PN ---
Subjective - Date & Time of Evaluation Date of Evaluation: 04/26/17 Time of Evaluation: 11:19 - Subjective Subjective: STILL CONTINUES TO COUGH HYPERGLYCEMIA WORSE DUE TO IV STEROIDS Objective - Vital Signs/Intake and Output Vital Signs (last 24 hours): Temp Pulse Resp BP Pulse Ox 97.0 F L 63 20 117/68 100 04/26/17 09:17 04/26/17 09:17 04/26/17 09:17 04/26/17 09:48 04/26/17 09:17 - Medications Medications: Current Medications Acetylcysteine (Acetylcysteine 20%) 2 ml INH RBID [facility] Last Admin: 04/26/17 07:45 Dose: 2 ml Albuterol/Ipratropium (Duoneb 3 Mg/0.5 Mg (3 Ml) Ud) 3 ml IH RQ4 [facility] Last Admin: 04/26/17 11:00 Dose: 3 ml Albuterol/Ipratropium (Duoneb 3 Mg/0.5 Mg (3 Ml) Ud) 3 ml INH RQ6 PRN PRN Reason: Shortness of Breath Alprazolam (Xanax) 0.5 mg PO TID [facility] Last Admin: 04/26/17 09:54 Dose: 0.5 mg Atorvastatin Calcium (Lipitor) 10 mg PO HS [facility] Last Admin: 04/25/17 21:01 Dose: 10 mg Clopidogrel Bisulfate (Plavix) 75 mg PO DAILY [facility] Last Admin: 04/26/17 09:44 Dose: 75 mg Enoxaparin Sodium (Lovenox) 40 mg SC DAILY [facility] PRN Reason: Protocol Last Admin: 04/26/17 09:43 Dose: 40 mg Famotidine (Pepcid) 20 mg PO BID [facility] Last Admin: 04/26/17 09:45 Dose: 20 mg Fentanyl (Duragesic) 1 patch TD Q72H [facility] PRN Reason: Protocol Last Admin: 04/25/17 09:15 Dose: 1 patch Furosemide (Lasix) 40 mg PO DAILY [facility] Last Admin: 04/26/17 09:48 Dose: 40 mg Gabapentin (Neurontin) 300 mg PO TID [facility] Last Admin: 04/26/17 09:44 Dose: 300 mg Hydrochlorothiazide (Microzide) 12.5 mg PO DAILY [facility] Last Admin: 04/26/17 09:47 Dose: 12.5 mg Ceftriaxone Sodium 2 gm/ (Sodium Chloride) 100 mls @ 100 mls/hr IVPB DAILY@ 1700 [facility] Insulin Detemir (Levemir) 35 units SC HS [facility] Last Admin: 04/25/17 21:05 Dose: 35 u Insulin Human Lispro (Humalog) 0 units SC ACHS [facility] PRN Reason: Protocol Last Admin: 04/26/17 06:58 Dose: 8 unit Insulin Human Lispro (Humalog) 14 units SC AC [facility] Last Admin: 04/26/17 06:57 Dose: 14 u Meclizine HCl (Antivert) 25 mg PO TID [facility] Last Admin: 04/26/17 09:44 Dose: 25 mg Montelukast Sodium (Singulair) 10 mg PO HS [facility] Last Admin: 04/25/17 21:01 Dose: 10 mg Ondansetron HCl (Zofran Tab) 4 mg PO Q8 [facility] Last Admin: 04/26/17 09:46 Dose: 4 mg Oxycodone HCl (Oxycodone Immediate Release Tab) 30 mg PO Q6H [facility]N PRN Reason: Pain, severe (8-10) Paroxetine HCl (Paxil) 20 mg PO DAILY [facility] Last Admin: 04/26/17 09:45 Dose: 20 mg Promethazine HCl/Dextromethorphan (Phenergan Dm Syrup) 10 ml PO Q6 PRN PRN Reason: Cough Last Admin: 04/26/17 09:45 Dose: 10 ml Theophylline (Uniphyl) 400 mg PO DAILY [facility] Last Admin: 04/26/17 09:45 Dose: 400 mg Valsartan (Diovan) 80 mg PO DAILY [facility] Last Admin: 04/25/17 09:03 Dose: 80 mg - Constitutional Appears: Chronically Ill - Head Exam Head Exam: ATRAUMATIC, NORMAL INSPECTION, NORMOCEPHALIC - Eye Exam Eye Exam: EOMI, Normal appearance, PERRL Pupil Exam: NORMAL ACCOMODATION, PERRL - ENT Exam ENT Exam: Mucous Membranes Moist, Normal Exam - Neck Exam Neck Exam: Full ROM, Normal Inspection. absent: Lymphadenopathy - Respiratory Exam Respiratory Exam: Decreased Breath Sounds, Clear to Ausculation Bilateral, Prolonged Expiratory Phase, Rales, Wheezes - Cardiovascular Exam Cardiovascular Exam: REGULAR RHYTHM, +S1, +S2. absent: Murmur - GI/Abdominal Exam GI & Abdominal Exam: Soft, Normal Bowel Sounds. absent: Tenderness - Rectal Exam Rectal Exam: NORMAL INSPECTION - Extremities Exam Extremities Exam: Full ROM, Normal Capillary Refill, Normal Inspection. absent : Joint Swelling, Pedal Edema - Back Exam Back Exam: NORMAL INSPECTION - Neurological Exam Neurological Exam: Alert, Awake, CN II-XII Intact, Normal Gait, Oriented x3 - Psychiatric Exam Psychiatric exam: Normal Affect, Normal Mood - Skin Skin Exam: Dry, Intact, Normal Color, Warm Assessment and Plan - Assessment and Plan (Free Text) Assessment: COPD EXAC MUCUS PLUGGING OF AIRWAYS DM WITH HYPERGLYCEMIA Plan: TAPER STEROIDS
[2017-04-26] MEDS: oxyCODONE 5 mg Immediate Release Tab PO PRN ×2 (11:23→21:11)
[2017-04-26] MEDS ORDERED: Albuterol-Ipratrop 3 mg / 0.5 (3 ml) UD INH PRN (14:12)
[2017-04-26] MEDS: cefTRIAXone 2 GM in Sodium Chloride 0.9% 100 ML IVPB SCH (17:05)
[2017-04-26] MEDS: Insulin Detemir 100 Units/ml Inj SC SCH (22:19)
[2017-04-27] MEDS: Promethazine DM 12.5 mg-30 mg/10 ml Syrup PO PRN ×3 (00:13→16:50)
[2017-04-27] MEDS: Albuterol-Ipratrop 3 mg / 0.5 (3 ml) UD IH SCH ×4 (01:31→19:21)
[2017-04-27] MEDS: oxyCODONE 5 mg Immediate Release Tab PO PRN ×2 (07:02→16:49)
--- NOTE | 2017-04-27 08:38 | CP.PCM.PN ---
Subjective - Date & Time of Evaluation Date of Evaluation: 04/27/17 Time of Evaluation: 08:36 - Subjective Subjective: denies compliants, still w/ dyspnea on exertion. no f/c, n/v/d. wheezing remains audible. glucose elevated but steroids are being tapered had tremors yesterday ?? from resp tx but less so today. no complaints offered. Objective - Vital Signs/Intake and Output Vital Signs (last 24 hours): Temp Pulse Resp BP Pulse Ox 97.5 F L 76 20 151/61 H 99 04/27/17 08:19 04/27/17 08:19 04/27/17 08:19 04/27/17 08:19 04/27/17 08:19 - Medications Medications: Current Medications Acetylcysteine (Acetylcysteine 20%) 2 ml INH RBID [facility] Last Admin: 04/26/17 19:13 Dose: 2 ml Albuterol/Ipratropium (Duoneb 3 Mg/0.5 Mg (3 Ml) Ud) 3 ml IH RQ6 [facility] Last Admin: 04/27/17 01:31 Dose: 3 ml Albuterol/Ipratropium (Duoneb 3 Mg/0.5 Mg (3 Ml) Ud) 3 ml INH RQ4 PRN PRN Reason: Shortness of Breath Alprazolam (Xanax) 0.5 mg PO TID [facility] Last Admin: 04/26/17 17:02 Dose: 0.5 mg Atorvastatin Calcium (Lipitor) 10 mg PO HS [facility] Last Admin: 04/26/17 21:07 Dose: 10 mg Clopidogrel Bisulfate (Plavix) 75 mg PO DAILY [facility] Last Admin: 04/26/17 09:44 Dose: 75 mg Enoxaparin Sodium (Lovenox) 40 mg SC DAILY [facility] PRN Reason: Protocol Last Admin: 04/26/17 09:43 Dose: 40 mg Famotidine (Pepcid) 20 mg PO BID [facility] Last Admin: 04/26/17 17:04 Dose: 20 mg Fentanyl (Duragesic) 1 patch TD Q72H [facility] PRN Reason: Protocol Last Admin: 04/25/17 09:15 Dose: 1 patch Furosemide (Lasix) 40 mg PO DAILY [facility] Last Admin: 04/26/17 09:48 Dose: 40 mg Gabapentin (Neurontin) 300 mg PO TID [facility] Last Admin: 04/26/17 17:03 Dose: 300 mg Hydrochlorothiazide (Microzide) 12.5 mg PO DAILY [facility] Last Admin: 04/26/17 09:47 Dose: 12.5 mg Ceftriaxone Sodium 2 gm/ (Sodium Chloride) 100 mls @ 100 mls/hr IVPB DAILY@ 1700 [facility] Last Admin: 04/26/17 17:05 Dose: 100 mls/hr Methylprednisolone 40 mg/ (Sodium Chloride) 50.64 mls @ 100 mls/hr IVPB DAILY [facility] Insulin Detemir (Levemir) 35 units SC HS [facility] Last Admin: 04/26/17 22:19 Dose: 35 u Insulin Human Lispro (Humalog) 0 units SC ACHS [facility] PRN Reason: Protocol Last Admin: 04/26/17 22:20 Dose: 4 unit Insulin Human Lispro (Humalog) 14 units SC AC [facility] Last Admin: 04/26/17 17:13 Dose: 14 u Meclizine HCl (Antivert) 25 mg PO TID [facility] Last Admin: 04/26/17 17:03 Dose: 25 mg Montelukast Sodium (Singulair) 10 mg PO [facility] Last Admin: 04/26/17 21:07 Dose: 10 mg Ondansetron HCl (Zofran Tab) 4 mg PO Q8 [facility] Last Admin: 04/27/17 00:13 Dose: 4 mg Oxycodone HCl (Oxycodone Immediate Release Tab) 30 mg PO Q6H PRN PRN Reason: Pain, severe (8-10) Last Admin: 04/27/17 07:02 Dose: 30 mg Paroxetine HCl (Paxil) 20 mg PO DAILY [facility] Last Admin: 04/26/17 09:45 Dose: 20 mg Promethazine HCl/Dextromethorphan (Phenergan Dm Syrup) 10 ml PO Q6 PRN PRN Reason: Cough Last Admin: 04/27/17 00:13 Dose: 10 ml Theophylline (Uniphyl) 400 mg PO DAILY [facility] Last Admin: 04/26/17 09:45 Dose: 400 mg Valsartan (Diovan) 80 mg PO DAILY [facility] Last Admin: 04/26/17 09:24 Dose: 80 mg - Constitutional Appears: Well, Non-toxic, No Acute Distress - Head Exam Head Exam: ATRAUMATIC, NORMAL INSPECTION, NORMOCEPHALIC - Eye Exam Eye Exam: EOMI, Normal appearance, PERRL Pupil Exam: NORMAL ACCOMODATION, PERRL - ENT Exam ENT Exam: Mucous Membranes Moist, Normal Exam - Neck Exam Neck Exam: Full ROM, Normal Inspection. absent: Lymphadenopathy - Respiratory Exam Respiratory Exam: Prolonged Expiratory Phase, Wheezes, NORMAL BREATHING PATTERN - Cardiovascular Exam Cardiovascular Exam: REGULAR RHYTHM, RRR, +S1, +S2. absent: Murmur - GI/Abdominal Exam GI & Abdominal Exam: Soft, Normal Bowel Sounds. absent: Tenderness - Extremities Exam Extremities Exam: Full ROM, Normal Capillary Refill, Normal Inspection. absent : Joint Swelling, Pedal Edema - Back Exam Back Exam: NORMAL INSPECTION - Neurological Exam Neurological Exam: Alert, Awake, CN II-XII Intact, Normal Gait, Oriented x3 - Psychiatric Exam Psychiatric exam: Normal Affect, Normal Mood - Skin Skin Exam: Dry, Intact, Normal Color, Warm Assessment and Plan (1) COPD (chronic obstructive pulmonary disease) Status: Acute (2) Chronic back pain Status: Acute (3) DVT prophylaxis Status: Acute (4) Diabetes mellitus Status: Acute - Assessment and Plan (Free Text) Assessment: (1) COPD (chronic obstructive pulmonary disease) Assessment and Plan: cont theophylline, duonebs, mucomyst cont anbx pulm o2 to keep spo2 above 84% Status: Acute (2) Chronic back pain Assessment and Plan: duragesic Status: Acute (3) DVT prophylaxis Assessment and Plan: scd and aehose lovenox Status: Acute (4) Diabetes mellitus Assessment and Plan: fsbg, home meds, riss likely elevated r/t steroids, will incr coverage if steroid taper does not bring down glucose Status: Acute
[2017-04-27] MEDS: Insulin Lispro (humaLOG) 100 Units/ml Inj SC SCH ×7 (08:54→21:51)
[2017-04-27] MEDS: Enoxaparin 40 mg Syringe SC SCH (08:56)
[2017-04-27] MEDS: THEOPHYLLINE 400 MG T24(UNIPHYL) PO SCH (08:57)
[2017-04-27] MEDS: methylPREDNISolone 40 MG in Sodium Chloride 0.9% 50 ML IVPB SCH (09:01)
[2017-04-27] MEDS: Acetylcysteine 20% Inhal Soln (4ml) INH SCH ×2 (09:21→19:21)
[2017-04-27 09:37] LABS: HEMATOCRIT 39.2 % (34.0-47.0); MEAN CELL VOLUME 91.9 fl (81.0-99.0); MEAN CORPUSCULAR HGB CONC 31.5 g/dL (33.0-37.0); RED CELL DISTRIBUTION WIDTH 12.2 % (11.5-14.5)
[2017-04-27 09:48] LABS: ALB/GLOB RATIO 1.3 (1.0-2.1); ALKALINE PHOSPHATASE 133 U/L (38-126); ALT/SGPT 39 U/L (9-52); AST/SGOT 23 U/L (14-36); BILIRUBIN,TOTAL 0.4 mg/dl (0.2-1.3); BLOOD UREA NITROGEN 26 mg/dl (7-17); CARBON DIOXIDE 34 mmol/L (22-30); CHLORIDE 84 mmol/L (98-107); GFR AFRICAN-AMERICAN > 60; GLUCOSE,RANDOM 291 mg/dL (65-105); POTASSIUM 3.6 MMOL/L (3.6-5.0); TOTAL PROTEIN 6.6 G/DL (6.3-8.2)
[2017-04-27 10:00] LABS: SODIUM 130 mmol/l (132-148)
[2017-04-27] MEDS: cefTRIAXone 2 GM in Sodium Chloride 0.9% 100 ML IVPB SCH (16:51)
[2017-04-27] MEDS: Insulin Detemir 100 Units/ml Inj SC SCH (21:50)
[2017-04-28] MEDS: Albuterol-Ipratrop 3 mg / 0.5 (3 ml) UD IH SCH ×4 (01:00→19:28)
[2017-04-28] MEDS: oxyCODONE 5 mg Immediate Release Tab PO PRN ×3 (06:41→21:47)
[2017-04-28] MEDS: Insulin Lispro (humaLOG) 100 Units/ml Inj SC SCH ×7 (06:44→21:44)
[2017-04-28] MEDS: Acetylcysteine 20% Inhal Soln (4ml) INH SCH ×2 (07:41→19:28)
[2017-04-28] MEDS: methylPREDNISolone 40 MG in Sodium Chloride 0.9% 50 ML IVPB SCH (08:45)
[2017-04-28] MEDS: Promethazine DM 12.5 mg-30 mg/10 ml Syrup PO PRN ×2 (08:45→21:46)
[2017-04-28] MEDS: Enoxaparin 40 mg Syringe SC SCH (08:47)
[2017-04-28] MEDS: THEOPHYLLINE 400 MG T24(UNIPHYL) PO SCH (08:48)
--- NOTE | 2017-04-28 09:23 | CP.PCM.PN ---
Subjective - Date & Time of Evaluation Date of Evaluation: 04/28/17 Time of Evaluation: 09:23 - Subjective Subjective: CONTINUES TO COUGH WITH AIRWAY MUCUS Objective - Vital Signs/Intake and Output Vital Signs (last 24 hours): Temp Pulse Resp BP Pulse Ox 97.7 F 75 20 136/65 100 04/28/17 08:27 04/28/17 08:27 04/28/17 08:27 04/28/17 08:46 04/28/17 08:27 - Medications Medications: Current Medications Acetylcysteine (Acetylcysteine 20%) 2 ml INH RBID [facility] Last Admin: 04/28/17 07:41 Dose: 2 ml Albuterol/Ipratropium (Duoneb 3 Mg/0.5 Mg (3 Ml) Ud) 3 ml IH RQ6 [facility] Last Admin: 04/28/17 07:41 Dose: 3 ml Albuterol/Ipratropium (Duoneb 3 Mg/0.5 Mg (3 Ml) Ud) 3 ml INH RQ4 PRN PRN Reason: Shortness of Breath Alprazolam (Xanax) 0.5 mg PO TID [facility] Last Admin: 04/28/17 08:48 Dose: 0.5 mg Atorvastatin Calcium (Lipitor) 10 mg PO HS [facility] Last Admin: 04/27/17 21:50 Dose: 10 mg Clopidogrel Bisulfate (Plavix) 75 mg PO DAILY [facility] Last Admin: 04/28/17 08:48 Dose: 75 mg Enoxaparin Sodium (Lovenox) 40 mg SC DAILY [facility] PRN Reason: Protocol Last Admin: 04/28/17 08:47 Dose: 40 mg Famotidine (Pepcid) 20 mg PO BID [facility] Last Admin: 04/28/17 08:48 Dose: 20 mg Fentanyl (Duragesic) 1 patch TD Q72H [facility] PRN Reason: Protocol Last Admin: 04/28/17 08:52 Dose: 1 patch Furosemide (Lasix) 40 mg PO DAILY [facility] Last Admin: 04/28/17 08:46 Dose: 40 mg Gabapentin (Neurontin) 300 mg PO TID [facility] Last Admin: 04/28/17 08:47 Dose: 300 mg Hydrochlorothiazide (Microzide) 12.5 mg PO DAILY [facility] Last Admin: 04/28/17 08:47 Dose: 12.5 mg Ceftriaxone Sodium 2 gm/ (Sodium Chloride) 100 mls @ 100 mls/hr IVPB DAILY@ 1700 [facility] Last Admin: 04/27/17 16:51 Dose: 100 mls/hr Methylprednisolone 40 mg/ (Sodium Chloride) 50.64 mls @ 100 mls/hr IVPB DAILY [facility] Last Admin: 04/28/17 08:45 Dose: 100 mls/hr Insulin Detemir (Levemir) 35 units SC HS [facility] Last Admin: 04/27/17 21:50 Dose: 35 u Insulin Human Lispro (Humalog) 0 units SC ACHS [facility] PRN Reason: Protocol Last Admin: 04/28/17 06:44 Dose: 2 unit Insulin Human Lispro (Humalog) 14 units SC AC [facility] Last Admin: 04/28/17 06:44 Dose: 14 u Meclizine HCl (Antivert) 25 mg PO TID [facility] Last Admin: 04/28/17 08:46 Dose: 25 mg Montelukast Sodium (Singulair) 10 mg PO [facility] Last Admin: 04/27/17 21:50 Dose: 10 mg Ondansetron HCl (Zofran Tab) 4 mg PO Q8 [facility] Last Admin: 04/28/17 08:48 Dose: 4 mg Oxycodone HCl (Oxycodone Immediate Release Tab) 30 mg PO Q6H PRN PRN Reason: Pain, severe (8-10) Last Admin: 04/28/17 06:41 Dose: 30 mg Paroxetine HCl (Paxil) 20 mg PO DAILY [facility] Last Admin: 04/28/17 08:48 Dose: 20 mg Promethazine HCl/Dextromethorphan (Phenergan Dm Syrup) 10 ml PO Q6 PRN PRN Reason: Cough Last Admin: 04/28/17 08:45 Dose: 10 ml Theophylline (Uniphyl) 400 mg PO DAILY [facility] Last Admin: 04/28/17 08:48 Dose: 400 mg Valsartan (Diovan) 80 mg PO DAILY [facility] Last Admin: 04/28/17 08:46 Dose: 80 mg - Labs Labs: 04/27/17 04:00 04/27/17 09:28 - Constitutional Appears: Chronically Ill - Head Exam Head Exam: ATRAUMATIC, NORMAL INSPECTION, NORMOCEPHALIC - Eye Exam Eye Exam: EOMI, Normal appearance, PERRL Pupil Exam: NORMAL ACCOMODATION, PERRL - ENT Exam ENT Exam: Mucous Membranes Moist, Normal Exam - Neck Exam Neck Exam: Full ROM, Normal Inspection. absent: Lymphadenopathy - Respiratory Exam Respiratory Exam: Prolonged Expiratory Phase, Rales, Wheezes, NORMAL BREATHING PATTERN - Cardiovascular Exam Cardiovascular Exam: REGULAR RHYTHM, +S1, +S2. absent: Murmur - GI/Abdominal Exam GI & Abdominal Exam: Soft, Normal Bowel Sounds. absent: Tenderness - Rectal Exam Rectal Exam: NORMAL INSPECTION - Extremities Exam Extremities Exam: Full ROM, Normal Capillary Refill, Normal Inspection. absent : Joint Swelling, Pedal Edema - Back Exam Back Exam: NORMAL INSPECTION - Neurological Exam Neurological Exam: Alert, Awake, CN II-XII Intact, Normal Gait, Oriented x3 - Psychiatric Exam Psychiatric exam: Normal Affect, Normal Mood - Skin Skin Exam: Dry, Intact, Normal Color, Warm Assessment and Plan - Assessment and Plan (Free Text) Assessment: COPD EXAC Plan: CONTINUE PRESENT RX
[2017-04-28] MEDS: cefTRIAXone 2 GM in Sodium Chloride 0.9% 100 ML IVPB SCH (17:19)
[2017-04-28] MEDS: Insulin Detemir 100 Units/ml Inj SC SCH (21:40)
[2017-04-29] MEDS: Albuterol-Ipratrop 3 mg / 0.5 (3 ml) UD IH SCH ×4 (01:12→19:25)
[2017-04-29] MEDS: Promethazine DM 12.5 mg-30 mg/10 ml Syrup PO PRN ×2 (06:07→16:39)
[2017-04-29] MEDS: oxyCODONE 5 mg Immediate Release Tab PO PRN ×3 (06:09→21:51)
[2017-04-29] MEDS: Acetylcysteine 20% Inhal Soln (4ml) INH SCH ×2 (07:39→19:25)
[2017-04-29] MEDS: Insulin Lispro (humaLOG) 100 Units/ml Inj SC SCH ×7 (08:08→21:20)
[2017-04-29] MEDS: THEOPHYLLINE 400 MG T24(UNIPHYL) PO SCH (08:11)
[2017-04-29] MEDS: methylPREDNISolone 40 MG in Sodium Chloride 0.9% 50 ML IVPB SCH (08:19)
[2017-04-29] MEDS: Enoxaparin 40 mg Syringe SC SCH (08:20)
--- NOTE | 2017-04-29 08:40 | CP.PCM.PN ---
Subjective - Date & Time of Evaluation Date of Evaluation: 04/29/17 Time of Evaluation: 08:39 - Subjective Subjective: pt doing well, w/o distress/compliants. no f/c, n/v/d. still wheezing, minimal exercise tolerance. glucose remains elevated Objective - Vital Signs/Intake and Output Vital Signs (last 24 hours): Temp Pulse Resp BP Pulse Ox 98.0 F 83 20 135/56 L 99 04/29/17 08:11 04/29/17 08:11 04/29/17 08:11 04/29/17 08:20 04/29/17 08:11 - Medications Medications: Current Medications Acetylcysteine (Acetylcysteine 20%) 2 ml INH RBID [facility] Last Admin: 04/29/17 07:39 Dose: 2 ml Albuterol/Ipratropium (Duoneb 3 Mg/0.5 Mg (3 Ml) Ud) 3 ml IH RQ6 [facility] Last Admin: 04/29/17 07:39 Dose: 3 ml Albuterol/Ipratropium (Duoneb 3 Mg/0.5 Mg (3 Ml) Ud) 3 ml INH RQ4 PRN PRN Reason: Shortness of Breath Alprazolam (Xanax) 0.5 mg PO TID@0900,1500,2100 [facility] Last Admin: 04/29/17 08:19 Dose: 0.5 mg Atorvastatin Calcium (Lipitor) 10 mg PO HS [facility] Last Admin: 04/28/17 21:37 Dose: 10 mg Clopidogrel Bisulfate (Plavix) 75 mg PO DAILY [facility] Last Admin: 04/29/17 08:11 Dose: 75 mg Enoxaparin Sodium (Lovenox) 40 mg SC DAILY [facility] PRN Reason: Protocol Last Admin: 04/29/17 08:20 Dose: 40 mg Famotidine (Pepcid) 20 mg PO BID [facility] Last Admin: 04/29/17 08:10 Dose: 20 mg Fentanyl (Duragesic) 1 patch TD Q72H [facility] PRN Reason: Protocol Last Admin: 04/28/17 08:52 Dose: 1 patch Furosemide (Lasix) 40 mg PO DAILY [facility] Last Admin: 04/29/17 08:20 Dose: 40 mg Gabapentin (Neurontin) 300 mg PO TID [facility] Last Admin: 04/29/17 08:11 Dose: 300 mg Hydrochlorothiazide (Microzide) 12.5 mg PO DAILY [facility] Last Admin: 04/29/17 08:11 Dose: 12.5 mg Ceftriaxone Sodium 2 gm/ (Sodium Chloride) 100 mls @ 100 mls/hr IVPB DAILY@ 1700 [facility] Last Admin: 04/28/17 17:19 Dose: 100 mls/hr Methylprednisolone 40 mg/ (Sodium Chloride) 50.64 mls @ 100 mls/hr IVPB DAILY [facility] Last Admin: 04/29/17 08:19 Dose: 100 mls/hr Insulin Detemir (Levemir) 35 units SC HS [facility] Last Admin: 04/28/17 21:40 Dose: 35 u Insulin Human Lispro (Humalog) 14 units SC AC [facility] Last Admin: 04/29/17 08:08 Dose: 14 u Meclizine HCl (Antivert) 25 mg PO TID [facility] Last Admin: 04/29/17 08:21 Dose: 25 mg Montelukast Sodium (Singulair) 10 mg PO [facility] Last Admin: 04/28/17 21:37 Dose: 10 mg Ondansetron HCl (Zofran Tab) 4 mg PO Q8 [facility] Last Admin: 04/29/17 08:21 Dose: 4 mg Oxycodone HCl (Oxycodone Immediate Release Tab) 30 mg PO Q6H PRN PRN Reason: Pain, severe (8-10) Last Admin: 04/29/17 06:09 Dose: 30 mg Paroxetine HCl (Paxil) 20 mg PO DAILY [facility] Last Admin: 04/29/17 08:19 Dose: 20 mg Promethazine HCl/Dextromethorphan (Phenergan Dm Syrup) 10 ml PO Q6 PRN PRN Reason: Cough Last Admin: 04/29/17 06:07 Dose: 10 ml Theophylline (Uniphyl) 400 mg PO DAILY [facility] Last Admin: 04/29/17 08:11 Dose: 400 mg Valsartan (Diovan) 80 mg PO DAILY [facility] Last Admin: 04/29/17 08:11 Dose: 80 mg - Labs Labs: 04/27/17 04:00 04/27/17 09:28 - Constitutional Appears: Well, Non-toxic, No Acute Distress - Head Exam Head Exam: ATRAUMATIC, NORMAL INSPECTION, NORMOCEPHALIC - Eye Exam Eye Exam: EOMI, Normal appearance, PERRL Pupil Exam: NORMAL ACCOMODATION, PERRL - ENT Exam ENT Exam: Mucous Membranes Moist, Normal Exam - Neck Exam Neck Exam: Full ROM, Normal Inspection. absent: Lymphadenopathy - Respiratory Exam Respiratory Exam: Wheezes, NORMAL BREATHING PATTERN - Cardiovascular Exam Cardiovascular Exam: REGULAR RHYTHM, RRR, +S1, +S2. absent: Murmur - GI/Abdominal Exam GI & Abdominal Exam: Soft, Normal Bowel Sounds. absent: Tenderness - Extremities Exam Extremities Exam: Full ROM, Normal Capillary Refill, Normal Inspection. absent : Joint Swelling, Pedal Edema - Back Exam Back Exam: NORMAL INSPECTION - Neurological Exam Neurological Exam: Alert, Awake, CN II-XII Intact, Normal Gait, Oriented x3 - Psychiatric Exam Psychiatric exam: Normal Affect, Normal Mood - Skin Skin Exam: Dry, Intact, Normal Color, Warm Assessment and Plan (1) COPD (chronic obstructive pulmonary disease) Status: Acute (2) Chronic back pain Status: Acute (3) DVT prophylaxis Status: Acute (4) Diabetes mellitus Status: Acute - Assessment and Plan (Free Text) Assessment: (1) COPD (chronic obstructive pulmonary disease) Assessment and Plan: cont theophylline, duonebs, mucomyst cont anbx pulm o2 to keep spo2 above 84% Status: Acute (2) Chronic back pain Assessment and Plan: duragesic Status: Acute (3) DVT prophylaxis Assessment and Plan: scd and aehose lovenox Status: Acute (4) Diabetes mellitus Assessment and Plan: fsbg, home meds, riss likely elevated r/t steroids, incr coverage to high correction Status: Acute
[2017-04-29] MEDS: cefTRIAXone 2 GM in Sodium Chloride 0.9% 100 ML IVPB SCH (16:41)
[2017-04-29] MEDS: Insulin Detemir 100 Units/ml Inj SC SCH (21:15)
[2017-04-30] MEDS: Albuterol-Ipratrop 3 mg / 0.5 (3 ml) UD IH SCH ×4 (01:06→19:09)
[2017-04-30] MEDS: Promethazine DM 12.5 mg-30 mg/10 ml Syrup PO PRN ×3 (01:07→21:21)
[2017-04-30] MEDS: oxyCODONE 5 mg Immediate Release Tab PO PRN ×2 (06:36→12:58)
[2017-04-30] MEDS: Acetylcysteine 20% Inhal Soln (4ml) INH SCH ×2 (07:42→19:09)
[2017-04-30] MEDS: Insulin Lispro (humaLOG) 100 Units/ml Inj SC SCH ×7 (08:02→21:23)
[2017-04-30] MEDS: THEOPHYLLINE 400 MG T24(UNIPHYL) PO SCH (08:07)
[2017-04-30] MEDS: Enoxaparin 40 mg Syringe SC SCH (08:08)
[2017-04-30] MEDS: methylPREDNISolone 40 MG in Sodium Chloride 0.9% 50 ML IVPB SCH (12:59)
[2017-04-30] MEDS: Silver Sulfadiazine 1% Cream (20 gm) TOP SCH (17:34)
[2017-04-30] MEDS: cefTRIAXone 2 GM in Sodium Chloride 0.9% 100 ML IVPB SCH ×2 (17:39→17:40)
[2017-04-30 20:50] LABS: RBC URINE 3 /hpf (0-3); URINE BILIRUBIN NEGATIVE (NEGATIVE); URINE BLOOD NEGATIVE (NEGATIVE); URINE COLOR YELLOW (YELLOW); URINE GLUCOSE (UA) 50 mg/dL (Normal); URINE KETONE NEGATIVE (NEGATIVE); URINE LEUKOCYTE ESTERASE NEG Leu/uL (Negative); URINE PROTEIN NEGATIVE (NEGATIVE); URINE UROBILINOGEN 0.2-1.0 mg/dL (0.2-1.0); WBC URINE 1 /hpf (0-5)
[2017-04-30] MEDS: Insulin Detemir 100 Units/ml Inj SC SCH (21:17)
[2017-05-01] MEDS: Albuterol-Ipratrop 3 mg / 0.5 (3 ml) UD IH SCH ×4 (01:00→19:32)
[2017-05-01] MEDS: Insulin Lispro (humaLOG) 100 Units/ml Inj SC SCH ×7 (06:41→21:46)
[2017-05-01] MEDS: Acetylcysteine 20% Inhal Soln (4ml) INH SCH ×2 (07:55→19:32)
[2017-05-01] MEDS: methylPREDNISolone 40 MG in Sodium Chloride 0.9% 50 ML IVPB SCH (08:13)
[2017-05-01] MEDS: Enoxaparin 40 mg Syringe SC SCH ×2 (08:14→08:44)
[2017-05-01] MEDS: Silver Sulfadiazine 1% Cream (20 gm) TOP SCH ×2 (08:14→17:19)
[2017-05-01] MEDS: THEOPHYLLINE 400 MG T24(UNIPHYL) PO SCH ×2 (08:17→08:47)
[2017-05-01] MEDS: Promethazine DM 12.5 mg-30 mg/10 ml Syrup PO PRN ×2 (08:17→17:18)
[2017-05-01] MEDS: oxyCODONE 5 mg Immediate Release Tab PO PRN ×3 (08:30→19:00)
--- NOTE | 2017-05-01 10:19 | CP.PCM.PN ---
Subjective - Date & Time of Evaluation Date of Evaluation: 05/01/17 Time of Evaluation: 10:18 - Subjective Subjective: pt denies compliants. no f/c, n/v/d. still wheezing. ambulates short distances w/ dyspnea. Objective - Vital Signs/Intake and Output Vital Signs (last 24 hours): Temp Pulse Resp BP Pulse Ox 97.7 F 63 20 155/73 H 100 05/01/17 09:49 05/01/17 09:49 05/01/17 09:49 05/01/17 09:49 05/01/17 09:49 - Medications Medications: Current Medications Acetylcysteine (Acetylcysteine 20%) 2 ml INH RBID [facility] Last Admin: 05/01/17 07:55 Dose: 2 ml Albuterol/Ipratropium (Duoneb 3 Mg/0.5 Mg (3 Ml) Ud) 3 ml IH RQ6 [facility] Last Admin: 05/01/17 07:55 Dose: 3 ml Albuterol/Ipratropium (Duoneb 3 Mg/0.5 Mg (3 Ml) Ud) 3 ml INH RQ4 PRN PRN Reason: Shortness of Breath Alprazolam (Xanax) 0.5 mg PO Q12 [facility] Last Admin: 05/01/17 08:47 Dose: 0.5 mg Atorvastatin Calcium (Lipitor) 10 mg PO HS [facility] Last Admin: 04/30/17 21:17 Dose: 10 mg Clopidogrel Bisulfate (Plavix) 75 mg PO DAILY [facility] Last Admin: 05/01/17 08:46 Dose: 75 mg Enoxaparin Sodium (Lovenox) 40 mg SC DAILY [facility] PRN Reason: Protocol Last Admin: 05/01/17 08:44 Dose: 40 mg Famotidine (Pepcid) 20 mg PO BID [facility] Last Admin: 05/01/17 08:40 Dose: 20 mg Fentanyl (Duragesic) 1 patch TD Q72H [facility] PRN Reason: Protocol Last Admin: 05/01/17 08:42 Dose: 1 patch Furosemide (Lasix) 40 mg PO DAILY [facility] Last Admin: 05/01/17 08:43 Dose: 40 mg Gabapentin (Neurontin) 300 mg PO TID [facility] Last Admin: 05/01/17 08:45 Dose: 300 mg Hydrochlorothiazide (Microzide) 12.5 mg PO DAILY [facility] Last Admin: 05/01/17 08:17 Dose: 12.5 mg Ceftriaxone Sodium 2 gm/ (Sodium Chloride) 100 mls @ 100 mls/hr IVPB DAILY@ 1700 [facility] Last Admin: 04/30/17 17:40 Dose: 100 mls/hr Methylprednisolone 40 mg/ (Sodium Chloride) 50.64 mls @ 100 mls/hr IVPB DAILY [facility] Last Admin: 05/01/17 08:13 Dose: 100 mls/hr Insulin Detemir (Levemir) 35 units SC HS [facility] Last Admin: 04/30/17 21:17 Dose: 35 u Insulin Human Lispro (Humalog) 14 units SC AC [facility] Last Admin: 05/01/17 08:15 Dose: 14 u Insulin Human Lispro (Humalog) 0 units SC ACHS [facility] PRN Reason: Protocol Last Admin: 05/01/17 06:41 Dose: 2 u Meclizine HCl (Antivert) 25 mg PO TID [facility] Last Admin: 05/01/17 08:41 Dose: 25 mg Montelukast Sodium (Singulair) 10 mg PO [facility] Last Admin: 04/30/17 21:18 Dose: 10 mg Ondansetron HCl (Zofran Tab) 4 mg PO Q8 [facility] Last Admin: 05/01/17 08:48 Dose: 4 mg Oxycodone HCl (Oxycodone Immediate Release Tab) 30 mg PO Q6H PRN PRN Reason: Pain, severe (8-10) Last Admin: 05/01/17 08:45 Dose: 30 mg Promethazine HCl/Dextromethorphan (Phenergan Dm Syrup) 10 ml PO Q6 PRN PRN Reason: Cough Last Admin: 05/01/17 08:17 Dose: 10 ml Silver Sulfadiazine (Silvadene 1% 20 Gm) 1 ea TOP BID [facility] Last Admin: 05/01/17 08:14 Dose: 1 u Theophylline (Uniphyl) 400 mg PO DAILY [facility] Last Admin: 05/01/17 08:47 Dose: 400 mg Valsartan (Diovan) 80 mg PO DAILY [facility] Last Admin: 05/01/17 08:41 Dose: 80 mg - Labs Labs: 04/27/17 04:00 04/27/17 09:28 - Constitutional Appears: Well, Non-toxic, No Acute Distress - Head Exam Head Exam: ATRAUMATIC, NORMAL INSPECTION, NORMOCEPHALIC - Eye Exam Eye Exam: EOMI, Normal appearance, PERRL Pupil Exam: NORMAL ACCOMODATION, PERRL - ENT Exam ENT Exam: Mucous Membranes Moist, Normal Exam - Neck Exam Neck Exam: Full ROM, Normal Inspection. absent: Lymphadenopathy - Respiratory Exam Respiratory Exam: Clear to Ausculation Bilateral, NORMAL BREATHING PATTERN - Cardiovascular Exam Cardiovascular Exam: REGULAR RHYTHM, RRR, +S1, +S2. absent: Murmur - GI/Abdominal Exam GI & Abdominal Exam: Soft, Normal Bowel Sounds. absent: Tenderness - Extremities Exam Extremities Exam: Full ROM, Normal Capillary Refill, Normal Inspection. absent : Joint Swelling, Pedal Edema - Back Exam Back Exam: NORMAL INSPECTION - Neurological Exam Neurological Exam: Alert, Awake, CN II-XII Intact, Normal Gait, Oriented x3 - Psychiatric Exam Psychiatric exam: Normal Affect, Normal Mood - Skin Skin Exam: Dry, Intact, Normal Color, Warm Assessment and Plan (1) COPD (chronic obstructive pulmonary disease) Status: Acute (2) Chronic back pain Status: Acute (3) DVT prophylaxis Status: Acute (4) Diabetes mellitus Status: Acute - Assessment and Plan (Free Text) Assessment: (1) COPD (chronic obstructive pulmonary disease) Assessment and Plan: cont theophylline, duonebs, mucomyst cont anbx pulm o2 to keep spo2 above 84% Status: Acute (2) Chronic back pain Assessment and Plan: duragesic Status: Acute (3) DVT prophylaxis Assessment and Plan: scd and aehose lovenox Status: Acute (4) Diabetes mellitus Assessment and Plan: fsbg, home meds, riss likely elevated r/t steroids, incr coverage to high correction Status: Acute aure vs home w/ home health home o2
--- NOTE | 2017-05-01 12:06 | CP.PCM.PN ---
Subjective - Date & Time of Evaluation Date of Evaluation: 05/01/17 Time of Evaluation: 12:06 - Subjective Subjective: continues to cough sob slightly improved Objective - Vital Signs/Intake and Output Vital Signs (last 24 hours): Temp Pulse Resp BP Pulse Ox 97.7 F 63 20 155/73 H 100 05/01/17 09:49 05/01/17 09:49 05/01/17 09:49 05/01/17 09:49 05/01/17 09:49 - Medications Medications: Current Medications Acetylcysteine (Acetylcysteine 20%) 2 ml INH RBID [facility] Last Admin: 05/01/17 07:55 Dose: 2 ml Albuterol/Ipratropium (Duoneb 3 Mg/0.5 Mg (3 Ml) Ud) 3 ml IH RQ6 [facility] Last Admin: 05/01/17 07:55 Dose: 3 ml Albuterol/Ipratropium (Duoneb 3 Mg/0.5 Mg (3 Ml) Ud) 3 ml INH RQ4 PRN PRN Reason: Shortness of Breath Alprazolam (Xanax) 0.5 mg PO Q12 [facility] Last Admin: 05/01/17 08:47 Dose: 0.5 mg Atorvastatin Calcium (Lipitor) 10 mg PO HS [facility] Last Admin: 04/30/17 21:17 Dose: 10 mg Clopidogrel Bisulfate (Plavix) 75 mg PO DAILY [facility] Last Admin: 05/01/17 08:46 Dose: 75 mg Enoxaparin Sodium (Lovenox) 40 mg SC DAILY [facility] PRN Reason: Protocol Last Admin: 05/01/17 08:44 Dose: 40 mg Famotidine (Pepcid) 20 mg PO BID [facility] Last Admin: 05/01/17 08:40 Dose: 20 mg Fentanyl (Duragesic) 1 patch TD Q72H [facility] PRN Reason: Protocol Last Admin: 05/01/17 08:42 Dose: 1 patch Furosemide (Lasix) 40 mg PO DAILY [facility] Last Admin: 05/01/17 08:43 Dose: 40 mg Gabapentin (Neurontin) 300 mg PO TID [facility] Last Admin: 05/01/17 08:45 Dose: 300 mg Hydrochlorothiazide (Microzide) 12.5 mg PO DAILY [facility] Last Admin: 05/01/17 08:17 Dose: 12.5 mg Ceftriaxone Sodium 2 gm/ (Sodium Chloride) 100 mls @ 100 mls/hr IVPB DAILY@ 1700 [facility] Last Admin: 04/30/17 17:40 Dose: 100 mls/hr Methylprednisolone 40 mg/ (Sodium Chloride) 50.64 mls @ 100 mls/hr IVPB DAILY [facility] Last Admin: 05/01/17 08:13 Dose: 100 mls/hr Insulin Detemir (Levemir) 35 units SC HS [facility] Last Admin: 04/30/17 21:17 Dose: 35 u Insulin Human Lispro (Humalog) 14 units SC AC [facility] Last Admin: 05/01/17 08:15 Dose: 14 u Insulin Human Lispro (Humalog) 0 units SC ACHS [facility] PRN Reason: Protocol Last Admin: 05/01/17 06:41 Dose: 2 u Meclizine HCl (Antivert) 25 mg PO TID [facility] Last Admin: 05/01/17 08:41 Dose: 25 mg Montelukast Sodium (Singulair) 10 mg PO [facility] Last Admin: 04/30/17 21:18 Dose: 10 mg Ondansetron HCl (Zofran Tab) 4 mg PO Q8 [facility] Last Admin: 05/01/17 08:48 Dose: 4 mg Oxycodone HCl (Oxycodone Immediate Release Tab) 30 mg PO Q6H PRN PRN Reason: Pain, severe (8-10) Last Admin: 05/01/17 08:45 Dose: 30 mg Promethazine HCl/Dextromethorphan (Phenergan Dm Syrup) 10 ml PO Q6 PRN PRN Reason: Cough Last Admin: 05/01/17 08:17 Dose: 10 ml Silver Sulfadiazine (Silvadene 1% 20 Gm) 1 ea TOP BID [facility] Last Admin: 05/01/17 08:14 Dose: 1 u Theophylline (Uniphyl) 400 mg PO DAILY [facility] Last Admin: 05/01/17 08:47 Dose: 400 mg Valsartan (Diovan) 80 mg PO DAILY [facility] Last Admin: 05/01/17 08:41 Dose: 80 mg - Labs Labs: 04/27/17 04:00 04/27/17 09:28 - Constitutional Appears: Chronically Ill - Head Exam Head Exam: ATRAUMATIC, NORMAL INSPECTION, NORMOCEPHALIC - Eye Exam Eye Exam: EOMI, Normal appearance, PERRL Pupil Exam: NORMAL ACCOMODATION, PERRL - ENT Exam ENT Exam: Mucous Membranes Moist, Normal Exam - Neck Exam Neck Exam: Full ROM, Normal Inspection. absent: Lymphadenopathy - Respiratory Exam Respiratory Exam: Decreased Breath Sounds, Rales, NORMAL BREATHING PATTERN - Cardiovascular Exam Cardiovascular Exam: REGULAR RHYTHM, +S1, +S2. absent: Murmur - GI/Abdominal Exam GI & Abdominal Exam: Soft, Normal Bowel Sounds. absent: Tenderness - Rectal Exam Rectal Exam: NORMAL INSPECTION - Extremities Exam Extremities Exam: Full ROM, Normal Capillary Refill, Normal Inspection. absent : Joint Swelling, Pedal Edema - Back Exam Back Exam: NORMAL INSPECTION - Neurological Exam Neurological Exam: Alert, Awake, CN II-XII Intact, Normal Gait, Oriented x3 - Psychiatric Exam Psychiatric exam: Normal Affect, Normal Mood - Skin Skin Exam: Dry, Intact, Normal Color, Warm Assessment and Plan - Assessment and Plan (Free Text) Assessment: copd mucus plugging of airways Plan: continue present rx antitussives,prn
[2017-05-01] MEDS: cefTRIAXone 2 GM in Sodium Chloride 0.9% 100 ML IVPB SCH (17:22)
[2017-05-01] MEDS: Insulin Detemir 100 Units/ml Inj SC SCH (21:44)
[2017-05-01 23:37] LABS: RBC URINE 2 /hpf (0-3); URINE BILIRUBIN NEGATIVE (NEGATIVE); URINE BLOOD NEGATIVE (NEGATIVE); URINE COLOR AMBER (YELLOW); URINE GLUCOSE (UA) >=500 mg/dL (Normal); URINE KETONE NEGATIVE (NEGATIVE); URINE LEUKOCYTE ESTERASE TRACE Leu/uL (Negative); URINE PROTEIN NEGATIVE (NEGATIVE); URINE UROBILINOGEN 0.2-1.0 mg/dL (0.2-1.0)
[2017-05-01 23:39] LABS: URINE BACTERIA MOD (<OCC); WBC URINE 31 /hpf (0-5)
[2017-05-02] MEDS: Albuterol-Ipratrop 3 mg / 0.5 (3 ml) UD IH SCH ×4 (01:00→19:20)
[2017-05-02] MEDS: Promethazine DM 12.5 mg-30 mg/10 ml Syrup PO PRN ×2 (06:28→17:20)
[2017-05-02] MEDS: oxyCODONE 5 mg Immediate Release Tab PO PRN ×2 (06:31→13:16)
[2017-05-02] MEDS: Acetylcysteine 20% Inhal Soln (4ml) INH SCH ×2 (07:40→19:19)
[2017-05-02 07:47] LABS: BASO % 0.3 % (0.0-2.0); EOS # 0.1 K/uL (0.0-0.7); EOS % 0.5 % (0.0-4.0); HEMATOCRIT 37.8 % (34.0-47.0); LYMPH # 2.8 K/uL (1.0-4.3); LYMPH % 20.2 % (20.0-40.0); MEAN CORPUSCULAR HEMOGLOBIN 28.9 pg (27.0-31.0); MEAN CORPUSCULAR HGB CONC 31.1 g/dL (33.0-37.0); MEAN PLATELET VOLUME 7.2 fl (7.2-11.7); MONO # 1.3 K/uL (0.0-0.8); MONO % 9.1 % (0.0-10.0); NEUT # 9.8 K/uL (1.8-7.0); NEUT % 69.9 % (50.0-75.0); RED CELL DISTRIBUTION WIDTH 12.5 % (11.5-14.5)
[2017-05-02 08:09] LABS: BLOOD UREA NITROGEN 17 mg/dl (7-17); CALCIUM 9.4 mg/dL (8.4-10.2); CHLORIDE 83 mmol/L (98-107); GFR AFRICAN-AMERICAN > 60; GLUCOSE,RANDOM 193 mg/dL (65-105); POTASSIUM 3.8 MMOL/L (3.6-5.0); SODIUM 135 mmol/l (132-148)
[2017-05-02 08:35] LABS: CARBON DIOXIDE 44 mmol/L (22-30)
[2017-05-02] MEDS: Insulin Lispro (humaLOG) 100 Units/ml Inj SC SCH ×7 (09:06→21:36)
[2017-05-02] MEDS: Enoxaparin 40 mg Syringe SC SCH (09:08)
[2017-05-02] MEDS: Silver Sulfadiazine 1% Cream (20 gm) TOP SCH ×2 (09:09→17:19)
[2017-05-02] MEDS: THEOPHYLLINE 400 MG T24(UNIPHYL) PO SCH (09:09)
[2017-05-02] MEDS: methylPREDNISolone 40 MG in Sodium Chloride 0.9% 50 ML IVPB SCH (09:11)
[2017-05-02] MEDS: cefTRIAXone 2 GM in Sodium Chloride 0.9% 100 ML IVPB SCH (17:11)
[2017-05-02] MEDS: Insulin Detemir 100 Units/ml Inj SC SCH (21:35)
[2017-05-03] MEDS: Albuterol-Ipratrop 3 mg / 0.5 (3 ml) UD IH SCH ×4 (01:00→19:27)
[2017-05-03] MEDS: Insulin Lispro (humaLOG) 100 Units/ml Inj SC SCH ×7 (06:49→21:33)
[2017-05-03] MEDS: Promethazine DM 12.5 mg-30 mg/10 ml Syrup PO PRN ×2 (06:50→17:12)
[2017-05-03] MEDS: Acetylcysteine 20% Inhal Soln (4ml) INH SCH ×2 (07:35→19:27)
[2017-05-03] MEDS: Silver Sulfadiazine 1% Cream (20 gm) TOP SCH ×2 (09:01→17:12)
[2017-05-03] MEDS: Enoxaparin 40 mg Syringe SC SCH (09:02)
[2017-05-03] MEDS: THEOPHYLLINE 400 MG T24(UNIPHYL) PO SCH (09:04)
--- NOTE | 2017-05-03 11:04 | CP.PCM.PN ---
Subjective - Date & Time of Evaluation Date of Evaluation: 05/03/17 Time of Evaluation: 11:02 - Subjective Subjective: doing well, less wheezing, nof /c, n/v/d. c/s noted and started on macrobid still w/ cough and dyspnea on exertion. bw noted, pulm on case, o2 during day, bipap at night Objective - Vital Signs/Intake and Output Vital Signs (last 24 hours): Temp Pulse Resp BP Pulse Ox 97.5 F L 61 18 129/72 98 05/03/17 08:44 05/03/17 08:44 05/03/17 08:44 05/03/17 09:03 05/03/17 08:44 - Medications Medications: Current Medications Acetylcysteine (Acetylcysteine 20%) 2 ml INH RBID [facility] Last Admin: 05/03/17 07:35 Dose: 2 ml Albuterol/Ipratropium (Duoneb 3 Mg/0.5 Mg (3 Ml) Ud) 3 ml IH RQ6 [facility] Last Admin: 05/03/17 07:36 Dose: 3 ml Albuterol/Ipratropium (Duoneb 3 Mg/0.5 Mg (3 Ml) Ud) 3 ml INH RQ4 PRN PRN Reason: Shortness of Breath Alprazolam (Xanax) 0.5 mg PO Q12 [facility] Last Admin: 05/03/17 09:02 Dose: 0.5 mg Atorvastatin Calcium (Lipitor) 10 mg PO HS [facility] Last Admin: 05/02/17 21:35 Dose: 10 mg Clopidogrel Bisulfate (Plavix) 75 mg PO DAILY [facility] Last Admin: 05/03/17 09:04 Dose: 75 mg Enoxaparin Sodium (Lovenox) 40 mg SC DAILY [facility] PRN Reason: Protocol Last Admin: 05/03/17 09:02 Dose: 40 mg Famotidine (Pepcid) 20 mg PO BID [facility] Last Admin: 05/03/17 09:04 Dose: 20 mg Fentanyl (Duragesic) 1 patch TD Q72H [facility] PRN Reason: Protocol Last Admin: 05/01/17 08:42 Dose: 1 patch Furosemide (Lasix) 40 mg PO DAILY [facility] Last Admin: 05/03/17 09:03 Dose: 40 mg Gabapentin (Neurontin) 300 mg PO TID [facility] Last Admin: 05/03/17 09:04 Dose: 300 mg Hydrochlorothiazide (Microzide) 12.5 mg PO DAILY [facility] Last Admin: 05/03/17 09:04 Dose: 12.5 mg Ceftriaxone Sodium 2 gm/ (Sodium Chloride) 100 mls @ 100 mls/hr IVPB DAILY@ 1700 [facility] Last Admin: 05/02/17 17:11 Dose: 100 mls/hr Insulin Detemir (Levemir) 35 units SC HS [facility] Last Admin: 05/02/17 21:35 Dose: 35 u Insulin Human Lispro (Humalog) 14 units SC AC [facility] Last Admin: 05/03/17 09:02 Dose: 14 u Insulin Human Lispro (Humalog) 0 units SC ACHS [facility] PRN Reason: Protocol Last Admin: 05/03/17 06:49 Dose: 2 u Meclizine HCl (Antivert) 25 mg PO TID [facility] Last Admin: 05/03/17 09:03 Dose: 25 mg Montelukast Sodium (Singulair) 10 mg PO [facility] Last Admin: 05/02/17 21:35 Dose: 10 mg Nitrofurantoin Macrocrystals (Macrobid) 100 mg PO Q12 [facility] Last Admin: 05/03/17 09:04 Dose: 100 mg Ondansetron HCl (Zofran Tab) 4 mg PO Q8 [facility] Last Admin: 05/03/17 09:04 Dose: 4 mg Oxycodone HCl (Oxycodone Immediate Release Tab) 30 mg PO Q6H PRN PRN Reason: Pain, severe (8-10) Last Admin: 05/02/17 13:16 Dose: 30 mg Promethazine HCl/Dextromethorphan (Phenergan Dm Syrup) 10 ml PO Q6 PRN PRN Reason: Cough Last Admin: 05/03/17 06:50 Dose: 10 ml Silver Sulfadiazine (Silvadene 1% 20 Gm) 1 ea TOP BID [facility] Last Admin: 05/03/17 09:01 Dose: 1 u Theophylline (Uniphyl) 400 mg PO DAILY [facility] Last Admin: 05/03/17 09:04 Dose: 400 mg Valsartan (Diovan) 80 mg PO DAILY [facility] Last Admin: 05/03/17 09:03 Dose: 80 mg - Labs Labs: 05/02/17 05:30 05/02/17 05:30 - Constitutional Appears: Well, Non-toxic, No Acute Distress - Head Exam Head Exam: ATRAUMATIC, NORMAL INSPECTION, NORMOCEPHALIC - Eye Exam Eye Exam: EOMI, Normal appearance, PERRL Pupil Exam: NORMAL ACCOMODATION, PERRL - ENT Exam ENT Exam: Mucous Membranes Moist, Normal Exam - Neck Exam Neck Exam: Full ROM, Normal Inspection. absent: Lymphadenopathy - Respiratory Exam Respiratory Exam: Clear to Ausculation Bilateral, Wheezes, NORMAL BREATHING PATTERN Additional comments: less wheezing, better air entry - Cardiovascular Exam Cardiovascular Exam: REGULAR RHYTHM, +S1, +S2. absent: Murmur - GI/Abdominal Exam GI & Abdominal Exam: Soft, Normal Bowel Sounds. absent: Tenderness - Extremities Exam Extremities Exam: Full ROM, Normal Capillary Refill, Normal Inspection. absent : Joint Swelling, Pedal Edema - Back Exam Back Exam: NORMAL INSPECTION - Neurological Exam Neurological Exam: Alert, Awake, CN II-XII Intact, Normal Gait, Oriented x3 - Psychiatric Exam Psychiatric exam: Normal Affect, Normal Mood - Skin Skin Exam: Dry, Intact, Normal Color, Warm Assessment and Plan (1) COPD (chronic obstructive pulmonary disease) Status: Acute (2) Chronic back pain Status: Acute (3) DVT prophylaxis Status: Acute (4) Diabetes mellitus Status: Acute - Assessment and Plan (Free Text) Assessment: (1) COPD (chronic obstructive pulmonary disease) Assessment and Plan: cont theophylline, duonebs, mucomyst cont anbx pulm o2 to keep spo2 above 94% bipap qhs Status: Acute (2) Chronic back pain Assessment and Plan: duragesic Status: Acute (3) DVT prophylaxis Assessment and Plan: scd and aehose lovenox Status: Acute (4) Diabetes mellitus Assessment and Plan: fsbg, home meds, riss likely elevated r/t steroids, incr coverage to high correction Status: Acute [id number], c/s states is I but all others are R or iv so will do trial and repeat c/s aure vs home w/ home health home o2
[2017-05-03] MEDS: oxyCODONE 5 mg Immediate Release Tab PO PRN (12:31)
[2017-05-03] MEDS: cefTRIAXone 2 GM in Sodium Chloride 0.9% 100 ML IVPB SCH (17:13)
[2017-05-03 17:38] VITALS: RESP 20
[2017-05-03] MEDS: Insulin Detemir 100 Units/ml Inj SC SCH (21:29)
[2017-05-04] MEDS: Albuterol-Ipratrop 3 mg / 0.5 (3 ml) UD IH SCH ×4 (01:00→22:04)
[2017-05-04] MEDS: oxyCODONE 5 mg Immediate Release Tab PO PRN (04:25)
[2017-05-04] MEDS: Insulin Lispro (humaLOG) 100 Units/ml Inj SC SCH ×4 (06:33→13:14)
[2017-05-04] MEDS: Acetylcysteine 20% Inhal Soln (4ml) INH SCH ×2 (07:29→22:01)
[2017-05-04 07:55] VITALS: BP 126/58; PULSE 85; TEMP 97.7; O2SAT 99
[2017-05-04] MEDS: Silver Sulfadiazine 1% Cream (20 gm) TOP SCH (08:28)
[2017-05-04] MEDS: THEOPHYLLINE 400 MG T24(UNIPHYL) PO SCH (08:29)
[2017-05-04] MEDS: Enoxaparin 40 mg Syringe SC SCH (08:30)
[2017-05-04] MEDS: Promethazine DM 12.5 mg-30 mg/10 ml Syrup PO PRN (08:31)
[2017-05-04] MEDS ORDERED: Lactulose 10 gm/15 ml Syrup PO PRN (10:01)
[2017-05-04] MEDS ORDERED: Simethicone 80 mg Chewtab PO PRN (10:43)
[2017-05-04 16:00] LABS: HEMATOCRIT 38.6 % (34.0-47.0); MEAN CELL VOLUME 93.7 fl (81.0-99.0); MEAN CORPUSCULAR HEMOGLOBIN 28.5 pg (27.0-31.0); MEAN CORPUSCULAR HGB CONC 30.4 g/dL (33.0-37.0); RED CELL DISTRIBUTION WIDTH 12.6 % (11.5-14.5); WHITE BLOOD COUNT 18.6 K/uL (4.8-10.8)
[2017-05-04] MEDS ORDERED: Sodium Chloride 0.9% 1,000 ML IV SCH (16:00)
[2017-05-04 16:10] LABS: ALB/GLOB RATIO 1.4 (1.0-2.1); ALKALINE PHOSPHATASE 145 U/L (38-126); ALT/SGPT 131 U/L (9-52); AST/SGOT 111 U/L (14-36); BILIRUBIN,TOTAL 0.7 mg/dl (0.2-1.3); BLOOD UREA NITROGEN 24 mg/dl (7-17); CALCIUM 8.9 mg/dL (8.4-10.2); CHLORIDE 80 mmol/L (98-107); GFR AFRICAN-AMERICAN > 60; GLUCOSE,RANDOM 148 mg/dL (65-105); MAGNESIUM 1.9 MG/DL (1.6-2.3); PHOSPHOROUS 5.1 mg/dl (2.5-4.5); POTASSIUM 3.6 MMOL/L (3.6-5.0); SODIUM 131 mmol/l (132-148); TOTAL PROTEIN 5.7 G/DL (6.3-8.2)
[2017-05-04 16:22] LABS: CARBON DIOXIDE 43 mmol/L (22-30)
--- NOTE | 2017-05-04 16:42 | PCM.RRT ---
CONGRESSIONAL DISTRICT AIDE Nurse Assessment - Situation CONGRESSIONAL DISTRICT AIDE Responder Arrival Time: 03:42 CONGRESSIONAL DISTRICT AIDE Reason for Call: Hypotension, Change in Mental Status - Ventilator Settings FIO2 (% Oxygen): 50 I.Reason for CONGRESSIONAL DISTRICT AIDE - A) Acute Change in Patient: (Select all that apply): Acute change in mental status, Acute change in SBP below Subjective: CONGRESSIONAL DISTRICT AIDE was called on a 71 y/o F who was found hypotensive with altered mental status. VS were assessed, BP was 89/40 and HR 101 upon arrival. Nurse explained pt was lethargic and was complaining of abdominal pain with severe urge for bowel movement since this morning. Bloody material was detected on diaper today. IV NS fluid administration was initiated. BP around 3:53 was 87/43, BP at 3:57 was 96/49. - Neurological Status (Select all that apply): Responsive, Lethargic. absent: Alert, Verbal - Respiratory Oxygen Delivery Method: Nasal Cannula @L/min (O2 at 3L/min.) - Constitutional Appears: Confused - Head Head Exam: ATRAUMATIC, NORMAL INSPECTION - Cardiovascular Exam Additional comments: Radial pulse present. - Neurological Exam Neurological Exam: Altered. absent: Alert Plan - Assessment of Findings&Treatment Plan 71 y/o F admitted in TCU for COPD exacerbation CONGRESSIONAL DISTRICT AIDE called due to hypotension and altered mental status. -NS IV fluid administered. -CBC -CMP, -Magnesium -Phosphate -Pt transfered to ER.
--- NOTE | 2017-05-05 06:12 | CP.PCM.DIS ---
Provider - Provider Date of Admission: 04/24/17 16:40 Attending physician: Luca Hurst MD Time Spent in preparation of Discharge (in minutes): 5 Diagnosis - Discharge Diagnosis (1) COPD (chronic obstructive pulmonary disease) Status: Acute (2) Chronic back pain Status: Acute (3) DVT prophylaxis Status: Acute (4) Diabetes mellitus Status: Acute Hospital Course - Lab Results Lab Results: Micro Results 05/01/17 23:20 Urine,Clean Catch Urine Culture - Final Enterococcus Faecalis 04/30/17 20:00 Urine,Catheterized Urine Culture - Final Enterococcus Faecalis Most Recent Lab Values WBC 18.6 K/uL (4.8-10.8) H 05/04/17 15:30 RBC 4.12 Mil/uL (3.80-5.20) 05/04/17 15:30 Hgb 11.7 g/dL (12.0-16.0) L 05/04/17 15:30 Hct 38.6 % (34.0-47.0) 05/04/17 15:30 MCV 93.7 fl (81.0-99.0) 05/04/17 15:30 MCH 28.5 pg (27.0-31.0) 05/04/17 15:30 MCHC 30.4 g/dL (33.0-37.0) L 05/04/17 15:30 RDW 12.6 % (11.5-14.5) 05/04/17 15:30 Plt Count 276 K/uL (130-400) 05/04/17 15:30 MPV 7.2 fl (7.2-11.7) 05/02/17 05:30 Neut % (Auto) 69.9 % (50.0-75.0) 05/02/17 05:30 Lymph % (Auto) 20.2 % (20.0-40.0) 05/02/17 05:30 [place] % (Auto) 9.1 % (0.0-10.0) 05/02/17 05:30 Eos % (Auto) 0.5 % (0.0-4.0) 05/02/17 05:30 Baso % (Auto) 0.3 % (0.0-2.0) 05/02/17 05:30 Neut # 9.8 K/uL (1.8-7.0) H 05/02/17 05:30 Lymph # 2.8 K/uL (1.0-4.3) 05/02/17 05:30 [place] # 1.3 K/uL (0.0-0.8) H 05/02/17 05:30 Eos # 0.1 K/uL (0.0-0.7) 05/02/17 05:30 Baso # 0.0 K/uL (0.0-0.2) 05/02/17 05:30 Sodium 131 mmol/l (132-148) L 05/04/17 15:30 Potassium 3.6 MMOL/L (3.6-5.0) 05/04/17 15:30 Chloride 80 mmol/L (98-107) L 05/04/17 15:30 Carbon Dioxide 43 mmol/L (22-30) H* 05/04/17 15:30 Anion Gap 12 (10-20) 05/04/17 15:30 BUN 24 mg/dl (7-17) H 05/04/17 15:30 Creatinine 0.8 mg/dL (0.7-1.2) 05/04/17 15:30 Est GFR ( Amer) > 60 05/04/17 15:30 Est GFR (Non-Af Amer) > 60 05/04/17 15:30 POC Glucose (mg/dL) 159 mg/dL (65-110) H 05/04/17 15:40 Random Glucose 148 mg/dL (65-105) H 05/04/17 15:30 Calcium 8.9 mg/dL (8.4-10.2) 05/04/17 15:30 Phosphorus 5.1 mg/dl (2.5-4.5) H 05/04/17 15:30 Magnesium 1.9 MG/DL (1.6-2.3) 05/04/17 15:30 Total Bilirubin 0.7 mg/dl (0.2-1.3) 05/04/17 15:30 AST 111 U/L (14-36) H 05/04/17 15:30 ALT 131 U/L (9-52) H D 05/04/17 15:30 Alkaline Phosphatase 145 U/L (38-126) H 05/04/17 15:30 Total Protein 5.7 G/DL (6.3-8.2) L 05/04/17 15:30 Albumin 3.3 g/dL (3.5-5.0) L 05/04/17 15:30 Globulin 2.4 gm/dL (2.2-3.9) 05/04/17 15:30 Albumin/Globulin Ratio 1.4 (1.0-2.1) 05/04/17 15:30 Urine Color [place] (YELLOW) 05/01/17 23:20 Urine Clarity Clear (Clear) 05/01/17 23:20 Urine pH 7.0 (5.0-8.0) 05/01/17 23:20 Ur Specific [place] 1.020 (1.003-1.030) 05/01/17 23:20 Urine Protein Negative mg/dL (NEGATIVE) 05/01/17 23:20 Urine Glucose (UA) >=500 mg/dL (Normal) 05/01/17 23:20 Urine Ketones Negative mg/dL (NEGATIVE) 05/01/17 23:20 Urine Blood Negative (NEGATIVE) 05/01/17 23:20 Urine Nitrate Positive (NEGATIVE) H 05/01/17 23:20 Urine Bilirubin Negative (NEGATIVE) 05/01/17 23:20 Urine Urobilinogen 0.2-1.0 mg/dL (0.2-1.0) 05/01/17 23:20 Ur Leukocyte Esterase Trace Mani/uL (Negative) 05/01/17 23:20 Urine RBC (Auto) 2 /hpf (0-3) 05/01/17 23:20 Urine Microscopic WBC 31 /hpf (0-5) H 05/01/17 23:20 Ur Squamous Epith Cells < 1 /hpf (0-5) 04/30/17 20:00 Urine Bacteria Mod (<OCC) H 05/01/17 23:20 Hyaline Casts 6-10 /hpf (0-2) H 04/30/17 20:00 Theophylline 9.6 ug/ml (10-20) L 04/27/17 11:09 Discharge Exam - Head Exam Head Exam: ATRAUMATIC, NORMAL INSPECTION Discharge Plan - Follow Up Plan Condition: GOOD Disposition: HOME/ ROUTINE Instructions: COPD (Chronic Obstructive Pulmonary Disease) (DC) Additional Instructions: loan review manager for lethargy, blood ins tool, hypotension final dx-copd exacerbation, blood in stool. hypotension, lethargy discharge patient to emergency room [facility] for further care.
== END 2017-05-04 16:00 | disposition home or self-care (01) | DRG 191 ==
LOC: H.TCU 16:40
PROVIDERS: ADMIT Family Medicine; ATTEND Family Medicine
PROC: F08Z1FZ Dressing Techniques Treatment using Assistive, Adaptive, Supportive or Protective Equipment (ICD-10-PCS; principal; 2017-04-24)
PROC: F08Z0FZ Bathing/Showering Techniques Treatment using Assistive, Adaptive, Supportive or Protective Equipment (ICD-10-PCS; 2017-04-24)
PROC: F07Z9FZ Gait Training/Functional Ambulation Treatment using Assistive, Adaptive, Supportive or Protective Equipment (ICD-10-PCS; 2017-04-24)
PROC: 5A09557 Assistance with Respiratory Ventilation, Greater than 96 Consecutive Hours, Continuous Positive Airway Pressure (ICD-10-PCS; 2017-04-24)
DX: J44.1 Chronic obstructive pulmonary disease with (acute) exacerbation (principal); Z68.42 Body mass index [BMI] 45.0-49.9, adult; I95.9 Hypotension, unspecified; E11.65 Type 2 diabetes mellitus with hyperglycemia; K92.1 Melena; E66.01 Morbid (severe) obesity due to excess calories; N39.0 Urinary tract infection, site not specified; T17.990A Other foreign object in respiratory tract, part unspecified in causing asphyxiation, initial encounter; G89.29 Other chronic pain; I10 Essential (primary) hypertension; T38.0X5A Adverse effect of glucocorticoids and synthetic analogues, initial encounter; R53.83 Other fatigue; B95.2 Enterococcus as the cause of diseases classified elsewhere; X58.XXXA Exposure to other specified factors, initial encounter; Z91.041 Radiographic dye allergy status; Z91.013 Allergy to seafood; Z87.891 Personal history of nicotine dependence

== ENCOUNTER 2017-05-04 16:18 | Inpatient (IN) | payer MEDICARE, MEDICAID ==
[2017-05-04] MEDS ORDERED: Sodium Chloride 0.9% 1,000 ML IV STA ×2 (16:23→17:03)
[2017-05-04] MEDS ORDERED: Piperacillin/Tazobact 3.375 GM in Sodium Chloride 0.9% 100 ML IVPB STA (17:04)
[2017-05-04 17:05] LABS: ABG ALLEN TEST YES; ARTERIAL BLOOD GAS HCO3 43.9 mmol/L (21-28); ARTERIAL BLOOD GAS PH 7.49 (7.35-7.45); ARTERIAL BLOOD GAS PO2 62 mm/Hg (80-100)
--- NOTE | 2017-05-04 17:23 | ED PDOC ---
HPI: Abdomen Time Seen by Provider: 05/04/17 16:21 Chief Complaint (Nursing): Abdominal Pain Chief Complaint (Provider): Abdominal pain History Per: Patient, Other (Hospitalist Dr. Alexander) History/Exam Limitations: no limitations Onset/Duration Of Symptoms: Days Outside of [place] travel?: No Current Symptoms Are (Timing): Still Present Location Of Pain/Discomfort: Diffuse, RLQ, LLQ Additional Complaint(s): The patient is a 71yo female, with PMHx of COPD, hypertension, UTI and diabetes , is transferred to the ED from TCU for evaluation due to low blood pressure for the past day. Currently, both the pt and hospitalist Dr. Alexander are providing the HPI. Over the past day, pt was gradually more confused, lethargic and was complaining of abdominal pain and abdominal swelling. Pt did not have a fever, however was noted to have bloody diarrhea when she was given lactulose due to her constipation. Pt was admitted to TCU after a full admission to the hospital for COPD exacerbation and was stable in TCU until today. According to pt's prior charts, she had a CT AP performed a couple months ago, which indicated diverticulosis. Additionally, pt was also recently diagnosed with a UTI, was admitted and was receiving IV antibiotics. Pt is noted to have a fever in the ED and is also complaining of lower abdominal pain, more prominent in the left side. She denies any vomiting, difficulty breathing or chest pain. Pt is somnolent but easily arousable; at present, she offers no additional medical complaints. PCP: [facility] Past Medical History Reviewed: Historical Data, Nursing Documentation, Vital Signs Vital Signs: Last Vital Signs Temp 101.1 F H 05/04/17 16:21 Pulse 91 H 05/04/17 17:55 Resp 16 05/04/17 17:55 BP 112/46 L 05/04/17 17:55 Pulse Ox 95 05/04/17 18:30 - Medical History PMH: Anxiety, Arthritis, Asthma, Back Problems, Bronchitis, COPD, Dementia ( Self reports forgetfulness), Depression, Diabetes, Emphysema, HTN, Hypercholesterolemia Denies: Alzheimer's Disease, Atrial Fibrillation, Bipolar Disorder, Cardia Arrhythmia, CHF, Crohn's Disease, HIV, Hyperthyroidism, Hypothyroidism, Migraine , Mitral Valve Prolapse, Multiple Sclerosis, Parkinson's Disease, Peripheral Edema, Pneumonia, Pulmonary Embolism, Chronic Kidney Disease, Seizures, Sleep Apnea, TIA - Surgical History Surgical History: Appendectomy, Cholecystectomy Denies: Pacemaker - Family History Family History: States: Unknown Family Hx - Social History Current smoker - smoking cessation education provided: No Alcohol: None Drugs: Denies - Immunization History Hx Tetanus Toxoid Vaccination: No Hx Influenza Vaccination: Yes Hx Pneumococcal Vaccination: No - Home Medications Home Medications: Ambulatory Orders Medication Instructions Recorded Ipratropium/Albuterol Sulfate 3 ml IH Q4 02/03/14 [Duoneb 0.5 mg-3 mg/3 ml Soln] Simvastatin 20 mg PO HS 02/03/14 Xanax 0.5 mg PO TID 02/21/14 Plavix 75 mg PO DAILY 06/05/14 oxyCODONE 30 mg PO Q6H PRN 06/05/14 Theophylline 200 mg PO BID 07/24/15 Insulin Detemir [Levemir] 35 unit SC HS #0 unit 07/30/15 Montelukast [Singulair] 10 mg PO HS #0 tab 07/30/15 fentaNYL 50 mcg/hr [Duragesic 1 patch TD Q72H #0 patch 12/27/15 Patch 50 mcg/hr] Famotidine [Pepcid] 20 mg PO BID 12/11/16 Gabapentin 300 mg PO TID 12/11/16 Insulin Aspart, Recombinant 14 unit SC AC 12/11/16 [Novolog] Linagliptin [Tradjenta] 5 mg PO DAILY 12/11/16 Tiotropium Pettibone [Spiriva] 18 mcg IH DAILY 12/11/16 Valsartan/Hydrochlorothiazide 1 tab PO DAILY 12/11/16 [Valsartan-Hctz 80-12.5 mg Tab] Meclizine [Meclizine*] 25 mg PO TID 04/20/17 Ondansetron [Zofran Tab] 4 mg PO Q8 04/20/17 Acetylcysteine 20% 2 ml INH RBID 04/24/17 Albuterol/Ipratropium [Duoneb 3 3 ml INH RQ6 PRN 04/24/17 mg/0.5 mg (3 ml) UD] Atorvastatin [Lipitor] 10 mg PO HS tab 04/24/17 Enoxaparin [Lovenox] 40 mg SC DAILY syr 04/24/17 Fluticasone/Salmeterol 250/50 1 puff IH Q12 puff 04/24/17 [Advair Diskus 250/50] Furosemide [Lasix] 40 mg PO DAILY tab 04/24/17 - Allergies Allergies/Adverse Reactions: Allergies Allergy/AdvReac Type Severity Reaction Status Date / Time FISH Allergy ITCHING Verified 04/24/17 16:25 iodine Allergy ITCHING Verified 04/24/17 16:25 Review of Systems ROS Statement: Except As Marked, All Systems Reviewed And Found Negative Constitutional: Positive for: Fever Cardiovascular: Negative for: Chest Pain Respiratory: Negative for: Shortness of Breath Gastrointestinal: Positive for: Abdominal Pain, Diarrhea. Negative for: Nausea , Vomiting Neurological: Positive for: Weakness, Confusion Physical Exam - Reviewed Nursing Documentation Reviewed: Yes Vital Signs Reviewed: Yes - Physical Exam Appears: Negative for: Well (ill appearing, obese) Head Exam: Positive for: ATRAUMATIC, NORMAL INSPECTION, NORMOCEPHALIC Skin: Positive for: Normal Color, Warm, Dry Eye Exam: Positive for: Normal appearance, EOMI, PERRL ENT: Positive for: Normal ENT Inspection Neck: Positive for: Normal, Supple Cardiovascular/Chest: Positive for: Regular Rate, Rhythm, Tachycardia. Negative for: Murmur Respiratory: Positive for: Normal Breath Sounds. Negative for: Accessory Muscle Use, Wheezing, Respiratory Distress Gastrointestinal/Abdominal: Positive for: Soft, Tenderness (diffuse tenderness to lower abdomen, more pronounced on left lower quadrant) Back: Positive for: Normal Inspection Extremity: Positive for: Normal ROM. Negative for: Deformity, Swelling Neurologic/Psych: Positive for: Alert (pt somnolent but easily arousable), Oriented. Negative for: Motor/Sensory Deficits - ECG O2 Sat by Pulse Oximetry: 95 (RA) Pulse Ox Interpretation: Normal - Critical Care Total Time (In Min): 60 Documented Critical Care: Time excludes all time spent performint seperately billable procedures Medical Decision Making Medical Decision Making: Time: 1630 Impression: Abdominal pain with hypotension and fever Differential: Diverticulitis, colitis, bowel perforation, sepsis Plan: -- CXR -- XR Abdomen -- CBC -- CMP -- CT AP -- IV NS 2L, 1L/hr -- Zosyn 3.375 gm IV --Reassess Time: 1638 CXR as read by provider indicates no infiltrates and no acute findings. Portacath located in left SVC. Abdomen XR as read by provider indicates no acute findings. Time: 1754 Upon re-assesment, pt's blood pressure is 112/46 after 1L of fluids. Pt is smiling and reports feeling a little better; pt is alert and awake. Time: 1618 CT AP IMPRESSION: 1. Colitis, nonspecific. Consider inflammatory or infectious etiologies. 2. Incidental/non-acute findings are described above. Scribe Attestation: Documented by Suzette Mills acting as a scribe for Caro Dunham MD Provider Scribe Attestation: All medical record entries made by the Scribe were at my direction and personally dictated by me. I have reviewed the chart and agree that the record accurately reflects my personal performance of the history, physical exam, medical decision making, and the department course for this patient. I have also personally directed, reviewed, and agree with the discharge instructions and disposition. Disposition - Clinical Impression Clinical Impression: Colitis, Sepsis, Hypotension - Patient ED Disposition Is Patient to be Admitted: Yes Discussed With Dr.: Neymar Khan Doctor Will See Patient In The: Hospital Counseled Patient/Family Regarding: Studies Performed, Diagnosis - Disposition Disposition Time: 18:24 Condition: FAIR - Pt Status Changed To: Hospital Disposition Of: Inpatient - Admit Certification Admit to Inpatient:: After my assessment, the patient will require hospitalization for at least two midnights. This is because of the severity of symptoms shown, intensity of services needed, and/or the medical risk in this patient being treated as an outpatient. - POA Present On Arrival: Poor Glycemic Control
--- NOTE | 2017-05-04 17:34 | RAD ---
HISTORY: Status post port placement COMPARISON: Comparison made with plain film radiographs of the chest and CT scan chest 04/19/2017 hand 04/20/2017 respectively. . Correlation also made with concurrent radiograph of the abdomen. FINDINGS: Left subclavian MediPort with tip in the SVC unchanged. LUNGS: Mild bibasilar atelectasis and or scarring changes left greater than right. Persistent slight elevation right hemidiaphragm PLEURA: No significant pleural effusion identified, no pneumothorax apparent. CARDIOVASCULAR: Cardiomegaly. OSSEOUS STRUCTURES: ACDF and posterior fixation hardware overlying the lower cervical spine again noted in. Mild multilevel degenerative spondylosis of the thoracic spine. VISUALIZED UPPER ABDOMEN: No gross free intraperitoneal air seen under the diaphragmatic surfaces. OTHER FINDINGS: None. IMPRESSION: Mild bibasilar atelectasis and or scarring changes left greater than right. Cardiomegaly. Persistent elevation right hemidiaphragm. In situ MediPort with tip in the SVC.
--- NOTE | 2017-05-04 17:36 | RAD ---
HISTORY: abd pain COMPARISON: Correlation made with concurrent radiographs of the chest. Comparison made with obstructive series 04/12/2008 FINDINGS: BOWEL: Current study reveals that no evidence of acute mechanical bowel obstruction. Hazy appearance of the abdomen felt to be due to large body habitus. The possibility of ascites cannot be completely excluded. BONES: Posterior fixation changes and bilateral laminectomy L5-S1 level unchanged from prior study. OTHER FINDINGS: None. IMPRESSION: No evidence of acute mechanical bowel obstruction. Send
--- NOTE | 2017-05-04 18:19 | CT ---
EXAM: CT Abdomen and Pelvis Without Intravenous Contrast CLINICAL HISTORY: 71 years old, female; Pain; Abdominal pain; Localized; Lower; Patient HX: HX of diverticulosis; Additional info: Abdominal pain. Bloody diarrhea TECHNIQUE: Axial computed tomography images of the abdomen and pelvis without intravenous contrast. All CT scans at this facility use one or more dose reduction techniques, viz.: automated exposure control; ma/kV adjustment per patient size (including targeted exams where dose is matched to indication; i.e. head); or iterative reconstruction technique. Coronal and sagittal reformatted images were created and reviewed. COMPARISON: CT - ABD PELVIS PO CONTRAST ONLY 12/21/2016 10:00:37 PM FINDINGS: Limitations: Lack of intravenous contrast. Lower thorax: Mild cardiomegaly. Coronary artery calcifications. Mild atelectasis/scarring. RIGHT lower lobe calcified granuloma. ABDOMEN: Liver: Fatty infiltration. Small hepatic calcification. Gallbladder and bile ducts: Gallbladder not visualized. Apparent prominence of common bile duct, grossly stable. Pancreas: Unremarkable. No ductal dilation. Spleen: No splenomegaly. Adrenals: No mass. Kidneys and ureters: Mild stranding about kidneys, nonspecific. Small RIGHT renal angiomyolipoma. No renal calculi. No hydronephrosis. Stomach and bowel: Scattered diverticula within colon. Mild mural thickening of descending, sigmoid colon. Minimal haziness within adjacent fat. No obstruction. Appendix: No findings to suggest acute appendicitis. PELVIS: Bladder: Collapsed with Armas catheter. Reproductive: Hysterectomy. ABDOMEN and PELVIS: Intraperitoneal space: No significant fluid collection. No free air. Bones/joints: Postsurgical changes of lumbar spine. No acute fracture. Soft tissues: Tiny umbilical hernia containing fat. Vasculature: Mild atherosclerotic disease. No aneurysm. Lymph nodes: No pathologically enlarged lymph nodes. IMPRESSION: 1. Colitis, nonspecific. Consider inflammatory or infectious etiologies. 2. Incidental/non-acute findings are described above.
[2017-05-04 18:50] LABS: RBC URINE 2 /hpf (0-3); URINE BILIRUBIN NEGATIVE (NEGATIVE); URINE BLOOD NEGATIVE (NEGATIVE); URINE COLOR AMBER (YELLOW); URINE GLUCOSE (UA) NEG (Normal); URINE KETONE NEGATIVE (NEGATIVE); URINE LEUKOCYTE ESTERASE SMALL Leu/uL (Negative); URINE PROTEIN 30 mg/dL (NEGATIVE); URINE UROBILINOGEN 0.2-1.0 mg/dL (0.2-1.0); WBC URINE 8 /hpf (0-5)
[2017-05-04] MEDS ORDERED: Albuterol-Ipratrop 3 mg / 0.5 (3 ml) UD INH PRN (23:21)
[2017-05-04] MEDS ORDERED: OXYCODONE 30 MG PO PRN (23:21)
[2017-05-04] MEDS ORDERED: INSULIN DETEMIR 35 UNIT SC SCH (23:30)
[2017-05-04] MEDS ORDERED: oxyCODONE 10 mg Immediate Release Tab PO PRN (23:56)
[2017-05-05] MEDS: Sodium Chloride 0.9% 1,000 ML IV SCH ×3 (01:01→19:15)
[2017-05-05] MEDS: Albuterol-Ipratrop 3 mg / 0.5 (3 ml) UD IH SCH ×7 (03:11→22:00)
[2017-05-05] MEDS: Piperacillin/Tazobact 3.375 GM in Sodium Chloride 0.9% 100 ML IVPB SCH ×4 (04:31→22:25)
[2017-05-05 06:19] LABS: HEMATOCRIT 32.8 % (34.0-47.0); MEAN CELL VOLUME 93.4 fl (81.0-99.0); MEAN CORPUSCULAR HEMOGLOBIN 29.6 pg (27.0-31.0); MEAN CORPUSCULAR HGB CONC 31.7 g/dL (33.0-37.0); RED CELL DISTRIBUTION WIDTH 12.5 % (11.5-14.5); WHITE BLOOD COUNT 10.3 K/uL (4.8-10.8)
[2017-05-05 06:40] LABS: ALB/GLOB RATIO 1.2 (1.0-2.1); ALKALINE PHOSPHATASE 113 U/L (38-126); ALT/SGPT 95 U/L (9-52); AST/SGOT 50 U/L (14-36); BILIRUBIN,TOTAL 0.8 mg/dl (0.2-1.3); BLOOD UREA NITROGEN 19 mg/dl (7-17); CALCIUM 8.2 mg/dL (8.4-10.2); CHLORIDE 84 mmol/L (98-107); GFR AFRICAN-AMERICAN > 60; GLUCOSE,RANDOM 206 mg/dL (65-105); POTASSIUM 3.5 MMOL/L (3.6-5.0); SODIUM 132 mmol/l (132-148); TOTAL PROTEIN 5.2 G/DL (6.3-8.2)
[2017-05-05 06:52] LABS: CARBON DIOXIDE 43 mmol/L (22-30)
[2017-05-05] MEDS ORDERED: Insulin Lispro (humaLOG) 100 Units/ml Inj SC SCH (07:30)
[2017-05-05] MEDS: Acetylcysteine 20% Inhal Soln (4ml) INH SCH ×2 (07:44→19:19)
--- NOTE | 2017-05-05 08:03 | CP.PCM.HP ---
History of Present Illness - History of Present Illness History of Present Illness: pt vice president process from [facility] and brought to er. found to have colitis on ct w/ c diff antigen positive. still w/ scant mucous/bloody dc from rectum. minimal abd pain at present. no f/c, n/v/d. bw noted. Present on Admission - Present on Admission Any Indicators Present on Admission: Yes History of Uncontrolled Diabetes: Yes Review of Systems - Gastrointestinal Gastrointestinal: As Per HPI, Abdominal Pain, Hematochezia Past Patient History - Infectious Disease Hx of Infectious Diseases: None - Tetanus Immunizations Tetanus Immunization: Unknown - Past Medical History & Family History Past Medical History?: Yes - Past Social History Smoking Status: Never Smoked - CARDIAC Hx Cardiac Disorders: Yes Hx Atrial Fibrillation: No Hx Cardia Arrhythmia: No Hx Congestive Heart Failure: Yes Hx Hypercholesterolemia: Yes Hx Hypertension: Yes Hx Mitral Valve Prolapse: No Hx Pacemaker: No Hx Peripheral Edema: No - PULMONARY Hx Respiratory Disorders: Yes Hx Asthma: Yes Hx Bronchitis: Yes Hx Chronic Obstructive Pulmonary Disease (COPD): Yes Hx Emphysema: Yes Hx Pneumonia: No Hx Pulmonary Embolism: No Hx Sleep Apnea: No - NEUROLOGICAL Hx Neurological Disorder: Yes Hx Alzheimer's Disease: No Hx Dementia: Yes (Self reports forgetfulness) Hx Migraine: No Hx Multiple Sclerosis: No Hx Parkinson's Disease: No Hx Seizures: No Hx Transient Ischemic Attacks (TIA): No - HEENT Hx HEENT Problems: Yes Hx Cataracts: Yes (Had surgery both eyes) Other/Comment: Eye glasses - RENAL Hx Chronic Kidney Disease: No - ENDOCRINE/METABOLIC Hx Endocrine Disorders: Yes Hx Diabetes Mellitus Type 2: Yes Hx Hyperthyroidism: No Hx Hypothyroidism: No - HEMATOLOGICAL/ONCOLOGICAL Hx Blood Disorders: No Hx Human Immunodeficiency Virus (HIV): No - INTEGUMENTARY Hx Dermatological Problems: No - MUSCULOSKELETAL/RHEUMATOLOGICAL Hx Musculoskeletal Disorders: No Hx Falls: No - GASTROINTESTINAL Hx Gastrointestinal Disorders: Yes Hx Colitis: Yes Hx Crohn's Disease: No - GENITOURINARY/GYNECOLOGICAL Hx Genitourinary Disorders: Yes Hx Incontinence: Yes (uses diapers at home for incontinence at times) - PSYCHIATRIC Hx Psychophysiologic Disorder: No Hx Substance Use: No - SURGICAL HISTORY Hx Surgeries: Yes Hx Appendectomy: Yes Hx Cholecystectomy: Yes - ANESTHESIA Hx Anesthesia: Yes Hx Anesthesia Reactions: No Hx Malignant Hyperthermia: No Has any member of the family had a problem w/ anesthesia?: No Meds Allergies/Adverse Reactions: Allergies Allergy/AdvReac Type Severity Reaction Status Date / Time FISH Allergy ITCHING Verified 04/24/17 16:25 iodine Allergy ITCHING Verified 04/24/17 16:25 Physical Exam - Constitutional Appears: Well, Non-toxic, No Acute Distress - Head Exam Head Exam: ATRAUMATIC, NORMAL INSPECTION, NORMOCEPHALIC - Eye Exam Eye Exam: EOMI, Normal appearance, PERRL Pupil Exam: NORMAL ACCOMODATION, PERRL - ENT Exam ENT Exam: Mucous Membranes Moist, Normal Exam - Neck Exam Neck exam: Positive for: Normal Inspection - Respiratory Exam Respiratory Exam: Clear to Auscultation Bilateral, NORMAL BREATHING PATTERN - Cardiovascular Exam Cardiovascular Exam: REGULAR RHYTHM, RRR, +S1, +S2 - GI/Abdominal Exam GI & Abdominal Exam: Normal Bowel Sounds, Soft, Tenderness Additional comments: tender to lower abd - Extremities Exam Extremities exam: Positive for: full ROM, normal capillary refill, normal inspection, pedal pulses present - Back Exam Back exam: NORMAL INSPECTION - Neurological Exam Neurological exam: Alert, CN II-XII Intact, Normal Gait, Oriented x3, Reflexes Normal - Psychiatric Exam Psychiatric exam: Normal Affect, Normal Mood - Skin Skin Exam: Dry, Intact, Normal Color, Warm Results - Vital Signs Recent Vital Signs: Last Vital Signs Temp 98.6 F 05/05/17 05:03 Pulse 76 05/05/17 05:03 Resp 20 05/05/17 05:03 BP 101/58 L 05/05/17 05:03 Pulse Ox 96 05/05/17 05:03 - Labs Result Diagrams: 05/05/17 04:30 05/05/17 04:30 Labs: Laboratory Results - last 24 hr 05/04/17 05/04/17 05/05/17 18:24 18:48 04:30 WBC 10.3 RBC 3.52 L Hgb 10.4 L Hct 32.8 L MCV 93.4 MCH 29.6 MCHC 31.7 L RDW 12.5 Plt Count 234 Sodium Potassium Chloride Carbon Dioxide Anion Gap BUN Creatinine Est GFR ( Amer) Est GFR (Non-Af Amer) POC Glucose (mg/dL) Random Glucose Calcium Total Bilirubin AST ALT Alkaline Phosphatase Total Protein Albumin Globulin Albumin/Globulin Ratio Urine Color Portia Urine Clarity Cloudy Urine pH 6.0 Ur Specific Barrett 1.015 Urine Protein 30 Urine Glucose (UA) Neg Urine Ketones Negative Urine Blood Negative Urine Nitrate Negative Urine Bilirubin Negative Urine Urobilinogen 0.2-1.0 Ur Leukocyte Esterase Small Urine RBC (Auto) 2 Urine Microscopic WBC 8 H Ur Squamous Epith Cells < 1 Hyaline Casts 3-5 H C. difficile Ag & Toxin Positive antigen 05/05/17 05/05/17 04:30 04:35 WBC RBC Hgb Hct MCV MCH MCHC RDW Plt Count Sodium 132 Potassium 3.5 L Chloride 84 L Carbon Dioxide 43 H* Anion Gap 9 L BUN 19 H Creatinine 0.7 Est GFR ( Amer) > 60 Est GFR (Non-Af Amer) > 60 POC Glucose (mg/dL) 232 H Random Glucose 206 H Calcium 8.2 L Total Bilirubin 0.8 AST 50 H D ALT 95 H D Alkaline Phosphatase 113 Total Protein 5.2 L Albumin 2.8 L Globulin 2.4 Albumin/Globulin Ratio 1.2 Urine Color Urine Clarity Urine pH Ur Specific Barrett Urine Protein Urine Glucose (UA) Urine Ketones Urine Blood Urine Nitrate Urine Bilirubin Urine Urobilinogen Ur Leukocyte Esterase Urine RBC (Auto) Urine Microscopic WBC Ur Squamous Epith Cells Hyaline Casts C. difficile Ag & Toxin Assessment & Plan (1) Colitis Assessment and Plan: zosyn for colitits ?? vanco or cpiro if gi thinks needed to vcover for cdiff nausea nad pain control monitor h/h gi Status: Acute (2) Sepsis Assessment and Plan: less likely cause of hypotension will monitor closely f/u all c/s Status: Acute (3) COPD (chronic obstructive pulmonary disease) Assessment and Plan: cont theophylline, nebs, steroid taper Status: Acute (4) DVT prophylaxis Assessment and Plan: scd and a ehose plavix lovenox on hold for rectal bleeding Status: Acute (5) UTI due to Klebsiella species Assessment and Plan: zosyn ?? vanco to be addeded pending labs Status: Acute (6) Diabetes 1.5, managed as type 1 Assessment and Plan: riss, home meds, fsbg Status: Chronic Decision To Admit - Pt Status Changed To: Hospital Disposition Of: Inpatient - Admit Certification Admit to Inpatient:: After my assessment, the patient will require hospitalization for at least two midnights. This is because of the severity of symptoms shown, intensity of services needed, and/or the medical risk in this patient being treated as an outpatient. - . Bed Request Type: Telemetry Admitting Physician: Luca Hurst
[2017-05-05] MEDS ORDERED: THEOPHYLLINE 400 MG PO SCH (09:00)
[2017-05-05] MEDS ORDERED: Theophylline 200mg ER 24 hrs Cap PO SCH (09:00)
[2017-05-05] MEDS: Insulin Lispro (humaLOG) 100 Units/ml Inj SC SCH ×7 (09:29→22:25)
[2017-05-05] MEDS: Silver Sulfadiazine 1% Cream (20 gm) TOP SCH ×2 (09:31→17:40)
[2017-05-05 11:18] LABS: ABG ALLEN TEST YES; ARTERIAL BLOOD GAS HCO3 37.2 mmol/L (21-28); ARTERIAL BLOOD GAS O2 CAPACITY 14.9 mL/dL (16-24); ARTERIAL BLOOD GAS O2 CONTENT 14.4 ML/dL (15-23); ARTERIAL BLOOD GAS PH 7.46 (7.35-7.45); ARTERIAL BLOOD GAS PO2 84 mm/Hg (80-100); ARTERIAL BLOOD HGB O2 SAT 94.3 % (95.0-98.0); CARBOXYHEMOGLOBIN 0.8 % (0.5-1.5); HHB 3.3 % (0.0-5.0); METHEMOGLOBIN 1.6 % (0.0-3.0)
[2017-05-05] MEDS: Potassium CL 10mEq/100ml 100 ML IVPB SCH (11:23)
--- NOTE | 2017-05-05 11:29 | PQF CHF ---
This form is a permanent part of the medical record 05/05/17 Neymar Khan APN, Documentation in the H&P of a history of CHF: Yes. Medication at home included Lasix which is on hold for now . Echo from 12/22/16 in the EMR with an EF of >70% , abnormal relaxation pattern, mild TR and moderate Pulm HTN. Please clarify the type of CHF if known Clarification of your documentation is requested to better reflect the severity of illness and intensity of treatment of your patient. Indicators present [x] Diagnosis of a history of CHF [] BNP > 200 [] Imaging Finding of Pulmonary Edema /Pleural Effusions [] Fluid/Volume Overload [] Pitting edema [] Ejection Fraction < 40% (Indicative of Systolic Heart Failure) [] Ejection Fraction > 40% (Indicative of Diastolic Heart Failure) [] Dyspnea / Orthopenea / Paroxysmal Nocturnal Dyspnea [] Other: Location in the medical record that reflects the above clinical findings: [] Treatment Provided: [] PHYSICIAN'S RESPONSE Based on your medical judgment of the clinical indicators outlined above, are you treating this patient for a known or suspected: [] Acute CHF [] Systolic [] Diastolic [] Combined [x] Chronic CHF [x] Systolic [] Diastolic [] Combined [] Acute on Chronic CHF []Systolic [] Diastolic [] Combined [] CHF due hypertension [] Acute systolic []Chronic systolic [] Acute/ chronic systolic [] Other, please indicate: [] [] If Unable to Determine, please check the box, sign and date. [] CHF ruled out Present On Admission (POA) Indicator: [] Present at the time of admission [] Not present at the time of admission [] Clinically Undetermined In responding to this query, please exercise your independent professional judgment. The fact that a question is asked does not imply that any particular answer is desired or expected. Thank you for your clarification on this documentation. If you have any questions please call:ext [phone] * Thank you, Sabrina Campos RN CDMP [facility]
[2017-05-05] MEDS ORDERED: Potassium Chloride 20 mEq ER Tab PO ONE (12:20)
--- NOTE | 2017-05-05 12:34 | PQF GENQUE ---
This form is a permanent part of the medical record 05/05/17 Neymar Khan APN, Documentation of a history of Asthma. Medications include: Nebulizers, Singulair. Please clarify the type of asthma if known. Clarification of your documentation is requested to better reflect the severity of illness and intensity of treatment of your patient. Indicators present [] Specify: [] [] Specify: [] [] Specify: [] [] Specify: [] Location in the medical record that reflects the above clinical findings: [] Treatment Provided: [] PHYSICIAN'S RESPONSE 1. Please clarify type of asthma: [] Childhood [] Cough variant [] Exercise induced [] Late onset [] Mild intermittent [] Mild persistent [x] Moderate persistent [] Severe persistent [] With bronchitis(please clarify acuity of bronchitis) [] With chronic lung disease (please document specific chronic lung disease ) [] Other (please specify) [] Clinically unable to determine [] Unknown 2. Please clarify acuity of asthma: [x] Uncomplicated [] With exacerbation(acute) [] With status asthmaticus [] Other (please specify) [] Clinically unable to determine [] Unknown Based on your medical judgment of the clinical indicators outlined above please clarify the following: [] Practitioner response [] If unable to determine, please check the box, sign and date. Present On Admission (POA) Indicator: [] Present at the time of admission [] Not present at the time of admission [] Clinically Undetermined In responding to this query, please exercise your independent professional judgment. The fact that a question is asked does not imply that any particular answer is desired or expected. Thank you for your clarification on this documentation. If you have any questions please call:ext [phone] * Thank you, Sabrina Campos RN CDMP [facility]
--- NOTE | 2017-05-05 18:48 | CON ---
HISTORY OF PRESENT ILLNESS: The patient is a 71-year-old female who was referred for pulmonary evaluation by Neymar Khan. She was transferred from a transitional care unit down to a medical floor because of blood-tinged mucoid stools on the day of admission. She is well known to me from a prior admission with an exacerbation of chronic obstructive pulmonary disease. She is awake and alert and responsive to questions appropriately. PAST MEDICAL HISTORY: She also has a past medical history of diabetes mellitus. FAMILY HISTORY: Nonrevealing. SOCIAL HISTORY: She does not smoke or drink. REVIEW OF SYSTEMS: Essentially remarkable for shortness of breath and cough. PHYSICAL EXAMINATION GENERAL: The patient is awake and alert, appears comfortable at present. VITAL SIGNS: Blood pressure 101/56 with a pulse of 76, respiratory rate 20. She is afebrile, O2 saturation 95% on nasal canula oxygen. SKIN: Shows fair turgor. HEENT: Pupils are equal and reactive to light and accommodation. JVP flat. Mouth shows fair hygiene. LUNGS: Fair aeration with audible wheeze and a mild rales. HEART: S1 and S2. ABDOMEN: Soft, nontender, no organomegaly. EXTREMITIES: Show no edema or cyanosis. CENTRAL NERVOUS SYSTEM EXAM: Grossly intact. LABORATORY DATA: Remarkable for WBC of 10.3, hemoglobin 10.4, and platelet count 234,000. Sodium 132, potassium 3.5, BUN 19, creatinine 0.7, CO2 content of 43, and glucose of 206. Chest x-ray shows mild bibasilar atelectasis and/or scarring, left greater than right, cardiomegaly, persistent elevation of right hemidiaphragm. IMPRESSION: Acute exacerbation of colitis. The patient also has chronic obstructive pulmonary disease with mucus plugging of airways, diabetes mellitus poorly controlled. PLAN: Suggest gastroenterology evaluation for mucoid stools. Would continue therapy for COPD as ordered. The patient's CO2 content is elevated due to chronic obstructive pulmonary disease. There is no indication at present for BiPAP therapy since the patient's clinical condition indicates compensated chronic obstructive pulmonary disease with acid-base status that appears compensated. We will continue to treat as ordered. Continue to follow with you. Orlando Patino MD
[2017-05-05] MEDS: Insulin Detemir 100 Units/ml Inj SC SCH (22:27)
[2017-05-06] MEDS: Albuterol-Ipratrop 3 mg / 0.5 (3 ml) UD IH SCH ×4 (01:08→19:20)
[2017-05-06] MEDS: Piperacillin/Tazobact 3.375 GM in Sodium Chloride 0.9% 100 ML IVPB SCH ×4 (03:24→22:11)
[2017-05-06 05:59] LABS: HEMATOCRIT 32.5 % (34.0-47.0); MEAN CELL VOLUME 94.5 fl (81.0-99.0); MEAN CORPUSCULAR HEMOGLOBIN 28.8 pg (27.0-31.0); MEAN CORPUSCULAR HGB CONC 30.5 g/dL (33.0-37.0); RED CELL DISTRIBUTION WIDTH 12.8 % (11.5-14.5); WHITE BLOOD COUNT 11.7 K/uL (4.8-10.8)
[2017-05-06 06:11] LABS: BLOOD UREA NITROGEN 10 mg/dl (7-17); CALCIUM 8.5 mg/dL (8.4-10.2); CARBON DIOXIDE 36 mmol/L (22-30); CHLORIDE 91 mmol/L (98-107); GFR AFRICAN-AMERICAN > 60; GLUCOSE,RANDOM 177 mg/dL (65-105); POTASSIUM 3.9 MMOL/L (3.6-5.0); SODIUM 133 mmol/l (132-148)
[2017-05-06] MEDS: Acetylcysteine 20% Inhal Soln (4ml) INH SCH ×2 (08:15→19:20)
--- NOTE | 2017-05-06 08:25 | CP.PCM.PN ---
Subjective - Date & Time of Evaluation Date of Evaluation: 05/06/17 Time of Evaluation: 08:23 - Subjective Subjective: doing well, no complaints. no f/c, n/v/d, no further bloody bm. sunil po. repeat cdiff test negative. Objective - Vital Signs/Intake and Output Vital Signs (last 24 hours): Temp Pulse Resp BP Pulse Ox 98.0 F 79 20 110/65 100 05/06/17 08:00 05/06/17 08:00 05/06/17 08:00 05/06/17 08:00 05/06/17 08:00 - Medications Medications: Current Medications Acetylcysteine (Acetylcysteine 20%) 2 ml INH RBID [facility] Last Admin: 05/06/17 08:15 Dose: 2 ml Albuterol/Ipratropium (Duoneb 3 Mg/0.5 Mg (3 Ml) Ud) 3 ml INH Q4 PRN PRN Reason: Shortness of Breath Albuterol/Ipratropium (Duoneb 3 Mg/0.5 Mg (3 Ml) Ud) 3 ml IH RQ6 [facility] Last Admin: 05/06/17 08:15 Dose: 3 ml Atorvastatin Calcium (Lipitor) 10 mg PO HS [facility] Last Admin: 05/05/17 22:28 Dose: 10 mg Famotidine (Pepcid) 20 mg PO BID [facility] Last Admin: 05/05/17 16:40 Dose: 20 mg Fentanyl (Duragesic) 1 patch TD Q72H [facility] PRN Reason: Protocol Gabapentin (Neurontin) 300 mg PO TID [facility] Last Admin: 05/05/17 16:39 Dose: 300 mg Home Med (Theophylline) 400 mg PO BID [facility] Piperacillin Sod/Tazobactam (Sod 3.375 gm/ Sodium Chloride) 100 mls @ 100 mls/ hr IVPB Q6 [facility] Last Admin: 05/06/17 03:24 Dose: 100 mls/hr Insulin Detemir (Levemir) 35 units SC HS [facility] Last Admin: 05/05/17 22:27 Dose: 35 units Insulin Human Lispro (Humalog) 0 units SC ACHS [facility] PRN Reason: Protocol Last Admin: 05/05/17 22:25 Dose: Not Given Insulin Human Lispro (Humalog) 14 units SC AC [facility] Last Admin: 05/05/17 16:40 Dose: 14 units Ketorolac Tromethamine (Toradol) 30 mg IVP Q6 PRN PRN Reason: Pain, moderate (4-7) Last Admin: 05/05/17 22:39 Dose: 30 mg Meclizine HCl (Antivert) 25 mg PO TID [facility] Last Admin: 05/05/17 16:39 Dose: 25 mg Montelukast Sodium (Singulair) 10 mg PO HS [facility] Last Admin: 05/05/17 22:26 Dose: 10 mg Ondansetron HCl (Zofran Inj) 4 mg IVP Q6 PRN PRN Reason: Nausea/Vomiting Oxycodone HCl (Oxycodone Immediate Release Tab) 30 mg PO Q6H PRN PRN Reason: Pain, severe (8-10) Last Admin: 05/05/17 15:17 Dose: 30 mg Silver Sulfadiazine (Silvadene 1% 20 Gm) 1 ea TOP BID [facility] Last Admin: 05/05/17 17:40 Dose: 1 applic - Labs Labs: 05/06/17 05:20 05/06/17 05:20 - Constitutional Appears: Well, Non-toxic, No Acute Distress - Head Exam Head Exam: ATRAUMATIC, NORMAL INSPECTION, NORMOCEPHALIC - Eye Exam Eye Exam: EOMI, Normal appearance, PERRL Pupil Exam: NORMAL ACCOMODATION, PERRL - ENT Exam ENT Exam: Mucous Membranes Moist, Normal Exam - Neck Exam Neck Exam: Full ROM, Normal Inspection. absent: Lymphadenopathy - Respiratory Exam Respiratory Exam: Clear to Ausculation Bilateral, NORMAL BREATHING PATTERN - Cardiovascular Exam Cardiovascular Exam: REGULAR RHYTHM, RRR, +S1, +S2. absent: Murmur - GI/Abdominal Exam GI & Abdominal Exam: Soft, Normal Bowel Sounds. absent: Tenderness - Extremities Exam Extremities Exam: Full ROM, Normal Capillary Refill, Normal Inspection. absent : Joint Swelling, Pedal Edema - Back Exam Back Exam: NORMAL INSPECTION - Neurological Exam Neurological Exam: Abnormal Gait, Alert, Awake, CN II-XII Intact, Oriented x3 - Psychiatric Exam Psychiatric exam: Normal Affect, Normal Mood - Skin Skin Exam: Dry, Intact, Normal Color, Warm Assessment and Plan (1) Colitis Status: Acute (2) Sepsis Status: Acute (3) COPD (chronic obstructive pulmonary disease) Status: Acute (4) DVT prophylaxis Status: Acute (5) UTI due to Klebsiella species Status: Acute (6) Diabetes 1.5, managed as type 1 Status: Chronic - Assessment and Plan (Free Text) Assessment: (1) Colitis Assessment and Plan: zosyn for colitits ?? vanco or cpiro if gi thinks needed to vcover for cdiff-repeat cs negative, hold further tx per now nausea nad pain control monitor h/h gi Status: Acute (2) Sepsis Assessment and Plan: less likely cause of hypotension will monitor closely f/u all c/s Status: Acute (3) COPD (chronic obstructive pulmonary disease) Assessment and Plan: cont theophylline, nebs, steroid taper Status: Acute (4) DVT prophylaxis Assessment and Plan: scd and a ehose plavix lovenox on hold for rectal bleeding Status: Acute (5) UTI due to Klebsiella species Assessment and Plan: zosyn ?? vanco to be addeded pending labs Status: Acute (6) Diabetes 1.5, managed as type 1 Assessment and Plan: riss, home meds, fsbg Status: Chronic
[2017-05-06] MEDS: Insulin Lispro (humaLOG) 100 Units/ml Inj SC SCH ×7 (09:25→22:05)
[2017-05-06] MEDS: Silver Sulfadiazine 1% Cream (20 gm) TOP SCH ×2 (09:27→17:05)
[2017-05-06] MEDS: Insulin Detemir 100 Units/ml Inj SC SCH (23:00)
[2017-05-07] MEDS: Albuterol-Ipratrop 3 mg / 0.5 (3 ml) UD IH SCH ×3 (01:00→13:11)
[2017-05-07] MEDS: Piperacillin/Tazobact 3.375 GM in Sodium Chloride 0.9% 100 ML IVPB SCH ×2 (04:44→09:29)
[2017-05-07 06:50] LABS: BASO % 0.5 % (0.0-2.0); EOS # 0.2 K/uL (0.0-0.7); EOS % 3.2 % (0.0-4.0); HEMATOCRIT 32.3 % (34.0-47.0); LYMPH # 1.4 K/uL (1.0-4.3); LYMPH % 18.2 % (20.0-40.0); MEAN CELL VOLUME 93.8 fl (81.0-99.0); MEAN CORPUSCULAR HEMOGLOBIN 29.3 pg (27.0-31.0); MEAN CORPUSCULAR HGB CONC 31.2 g/dL (33.0-37.0); MONO # 0.6 K/uL (0.0-0.8); MONO % 8.2 % (0.0-10.0); NEUT # 5.4 K/uL (1.8-7.0); NEUT % 69.9 % (50.0-75.0); NRBC % 0.1 % (0.0-0.0); RED CELL DISTRIBUTION WIDTH 12.5 % (11.5-14.5); WHITE BLOOD COUNT 7.8 K/uL (4.8-10.8)
[2017-05-07 06:55] LABS: ALB/GLOB RATIO 1.2 (1.0-2.1); ALKALINE PHOSPHATASE 118 U/L (38-126); ALT/SGPT 56 U/L (9-52); AST/SGOT 18 U/L (14-36); BILIRUBIN,TOTAL 0.4 mg/dl (0.2-1.3); BLOOD UREA NITROGEN 9 mg/dl (7-17); CALCIUM 8.5 mg/dL (8.4-10.2); CARBON DIOXIDE 31 mmol/L (22-30); CHLORIDE 97 mmol/L (98-107); GFR AFRICAN-AMERICAN > 60; GLUCOSE,RANDOM 194 mg/dL (65-105); POTASSIUM 4.5 MMOL/L (3.6-5.0); SODIUM 134 mmol/l (132-148); TOTAL PROTEIN 5.5 G/DL (6.3-8.2)
--- NOTE | 2017-05-07 07:12 | CP.PCM.PN ---
Subjective - Date & Time of Evaluation Date of Evaluation: 05/07/17 Time of Evaluation: 07:11 - Subjective Subjective: pt comfortable in bed, no f/c, n/v/d. no further bloody bm. still w/ dyspnea on exertion. no wheezing at present. bw noted Objective - Vital Signs/Intake and Output Vital Signs (last 24 hours): Temp Pulse Resp BP Pulse Ox 98.7 F 75 19 134/72 98 05/07/17 05:02 05/07/17 05:02 05/07/17 05:02 05/07/17 05:02 05/07/17 05:02 Intake and Output: 05/07/17 05/07/17 06:59 18:59 Intake Total 680 Output Total 1200 Balance -520 - Medications Medications: Current Medications Acetylcysteine (Acetylcysteine 20%) 2 ml INH RBID [facility] Last Admin: 05/06/17 19:20 Dose: 2 ml Albuterol/Ipratropium (Duoneb 3 Mg/0.5 Mg (3 Ml) Ud) 3 ml INH Q4 PRN PRN Reason: Shortness of Breath Albuterol/Ipratropium (Duoneb 3 Mg/0.5 Mg (3 Ml) Ud) 3 ml IH RQ6 [facility] Last Admin: 05/07/17 01:00 Dose: 3 ml Atorvastatin Calcium (Lipitor) 10 mg PO HS [facility] Last Admin: 05/06/17 22:10 Dose: 10 mg Famotidine (Pepcid) 20 mg PO BID [facility] Last Admin: 05/06/17 17:05 Dose: 20 mg Fentanyl (Duragesic) 1 patch TD Q72H [facility] PRN Reason: Protocol Gabapentin (Neurontin) 300 mg PO TID [facility] Last Admin: 05/06/17 17:05 Dose: 300 mg Home Med (Theophylline) 400 mg PO BID [facility] Piperacillin Sod/Tazobactam (Sod 3.375 gm/ Sodium Chloride) 100 mls @ 100 mls/ hr IVPB Q6 [facility] Last Admin: 05/07/17 04:44 Dose: 100 mls/hr Insulin Detemir (Levemir) 35 units SC HS [facility] Last Admin: 05/06/17 23:00 Dose: Not Given Insulin Human Lispro (Humalog) 0 units SC ACHS [facility] PRN Reason: Protocol Last Admin: 05/06/17 22:05 Dose: Not Given Insulin Human Lispro (Humalog) 14 units SC AC [facility] Last Admin: 05/06/17 16:58 Dose: Not Given Ketorolac Tromethamine (Toradol) 30 mg IVP Q6 PRN PRN Reason: Pain, moderate (4-7) Last Admin: 05/06/17 22:10 Dose: 30 mg Meclizine HCl (Antivert) 25 mg PO TID [facility] Last Admin: 05/06/17 17:05 Dose: 25 mg Montelukast Sodium (Singulair) 10 mg PO HS [facility] Last Admin: 05/06/17 22:10 Dose: 10 mg Ondansetron HCl (Zofran Inj) 4 mg IVP Q6 PRN PRN Reason: Nausea/Vomiting Oxycodone HCl (Oxycodone Immediate Release Tab) 30 mg PO Q6H PRN PRN Reason: Pain, severe (8-10) Last Admin: 05/05/17 15:17 Dose: 30 mg Silver Sulfadiazine (Silvadene 1% 20 Gm) 1 ea TOP BID [facility] Last Admin: 05/06/17 17:05 Dose: 1 applic - Labs Labs: 05/07/17 05:00 05/07/17 05:00 - Constitutional Appears: Well, Non-toxic, No Acute Distress - Head Exam Head Exam: ATRAUMATIC, NORMAL INSPECTION, NORMOCEPHALIC - Eye Exam Eye Exam: EOMI, Normal appearance, PERRL Pupil Exam: NORMAL ACCOMODATION, PERRL - ENT Exam ENT Exam: Mucous Membranes Moist, Normal Exam - Neck Exam Neck Exam: Full ROM, Normal Inspection. absent: Lymphadenopathy - Respiratory Exam Respiratory Exam: Clear to Ausculation Bilateral, NORMAL BREATHING PATTERN - Cardiovascular Exam Cardiovascular Exam: REGULAR RHYTHM, RRR, +S1, +S2. absent: Murmur - GI/Abdominal Exam GI & Abdominal Exam: Soft, Normal Bowel Sounds. absent: Tenderness - Extremities Exam Extremities Exam: Full ROM, Normal Capillary Refill, Normal Inspection. absent : Joint Swelling, Pedal Edema - Back Exam Back Exam: NORMAL INSPECTION - Neurological Exam Neurological Exam: Abnormal Gait, Alert, Awake, CN II-XII Intact, Oriented x3 - Psychiatric Exam Psychiatric exam: Normal Affect, Normal Mood - Skin Skin Exam: Dry, Intact, Normal Color, Warm Assessment and Plan (1) Colitis Assessment & Plan: cont zosyn gi adv diet Status: Acute (2) Sepsis Assessment & Plan: r/o Status: Acute (3) COPD (chronic obstructive pulmonary disease) Assessment & Plan: cont nebs, theophylline doing well home o2 Status: Acute (4) DVT prophylaxis Assessment & Plan: scd and ae hose lovenox Status: Acute (5) UTI due to Klebsiella species Assessment & Plan: zosyn Status: Acute (6) Diabetes 1.5, managed as type 1 Assessment & Plan: riss, home meds, fsbg Status: Chronic - Assessment and Plan (Free Text) Assessment: chronic pain-cont meds
[2017-05-07] MEDS: Acetylcysteine 20% Inhal Soln (4ml) INH SCH (07:54)
--- NOTE | 2017-05-07 08:31 | PQF BMI ---
This form is a permanent part of the medical record 05/07/17 Neymar Khan [employer] WORK[employer], [facility] has the patient listed as 5' , weighing 248 pounds with a BMI of 48.4. Dietary consult noted. Would you please clarify if there is an additional diagnosis to go along with the elevated BMI. If yes please document the diagnosis AND the BMI . Clarification of your documentation is requested to better reflect the severity of illness and intensity of treatment of your patient. Indicators present [x] Documented BMI>40 (48.4) [] Nutritional/Glove Maker consults x[] 100 pounds or more over ideal body weight [x] Documented BMI / HT & WT [] Other : [] Location in the medical record that reflects the above clinical findings: [] Other Treatment Provided: [] PHYSICIAN'S RESPONSE Based on your medical judgment of the clinical indicators outlined above, please define the following: [x] Morbid obesity with a BMI of ___44.2____ [] Obesity with a BMI of [] Other [] [] No additional diagnosis [] If unable to determine, please check the box, sign and date. Present On Admission (POA) Indicator: [x] Present at the time of admission [] Not present at the time of admission [] Clinically Undetermined In responding to this query, please exercise your independent professional judgment. The fact that a question is asked does not imply that any particular answer is desired or expected. Thank you for your clarification on this documentation. If you have any questions please call:ext [phone] * Thank you, Sabrina Campos RN CDMP [facility]
[2017-05-07] MEDS: Insulin Lispro (humaLOG) 100 Units/ml Inj SC SCH ×6 (09:30→17:34)
[2017-05-07] MEDS: Silver Sulfadiazine 1% Cream (20 gm) TOP SCH (09:34)
[2017-05-07 12:15] VITALS: TEMP 98.5
[2017-05-07 15:38] VITALS: BP 143/75; PULSE 91; RESP 20; O2SAT 98
--- NOTE | 2017-05-07 15:44 | CP.PCM.DIS ---
Provider - Provider Date of Admission: 05/04/17 18:22 Attending physician: Luca Hurst MD Time Spent in preparation of Discharge (in minutes): 15 Diagnosis - Discharge Diagnosis (1) Colitis Status: Acute (2) Sepsis Status: Acute (3) COPD (chronic obstructive pulmonary disease) Status: Acute (4) DVT prophylaxis Status: Acute (5) UTI due to Klebsiella species Status: Acute (6) Diabetes 1.5, managed as type 1 Status: Chronic Hospital Course - Lab Results Lab Results: Micro Results 05/04/17 18:24 Urine,Armas Urine Culture - Final No Growth (<1,000 CFU/ML) Most Recent Lab Values WBC 7.8 K/uL (4.8-10.8) 05/07/17 05:00 RBC 3.44 Mil/uL (3.80-5.20) L 05/07/17 05:00 Hgb 10.1 g/dL (12.0-16.0) L 05/07/17 05:00 Hct 32.3 % (34.0-47.0) L 05/07/17 05:00 MCV 93.8 fl (81.0-99.0) 05/07/17 05:00 MCH 29.3 pg (27.0-31.0) 05/07/17 05:00 MCHC 31.2 g/dL (33.0-37.0) L 05/07/17 05:00 RDW 12.5 % (11.5-14.5) 05/07/17 05:00 Plt Count 187 K/uL (130-400) 05/07/17 05:00 MPV 7.0 fl (7.2-11.7) L 05/07/17 05:00 Neut % (Auto) 69.9 % (50.0-75.0) 05/07/17 05:00 Lymph % (Auto) 18.2 % (20.0-40.0) L 05/07/17 05:00 [place] % (Auto) 8.2 % (0.0-10.0) 05/07/17 05:00 Eos % (Auto) 3.2 % (0.0-4.0) 05/07/17 05:00 Baso % (Auto) 0.5 % (0.0-2.0) 05/07/17 05:00 Neut # 5.4 K/uL (1.8-7.0) 05/07/17 05:00 Lymph # 1.4 K/uL (1.0-4.3) 05/07/17 05:00 [place] # 0.6 K/uL (0.0-0.8) 05/07/17 05:00 Eos # 0.2 K/uL (0.0-0.7) 05/07/17 05:00 Baso # 0.0 K/uL (0.0-0.2) 05/07/17 05:00 pCO2 59 mm/Hg (35-45) H 05/05/17 10:55 pO2 84 mm/Hg (80-100) 05/05/17 10:55 HCO3 37.2 mmol/L (21-28) H 05/05/17 10:55 ABG pH 7.46 (7.35-7.45) H 05/05/17 10:55 ABG Total CO2 43.8 mmol/L (22-28) H 05/05/17 10:55 ABG O2 Saturation 96.6 % (95-98) 05/05/17 10:55 ABG O2 Content 14.4 ML/dL (15-23) L 05/05/17 10:55 ABG Base Excess 15.8 mmol/L (-2.0-3.0) H 05/05/17 10:55 ABG Hemoglobin 10.8 g/dL (11.7-17.4) L 05/05/17 10:55 ABG Carboxyhemoglobin 0.8 % (0.5-1.5) 05/05/17 10:55 POC ABG HHb (Measured) 3.3 % (0.0-5.0) 05/05/17 10:55 ABG Methemoglobin 1.6 % (0.0-3.0) 05/05/17 10:55 ABG O2 Capacity 14.9 mL/dL (16-24) L 05/05/17 10:55 Lester Test Yes 05/05/17 10:55 ABG Potassium 3.8 mmol/L (3.6-5.2) 05/04/17 16:59 A-a O2 Difference 42.0 mm/Hg 05/05/17 10:55 Hgb O2 Saturation 94.3 % (95.0-98.0) L 05/05/17 10:55 Sodium 130.0 mmol/L (132-148) L 05/04/17 16:59 Chloride 88.0 mmol/L (98-107) L 05/04/17 16:59 Glucose 204 mg/dL (65-105) H 05/04/17 16:59 Lactate 1.3 mmol/L (0.7-2.1) 05/04/17 16:59 FiO2 28.0 % 05/05/17 10:55 Crit Value Called To herbert Carrera 05/04/17 16:59 Crit Value Called By 203 05/04/17 16:59 Crit Value Read Back Y 05/04/17 16:59 Blood Gas Notified Time 1705 05/04/17 16:59 Sodium 134 mmol/l (132-148) 05/07/17 05:00 Potassium 4.5 MMOL/L (3.6-5.0) 05/07/17 05:00 Chloride 97 mmol/L (98-107) L 05/07/17 05:00 Carbon Dioxide 31 mmol/L (22-30) H 05/07/17 05:00 Anion Gap 11 (10-20) 05/07/17 05:00 BUN 9 mg/dl (7-17) 05/07/17 05:00 Creatinine 0.5 mg/dL (0.7-1.2) L 05/07/17 05:00 Est GFR ( Amer) > 60 05/07/17 05:00 Est GFR (Non-Af Amer) > 60 05/07/17 05:00 POC Glucose (mg/dL) 136 mg/dL (65-110) H 05/07/17 11:09 Random Glucose 194 mg/dL (65-105) H 05/07/17 05:00 Calcium 8.5 mg/dL (8.4-10.2) 05/07/17 05:00 Total Bilirubin 0.4 mg/dl (0.2-1.3) 05/07/17 05:00 AST 18 U/L (14-36) 05/07/17 05:00 ALT 56 U/L (9-52) H D 05/07/17 05:00 Alkaline Phosphatase 118 U/L (38-126) 05/07/17 05:00 Troponin I < 0.0120 ng/mL (0.00-0.120) 05/04/17 16:35 Total Protein 5.5 G/DL (6.3-8.2) L 05/07/17 05:00 Albumin 3.0 g/dL (3.5-5.0) L 05/07/17 05:00 Globulin 2.5 gm/dL (2.2-3.9) 05/07/17 05:00 Albumin/Globulin Ratio 1.2 (1.0-2.1) 05/07/17 05:00 Arterial Blood Potassium 3.8 mmol/L (3.6-5.2) 05/04/17 16:59 Urine Color [place] (YELLOW) 05/04/17 18:24 Urine Clarity Cloudy (Clear) 05/04/17 18:24 Urine pH 6.0 (5.0-8.0) 05/04/17 18:24 Ur Specific [place] 1.015 (1.003-1.030) 05/04/17 18:24 Urine Protein 30 mg/dL (NEGATIVE) 05/04/17 18:24 Urine Glucose (UA) Neg mg/dL (Normal) 05/04/17 18:24 Urine Ketones Negative mg/dL (NEGATIVE) 05/04/17 18:24 Urine Blood Negative (NEGATIVE) 05/04/17 18:24 Urine Nitrate Negative (NEGATIVE) 05/04/17 18:24 Urine Bilirubin Negative (NEGATIVE) 05/04/17 18:24 Urine Urobilinogen 0.2-1.0 mg/dL (0.2-1.0) 05/04/17 18:24 Ur Leukocyte Esterase Small Mani/uL (Negative) 05/04/17 18:24 Urine RBC (Auto) 2 /hpf (0-3) 05/04/17 18:24 Urine Microscopic WBC 8 /hpf (0-5) H 05/04/17 18:24 Ur Squamous Epith Cells < 1 /hpf (0-5) 05/04/17 18:24 Hyaline Casts 3-5 /hpf (0-2) H 05/04/17 18:24 C. difficile Ag & Toxin Negative (NEGATIVE) 05/07/17 07:52 Blood Type O POSITIVE 05/04/17 16:35 Antibody Screen Negative 05/04/17 16:35 BBK History Checked Patient has bt 05/04/17 16:35 Discharge Exam - Head Exam Head Exam: ATRAUMATIC, NORMAL INSPECTION, NORMOCEPHALIC Discharge Plan - Discharge Medications Prescriptions: Ciprofloxacin HCl [Cipro] 500 mg PO BID #14 tab fentaNYL 50 mcg/hr [Duragesic Patch 50 mcg/hr] 1 patch TD Q72H #2 patch - Follow Up Plan Condition: FAIR Disposition: HOME/ ROUTINE Additional Instructions: pt cleared by gi for dc. breathing well. has home o2 and hoem care set up final dx-copd exacerbation, colitits anbx escribed f/u rmg 2 days, gi as directed
--- NOTE | 2017-05-08 06:42 | PQF GENQUE ---
This form is a permanent part of the medical record 05/08/17 Neymar Khan APN, Please clarify the type of colitis if known. Please clarify the relationship, if any, between the + C DIFF antigen x 1 AND the colitis. Transfer from TCU with low BP, more confused, abdominal pain and bloody diarrhea. Prior to TCU patient was admitted for COPD exacerbation and UTI. CT shows colitis. Stool for C difficile antigen + x 1 on 05/04 then negative x 2. ( , 05/07) Treated with Zosyn. Clarification of your documentation is requested to better reflect the severity of illness and intensity of treatment of your patient. Indicators present [] Specify: [] [] Specify: [] [] Specify: [] [] Specify: [] Location in the medical record that reflects the above clinical findings: [] Treatment Provided: [] PHYSICIAN'S RESPONSE [] C. Difficile colitis [] Non -infectious colitis [x] Infectious [] Drug induced [] Ulcerative [] Other please specify: [] Unable to determine Based on your medical judgment of the clinical indicators outlined above please clarify the following: [] Practitioner response [] If unable to determine, please check the box, sign and date. Present On Admission (POA) Indicator: [] Present at the time of admission [] Not present at the time of admission [] Clinically Undetermined In responding to this query, please exercise your independent professional judgment. The fact that a question is asked does not imply that any particular answer is desired or expected. Thank you for your clarification on this documentation. If you have any questions please call:ext [phone] * Thank you, Sabrina Campos RN CDMP MTDD
--- NOTE | 2017-05-08 06:51 | PQF GENQUE ---
This form is a permanent part of the medical record 05/08 Neymar Khan APN, Please specify your intended meaning of 'r/o sepsis' : H&P with documentation of Sepsis less likely cause of hypotension. Progress note 05/07: Sepsis r/o. Clarification of your documentation is requested to better reflect the severity of illness and intensity of treatment of your patient. Indicators present [] Specify: [] [] Specify: [] [] Specify: [] [] Specify: [] Location in the medical record that reflects the above clinical findings: [] Treatment Provided: [] PHYSICIAN'S RESPONSE [] Patient has sepsis Please document suspected or confirmed causative organism Please document suspected or confirmed localized infection Please clarify if sepsis is related to a device Please clarify if sepsis was present on admission [x] Sepsis was ruled out [] Patient had sepsis which is now resolved [] Other condition (please specify) [] Clinically unable to determine [] Unknown Based on your medical judgment of the clinical indicators outlined above please clarify the following: [] Practitioner response [] If unable to determine, please check the box, sign and date. Present On Admission (POA) Indicator: [] Present at the time of admission [] Not present at the time of admission [] Clinically Undetermined In responding to this query, please exercise your independent professional judgment. The fact that a question is asked does not imply that any particular answer is desired or expected. Thank you for your clarification on this documentation. If you have any questions please call:[phone] * Thank you, Sabrina Campos RN [facility]
== END 2017-05-07 17:07 | disposition home health service (06) | DRG 392 ==
LOC: H.ER 16:18 → H.ERHOLD 18:22 → H.TEL 19:53
PROVIDERS: ADMIT Family Medicine; ATTEND Family Medicine
DX: A09 Infectious gastroenteritis and colitis, unspecified (principal); N39.0 Urinary tract infection, site not specified; J44.1 Chronic obstructive pulmonary disease with (acute) exacerbation; I50.22 Chronic systolic (congestive) heart failure; Z68.41 Body mass index [BMI] 40.0-44.9, adult; I11.0 Hypertensive heart disease with heart failure; E66.01 Morbid (severe) obesity due to excess calories; B96.1 Klebsiella pneumoniae [K. pneumoniae] as the cause of diseases classified elsewhere; I95.9 Hypotension, unspecified; J45.40 Moderate persistent asthma, uncomplicated; E10.9 Type 1 diabetes mellitus without complications; G89.29 Other chronic pain; E78.00 Pure hypercholesterolemia, unspecified; F41.9 Anxiety disorder, unspecified; Z91.041 Radiographic dye allergy status; Z91.013 Allergy to seafood; Z87.440 Personal history of urinary (tract) infections

== ENCOUNTER 2018-12-15 13:08 | Inpatient (IN) | payer MEDICARE, MEDICAID ==
[2018-12-15 13:09] VITALS: BMI 45.7
[2018-12-15] MEDS ORDERED: Barium Sulfate Susp 2.1% w/v, 2.0% w/w 450 mL Bottle PO ONE ×3 (14:05→15:00)
--- NOTE | 2018-12-15 14:23 | ED PDOC ---
HPI: Abdomen Time Seen by Provider: 12/15/18 13:22 Chief Complaint (Nursing): Abdominal Pain History Per: Patient (Mitra has been having abdominal pain for 2-3 days along with worsening distention. She denies fever, chills, or urinary complaints. There is no vomiting or diarrhea. The pain is mostly on the right side. She has had both cholecystectomy and appendectomy in the past. ) Past Medical History Reviewed: Historical Data, Nursing Documentation, Vital Signs Vital Signs: Last Vital Signs Temp 97.9 F 12/15/18 13:11 Pulse 114 H 12/15/18 13:11 Resp 16 12/15/18 13:11 BP 135/69 12/15/18 13:11 Pulse Ox 97 12/15/18 13:11 - Medical History PMH: Anemia, Anxiety, Arthritis, Asthma, Back Problems, Bronchitis, CHF, COPD (O2 CONCENTRATOR AT HOME), Dementia (Self reports forgetfulness), Depression, Diabetes, Emphysema, HTN, Hypercholesterolemia, Chronic Kidney Disease (HX RENAL INSUFFICIENCY) - Surgical History Surgical History: Appendectomy, Cholecystectomy - Family History Family History: States: No Known Family Hx - Living Arrangements Living Arrangements: With Family - Immunization History Hx Tetanus Toxoid Vaccination: No Hx Influenza Vaccination: Yes Hx Pneumococcal Vaccination: No - Home Medications Home Medications: Ambulatory Orders Medication Instructions Recorded Simvastatin 20 mg PO HS 02/03/14 Xanax 0.5 mg PO TID 02/21/14 Plavix 75 mg PO DAILY 06/05/14 Insulin Detemir [Levemir] 35 unit SC HS #0 unit 07/30/15 Famotidine [Pepcid] 20 mg PO BID 12/11/16 Insulin Aspart, Recombinant 14 unit SC AC 12/11/16 [Novolog] Linagliptin [Tradjenta] 5 mg PO DAILY 12/11/16 Meclizine [Meclizine*] 25 mg PO Q8 04/20/17 Furosemide [Lasix] 40 mg PO DAILY tab 04/24/17 Potassium Chloride 10 meq PO DAILY 10/28/17 Albuterol/Ipratropium [Duoneb 3 3 ml IH RQ6 30 Days neb 02/23/18 mg/0.5 mg (3 ml) UD] Insulin Lispro [Humalog Kwikpen 35 unit SQ TID 12/15/18 U-100] Linaclotide [Linzess] 145 mcg PO DAILY 12/15/18 Losartan [Cozaar] 50 mg PO DAILY 12/15/18 Montelukast [Singulair] 10 mg PO HS 12/15/18 Theophylline [Uniphyl] 400 mg PO DAILY 12/15/18 - Allergies Allergies/Adverse Reactions: Allergies Allergy/AdvReac Type Severity Reaction Status Date / Time FISH Allergy Intermediate ITCHING Verified 10/28/17 09:24 iodine Allergy Intermediate ITCHING Verified 02/17/18 13:20 Review of Systems ROS Statement: Except As Marked, All Systems Reviewed And Found Negative Constitutional: Negative for: Fever, Chills Gastrointestinal: Positive for: Abdominal Pain. Negative for: Nausea, Vomiting, Diarrhea, Constipation Physical Exam - Reviewed Nursing Documentation Reviewed: Yes Vital Signs Reviewed: Yes - Physical Exam Appears: Positive for: Well, Non-toxic, No Acute Distress Head Exam: Positive for: ATRAUMATIC, NORMAL INSPECTION, NORMOCEPHALIC Skin: Positive for: Normal Color, Warm, DRY Eye Exam: Positive for: EOMI, Normal appearance, PERRL ENT: Positive for: Normal ENT Inspection Neck: Positive for: Normal, Painless ROM Cardiovascular/Chest: Positive for: Regular Rate, Rhythm Respiratory: Positive for: CNT, Normal Breath Sounds Gastrointestinal/Abdominal: Positive for: Normal Exam, Bowel Sounds, Tenderness (right lateral and lower abdomen.), Distended. Negative for: Guarding, Rebound Back: Positive for: Normal Inspection Extremity: Positive for: Normal ROM Neurological/Psych: Positive for: Awake, Alert, Normal Tone - Laboratory Results Result Diagrams: 12/17/18 05:25 12/17/18 05:25 - ECG O2 Sat by Pulse Oximetry: 97 Disposition - Clinical Impression Clinical Impression: Diverticulitis - Patient ED Disposition Is Patient to be Admitted: Transfer of Care - Disposition Disposition: Transfer of Care Disposition Time: 15:00 Condition: FAIR Patient Signed Over To: Ernestine Dixon Present On Arrival: None
[2018-12-15 14:30] LABS: BASO % 0.7 % (0.0-2.0); EOS # 0.1 K/uL (0.0-0.7); EOS % 1.9 % (0.0-4.0); HEMOGLOBIN 12.3 g/dL (12.0-16.0); MEAN CELL VOLUME 92.6 fl (81.0-99.0); MEAN CORPUSCULAR HEMOGLOBIN 29.4 pg (27.0-31.0); MEAN CORPUSCULAR HGB CONC 31.8 g/dL (33.0-37.0); MEAN PLATELET VOLUME 7.5 fl (7.2-11.7); MONO # 0.7 K/uL (0.0-0.8); NEUT # 3.7 K/uL (1.8-7.0); NEUT % 66.4 % (50.0-75.0); NRBC % 0.1 % (0.0-0.0); RBC 4.2 Mil/uL (3.80-5.20); RED CELL DISTRIBUTION WIDTH 12.7 % (11.5-14.5); WHITE BLOOD COUNT 5.6 K/uL (4.8-10.8)
[2018-12-15 14:39] LABS: ALB/GLOB RATIO 1.2 (1.0-2.1); ALBUMIN 3.6 g/dL (3.5-5.0); ALT/SGPT 39 U/L (9-52); AST/SGOT 35 U/L (14-36); BLOOD UREA NITROGEN 9 mg/dl (7-17); CALCIUM 8.7 mg/dL (8.4-10.2); GFR NON-AFRICAN AMERICAN > 60; LIPASE 38 U/L (23-300)
--- NOTE | 2018-12-15 16:12 | ED PDOC ---
- Laboratory Results Result Diagrams: 12/15/18 14:20 12/15/18 14:20 Lab Results: Total Bilirubin 0.6 mg/dl (0.2-1.3) 12/15/18 14:20 AST 35 U/L (14-36) 12/15/18 14:20 ALT 39 U/L (9-52) 12/15/18 14:20 Alkaline Phosphatase 117 U/L (38-126) 12/15/18 14:20 Total Protein 6.5 G/DL (6.3-8.2) 12/15/18 14:20 Albumin 3.6 g/dL (3.5-5.0) 12/15/18 14:20 Globulin 2.9 gm/dL (2.2-3.9) 12/15/18 14:20 Albumin/Globulin Ratio 1.2 (1.0-2.1) 12/15/18 14:20 Lipase 38 U/L (23-300) 12/15/18 14:20 - ECG O2 Sat by Pulse Oximetry: 97 (RA) Pulse Ox Interpretation: Normal Medical Decision Making Medical Decision Making: Time: 15:00 73 year old female presented with abdominal pain, reportedly distended, with surgical history. She was signed out to me by Dr. Garcia pending workup for obstruction including labs, CT, and reevaluation. 1723 CT FINDINGS: There is limited evaluation of the solid organs without the administration of IV contrast. LOWER THORAX: Bibasilar atelectasis. No visible pleural effusion or pneumothorax. LIVER: Hepatomegaly. Hypoattenuation of the liver compatible with hepatic steatosis. Coarse calcification in the left hepatic lobe. GALLBLADDER AND BILE DUCTS: Unremarkable. PANCREAS: Unremarkable unenhanced appearance. SPLEEN: Unremarkable unenhanced appearance. ADRENALS: Unremarkable unenhanced appearance. KIDNEYS AND URETERS: No hydronephrosis or obstructing renal calculus. BLADDER: The urinary bladder appears unremarkable. REPRODUCTIVE: Uterus is absent consistent with hysterectomy APPENDIX: No secondary signs of acute appendicitis. BOWEL: The stomach is nondistended. The bowel loops appear within normal limits of caliber without evidence of intestinal obstruction. Diverticulosis without evidence of wall thickening and mild inflammatory stranding at the distal left/sigmoid colon consistent with acute diverticulitis. PERITONEUM: No significant free fluid. No definite free air. LYMPH NODES: No bulky lymphadenopathy identified. VASCULATURE: Atherosclerotic calcifications of the aorta. No aortic aneurysm. BONES: Posterior lumbar fusion of the lower lumbar spine; streak artifact precludes adequate evaluation of hardware placement; correlate clinically and follow-up with dedicated lumbar spine imaging if indicated. OTHER FINDINGS: None. IMPRESSION: Diverticulosis without evidence of wall thickening and mild inflammatory st randing at the distal left/sigmoid colon consistent with acute diverticulitis. Hepatomegaly. Hypoattenuation of the liver compatible with hepatic steatosis. Calcification within the left hepatic lobe. Hysterectomy. Posterior lumbar fusion of the lower lumbar spine; streak artifact precludes adequate evaluation of hardware placement; correlate clinically and follow-up with dedicated lumbar spine imaging if indicated. Additional findings as above. Scribe Attestation: Documented by Nallely Baez, acting as a scribe for Ernestine Dixon MD. Provider Scribe Attestation: All medical record entries made by the Scribe were at my direction and personally dictated by me. I have reviewed the chart and agree that the record accurately reflects my personal performance of the history, physical exam, medical decision making, and the department course for this patient. I have also personally directed, reviewed, and agree with the discharge instructions and disposition. 1815: Labs unremarkable and CT shows diverticulitis with stranding and hepatomegaly but no acute obstruction, or infection. On re-evaluation, pt visibly distended with diffuse tenderness. Will consult surgery for further evaluation of hepatic cause/ascites as pt unable to sit up without significant pain. 19:00: Pt evaluated by surgery with Diverticulitis/stranding seen on CT. Pt to be admitted for Diverticulitis and started on IV Zosyn. Spoke with Neymar Khan/Jenni for admission. Disposition - Clinical Impression Clinical Impression: Diverticulitis - POA Present On Arrival: None - Disposition Disposition: Admitted as In-Patient Disposition Time: 19:21 Forms: [employer] (N[place]ian)
--- NOTE | 2018-12-15 17:27 | CT ---
PROCEDURE: CT Abdomen and Pelvis without IV contrast. HISTORY: abd pain and distention COMPARISON: None available. TECHNIQUE: Contiguous axial images of the abdomen and pelvis. Oral contrast was administered. No IV contrast given. Coronal and Sagittal reformats generated and reviewed. Radiation dose: Total exam DLP = 947.62 mGy-cm. This CT exam was performed using one or more of the following dose reduction techniques: Automated exposure control, adjustment of the mA and/or kV according to patient size, and/or use of iterative reconstruction technique. FINDINGS: There is limited evaluation of the solid organs without the administration of IV contrast. LOWER THORAX: Bibasilar atelectasis. No visible pleural effusion or pneumothorax. LIVER: Hepatomegaly. Hypoattenuation of the liver compatible with hepatic steatosis. Coarse calcification in the left hepatic lobe. GALLBLADDER AND BILE DUCTS: Unremarkable. PANCREAS: Unremarkable unenhanced appearance. SPLEEN: Unremarkable unenhanced appearance. ADRENALS: Unremarkable unenhanced appearance. KIDNEYS AND URETERS: No hydronephrosis or obstructing renal calculus. BLADDER: The urinary bladder appears unremarkable. REPRODUCTIVE: Uterus is absent consistent with hysterectomy APPENDIX: No secondary signs of acute appendicitis. BOWEL: The stomach is nondistended. The bowel loops appear within normal limits of caliber without evidence of intestinal obstruction. Diverticulosis without evidence of wall thickening and mild inflammatory stranding at the distal left/sigmoid colon consistent with acute diverticulitis. PERITONEUM: No significant free fluid. No definite free air. LYMPH NODES: No bulky lymphadenopathy identified. VASCULATURE: Atherosclerotic calcifications of the aorta. No aortic aneurysm. BONES: Posterior lumbar fusion of the lower lumbar spine; streak artifact precludes adequate evaluation of hardware placement; correlate clinically and follow-up with dedicated lumbar spine imaging if indicated. OTHER FINDINGS: None. IMPRESSION: Diverticulosis without evidence of wall thickening and mild inflammatory stranding at the distal left/sigmoid colon consistent with acute diverticulitis. Hepatomegaly. Hypoattenuation of the liver compatible with hepatic steatosis. Calcification within the left hepatic lobe. Hysterectomy. Posterior lumbar fusion of the lower lumbar spine; streak artifact precludes adequate evaluation of hardware placement; correlate clinically and follow-up with dedicated lumbar spine imaging if indicated. Additional findings as above.
[2018-12-15] MEDS ORDERED: Piperacillin/Tazobact 3.375 GM in Sodium Chloride 0.9% 100 ML IVPB STA (19:22)
--- NOTE | 2018-12-15 19:43 | CARD ---
APPROVED REPORT Date of service: 12/15/2018 EKG Measurement Heart [id number] <Conclusion> Sinus tachycardia with premature atrial complexes Moderate voltage criteria for LVH, may be normal variant Borderline ECG
[2018-12-15] MEDS ORDERED: Piperacillin/Tazobact 3.375 gm Inj IVPB ONE (20:58)
--- NOTE | 2018-12-15 21:14 | CP.PCM.CON ---
<Kimberly Goel - Last Filed: 12/16/18 07:44> History of Present Illness - History of Present Illness History of Present Illness: General Surgery: Dr. Ferrell Consulted for diverticulitis Patient is a 73 yr old female with PMH HTN, HLD, CHF, COPD, renal insufficiency, arthritis, incontinence, cataracts presenting to [facility] ED for evaluation of LLQ abdominal pain x 3days and one episode of nausea but no vomiting yesterday. Today pt began to have loose stools. Patient otherwise deneis MARADIAGA, SOB, CP, f/c, blood in stool vomiting. 12 point ROS otherwise negative PMH:HTN, HLD, CHF, COPD, renal insufficiency, arthritis, incontinence, cataracts PSH:open cholecystectomy, appendectomy All: Fish, iodine Social: PMD: Victor Review of Systems - Review of Systems All systems: reviewed and no additional remarkable complaints except (as per HPI) Past Patient History - Infectious Disease Hx of Infectious Diseases: None - Tetanus Immunizations Tetanus Immunization: Unknown - Past Medical History & Family History Past Medical History?: Yes - Past Social History Smoking Status: Former Smoker - CARDIAC Hx Congestive Heart Failure: Yes Hx Hypercholesterolemia: Yes Hx Hypertension: Yes - PULMONARY Hx Asthma: Yes Hx Bronchitis: Yes Hx Chronic Obstructive Pulmonary Disease (COPD): Yes (O2 CONCENTRATOR AT HOME) Hx Emphysema: Yes - NEUROLOGICAL Hx Dementia: Yes (Self reports forgetfulness) - HEENT Hx HEENT Problems: Yes Hx Cataracts: Yes (BILAT) - RENAL Hx Chronic Kidney Disease: Yes (HX RENAL INSUFFICIENCY) - HEMATOLOGICAL/ONCOLOGICAL Hx Anemia: Yes - INTEGUMENTARY Hx Dermatological Problems: No - MUSCULOSKELETAL/RHEUMATOLOGICAL Hx Arthritis: Yes - GENITOURINARY/GYNECOLOGICAL Hx Genitourinary Disorders: Yes Hx Incontinence: Yes (uses diapers at home for incontinence at times) - PSYCHIATRIC Hx Anxiety: Yes Hx Depression: Yes - SURGICAL HISTORY Hx Appendectomy: Yes Hx Cholecystectomy: Yes - ANESTHESIA Hx Anesthesia: Yes Hx Anesthesia Reactions: No Hx Malignant Hyperthermia: No Meds Allergies/Adverse Reactions: Allergies Allergy/AdvReac Type Severity Reaction Status Date / Time FISH Allergy Intermediate ITCHING Verified 10/28/17 09:24 iodine Allergy Intermediate ITCHING Verified 02/17/18 13:20 - Medications Medications: Current Medications Albuterol/Ipratropium (Duoneb 3 Mg/0.5 Mg (3 Ml) Ud) 3 ml IH RQ6 [facility] Alprazolam (Xanax) 0.5 mg PO TID [facility] Atorvastatin Calcium (Lipitor) 10 mg PO HS [facility] Clopidogrel Bisulfate (Plavix) 75 mg PO DAILY [facility] Famotidine (Pepcid) 20 mg PO BID [facility] Furosemide (Lasix) 40 mg PO DAILY [facility] Home Med (Linaclotide [Linzess]) 145 mcg PO DAILY [facility] Home Med (Linagliptin [Tradjenta]) 5 mg PO DAILY [facility] Sodium Chloride (Sodium Chloride 0.9%) 1,000 mls @ 100 mls/hr IV .Q10H [facility] Stop: 12/16/18 20:42 Piperacillin Sod/Tazobactam (Sod 3.375 gm/ Sodium Chloride) 100 mls @ 100 mls/hr IVPB Q6 [facility]; Protocol Insulin Detemir (Levemir) 35 units SC HS [facility] Insulin Human Lispro (Humalog) 35 units SC TID [facility] Ketorolac Tromethamine (Toradol) 15 mg IVP Q6 PRN PRN Reason: pain 6-10 Losartan Potassium (Cozaar) 50 mg PO DAILY [facility] Meclizine HCl (Antivert) 25 mg PO Q8 [facility] Montelukast Sodium (Singulair) 10 mg PO HS [facility] Potassium Chloride (Klor-Con 10) 10 meq PO DAILY [facility] Theophylline (Uniphyl) 400 mg PO DAILY [facility] Physical Exam - Constitutional Appears: Well, Non-toxic, No Acute Distress - Head Exam Head Exam: ATRAUMATIC, NORMOCEPHALIC - Eye Exam Eye Exam: EOMI - ENT Exam ENT Exam: Mucous Membranes Moist - Respiratory Exam Respiratory Exam: NORMAL BREATHING PATTERN - Cardiovascular Exam Cardiovascular Exam: REGULAR RHYTHM - GI/Abdominal Exam GI & Abdominal Exam: Distended, Soft, Tenderness (LLQ). absent: Guarding, Rebound, Rigid Additional comments: subcostal scar noted from cholecystectomy - Extremities Exam Extremities exam: Negative for: calf tenderness, pedal edema - Neurological Exam Neurological exam: Alert, Oriented x3 - Psychiatric Exam Psychiatric exam: Normal Affect, Normal Mood - Skin Skin Exam: Dry, Intact, Normal Color, Warm Results - Vital Signs Recent Vital Signs: Last Vital Signs Temp 97.6 F 12/15/18 20:00 Pulse 104 H 12/15/18 20:00 Resp 18 12/15/18 20:00 BP 137/68 12/15/18 20:00 Pulse Ox 98 12/15/18 20:00 - Labs Result Diagrams: 12/16/18 05:55 12/16/18 05:55 Labs: Laboratory Results - last 24 hr 12/15/18 12/15/18 14:20 14:20 WBC 5.6 RBC 4.20 Hgb 12.3 D Hct 38.9 MCV 92.6 MCH 29.4 MCHC 31.8 L RDW 12.7 Plt Count 231 MPV 7.5 Neut % (Auto) 66.4 Lymph % (Auto) 18.0 L [place] % (Auto) 13.0 H Eos % (Auto) 1.9 Baso % (Auto) 0.7 Neut # (Auto) 3.7 Lymph # (Auto) 1.0 [place] # (Auto) 0.7 Eos # (Auto) 0.1 Baso # (Auto) 0.0 Sodium 132 Potassium 3.7 Chloride 93 L Carbon Dioxide 36 H Anion Gap 7 L BUN 9 Creatinine 0.4 L Est GFR ( Amer) > 60 Est GFR (Non-Af Amer) > 60 Random Glucose 191 H Calcium 8.7 Total Bilirubin 0.6 AST 35 ALT 39 Alkaline Phosphatase 117 Total Protein 6.5 Albumin 3.6 Globulin 2.9 Albumin/Globulin Ratio 1.2 Lipase 38 Assessment & Plan - Assessment and Plan (Free Text) Assessment: 73 F with LLQ pain and acute diverticulitis on CT scan Plan: - abx - IVF - NPO - bowel rest - recommend GI consult - will discuss with Dr. Mariaelena Goel, PGY 1 - Date & Time Date: 12/15/18 Time: 18:30 <Gonzalo Montesinos - Last Filed: 12/16/18 09:58> Meds - Medications Medications: Current Medications Albuterol/Ipratropium (Duoneb 3 Mg/0.5 Mg (3 Ml) Ud) 3 ml IH RQ6 [facility] Last Admin: 12/16/18 07:36 Dose: 3 ml Alprazolam (Xanax) 0.5 mg PO TID [facility] Last Admin: 12/16/18 09:00 Dose: 0.5 mg Atorvastatin Calcium (Lipitor) 10 mg PO HS [facility] Last Admin: 12/15/18 22:32 Dose: 10 mg Clopidogrel Bisulfate (Plavix) 75 mg PO DAILY [facility] Last Admin: 12/16/18 08:54 Dose: 75 mg Famotidine (Pepcid) 20 mg PO BID [facility] Last Admin: 12/16/18 08:48 Dose: 20 mg Furosemide (Lasix) 40 mg PO DAILY [facility] Last Admin: 12/16/18 08:50 Dose: 40 mg Home Med (Linaclotide [Linzess]) 145 mcg PO DAILY [facility] Home Med (Linagliptin [Tradjenta]) 5 mg PO DAILY [facility] Sodium Chloride (Sodium Chloride 0.9%) 1,000 mls @ 100 mls/hr IV .Q10H [facility] Stop: 12/16/18 20:42 Last Admin: 12/16/18 05:51 Dose: 100 mls/hr Piperacillin Sod/Tazobactam (Sod 3.375 gm/ Sodium Chloride) 100 mls @ 100 mls/hr IVPB Q6 [facility]; Protocol Last Admin: 12/16/18 09:01 Dose: 100 mls/hr Insulin Detemir (Levemir) 35 units SC [facility] Last Admin: 12/15/18 22:33 Dose: 35 units Insulin Human Lispro (Humalog) 35 units SC TID [facility] Last Admin: 12/16/18 09:08 Dose: Not Given Ketorolac Tromethamine (Toradol) 15 mg IVP Q6 PRN PRN Reason: pain 6-10 Last Admin: 12/16/18 05:50 Dose: 15 mg Losartan Potassium (Cozaar) 50 mg PO DAILY [facility] Last Admin: 12/16/18 08:49 Dose: 50 mg Meclizine HCl (Antivert) 25 mg PO Q8 [facility] Last Admin: 12/16/18 08:49 Dose: 25 mg Montelukast Sodium (Singulair) 10 mg PO HS [facility] Last Admin: 12/15/18 22:32 Dose: 10 mg Potassium Chloride (Klor-Con 10) 10 meq PO DAILY [facility] Last Admin: 12/16/18 08:51 Dose: 10 meq Theophylline (Uniphyl) 400 mg PO DAILY [facility] Last Admin: 12/16/18 08:50 Dose: 400 mg Results - Vital Signs Recent Vital Signs: Last Vital Signs Temp 97.7 F 12/16/18 08:47 Pulse 100 H 12/16/18 08:49 Resp 18 12/16/18 08:47 BP 111/60 04/18/19 08:50 Pulse Ox 95 12/16/18 08:47 - Labs Result Diagrams: 12/16/18 05:55 12/16/18 05:55 Labs: Laboratory Results - last 24 hr 12/15/18 12/15/18 12/15/18 14:20 14:20 22:36 WBC 5.6 RBC 4.20 Hgb 12.3 D Hct 38.9 MCV 92.6 MCH 29.4 MCHC 31.8 L RDW 12.7 Plt Count 231 MPV 7.5 Neut % (Auto) 66.4 Lymph % (Auto) 18.0 L [place] % (Auto) 13.0 H Eos % (Auto) 1.9 Baso % (Auto) 0.7 Neut # (Auto) 3.7 Lymph # (Auto) 1.0 [place] # (Auto) 0.7 Eos # (Auto) 0.1 Baso # (Auto) 0.0 Sodium 132 Potassium 3.7 Chloride 93 L Carbon Dioxide 36 H Anion Gap 7 L BUN 9 Creatinine 0.4 L Est GFR ( Amer) > 60 Est GFR (Non-Af Amer) > 60 POC Glucose (mg/dL) 195 H Random Glucose 191 H Calcium 8.7 Phosphorus Magnesium Total Bilirubin 0.6 AST 35 ALT 39 Alkaline Phosphatase 117 Total Protein 6.5 Albumin 3.6 Globulin 2.9 Albumin/Globulin Ratio 1.2 Lipase 38 12/16/18 12/16/18 12/16/18 05:39 05:55 05:55 WBC 5.7 RBC 3.99 Hgb 11.8 L Hct 37.4 MCV 93.6 MCH 29.5 MCHC 31.5 L RDW 12.8 Plt Count 212 MPV 7.7 Neut % (Auto) 65.8 Lymph % (Auto) 17.1 L [place] % (Auto) 13.9 H Eos % (Auto) 2.7 Baso % (Auto) 0.5 Neut # (Auto) 3.7 Lymph # (Auto) 1.0 [place] # (Auto) 0.8 Eos # (Auto) 0.2 Baso # (Auto) 0.0 Sodium 134 Potassium 3.6 Chloride 95 L Carbon Dioxide 35 H Anion Gap 8 L BUN 8 Creatinine 0.5 L Est GFR ( Amer) > 60 Est GFR (Non-Af Amer) > 60 POC Glucose (mg/dL) 173 H Random Glucose 161 H Calcium 8.3 L Phosphorus 3.0 Magnesium 2.1 Total Bilirubin 0.5 AST 43 H D ALT 40 Alkaline Phosphatase 118 Total Protein 6.1 L Albumin 3.4 L Globulin 2.7 Albumin/Globulin Ratio 1.2 Lipase Assessment & Plan - Assessment and Plan (Free Text) Plan: 73yo F with Hx of HTN, COPD, CHF presents with 3 day history of LLQ pain, constant non radiating associated with nausea but no vomiting. Pt denies any previous similar episodes. Pt denies any previous similar episode. Colonoscopy about 5 years about - pt unable to recalled results. PShx: cholecystectomy, hysterectomy, appendectomy gen: awake, alert, NAD HEENT: NC/AT, EOMI, PERRLA resp: CTA b/l card: S1S2 abd: soft, obese, +minimal tenderness to LLQ, no peritoneal signs, well healed blaise incision a/p 73yo F with acute diverticulits -pain control as needed -IVF -ok to start clears -cont IV abx -GI f/u -no acute surgical intervention will follow clinically
[2018-12-15] MEDS: Sodium Chloride 0.9% 1,000 ML IV SCH (22:32)
[2018-12-15] MEDS: Insulin Detemir 100 Units/ml Inj SC SCH (22:33)
[2018-12-15] MEDS: Piperacillin/Tazobact 3.375 GM in Sodium Chloride 0.9% 100 ML IVPB SCH (22:49)
[2018-12-16] MEDS: Albuterol-Ipratrop 3 mg / 0.5 (3 ml) UD IH SCH ×4 (01:40→18:59)
[2018-12-16] MEDS: Piperacillin/Tazobact 3.375 GM in Sodium Chloride 0.9% 100 ML IVPB SCH ×4 (04:03→21:23)
[2018-12-16] MEDS: Sodium Chloride 0.9% 1,000 ML IV SCH ×2 (05:51→16:19)
[2018-12-16 06:02] LABS: BASO % 0.5 % (0.0-2.0); EOS # 0.2 K/uL (0.0-0.7); EOS % 2.7 % (0.0-4.0); HEMOGLOBIN 11.8 g/dL (12.0-16.0); LYMPH % 17.1 % (20.0-40.0); MEAN CELL VOLUME 93.6 fl (81.0-99.0); MEAN CORPUSCULAR HEMOGLOBIN 29.5 pg (27.0-31.0); MEAN CORPUSCULAR HGB CONC 31.5 g/dL (33.0-37.0); MEAN PLATELET VOLUME 7.7 fl (7.2-11.7); MONO # 0.8 K/uL (0.0-0.8); MONO % 13.9 % (0.0-10.0); NEUT # 3.7 K/uL (1.8-7.0); NEUT % 65.8 % (50.0-75.0); NRBC % 0.1 % (0.0-0.0); RBC 3.99 Mil/uL (3.80-5.20); RED CELL DISTRIBUTION WIDTH 12.8 % (11.5-14.5); WHITE BLOOD COUNT 5.7 K/uL (4.8-10.8)
[2018-12-16 06:24] LABS: ALB/GLOB RATIO 1.2 (1.0-2.1); ALBUMIN 3.4 g/dL (3.5-5.0); ALT/SGPT 40 U/L (9-52); AST/SGOT 43 U/L (14-36); BLOOD UREA NITROGEN 8 mg/dl (7-17); CALCIUM 8.3 mg/dL (8.4-10.2); GFR NON-AFRICAN AMERICAN > 60
--- NOTE | 2018-12-16 07:08 | CP.PCM.PN ---
<Gallo Mike - Last Filed: 12/16/18 07:08> Subjective - Date & Time of Evaluation Date of Evaluation: 12/16/18 Time of Evaluation: 07:08 - Subjective Subjective: Surgery Progress Note- Dr. Montesinos Objective - Vital Signs/Intake and Output Vital Signs (last 24 hours): Temp Pulse Resp BP Pulse Ox 97.3 F L 99 H 19 154/76 H 97 12/15/18 22:15 12/16/18 01:40 12/15/18 22:15 12/15/18 22:15 12/15/18 22:15 - Medications Medications: Current Medications Albuterol/Ipratropium (Duoneb 3 Mg/0.5 Mg (3 Ml) Ud) 3 ml IH RQ6 [facility] Last Admin: 12/16/18 01:40 Dose: 3 ml Alprazolam (Xanax) 0.5 mg PO TID [facility] Last Admin: 12/15/18 22:49 Dose: 0.5 mg Atorvastatin Calcium (Lipitor) 10 mg PO HS [facility] Last Admin: 12/15/18 22:32 Dose: 10 mg Clopidogrel Bisulfate (Plavix) 75 mg PO DAILY [facility] Famotidine (Pepcid) 20 mg PO BID [facility] Furosemide (Lasix) 40 mg PO DAILY [facility] Home Med (Linaclotide [Linzess]) 145 mcg PO DAILY [facility] Home Med (Linagliptin [Tradjenta]) 5 mg PO DAILY [facility] Sodium Chloride (Sodium Chloride 0.9%) 1,000 mls @ 100 mls/hr IV .Q10H [facility] Stop: 12/16/18 20:42 Last Admin: 12/16/18 05:51 Dose: 100 mls/hr Piperacillin Sod/Tazobactam (Sod 3.375 gm/ Sodium Chloride) 100 mls @ 100 mls/hr IVPB Q6 [facility]; Protocol Last Admin: 12/16/18 04:03 Dose: 100 mls/hr Insulin Detemir (Levemir) 35 units SC HS [facility] Last Admin: 12/15/18 22:33 Dose: 35 units Insulin Human Lispro (Humalog) 35 units SC TID [facility] Ketorolac Tromethamine (Toradol) 15 mg IVP Q6 PRN PRN Reason: pain 6-10 Last Admin: 12/16/18 05:50 Dose: 15 mg Losartan Potassium (Cozaar) 50 mg PO DAILY [facility] Meclizine HCl (Antivert) 25 mg PO Q8 [facility] Last Admin: 12/16/18 01:08 Dose: 25 mg Montelukast Sodium (Singulair) 10 mg PO HS [facility] Last Admin: 12/15/18 22:32 Dose: 10 mg Potassium Chloride (Klor-Con 10) 10 meq PO DAILY [facility] Theophylline (Uniphyl) 400 mg PO DAILY [facility] - Labs Labs: 12/16/18 05:55 12/16/18 05:55 Assessment and Plan - Assessment and Plan (Free Text) Assessment: 73F w/ Acute Diverticulitis; first episode Plan: - pain control PRN - IVAbx - <Gonzalo Montesinos - Last Filed: 12/16/18 10:26> Subjective - Subjective Subjective: pt seen at bedside, states she slighly feels better. Pt afebrile, hemodynamically stable. Pt currently NPO. gen: awake, alert, NAD, on NC O2 no acute respiratory distress abd: soft, obese, minimal discomfort to LLQ on deep palpation, no peritoneal signs -cont abx -clear liquid diet - no acute surgical intervention Objective - Vital Signs/Intake and Output Vital Signs (last 24 hours): Temp Pulse Resp BP Pulse Ox 97.7 F 100 H 18 111/60 95 12/16/18 08:47 12/16/18 08:49 12/16/18 08:47 12/16/18 08:50 12/16/18 08:47 - Medications Medications: Current Medications Albuterol/Ipratropium (Duoneb 3 Mg/0.5 Mg (3 Ml) Ud) 3 ml IH RQ6 [facility] Last Admin: 12/16/18 07:36 Dose: 3 ml Alprazolam (Xanax) 0.5 mg PO TID [facility] Last Admin: 12/16/18 09:00 Dose: 0.5 mg Atorvastatin Calcium (Lipitor) 10 mg PO HS [facility] Last Admin: 12/15/18 22:32 Dose: 10 mg Clopidogrel Bisulfate (Plavix) 75 mg PO DAILY [facility] Last Admin: 12/16/18 08:54 Dose: 75 mg Famotidine (Pepcid) 20 mg PO BID [facility] Last Admin: 12/16/18 08:48 Dose: 20 mg Furosemide (Lasix) 40 mg PO DAILY [facility] Last Admin: 12/16/18 08:50 Dose: 40 mg Home Med (Linaclotide [Linzess]) 145 mcg PO DAILY [facility] Home Med (Linagliptin [Tradjenta]) 5 mg PO DAILY [facility] Sodium Chloride (Sodium Chloride 0.9%) 1,000 mls @ 100 mls/hr IV .Q10H [facility] Stop: 12/16/18 20:42 Last Admin: 12/16/18 05:51 Dose: 100 mls/hr Piperacillin Sod/Tazobactam (Sod 3.375 gm/ Sodium Chloride) 100 mls @ 100 mls/hr IVPB Q6 [facility]; Protocol Last Admin: 12/16/18 09:01 Dose: 100 mls/hr Insulin Detemir (Levemir) 35 units SC [facility] Last Admin: 12/15/18 22:33 Dose: 35 units Insulin Human Lispro (Humalog) 35 units SC TID [facility] Last Admin: 12/16/18 09:08 Dose: Not Given Ketorolac Tromethamine (Toradol) 15 mg IVP Q6 PRN PRN Reason: pain 6-10 Last Admin: 12/16/18 05:50 Dose: 15 mg Losartan Potassium (Cozaar) 50 mg PO DAILY [facility] Last Admin: 12/16/18 08:49 Dose: 50 mg Meclizine HCl (Antivert) 25 mg PO Q8 [facility] Last Admin: 12/16/18 08:49 Dose: 25 mg Montelukast Sodium (Singulair) 10 mg PO HS [facility] Last Admin: 12/15/18 22:32 Dose: 10 mg Potassium Chloride (Klor-Con 10) 10 meq PO DAILY [facility] Last Admin: 12/16/18 08:51 Dose: 10 meq Theophylline (Uniphyl) 400 mg PO DAILY [facility] Last Admin: 12/16/18 08:50 Dose: 400 mg - Labs Labs: 12/16/18 05:55 12/16/18 05:55
[2018-12-16] MEDS: THEOPHYLLINE 400 MG T24(UNIPHYL) PO SCH (08:50)
[2018-12-16] MEDS: Potassium Chloride 10 mEq ER Tab PO SCH (08:51)
[2018-12-16] MEDS: Insulin Lispro (humaLOG) 100 Units/ml Inj SC SCH ×3 (09:08→16:13)
[2018-12-16] MEDS: Patient's Own Med (Linagliptin [Tradjenta] 5 MG) PO SCH (10:34)
[2018-12-16] MEDS: Insulin Detemir 100 Units/ml Inj SC SCH (21:25)
[2018-12-17] MEDS: Albuterol-Ipratrop 3 mg / 0.5 (3 ml) UD IH SCH ×4 (01:33→19:12)
[2018-12-17] MEDS: Piperacillin/Tazobact 3.375 GM in Sodium Chloride 0.9% 100 ML IVPB SCH ×4 (03:15→21:22)
[2018-12-17 06:12] LABS: BASO % 0.5 % (0.0-2.0); EOS # 0.2 K/uL (0.0-0.7); EOS % 3.8 % (0.0-4.0); HEMOGLOBIN 11.5 g/dL (12.0-16.0); LYMPH # 1.1 K/uL (1.0-4.3); LYMPH % 24.3 % (20.0-40.0); MEAN CELL VOLUME 94.4 fl (81.0-99.0); MEAN CORPUSCULAR HEMOGLOBIN 29.2 pg (27.0-31.0); MEAN CORPUSCULAR HGB CONC 30.9 g/dL (33.0-37.0); MEAN PLATELET VOLUME 7.5 fl (7.2-11.7); MONO # 0.7 K/uL (0.0-0.8); NEUT # 2.4 K/uL (1.8-7.0); NEUT % 55.4 % (50.0-75.0); NRBC % 0.1 % (0.0-0.0); RBC 3.93 Mil/uL (3.80-5.20); RED CELL DISTRIBUTION WIDTH 13.4 % (11.5-14.5); WHITE BLOOD COUNT 4.4 K/uL (4.8-10.8)
[2018-12-17 06:27] LABS: ALB/GLOB RATIO 1.2 (1.0-2.1); ALBUMIN 3.2 g/dL (3.5-5.0); ALT/SGPT 47 U/L (9-52); AST/SGOT 46 U/L (14-36); BLOOD UREA NITROGEN 7 mg/dl (7-17); GFR NON-AFRICAN AMERICAN > 60
--- NOTE | 2018-12-17 08:21 | HP ---
HISTORY OF PRESENT ILLNESS: The patient admitted for diverticulitis. At present without pain, fever, chills, nausea, vomiting, or diarrhea. All labs and imaging have been noted case d/c w/ gi. REVIEW OF SYSTEMS: Abdominal pain, nausea, vomiting. PHYSICAL EXAMINATION: CONSTITUTIONAL: Awake, alert, oriented, Slovenian speaking. HEENT: Within normal limits. HEART: Regular rate and rhythm. No murmurs, rubs, or gallops. LUNGS: Clear to auscultation bilaterally. ABDOMEN: Soft, nontender. Bowel sounds x4. EXTREMITIES: Distal pulses, motor sensation is intact. Cap refill brisk DIAGNOSES AND PLAN: 1. Diverticulitis. Gastroenterology consult appriciated. Advance diet to full liquid. at present pain controlled and nausea controlled. 2. Deep venous thrombosis prophylaxis. ae hose and ambulation. Continue all the medications. Continue follow up labs, imaging and further treatment as indicated. FRANCES Cole NATE
[2018-12-17] MEDS: Patient's Own Med (Linagliptin [Tradjenta] 5 MG) PO SCH (08:46)
[2018-12-17] MEDS: THEOPHYLLINE 400 MG T24(UNIPHYL) PO SCH (08:46)
[2018-12-17] MEDS: Potassium Chloride 10 mEq ER Tab PO SCH (08:47)
[2018-12-17] MEDS: Insulin Lispro (humaLOG) 100 Units/ml Inj SC SCH ×3 (08:49→16:38)
--- NOTE | 2018-12-17 09:27 | CP.PCM.PN ---
Subjective - Date & Time of Evaluation Date of Evaluation: 12/17/18 Time of Evaluation: 09:22 - Subjective Subjective: General Surgery Pt examined this AM. She reports having nausea this AM but no longer does. She states she is isn't drinking much of her clear liquid diet and doesn't feel like she is ready to advance her diet. She reports she wants to go home. (-) vomiting, (+)flatus, (+) nonbloody diarrhea, afebrile. Labs and vitals noted. PE Gen: Pt laying in bed in NAD. Morbidly obese Skin: warm and dry Cardio: s1s2 RRR Lungs: CTA bilaterally in anterior lung chapin Abd: Soft, (-) distended, (+) mild LLQ tenderness with deep palpation. Extr: (-)calf tenderness bilaterally A/P Diverticulitis Continue IV abx Advance diet as tolerated Encourage OOB Pains meds prn Objective - Vital Signs/Intake and Output Vital Signs (last 24 hours): Temp Pulse Resp BP Pulse Ox 97.5 F L 89 19 104/63 97 12/17/18 07:39 12/17/18 08:47 12/17/18 07:39 12/17/18 08:48 12/17/18 07:39 - Medications Medications: Current Medications Albuterol/Ipratropium (Duoneb 3 Mg/0.5 Mg (3 Ml) Ud) 3 ml IH RQ6 [facility] Last Admin: 12/17/18 07:54 Dose: 3 ml Alprazolam (Xanax) 0.5 mg PO TID [facility] Last Admin: 12/17/18 08:45 Dose: 0.5 mg Atorvastatin Calcium (Lipitor) 10 mg PO HS [facility] Last Admin: 12/16/18 21:24 Dose: 10 mg Clopidogrel Bisulfate (Plavix) 75 mg PO DAILY [facility] Last Admin: 12/17/18 08:47 Dose: 75 mg Famotidine (Pepcid) 20 mg PO BID [facility] Last Admin: 12/17/18 08:47 Dose: 20 mg Furosemide (Lasix) 40 mg PO DAILY [facility] Last Admin: 12/17/18 08:48 Dose: 40 mg Home Med (Linaclotide [Linzess]) 145 mcg PO DAILY [facility] Last Admin: 12/17/18 08:46 Dose: 145 mcg Home Med (Linagliptin [Tradjenta]) 5 mg PO DAILY [facility] Last Admin: 12/17/18 08:46 Dose: 5 mg Piperacillin Sod/Tazobactam (Sod 3.375 gm/ Sodium Chloride) 100 mls @ 100 mls/hr IVPB Q6 [facility]; Protocol Last Admin: 12/17/18 03:15 Dose: 100 mls/hr Insulin Detemir (Levemir) 35 units SC HS [facility] Last Admin: 12/16/18 21:25 Dose: 35 units Insulin Human Lispro (Humalog) 35 units SC TID [facility] Last Admin: 12/17/18 08:49 Dose: 35 units Ketorolac Tromethamine (Toradol) 15 mg IVP Q6 PRN PRN Reason: pain 6-10 Last Admin: 12/17/18 04:33 Dose: 15 mg Losartan Potassium (Cozaar) 50 mg PO DAILY [facility] Last Admin: 12/17/18 08:47 Dose: 50 mg Meclizine HCl (Antivert) 25 mg PO Q8 [facility] Last Admin: 12/17/18 08:46 Dose: 25 mg Montelukast Sodium (Singulair) 10 mg PO [facility] Last Admin: 12/16/18 21:24 Dose: 10 mg Ondansetron HCl (Zofran Inj) 4 mg IVP Q6 PRN PRN Reason: Nausea/Vomiting Last Admin: 12/16/18 14:03 Dose: 4 mg Potassium Chloride (Klor-Con 10) 10 meq PO DAILY [facility] Last Admin: 12/17/18 08:47 Dose: 10 meq Theophylline (Uniphyl) 400 mg PO DAILY [facility] Last Admin: 12/17/18 08:46 Dose: 400 mg - Labs Labs: 12/17/18 05:25 12/17/18 05:25
[2018-12-17] MEDS ORDERED: Potassium Chloride 20 mEq ER Tab PO ONE (09:29)
--- NOTE | 2018-12-17 09:36 | CP.PCM.PN ---
Subjective - Date & Time of Evaluation Date of Evaluation: 12/17/18 Time of Evaluation: 09:34 - Subjective Subjective: no overnight events Objective - Vital Signs/Intake and Output Vital Signs (last 24 hours): Temp Pulse Resp BP Pulse Ox 97.5 F L 89 19 104/63 97 12/17/18 07:39 12/17/18 08:47 12/17/18 07:39 12/17/18 08:48 12/17/18 07:39 - Medications Medications: Current Medications Albuterol/Ipratropium (Duoneb 3 Mg/0.5 Mg (3 Ml) Ud) 3 ml IH RQ6 [facility] Last Admin: 12/17/18 07:54 Dose: 3 ml Alprazolam (Xanax) 0.5 mg PO TID [facility] Last Admin: 12/17/18 08:45 Dose: 0.5 mg Atorvastatin Calcium (Lipitor) 10 mg PO HS [facility] Last Admin: 12/16/18 21:24 Dose: 10 mg Clopidogrel Bisulfate (Plavix) 75 mg PO DAILY [facility] Last Admin: 12/17/18 08:47 Dose: 75 mg Famotidine (Pepcid) 20 mg PO BID [facility] Last Admin: 12/17/18 08:47 Dose: 20 mg Furosemide (Lasix) 40 mg PO DAILY [facility] Last Admin: 12/17/18 08:48 Dose: 40 mg Home Med (Linaclotide [Linzess]) 145 mcg PO DAILY [facility] Last Admin: 12/17/18 08:46 Dose: 145 mcg Home Med (Linagliptin [Tradjenta]) 5 mg PO DAILY [facility] Last Admin: 12/17/18 08:46 Dose: 5 mg Piperacillin Sod/Tazobactam (Sod 3.375 gm/ Sodium Chloride) 100 mls @ 100 mls/hr IVPB Q6 [facility]; Protocol Last Admin: 12/17/18 03:15 Dose: 100 mls/hr Insulin Detemir (Levemir) 35 units SC HS [facility] Last Admin: 12/16/18 21:25 Dose: 35 units Insulin Human Lispro (Humalog) 35 units SC TID [facility] Last Admin: 12/17/18 08:49 Dose: 35 units Ketorolac Tromethamine (Toradol) 15 mg IVP Q6 PRN PRN Reason: pain 6-10 Last Admin: 12/17/18 04:33 Dose: 15 mg Losartan Potassium (Cozaar) 50 mg PO DAILY [facility] Last Admin: 12/17/18 08:47 Dose: 50 mg Meclizine HCl (Antivert) 25 mg PO Q8 [facility] Last Admin: 12/17/18 08:46 Dose: 25 mg Montelukast Sodium (Singulair) 10 mg PO HS [facility] Last Admin: 12/16/18 21:24 Dose: 10 mg Ondansetron HCl (Zofran Inj) 4 mg IVP Q6 PRN PRN Reason: Nausea/Vomiting Last Admin: 12/16/18 14:03 Dose: 4 mg Potassium Chloride (Klor-Con 10) 10 meq PO DAILY [facility] Last Admin: 12/17/18 08:47 Dose: 10 meq Theophylline (Uniphyl) 400 mg PO DAILY [facility] Last Admin: 12/17/18 08:46 Dose: 400 mg - Labs Labs: 12/17/18 05:25 12/17/18 05:25 - Head Exam Head Exam: NORMOCEPHALIC - Neck Exam Neck Exam: Normal Inspection - Respiratory Exam Respiratory Exam: Clear to Ausculation Bilateral, NORMAL BREATHING PATTERN - Cardiovascular Exam Cardiovascular Exam: REGULAR RHYTHM - GI/Abdominal Exam GI & Abdominal Exam: Soft, Normal Bowel Sounds Assessment and Plan - Assessment and Plan (Free Text) Assessment: 73 yo female with diverticulitis doing well dc planning colonoscopy in 6-8 weeks
--- NOTE | 2018-12-17 17:39 | PQF ---
PROVIDER RESPONSE TEXT: Severe morbid obesity bmi 47.6 Cont outside diet/exercise REVIEWER QUERY TEXT: Documentation Clarification Physician?s Documentation Request This Form is Not a Permanent Document in the Medical Record Pt Name: ANA PERDUE MR #: [id number] Payor: MEDICARE PART A [id number] Adm Date: 12/15/2018 7:23:00 PM Reviewer: Sabrina Campos Ext. Query Date: 12/17/2018 10:30:52 AM Documentation Clarification [id number] By submitting this query, we are merely seeking further clarification of documentation to accurately reflect all conditions that you are monitoring, evaluating, treating or that extend the hospitalizati on or utilize additional resources of care. Please utilize your independent clinical judgment when ad dressing the question(s) below. Dear Doctor Neymar Khan, The patient?s Clinical Indicators include: x Your help is requested in clarifying the following clinical documentation, if you can please further specify in the medical record and discharge summary. Please clarify if there is an associated diagnosis or not to go along with the BMI results . If yes p lease also document the BMI. 5' 2", weight 260 pounds , BMI 47.6 Surgical progress note 12/17/18: Gen: Morbidly obese Diet: NPO-> Liquids -> Consistent Carbohydrate Diet PLEASE DOCUMENT ANY ADDITIONAL DIAGNOSES AND/OR SPECIFICITY IN THE PROGRESS NOTES AND/OR DISCHARGE FAN MMARY. Clinically unable to determine/unknown Disagree with the above request Need to discuss Query created by: Sabrina Campos on 12/17/2018 10:30 AM Electronically signed by: Neymar Khan APN 12/17/2018 5:36 PM
--- NOTE | 2018-12-17 17:39 | PQF ---
PROVIDER RESPONSE TEXT: Chf chronic. No s/s acute REVIEWER QUERY TEXT: CHF Acuity and Type Physician?s Documentation Request This Form is Not a Permanent Document in the Medical Record Pt Name: ANA PERDUE MR #: [id number] Payor: MEDICARE PART [id number] Adm Date: 12/15/2018 7:23:00 PM Reviewer: Sabrina Campos Ext. Query Date: 12/17/2018 2:29:48 PM CHF Acuity and Type 360eMD By submitting this query, we are merely seeking further clarification of documentation to accurately reflect all conditions that you are monitoring, evaluating, treating or that extend the hospitalizati on or utilize additional resources of care. Please utilize your independent clinical judgment when ad dressing the question(s) below. Dear Doctor Neymar Khan, The patient?s Clinical Indicators include: - Admitted for Diverticulitis. Congestive Heart Failure is documented in the Medical Record as a PMH diagnosis. Please document the type and acuity (includes probable or suspected) Such as: Type: -- Systolic -- Diastolic -- Combined -- Other, please specify Acuity: -- Acute -- Chronic -- Acute on chronic -- Other, please specify OLD ECHO 2017: EF 65-70%, Diastolic dysfunction, Hypertensive heart disease, mild TR, SC, pulmonary HTN Rx: Lasix PO, Cozaar PLEASE DOCUMENT ANY ADDITIONAL DIAGNOSES AND/OR SPECIFICITY IN THE PROGRESS NOTES AND/OR DISCHARGE FAN MMARY. Clinically unable to determine/unknown Disagree with the above request Need to discuss Query created by: Sabrina Campos on 12/17/2018 2:29 PM Electronically signed by: Neymar Khan APN 12/17/2018 5:36 PM
[2018-12-17] MEDS: Insulin Detemir 100 Units/ml Inj SC SCH (21:36)
[2018-12-18] MEDS: Albuterol-Ipratrop 3 mg / 0.5 (3 ml) UD IH SCH ×4 (01:01→18:59)
[2018-12-18] MEDS: Piperacillin/Tazobact 3.375 GM in Sodium Chloride 0.9% 100 ML IVPB SCH ×3 (04:23→16:25)
--- NOTE | 2018-12-18 08:01 | CP.PCM.PN ---
<MansoorKayla - Last Filed: 12/18/18 07:59> Subjective - Date & Time of Evaluation Date of Evaluation: 12/18/18 Time of Evaluation: 07:59 - Subjective Subjective: General surgery - Dr. Ferrell Pt S&EKatty BAUM. Pt states she still has abdominal pain and back pain, slightly better today. She tolerated solid foods yesterday and liquids. She states she is having several large watery bowel movements. She denies any fevers/ chills/nausea/vomiting/sob/chest pain. Objective - Vital Signs/Intake and Output Vital Signs (last 24 hours): Temp Pulse Resp BP Pulse Ox 97.8 F 104 H 19 134/75 97 12/18/18 00:23 12/18/18 00:23 12/18/18 00:23 12/18/18 00:23 12/18/18 07:22 - Medications Medications: Current Medications Albuterol/Ipratropium (Duoneb 3 Mg/0.5 Mg (3 Ml) Ud) 3 ml IH RQ6 [facility] Last Admin: 12/18/18 07:15 Dose: 3 ml Alprazolam (Xanax) 0.5 mg PO TID [facility] Last Admin: 12/17/18 16:40 Dose: 0.5 mg Atorvastatin Calcium (Lipitor) 10 mg PO HS [facility] Last Admin: 12/17/18 21:30 Dose: 10 mg Clopidogrel Bisulfate (Plavix) 75 mg PO DAILY [facility] Last Admin: 12/17/18 08:47 Dose: 75 mg Famotidine (Pepcid) 20 mg PO BID [facility] Last Admin: 12/17/18 16:38 Dose: 20 mg Furosemide (Lasix) 40 mg PO DAILY [facility] Last Admin: 12/17/18 08:48 Dose: 40 mg Home Med (Linaclotide [Linzess]) 145 mcg PO DAILY [facility] Last Admin: 12/17/18 08:46 Dose: 145 mcg Home Med (Linagliptin [Tradjenta]) 5 mg PO DAILY [facility] Last Admin: 12/17/18 08:46 Dose: 5 mg Piperacillin Sod/Tazobactam (Sod 3.375 gm/ Sodium Chloride) 100 mls @ 100 mls/hr IVPB Q6 [facility]; Protocol Last Admin: 12/18/18 04:23 Dose: 100 mls/hr Insulin Detemir (Levemir) 35 units SC HS [facility] Last Admin: 12/17/18 21:36 Dose: 35 units Insulin Human Lispro (Humalog) 35 units SC TID [facility] Last Admin: 12/17/18 16:38 Dose: 35 units Ketorolac Tromethamine (Toradol) 15 mg IVP Q6 PRN PRN Reason: pain 6-10 Last Admin: 12/18/18 02:58 Dose: 15 mg Losartan Potassium (Cozaar) 50 mg PO DAILY [facility] Last Admin: 12/17/18 08:47 Dose: 50 mg Meclizine HCl (Antivert) 25 mg PO Q8 [facility] Last Admin: 12/18/18 01:26 Dose: 25 mg Montelukast Sodium (Singulair) 10 mg PO HS [facility] Last Admin: 12/17/18 21:30 Dose: 10 mg Ondansetron HCl (Zofran Inj) 4 mg IVP Q6 PRN PRN Reason: Nausea/Vomiting Last Admin: 12/16/18 14:03 Dose: 4 mg Potassium Chloride (Klor-Con 10) 10 meq PO DAILY [facility] Last Admin: 12/17/18 08:47 Dose: 10 meq Theophylline (Uniphyl) 400 mg PO DAILY [facility] Last Admin: 12/17/18 08:46 Dose: 400 mg - Labs Labs: 12/17/18 05:25 12/17/18 05:25 - Constitutional Appears: No Acute Distress - Head Exam Head Exam: ATRAUMATIC, NORMAL INSPECTION, NORMOCEPHALIC - Eye Exam Eye Exam: Normal appearance - Respiratory Exam Respiratory Exam: NORMAL BREATHING PATTERN. absent: Respiratory Distress - Cardiovascular Exam Cardiovascular Exam: REGULAR RHYTHM - GI/Abdominal Exam GI & Abdominal Exam: Soft, Tenderness (right mid abdomen). absent: Distended, Firm, Guarding, Rigid, Rebound - Neurological Exam Neurological Exam: Alert, Oriented x3 - Psychiatric Exam Psychiatric exam: Normal Affect, Normal Mood - Skin Skin Exam: Dry, Intact, Normal Color Assessment and Plan - Assessment and Plan (Free Text) Assessment: 73 yo F w/ acute diverticulitis, uncomplicated -Continue diet -Continue Abx -F/U Cdiff -Encourage OOB -No surgical intervention at this time DW Dr. Mariaelena Max PGY4 <Miguelito Ferrell - Last Filed: 12/18/18 16:11> Subjective - Date & Time of Evaluation Time of Evaluation: 15:25 - Subjective Subjective: Patient was seen and examined at the bedside. Agree with resident's note above. Objective - Vital Signs/Intake and Output Vital Signs (last 24 hours): Temp Pulse Resp BP Pulse Ox 97.6 F 88 20 119/58 L 96 12/18/18 09:00 12/18/18 09:04 12/18/18 09:00 12/18/18 09:04 12/18/18 09:00 - Medications Medications: Current Medications Albuterol/Ipratropium (Duoneb 3 Mg/0.5 Mg (3 Ml) Ud) 3 ml IH RQ6 [facility] Last Admin: 12/18/18 13:08 Dose: 3 ml Alprazolam (Xanax) 0.5 mg PO TID [facility] Last Admin: 12/18/18 13:27 Dose: 0.5 mg Atorvastatin Calcium (Lipitor) 10 mg PO HS [facility] Last Admin: 12/17/18 21:30 Dose: 10 mg Clopidogrel Bisulfate (Plavix) 75 mg PO DAILY [facility] Last Admin: 12/18/18 09:03 Dose: 75 mg Famotidine (Pepcid) 20 mg PO BID [facility] Last Admin: 12/18/18 09:03 Dose: 20 mg Furosemide (Lasix) 40 mg PO DAILY [facility] Last Admin: 12/18/18 09:04 Dose: 40 mg Home Med (Linaclotide [Linzess]) 145 mcg PO DAILY [facility] Last Admin: 12/18/18 09:03 Dose: 145 mcg Home Med (Linagliptin [Tradjenta]) 5 mg PO DAILY [facility] Last Admin: 12/18/18 09:03 Dose: 5 mg Piperacillin Sod/Tazobactam (Sod 3.375 gm/ Sodium Chloride) 100 mls @ 100 mls/hr IVPB Q6 [facility]; Protocol Last Admin: 12/18/18 09:00 Dose: 100 mls/hr Insulin Detemir (Levemir) 35 units SC HS [facility] Last Admin: 12/17/18 21:36 Dose: 35 units Insulin Human Lispro (Humalog) 35 units SC TID [facility] Last Admin: 12/18/18 13:28 Dose: Not Given Ketorolac Tromethamine (Toradol) 15 mg IVP Q6 PRN PRN Reason: pain 6-10 Last Admin: 12/18/18 09:05 Dose: 15 mg Losartan Potassium (Cozaar) 50 mg PO DAILY [facility] Last Admin: 12/18/18 09:04 Dose: 50 mg Meclizine HCl (Antivert) 25 mg PO Q8 [facility] Last Admin: 12/18/18 09:01 Dose: 25 mg Montelukast Sodium (Singulair) 10 mg PO HS [facility] Last Admin: 12/17/18 21:30 Dose: 10 mg Ondansetron HCl (Zofran Inj) 4 mg IVP Q6 PRN PRN Reason: Nausea/Vomiting Last Admin: 12/16/18 14:03 Dose: 4 mg Potassium Chloride (Klor-Con 10) 10 meq PO DAILY [facility] Last Admin: 12/18/18 09:02 Dose: 10 meq Theophylline (Uniphyl) 400 mg PO DAILY [facility] Last Admin: 12/18/18 09:03 Dose: 400 mg - Labs Labs: 12/17/18 05:25 12/17/18 05:25 - GI/Abdominal Exam Additional comments: soft, very mildly tender, ND, BS+, no rebound, no guarding, obese Assessment and Plan - Assessment and Plan (Free Text) Plan: - Continue diet - Continue antibiotics - Follow up C.diff - Repeat labs in am - Will follow
[2018-12-18 08:16] VITALS: RESP 20; TEMP 97.6; O2SAT 96
[2018-12-18] MEDS: Insulin Lispro (humaLOG) 100 Units/ml Inj SC SCH ×3 (09:01→18:30)
[2018-12-18] MEDS: Potassium Chloride 10 mEq ER Tab PO SCH (09:02)
[2018-12-18] MEDS: THEOPHYLLINE 400 MG T24(UNIPHYL) PO SCH (09:03)
[2018-12-18] MEDS: Patient's Own Med (Linagliptin [Tradjenta] 5 MG) PO SCH (09:03)
--- NOTE | 2018-12-18 14:18 | CP.PCM.PN ---
Subjective - Date & Time of Evaluation Date of Evaluation: 12/18/18 Time of Evaluation: 14:18 - Subjective Subjective: no overnight events Objective - Vital Signs/Intake and Output Vital Signs (last 24 hours): Temp Pulse Resp BP Pulse Ox 97.6 F 88 20 119/58 L 96 12/18/18 09:00 12/18/18 09:04 12/18/18 09:00 12/18/18 09:04 12/18/18 09:00 - Medications Medications: Current Medications Albuterol/Ipratropium (Duoneb 3 Mg/0.5 Mg (3 Ml) Ud) 3 ml IH RQ6 [facility] Last Admin: 12/18/18 13:08 Dose: 3 ml Alprazolam (Xanax) 0.5 mg PO TID [facility] Last Admin: 12/18/18 13:27 Dose: 0.5 mg Atorvastatin Calcium (Lipitor) 10 mg PO HS [facility] Last Admin: 12/17/18 21:30 Dose: 10 mg Clopidogrel Bisulfate (Plavix) 75 mg PO DAILY [facility] Last Admin: 12/18/18 09:03 Dose: 75 mg Famotidine (Pepcid) 20 mg PO BID [facility] Last Admin: 12/18/18 09:03 Dose: 20 mg Furosemide (Lasix) 40 mg PO DAILY [facility] Last Admin: 12/18/18 09:04 Dose: 40 mg Home Med (Linaclotide [Linzess]) 145 mcg PO DAILY [facility] Last Admin: 12/18/18 09:03 Dose: 145 mcg Home Med (Linagliptin [Tradjenta]) 5 mg PO DAILY [facility] Last Admin: 12/18/18 09:03 Dose: 5 mg Piperacillin Sod/Tazobactam (Sod 3.375 gm/ Sodium Chloride) 100 mls @ 100 mls/hr IVPB Q6 [facility]; Protocol Last Admin: 12/18/18 09:00 Dose: 100 mls/hr Insulin Detemir (Levemir) 35 units SC HS [facility] Last Admin: 12/17/18 21:36 Dose: 35 units Insulin Human Lispro (Humalog) 35 units SC TID [facility] Last Admin: 12/18/18 13:28 Dose: Not Given Ketorolac Tromethamine (Toradol) 15 mg IVP Q6 PRN PRN Reason: pain 6-10 Last Admin: 12/18/18 09:05 Dose: 15 mg Losartan Potassium (Cozaar) 50 mg PO DAILY [facility] Last Admin: 12/18/18 09:04 Dose: 50 mg Meclizine HCl (Antivert) 25 mg PO Q8 [facility] Last Admin: 12/18/18 09:01 Dose: 25 mg Montelukast Sodium (Singulair) 10 mg PO HS [facility] Last Admin: 12/17/18 21:30 Dose: 10 mg Ondansetron HCl (Zofran Inj) 4 mg IVP Q6 PRN PRN Reason: Nausea/Vomiting Last Admin: 12/16/18 14:03 Dose: 4 mg Potassium Chloride (Klor-Con 10) 10 meq PO DAILY [facility] Last Admin: 12/18/18 09:02 Dose: 10 meq Theophylline (Uniphyl) 400 mg PO DAILY [facility] Last Admin: 12/18/18 09:03 Dose: 400 mg - Labs Labs: 12/17/18 05:25 12/17/18 05:25 - Neck Exam Neck Exam: Normal Inspection - Respiratory Exam Respiratory Exam: Clear to Ausculation Bilateral, NORMAL BREATHING PATTERN - Cardiovascular Exam Cardiovascular Exam: REGULAR RHYTHM - GI/Abdominal Exam GI & Abdominal Exam: Soft, Normal Bowel Sounds Assessment and Plan - Assessment and Plan (Free Text) Assessment: 73 yo female with diverticulitis doing well dc planning
[2018-12-18 17:03] VITALS: BP 102/54; PULSE 90
--- NOTE | 2018-12-18 17:33 | CP.PCM.DIS ---
Provider - Provider Date of Admission: 12/15/18 19:23 Attending physician: Luca Hurst MD Consults: 12/15/18 18:29 Surgery [General Surgery Consult] Stat Comment: Consulting Provider: Kavon Winchester Consulting Physician: Kavon Winchester Reason for Consult: diverticulitis 12/15/18 20:43 Gastroenterology Consult Stat Comment: Consulting Provider: Shane Funez Consulting Physician: Shane Funez Reason for Consult: diverticulitis Time Spent in preparation of Discharge (in minutes): 15 Hospital Course - Lab Results Lab Results: Micro Results 12/15/18 20:50 Blood Blood Culture - Preliminary NO GROWTH AFTER 48 HOURS 12/15/18 20:28 Blood Blood Culture - Preliminary NO GROWTH AFTER 48 HOURS Most Recent Lab Values WBC 4.4 K/uL (4.8-10.8) L 12/17/18 05:25 RBC 3.93 Mil/uL (3.80-5.20) 12/17/18 05:25 Hgb 11.5 g/dL (12.0-16.0) L 12/17/18 05:25 Hct 37.1 % (34.0-47.0) 12/17/18 05:25 MCV 94.4 fl (81.0-99.0) 12/17/18 05:25 MCH 29.2 pg (27.0-31.0) 12/17/18 05:25 MCHC 30.9 g/dL (33.0-37.0) L 12/17/18 05:25 RDW 13.4 % (11.5-14.5) 12/17/18 05:25 Plt Count 193 K/uL (130-400) 12/17/18 05:25 MPV 7.5 fl (7.2-11.7) 12/17/18 05:25 Neut % (Auto) 55.4 % (50.0-75.0) 12/17/18 05:25 Lymph % (Auto) 24.3 % (20.0-40.0) 12/17/18 05:25 Gray % (Auto) 16.0 % (0.0-10.0) H 12/17/18 05:25 Eos % (Auto) 3.8 % (0.0-4.0) 12/17/18 05:25 Baso % (Auto) 0.5 % (0.0-2.0) 12/17/18 05:25 Neut # (Auto) 2.4 K/uL (1.8-7.0) 12/17/18 05:25 Lymph # (Auto) 1.1 K/uL (1.0-4.3) 12/17/18 05:25 Gray # (Auto) 0.7 K/uL (0.0-0.8) 12/17/18 05:25 Eos # (Auto) 0.2 K/uL (0.0-0.7) 12/17/18 05:25 Baso # (Auto) 0.0 K/uL (0.0-0.2) 12/17/18 05:25 Sodium 138 mmol/l (132-148) 12/17/18 05:25 Potassium 3.4 MMOL/L (3.6-5.0) L 12/17/18 05:25 Chloride 98 mmol/L (98-107) 12/17/18 05:25 Carbon Dioxide 35 mmol/L (22-30) H 12/17/18 05:25 Anion Gap 8 (10-20) L 12/17/18 05:25 BUN 7 mg/dl (7-17) 12/17/18 05:25 Creatinine 0.4 mg/dl (0.7-1.2) L 12/17/18 05:25 Est GFR ( Amer) > 60 12/17/18 05:25 Est GFR (Non-Af Amer) > 60 12/17/18 05:25 POC Glucose (mg/dL) 174 mg/dL (65-110) H 12/18/18 16:12 Random Glucose 159 mg/dL (65-105) H 12/17/18 05:25 Calcium 8.0 mg/dL (8.4-10.2) L 12/17/18 05:25 Phosphorus 3.0 mg/dl (2.5-4.5) 12/16/18 05:55 Magnesium 2.1 MG/DL (1.6-2.3) 12/16/18 05:55 Total Bilirubin 0.4 mg/dl (0.2-1.3) 12/17/18 05:25 AST 46 U/L (14-36) H 12/17/18 05:25 ALT 47 U/L (9-52) 12/17/18 05:25 Alkaline Phosphatase 123 U/L (38-126) 12/17/18 05:25 Total Protein 5.8 G/DL (6.3-8.2) L 12/17/18 05:25 Albumin 3.2 g/dL (3.5-5.0) L 12/17/18 05:25 Globulin 2.6 gm/dL (2.2-3.9) 12/17/18 05:25 Albumin/Globulin Ratio 1.2 (1.0-2.1) 12/17/18 05:25 Lipase 38 U/L (23-300) 12/15/18 14:20 - Hospital Course Hospital Course: pt tx for diverticulitis. doing well, now po toleranct, cleared by gi. Discharge Exam - Head Exam Head Exam: ATRAUMATIC, NORMAL INSPECTION, NORMOCEPHALIC Discharge Plan - Discharge Medications Prescriptions: Amoxicillin/Clavulanate [Augmentin 875 MG-125 MG] 1 tab PO BID #10 tab - Follow Up Plan Condition: FAIR Disposition: HOME/ ROUTINE Instructions: Diverticulitis (DC) Additional Instructions: final; dx=diverticulitis doing well, sunil po has 24/ care, lives w/ famly case d/c w/ pts primary dr caraballo
--- NOTE | 2018-12-18 22:47 | CON ---
DATE: 12/16/2018 REFERRING DOCTOR: Dr. Khan. REASON FOR CONSULTATION: Abdominal pain. HISTORY OF PRESENT ILLNESS: This is a very pleasant 73-year-old female with a history of multiple medical problems, comes in pain and discomfort over the past couple of days with nausea, vomiting, and fevers. The patient states that the pain is better, tolerating liquid diet, and is in minimal abdominal distress. PAST MEDICAL HISTORY: As above. SURGICAL HISTORY: As above. MEDICATIONS: Have been reviewed. REVIEW OF SYSTEMS: All other systems have been reviewed and negative apart from the HPI. PHYSICAL EXAMINATION: VITAL SIGNS: Here in the hospital are grossly unremarkable. GENERAL: Pleasant, elderly-appearing female, lying in bed comfortably, in no apparent distress. HEENT: Head: Normocephalic, atraumatic. Eyes: Pupils are equally reactive to light bilaterally. No conjunctival pallor or icterus. NECK: Supple. Normal range of motion. No lymphadenopathy appreciated. LUNGS: Coarse breath sounds bilaterally. HEART: S1 and S2, regular rate and rhythm. No murmurs appreciated. ABDOMEN: Soft, nontender. Bowel sounds present. No rebound. No guarding. RECTAL: Deferred. EXTREMITIES: Pulses felt bilaterally. SKIN: Warm, dry, and intact. NEUROLOGIC: A and O x3. LABORATORY DATA: All labs and radiology have been reviewed. Labs include WBC of 5.7 with hemoglobin 11.8. LFTs are grossly unremarkable. CAT scan shows diverticulosis, mild acute diverticulitis. ASSESSMENT AND PLAN: This is a 73-year-old female with diverticulitis . antibiotics for 14 days . Colonoscopy as an outpatient. Thank you for this consult. Shane Funez MD/ PhD cc: Dr. Khan
--- NOTE | 2018-12-18 23:10 | PN ---
SUBJECTIVE: The patient is doing better in bed. No distress or complaints at this time. No fever, chills, nausea, vomiting, or diarrhea. Labs are noted. The patient is tolerating liquids. REVIEW OF SYSTEMS: Some mild abdominal discomfort reported, nontender on exam, however. PHYSICAL EXAMINATION: CONSTITUTIONAL: Awake, alert, and oriented, Georgian speaking. HEENT: Normal. HEART: Regular rate and rhythm. No murmurs, rubs, or gallops. LUNGS: Clear in all chapin bilaterally. ABDOMEN: Soft and nontender. Bowel sounds x4. EXTREMITIES: Distal pulses and motor sensation intact. Capillary refill is brisk. DIAGNOSES AND PLAN: Diverticulitis. Continue antibiotics. The patient has not been requiring any pain control, tolerating liquid diet, will advance to bland. Gastroenterology has cleared this patient to advance diet and discharge when feels tolerant. Deep venous thrombosis prophylaxis with A-hose. The patient will likely be discharged later today or first thing tomorrow morning for outpatient followup, has 24 x 7 home health aide care, and lives with family. FRANCES Cole MTDCorey
--- NOTE | 2018-12-22 09:58 | PQF ---
PROVIDER RESPONSE TEXT: chronic REVIEWER QUERY TEXT: CHF Acuity and Type Physician?s Documentation Request This Form is Not a Permanent Document in the Medical Record Pt Name: ANA PERDUE MR #: [id number] Payor: MEDICARE PART A Unit/Bed: [id number] Adm Date: 12/15/2018 7:23:00 PM Reviewer: Yumi Siegel Ext. Query Date: 12/20/2018 9:03:00 AM CHF Acuity and Type 360eMD By submitting this query, we are merely seeking further clarification of documentation to accurately reflect all conditions that you are monitoring, evaluating, treating or that extend the hospitalizati on or utilize additional resources of care. Please utilize your independent clinical judgment when ad dressing the question(s) below. Dear Doctor Neymar Khan, The patient?s Clinical Indicators include: XXX PLEASE CONFIRM THE TYPE CHF? Congestive Heart Failure is documented in the Medical Record. Please document the type and acuity (in cludes probable or suspected) Such as: Type: -- Systolic -- Diastolic -- Combined -- Other, please specify Acuity: -- Acute -- Chronic -- Acute on chronic -- Other, please specify Also please document the underlying cause of the CHF (includes probable or suspected) PLEASE DOCUMENT ANY ADDITIONAL DIAGNOSES AND/OR SPECIFICITY IN THE PROGRESS NOTES AND/OR DISCHARGE FAN MMARY. Clinically unable to determine/unknown Disagree with the above request Need to discuss Query created by: Yumi Siegel on 12/20/2018 9:03 AM Electronically signed by: Neymar Khan APN 12/22/2018 9:54 AM
== END 2018-12-18 21:15 | disposition home or self-care (01) | DRG 392 ==
LOC: H.ER 13:08 → H.ERHOLD 19:23 → H.MEDSURG1 22:07
PROVIDERS: ADMIT Family Medicine; ATTEND Family Medicine
DX: K57.92 Diverticulitis of intestine, part unspecified, without perforation or abscess without bleeding (principal); Z68.42 Body mass index [BMI] 45.0-49.9, adult; I13.0 Hypertensive heart and chronic kidney disease with heart failure and stage 1 through stage 4 chronic kidney disease, or unspecified chronic kidney disease; R18.8 Other ascites; E11.22 Type 2 diabetes mellitus with diabetic chronic kidney disease; E66.01 Morbid (severe) obesity due to excess calories; Z71.3 Dietary counseling and surveillance; E78.00 Pure hypercholesterolemia, unspecified; E78.5 Hyperlipidemia, unspecified; F03.90 Unspecified dementia, unspecified severity, without behavioral disturbance, psychotic disturbance, mood disturbance, and anxiety; I50.9 Heart failure, unspecified; J43.9 Emphysema, unspecified; K76.0 Fatty (change of) liver, not elsewhere classified; N18.9 Chronic kidney disease, unspecified; Z79.02 Long term (current) use of antithrombotics/antiplatelets; Z79.4 Long term (current) use of insulin; Z87.891 Personal history of nicotine dependence; Z90.49 Acquired absence of other specified parts of digestive tract; D64.9 Anemia, unspecified; F32.9 Major depressive disorder, single episode, unspecified; F41.9 Anxiety disorder, unspecified; H26.9 Unspecified cataract; M19.90 Unspecified osteoarthritis, unspecified site; R32 Unspecified urinary incontinence; Z79.899 Other long term (current) drug therapy; M54.9 Dorsalgia, unspecified; R16.0 Hepatomegaly, not elsewhere classified